=== PATIENT | male | born 1950 | race African-American/Black ===

== ENCOUNTER 2020-01-29 12:31 | Inpatient (IN) | payer MEDICARE, MEDICAID ==
[~2020-01-29] VITALS: Ht 177.8 cm; Wt 65.0 kg
[2020-01-29] VITALS (10 sets, daily range): BP systolic 89–130; BP diastolic 47–78
[2020-01-29] MEDS ORDERED: LIDOCAINE 1% PF 2 ML VIAL. INJ ONE (12:45)
[2020-01-29] MEDS ORDERED: LIDOCAINE 1% PF 5 ML VIAL. ONE (12:51)
[2020-01-29] MEDS ORDERED: LIDOCAINE 1% PF 2 ML VIAL. ONE (12:51)
--- NOTE | 2020-01-29 13:05 | RAD ---
CHEST AP ONLY Clinical indications: Shortness of breath. COMPARISON: None available. Findings: Bilateral interstitial lung infiltrates or bronchitis or interstitial pulmonary edema is seen. Minimal pleural effusion is seen on the right side. No pneumothorax is seen. Cardiomegaly is evident with a sternotomy. Tracheostomy tube is in place and the tube tip is located 4.5 cm above the level of the shellie. Mediastinum and pulmonary vasculature are unremarkable otherwise. IMPRESSION: Bilateral interstitial lung infiltrates or bronchitis or interstitial pulmonary edema. Minimal pleural effusion on the right side. Cardiomegaly. Electronically signed by: Uri Hatfield MD (01/29/2020 1:01 PM) [id number]
[2020-01-29 13:45] LABS: BASO # 0.1 x10^3/uL (0.0-0.2); BASO % 1 % (0-3); EOS # 0.2 x10^3/uL (0.0-0.7); EOS % 2 % (0-3); HEMATOCRIT 24.3 % (39.0-53.0); HEMOGLOBIN 7.3 g/dL (13.0-17.5); LYMPH # 0.9 x10^3/uL (1.0-4.8); LYMPH % 10 % (24-48); MEAN CORPUSCULAR HEMOGLOBIN 26 pg (25-35); MEAN CORPUSCULAR HGB CONC 30 g/dL (31-37); MEAN CORPUSCULAR VOLUME 87 fL (79-100); MONO # 1.2 x10^3/uL (0.0-1.1); MONO % 13 % (0-9); NEUT # 6.7 x10^3/uL (1.8-7.7); NEUT % 74 % (31-73); PLATELET COUNT 341 x10^3/uL (140-400); RED BLOOD COUNT 2.78 x10^6/uL (4.30-5.70); RED CELL DISTRIBUTION WIDTH 22.2 % (11.5-14.5); WHITE BLOOD COUNT 9.1 x10^3/uL (4.0-11.0)
[2020-01-29 13:58] LABS: CALCIUM 9.5 mg/dL (8.5-10.1); POTASSIUM 5.8 mmol/L (3.5-5.1)
--- NOTE | 2020-01-29 13:58 | PDOC2 ---
CONSULT Date of Service Date of Service DATE: 01/29/20 TIME: 13:46 Reason for Consult Reason for Consult: actively bleeding right arm AVF Referring Physician Referring Physician: dr Lazaro -- ER Identification/Chief Complaint Chief Complaint bleeding from right arm AV Fistula Source Source: Caregiver, Chart review, Patient History of Present Illness Reason for Visit: Eldery male with ESRD on HD via right upper arm AV access who apparently had HD on Friday without issues. He has apparently had signfiicant ulceration over an area of the fistula for several weeks and today this started actively bleeding. It has been controlled by direct pressure in the ED. I was asked to see him -- on taking the dressing down there is significant bleeding I was unable to control with direct pressure /manually so the arm was re-wrapped with a pressure dressing and the plan was to take him urgently to the OR for exploration / revision vs ligation to stop the bleeding. He is a Jewish and will not accept blood transfusion. Per report by the ER his Hg was 5.5 he has a permanent tracheostomy. He tells me he has had high pressures in the fistula but he is not sure how long or if it is consistent. Past Surgical History Past Surgical History tracheostomy, AVG, coronary bypass Family History Family History Pt unable to remember Current Medications Current Medications Current Medications Lidocaine HCl (Xylocaine-Mpf 1% 2ml Vial) 20 ml 1X ONCE INJ ; Start 01/29/20 at 12:45; Stop 01/29/20 at 12:51; Status DC Lidocaine HCl (Xylocaine-Mpf 1% 2ml Vial) 2 ml STK-MED ONCE .ROUTE ; Start 01/29/20 at 12:51; Stop 01/29/20 at 12:51; Status DC Lidocaine HCl (Xylocaine-Mpf 1% 5ml Vial) 5 ml STK-MED ONCE .ROUTE ; Start 01/29/20 at 12:51; Stop 01/29/20 at 12:51; Status DC Allergies Allergies: Coded Allergies: Penicillins (Verified Allergy, Unknown, 01/29/20) ROS Review of System Pt denies any other acute issues -- he is somewhat shaken by the emergency nature of the situation and states he can not remember Physical Exam General: Alert, Oriented X3, Cooperative, moderate distress HEENT: Atraumatic, PERRLA Lungs: Other (coarse BS with some labored breathing -- permanent tracheostomy ) Heart: Regular rate, No murmurs, Other (well healed median sternotomy scar ) Abdomen: Normal bowel sounds Extremities: No clubbing Skin: No rashes Neuro: Normal speech Psych/Mental Status: Mental status NL MUSCULOSKELETAL: No joint tenderness, Other (right arm with bleeding AVF vs graft ) Vitals VITALS Vital Signs Date Time Temp Pulse Resp B/P (MAP) Pulse Ox O2 Delivery O2 Flow Rate FiO2 01/29/20 12:32 72 16 139/75 (96) 100 Room Air 2.0 Assessment/Plan Assessment/Plan acutely bleeding AVF vs graft in a Jehova's Witness who will not take blood transfusion and has Hg reported to me as 5.5. Will plan to take him emergently to the OR for exploration and likely ligation given the low Hg, urgent nature and the inability to give blood products. He understands the bleeding is life threatening and surgery may involve loss of his HD access but will be life saving. He wishes to proceed. consent signed right arm marked. Will need to be admitted by hosptialists after, will need IR for tunnel HD catheter EDDIE,JAMESON Heller MD Jan 29, 2020 13:58
[2020-01-29 14:03] LABS: ALBUMIN 2.1 g/dL (3.4-5.0); ALBUMIN/GLOBULIN RATIO 0.3 (1.0-1.7); TOTAL BILIRUBIN 0.4 mg/dL (0.2-1.0); TOTAL PROTEIN 8.3 g/dL (6.4-8.2)
[2020-01-29] MEDS ORDERED: PAPAVERINE 60 MG/2 ML VIAL. ONE (14:19)
[2020-01-29] MEDS ORDERED: SURGICEL FIBRILLAR 1X2 EACH. ONE (14:19)
[2020-01-29] MEDS ORDERED: LIDOCAINE 1% PF 30 ML VIAL. ONE (14:19)
[2020-01-29 14:25] LABS: PROTHROMBIN TIME PATIENT 23.4 SEC (11.7-14.0)
[2020-01-29] MEDS ORDERED: GLYCOPYRROLATE 1 MG/5 ML VIAL. ONE (14:25)
[2020-01-29] MEDS ORDERED: fentaNYL PF VIAL 100 MCG/2 ML VIAL ONE (14:26)
[2020-01-29] MEDS ORDERED: ROCURONIUM 50 MG/5 ML VIAL. ONE (14:26)
[2020-01-29] MEDS ORDERED: MIDAZOLAM HCL/PF 2 MG/2 ML VIAL. ONE (14:27)
[2020-01-29] MEDS ORDERED: ONDANSETRON PF 4 MG/2 ML VIAL. IV PRN ×2 (14:45→16:15)
--- NOTE | 2020-01-29 14:45 | PHYS DOC ---
Past Medical History Past Medical History: A-Fib, CHF, COPD, Diabetes-Type II, High Cholesterol, Hypertension, ME, Renal Failure Additional Past Medical Histor: EF 10%, JEHOVAH WITNESS, SEPSIS, TRACH PLACEMENT, 3 LI O2 AT HOME Past Surgical History: Other Additional Past Surgical Histo: DIALYSIS CATHETER, TRACH PLACEMENT, MITRAL VALVE REPLACEMENT Smoking Status: Former Smoker Alcohol Use: Sober General Adult EDM: Chief Complaint: DIALYSIS PROBLEM HPI: HPI: The history was obtained from the patient and select care physician. Patient is a 69-year-old male with PMH multiple comorbidities including ESRD who presents with a chief complaint of right upper extremity fistula bleed. Per the select care physician the patient developed ulcerative lesion that eroded into his right upper extremity fistula site over the past several days. She is noted brisk bleeding today. They did try direct pressure without relief. Patient does take Coumadin for atrial fibrillation. Furthermore he also appears to be trach dependent. No history can be obtained from the patient given his close trach status and history of dementia. Select care physician did note that the patient is a Muslim and will refuse any blood products. No further history can be obtained. Review of Systems: Review of Systems: Constitutional: Denies fever or chills. [] Eyes: Denies change in visual acuity. [] HENT: Denies nasal congestion or sore throat. [] Respiratory: Denies cough or shortness of breath. [] Cardiovascular: Bleeding fistula GI: Denies abdominal pain, nausea, vomiting, bloody stools or diarrhea. [] : Denies dysuria. [] Musculoskeletal: Denies back pain or joint pain. [] Integument: Denies rash. [] Neurologic: Denies headache, focal weakness or sensory changes. [] Endocrine: Denies polyuria or polydipsia. [] Lymphatic: Denies swollen glands. [] Psychiatric: Denies depression or anxiety. [] Heart Score: Risk Factors: Risk Factors: DM, Current or recent (<one month) smoker, HTN, HLP, family history of CAD, obesity. Risk Scores: Score 0 - 3: 2.5% MACE over next 6 weeks - Discharge Home Score 4 - 6: 20.3% MACE over next 6 weeks - Admit for Clinical Observation Score 7 - 10: 72.7% MACE over next 6 weeks - Early Invasive Strategies Current Medications: Current Medications Medications (Trade) Dose Ordered Sig/Cheri Start Time Stop Time Status Last Admin Dose Admin Cellulose (Surgicel Fibrillar 1x2) 1 each STK-MED ONCE 01/29/20 14:19 01/29/20 14:19 DC Fentanyl Citrate (Fentanyl 2ml Vial) 100 mcg STK-MED ONCE 01/29/20 14:26 01/29/20 14:27 DC Glycopyrrolate (Robinul) 1 mg STK-MED ONCE 01/29/20 14:25 01/29/20 14:25 DC Heparin Sodium (Porcine) 5000 unit/Sodium Chloride 505 ml @ 505 mls/hr 1X ONCE 01/29/20 15:00 01/29/20 15:59 Lidocaine HCl (Xylocaine 1% Pf 30ml Vial) 30 ml STK-MED ONCE 01/29/20 14:19 01/29/20 14:19 DC Lidocaine HCl (Xylocaine-Mpf 1% 2ml Vial) 2 ml STK-MED ONCE 01/29/20 12:51 01/29/20 12:51 DC Lidocaine HCl (Xylocaine-Mpf 1% 5ml Vial) 5 ml STK-MED ONCE 01/29/20 12:51 01/29/20 12:51 DC Midazolam HCl (Versed) 2 mg STK-MED ONCE 01/29/20 14:27 01/29/20 14:27 DC Ondansetron HCl (Zofran) 4 mg PRN Q8HRS PRN 01/29/20 14:45 01/30/20 14:44 Papaverine HCl 60 mg STK-MED ONCE 01/29/20 14:19 01/29/20 14:20 DC Rocuronium [place] (Zemuron) 50 mg STK-MED ONCE 01/29/20 14:26 01/29/20 14:26 DC Allergies: Allergies: Allergies Coded Allergies Type Severity Reaction Last Updated Verified Penicillins Allergy Intermediate 01/29/20 Yes Physical Exam: PE: Constitutional: Well developed, well nourished, no acute distress, non-toxic appearance. [] HENT: Normocephalic, atraumatic, bilateral external ears normal, oropharynx moist, no oral exudates, nose normal. [] Eyes: PERRLA, EOMI, conjunctiva normal, no discharge. [] Neck: Normal range of motion, no tenderness, supple, no stridor. [] Cardiovascular:Heart rate regular rhythm, no murmur [] Lungs & Thorax: rhonchorous breath sounds bilaterally. Closed trach in place Abdomen:no tenderness, no masses, no pulsatile masses. [] Skin: Warm, dry, no erythema, no rash. [] Back: No tenderness, no CVA tenderness. [] Extremities right upper extremity with brisk and pulsatile bleeding fistula site. Wound appears approximately 2 mm x 3 mm. Neurologic: Alert and oriented X 3, normal motor function, normal sensory function, no focal deficits noted. [] Psychologic: Affect normal, judgement normal, mood normal. [] Current Patient Data: Labs: Laboratory Tests Test 01/29/20 13:10 01/29/20 13:46 White Blood Count 9.1 x10^3/uL (4.0-11.0) Red Blood Count 2.78 x10^6/uL (4.30-5.70) L Hemoglobin 7.3 g/dL (13.0-17.5) L Hematocrit 24.3 % (39.0-53.0) L Mean Corpuscular Volume 87 fL (79-100) Mean Corpuscular Hemoglobin 26 pg (25-35) Mean Corpuscular Hemoglobin Concent 30 g/dL (31-37) L Red Cell Distribution Width 22.2 % (11.5-14.5) H Platelet Count 341 x10^3/uL (140-400) Neutrophils (%) (Auto) 74 % (31-73) H Lymphocytes (%) (Auto) 10 % (24-48) L Monocytes (%) (Auto) 13 % (0-9) H Eosinophils (%) (Auto) 2 % (0-3) Basophils (%) (Auto) 1 % (0-3) Neutrophils # (Auto) 6.7 x10^3/uL (1.8-7.7) Lymphocytes # (Auto) 0.9 x10^3/uL (1.0-4.8) L Monocytes # (Auto) 1.2 x10^3/uL (0.0-1.1) H Eosinophils # (Auto) 0.2 x10^3/uL (0.0-0.7) Basophils # (Auto) 0.1 x10^3/uL (0.0-0.2) Platelet Estimate Pending Sodium Level 143 mmol/L (136-145) Potassium Level 5.8 mmol/L (3.5-5.1) H Chloride Level 104 mmol/L (98-107) Carbon Dioxide Level 32 mmol/L (21-32) Anion Gap 7 (6-14) Blood Urea Nitrogen 33 mg/dL (8-26) H Creatinine 4.0 mg/dL (0.7-1.3) H Estimated GFR (Cockcroft-Gault) 18.0 BUN/Creatinine Ratio 8 (6-20) Glucose Level 147 mg/dL (70-99) H Calcium Level 9.5 mg/dL (8.5-10.1) Total Bilirubin 0.4 mg/dL (0.2-1.0) Aspartate Amino Transferase (AST) 29 U/L (15-37) Alanine Aminotransferase (ALT) 20 U/L (16-63) Alkaline Phosphatase 209 U/L (46-116) H Troponin I Quantitative 0.018 ng/mL (0.000-0.055) Total Protein 8.3 g/dL (6.4-8.2) H Albumin 2.1 g/dL (3.4-5.0) L Albumin/Globulin Ratio 0.3 (1.0-1.7) L Prothrombin Time 23.4 SEC (11.7-14.0) H Prothrombin Time INR 2.1 (0.8-1.1) H Laboratory Tests 01/29/20 13:10 Laboratory Tests 01/29/20 13:10 Vital Signs: Vital Signs Date Time Temp Pulse Resp B/P (MAP) Pulse Ox O2 Delivery O2 Flow Rate FiO2 01/29/20 12:32 72 16 139/75 (96) 100 Room Air 2.0 EKG: EKG: [] EKG consistent with normal sinus rhythm. Ventricular rate of 69 bpm. Left axis noted. Intervals normal. No acute ischemic changes noted. Radiology/Procedures: Radiology/Procedures: [facility] [address] [place], [place] [id number] IMAGING REPORT Signed PATIENT: ROBERTO PATEL ACCOUNT: [id number] : 1950 LOCATION: ER AGE: 69 SEX: M EXAM STATUS: PRE ER ORD. PHYSICIAN: DIOR MERLOS DO REASON: SOB PROCEDURE: CHEST AP ONLY CHEST AP ONLY Clinical indications: Shortness of breath. COMPARISON: None available. Findings: Bilateral interstitial lung infiltrates or bronchitis or interstitial pulmonary edema is seen. Minimal pleural effusion is seen on the right side. No pneumothorax is seen. Cardiomegaly is evident with a sternotomy. Tracheostomy tube is in place and the tube tip is located 4.5 cm above the level of the shellie. Mediastinum and pulmonary vasculature are unremarkable otherwise. IMPRESSION: Bilateral interstitial lung infiltrates or bronchitis or interstitial pulmonary edema. Minimal pleural effusion on the right side. Cardiomegaly. Electronically signed by: Brenda Hatfield MD (01/29/2020 1:01 PM) [id number] DICTATED and SIGNED BY: BRENDA HATFIELD MD DATE: 01/29/20 1301 [] Course & Med Decision Making: Course & Med Decision Making Pertinent Labs and Imaging studies reviewed. (See chart for details) [] Patient is a 69-year-old male who presents with chief complaint of right upper extremity fistula site bleed. Initial vital signs unremarkable. Exam noted above. Basic labs were obtained. Hemoglobin 7.3. Chemistry panel does show hyperkalemia rest of labs consistent with ESRD. INR 2.1. Rapid SARS-CoV-2 asked was obtained for operative purposes and was negative. Vascular surgeon . Was consulted. He did evaluate the patient at bedside and recommended operative intervention. Patient has remained hemodynamically stable in the emergency department and will be taken to surgery for repair. Dragon Disclaimer: Ramone Disclaimer: This electronic medical record was generated, in whole or in part, using a voice recognition dictation system. Departure Departure Impression: Primary Impression: Complication of AV dialysis fistula Qualified Codes: T82.9XXA - Unspecified complication of cardiac and vascular prosthetic device, implant and graft, initial encounter Disposition: ADMITTED INPATIENT Condition: STABLE Referrals: JEAN BRUNSON MD (PCP) Justicifation of Admission Dx: Justifications for Admission: Justification of Admission Dx: Yes Comments: bleeding RUE fistula DIOR MERLOS DO Jan 29, 2020 14:45
[2020-01-29] MEDS ORDERED: HEPARIN SODIUM 5,000 UNIT in IV NORMAL SALINE 500ML BAG 500 ML IRR ONE (15:00)
[2020-01-29] MEDS ORDERED: fentaNYL PF VIAL 100 MCG/2 ML VIAL IVP ONE (15:00)
[2020-01-29 15:09] LABS: ANISOCYTOSIS MOD; HYPOCHROMIA SLIGHT; PLT ESTIMATE ADEQUATE (ADEQUATE)
[2020-01-29 15:10] LABS: POIKILOCYTOSIS SLIGHT; SCHISTOCYTES OCC; TARGET CELLS FEW; TEAR DROP CELLS OCC
[2020-01-29 15:11] LABS: MICROCYTOSIS SLIGHT; POLYCHROMASIA OCCASIONAL
[2020-01-29] MEDS ORDERED: KETAMINE HCL IN NACL, ISO-OSM 50 MG/5 ML SYRINGE ONE (15:27)
[2020-01-29] MEDS ORDERED: PHENYLEPHRINE in 0.9% NACL PF 1 MG/10 ML SYRINGE. IV ONE (15:42)
[2020-01-29] MEDS ORDERED: HEPARIN 30,000 UNIT/30 ML VIAL. ONE (15:42)
[2020-01-29] MEDS ORDERED: IV RINGERS,LACTATED 1000ML 1,000 ML IV SCH (16:04)
[2020-01-29] MEDS ORDERED: HYDROmorphone 2 MG/ML VIAL IV PRN (16:15)
[2020-01-29] MEDS ORDERED: PROCHLORPERAZINE 10 MG/2 ML VIAL. IV PRN (16:15)
[2020-01-29] MEDS ORDERED: LIDOCAINE 1% PF 2 ML VIAL. ID PRN (16:15)
[2020-01-29] MEDS ORDERED: MORPHINE SULFATE 2 MG/ML VIAL. IV PRN (16:15)
[2020-01-29] MEDS ORDERED: fentaNYL PF VIAL 100 MCG/2 ML VIAL IV PRN ×2 (16:15)
[2020-01-29] MEDS ORDERED: SEVOFLURANE > 120 MINUTES. IH ONE (16:59)
--- NOTE | 2020-01-29 17:25 | PDOC4 ---
OPERATIVE NOTE Date: Date: Jan 29, 2020 Pre-Op Diagnosis: Bleeding right arm AV fistula End-stage renal disease on hemodialysis Need for emergent control of right arm AV fistula bleeding Post-Op Diagnosis: Same as above Procedure Performed: Revision right arm AV fistula with interposition graft and without thrombectomy Surgeon: Nadeem Morgan MD Vascular Surgery Anesthesia Type: General Blood Loss: 75 cc during surgery, patient had blood significantly prior to the OR Specimans Obtained: None Findings: Large ulceration over the right arm AV fistula which had eroded into the fistula and had active bleeding This area of the fistula was resected and replaced with a 6 x 10 [place]-Pan Propaten interposition graft tunneled in a separate plane Good thrill in the fistula at the end of the case Excellent radial ulnar signals in the ipsilateral wrist at the end of the case Complications: None Operative Note: Patient was seen in the emergency department, he had a compression wrap over the right arm. This was gently taken down and there was significant bleeding which I difficulty controlling manually and knew that this would be better controlled in the operating room. The pressure dressing was replaced and of the right arm was marked this was discussed with the patient consent was signed and he was taken to the operating room for control of the right arm AV fistula bleeding and possible repair. He was taken to the operating room placed supine the table and anesthesia was induced without difficulty. The right arm was prepped proximally and a sterile tourniquet was placed and inflated and then the compression dressing was removed and the rest of the arm was prepped and draped in usual sterile fashion. Prior to doing so he had been given intravenous heparin. On taken down the dressing there was still some bleeding from the fistula and this was controlled with direct manual pressure. There was an ulcerated area over the fistula that had eroded directly to the lumen of the fistula and from the outside of the arm I could see directly into the lumen of the fistula. This area was initially ligated superficially with U stitch with a 3-0 Prolene. This controlled bleeding and the tourniquet was taken down and there was a good thrill in the fistula and a good signal at the right wrist. At this point arm was examined, there were 2 large areas of ulceration over the fistula and knew that just placing a stitch and this would not be a good permanent solution he was likely to bleed again. 15. Scalpel was used to make a elliptical incision around the 2 areas of ulceration centered over the fistula. This was carried down with Bovie cautery and the fistula was isolated proximally distally this. It was clamped with vascular clamps and then the area of ulceration including the portion of the fistula there was completely excised. The fistula was divided proximally distally this area in a spatulated fashion. We brought onto the field a 6 x 10 [place]-Pan propatent graft and tunneled this and separate pathway more superficially and laterally in the arm. The ends were spatulated to match the fistula in each hand and end-to-end anastomosis was created with 2 at bedtime 7 hao-seal sutures in the standard end and running fashion. The arterial side was created first and then the venous side. Just prior to completion of the repair as the vessels were backbled, for flushed, and irrigated heparinized saline. The repair was completed and normal for flow was returned to the fistula. The fistula is palpated and found to have a strong thrill. Excellent hemostasis was ensured throughout the operative field and again a strong radial and ulnar signal was confirmed the right wrist with hand- held continuous-wave Doppler. Excellent hemostasis was ensured throughout the wound and some Surgicel was used to wrap the anastomoses and packed the base of the wound. The wound was then closed with a running deep 2-0 and 3-0 Vicryl and a subcuticular 4-0 Vicryl supported with some interrupted mattress sutures using a 3-0 nylon. The arm was cleaned and dried and a sterile slightly compressive dressing was placed given the fact that he is on anticoagulation. He was awake in the operating room and escorted to intensive care unit but in stable condition. There are no complications and he tolerated procedure well given his underlying medical conditions and urgent nature of the procedure. At the end the case all sponge, needle, and instrument counts were reported to me as correct x2. JAMESON MORGAN MD Jan 29, 2020 17:25
[2020-01-29] MEDS ORDERED: C.DIFF MED SCREEN BY RX. MC ONE (17:45)
[2020-01-29] MEDS ORDERED: INSU100V38 SQ (18:18)
[2020-01-29] MEDS ORDERED: INSU100V6 SQ (18:18)
[2020-01-29] MEDS ORDERED: PANT40TA77 PO (18:18)
[2020-01-29] MEDS ORDERED: BUSP5TAB PO (18:18)
[2020-01-29] MEDS ORDERED: WARF2TAB96 PO (18:18)
[2020-01-29] MEDS ORDERED: ASCO500T3 PO (18:18)
[2020-01-29] MEDS ORDERED: IPRA0.2S5 NEB (18:18)
[2020-01-29] MEDS ORDERED: SENN1TAB99 PO (18:18)
[2020-01-29] MEDS ORDERED: FOLI0.8T32 PO (18:18)
[2020-01-29] MEDS ORDERED: CYCL10TA2 PO (18:18)
[2020-01-29] MEDS ORDERED: ATOR40TA59 PO (18:18)
[2020-01-29] MEDS ORDERED: SCOP1PAT11 TP (18:18)
[2020-01-29] MEDS ORDERED: ACET325T9 PO (18:18)
[2020-01-29] MEDS ORDERED: FOLI1CAP10 PO (18:18)
[2020-01-29] MEDS ORDERED: BUDE0.5A NEB (18:18)
[2020-01-29] MEDS ORDERED: MIDO10TA PO (18:18)
[2020-01-29] MEDS ORDERED: MAGN400T5 PO (18:18)
[2020-01-29] MEDS ORDERED: FERR220S16 PO (18:18)
[2020-01-29] MEDS ORDERED: METO10TA81 PO (18:18)
[2020-01-29] MEDS ORDERED: POLY17PO29 PO (18:18)
[2020-01-29] MEDS ORDERED: MELA3CAP2 PO (18:18)
[2020-01-29] MEDS ORDERED: HYDR10SY16 PO (18:18)
[2020-01-29] MEDS ORDERED: CYAN100031 PO (18:18)
[2020-01-29] MEDS ORDERED: METO25TA4 PO (18:18)
[2020-01-29] MEDS ORDERED: DEXT37.5 PO (18:18)
[2020-01-29] MEDS ORDERED: HYDR-2759 PO (18:18)
[2020-01-29] MEDS ORDERED: AMIO400T5 PO (18:18)
[2020-01-30] VITALS (25 sets, daily range): BP systolic 76–104; BP diastolic 45–71
[2020-01-30 05:21] LABS: CREATININE 4.8 mg/dL (0.7-1.3); GFR 14.6
[2020-01-30 05:27] LABS: BASO # 0.1 x10^3/uL (0.0-0.2); BASO % 1 % (0-3); EOS # 0.2 x10^3/uL (0.0-0.7); EOS % 3 % (0-3); LYMPH # 0.9 x10^3/uL (1.0-4.8); LYMPH % 14 % (24-48); MEAN CORPUSCULAR HEMOGLOBIN 27 pg (25-35); MEAN CORPUSCULAR HGB CONC 30 g/dL (31-37); MEAN CORPUSCULAR VOLUME 88 fL (79-100); MONO # 0.7 x10^3/uL (0.0-1.1); MONO % 11 % (0-9); NEUT # 4.3 x10^3/uL (1.8-7.7); NEUT % 71 % (31-73); PLATELET COUNT 261 x10^3/uL (140-400); RED BLOOD COUNT 2.29 x10^6/uL (4.30-5.70); RED CELL DISTRIBUTION WIDTH 21.8 % (11.5-14.5)
[2020-01-30 05:41] LABS: HEMOGLOBIN 6.1 g/dL (13.0-17.5)
[2020-01-30 05:42] LABS: HEMATOCRIT 20.1 % (39.0-53.0)
[2020-01-30 05:46] LABS: POTASSIUM 6.5 mmol/L (3.5-5.1)
--- NOTE | 2020-01-30 06:20 | NUR ---
critically low H/H and K values this morning, Dr Pritchett paged and notified. pt is Pentecostal and refuses blood products so order was placed that doctors no longer need to be notified regarding future low H/H results. pt is also an ESRD pt and receives HD 3x/week, consult for Dr Apodaca was placed upon pt's admission and Dr Pritchett reports that he gave them "a heads up when he was coming from [facility]." will pass on in report, will continue to closely monitor.
--- NOTE | 2020-01-30 11:53 | PDOC ---
PROGRESS NOTES Date of Service DATE: 01/30/20 TIME: 11:51 Subjective Subjective Patient seen and examined in his hospital bed this morninghe has no new complaints He denies any pain, paresthesias, weakness in the right arm. Right arm dressing was taken down, incisions clean dry and intact without hematoma and there is a strong thrill in the fistula. He has a good signal at the right wrist with normal sensation in the right hand. His labs were reviewed his hemoglobin is 6.1 but he is a [employer] and refusing blood transfusion. His potassium was 6.5. Given the urgent surgical vision of his right arm AV fistula for acute bleeding it will be several weeks before he can use the right arm for dialysis access. He will need a temporary catheter likely tomorrow, he will likely need his Coumadin held and bridged with Lovenox until he can have a tunnel catheter placed. From my standpoint arm looks good, I like to see him back in the office in 2 to 3weeks to see how incisions healing and will need to evaluate this before he is able to use the arm for dialysis access again Objective Objective Vital Signs Date Time Temp Pulse Resp B/P (MAP) Pulse Ox O2 Delivery O2 Flow Rate FiO2 01/30/20 11:00 75 23 102/63 (76) 100 Nasal Cannula 3.0 01/30/20 08:00 97.3 97.3 Intake and Output 01/30/20 07:00 Intake Total 0 ml Output Total 75 ml Balance -75 ml Intake Oral 0 ml Output Urine Total 0 ml Estimated Blood Loss 75 ml Assessment Assessment Problems Medical Problems: (1) Complication of AV dialysis fistula Status: Acute Comment Review of Relevant I have reviewed the following items veronica (where applicable) has been applied. Labs Laboratory Tests Test 01/29/20 13:10 01/29/20 13:46 01/29/20 13:54 01/30/20 04:45 White Blood Count 9.1 x10^3/uL (4.0-11.0) 6.0 x10^3/uL (4.0-11.0) Red Blood Count 2.78 x10^6/uL (4.30-5.70) 2.29 x10^6/uL (4.30-5.70) Hemoglobin 7.3 g/dL (13.0-17.5) 6.1 g/dL (13.0-17.5) Hematocrit 24.3 % (39.0-53.0) 20.1 % (39.0-53.0) Mean Corpuscular Volume 87 fL (79-100) 88 fL (79-100) Mean Corpuscular Hemoglobin 26 pg (25-35) 27 pg (25-35) Mean Corpuscular Hemoglobin Concent 30 g/dL (31-37) 30 g/dL (31-37) Red Cell Distribution Width 22.2 % (11.5-14.5) 21.8 % (11.5-14.5) Platelet Count 341 x10^3/uL (140-400) 261 x10^3/uL (140-400) Neutrophils (%) (Auto) 74 % (31-73) 71 % (31-73) Lymphocytes (%) (Auto) 10 % (24-48) 14 % (24-48) Monocytes (%) (Auto) 13 % (0-9) 11 % (0-9) Eosinophils (%) (Auto) 2 % (0-3) 3 % (0-3) Basophils (%) (Auto) 1 % (0-3) 1 % (0-3) Neutrophils # (Auto) 6.7 x10^3/uL (1.8-7.7) 4.3 x10^3/uL (1.8-7.7) Lymphocytes # (Auto) 0.9 x10^3/uL (1.0-4.8) 0.9 x10^3/uL (1.0-4.8) Monocytes # (Auto) 1.2 x10^3/uL (0.0-1.1) 0.7 x10^3/uL (0.0-1.1) Eosinophils # (Auto) 0.2 x10^3/uL (0.0-0.7) 0.2 x10^3/uL (0.0-0.7) Basophils # (Auto) 0.1 x10^3/uL (0.0-0.2) 0.1 x10^3/uL (0.0-0.2) Platelet Estimate Adequate (ADEQUATE) Polychromasia Occasional Hypochromasia Slight Poikilocytosis Slight Anisocytosis Mod Microcytosis Slight Target Cells Few Tear Drop Cells Occ Schistocytes Occ Sodium Level 143 mmol/L (136-145) 144 mmol/L (136-145) Potassium Level 5.8 mmol/L (3.5-5.1) 6.5 mmol/L (3.5-5.1) Chloride Level 104 mmol/L (98-107) 107 mmol/L (98-107) Carbon Dioxide Level 32 mmol/L (21-32) 30 mmol/L (21-32) Anion Gap 7 (6-14) 7 (6-14) Blood Urea Nitrogen 33 mg/dL (8-26) 39 mg/dL (8-26) Creatinine 4.0 mg/dL (0.7-1.3) 4.8 mg/dL (0.7-1.3) Estimated GFR (Cockcroft-Gault) 18.0 14.6 BUN/Creatinine Ratio 8 (6-20) Glucose Level 147 mg/dL (70-99) 111 mg/dL (70-99) Calcium Level 9.5 mg/dL (8.5-10.1) 9.0 mg/dL (8.5-10.1) Total Bilirubin 0.4 mg/dL (0.2-1.0) Aspartate Amino Transf (AST/SGOT) 29 U/L (15-37) Alanine Aminotransferase (ALT/SGPT) 20 U/L (16-63) Alkaline Phosphatase 209 U/L (46-116) Troponin I Quantitative 0.018 ng/mL (0.000-0.055) Total Protein 8.3 g/dL (6.4-8.2) Albumin 2.1 g/dL (3.4-5.0) Albumin/Globulin Ratio 0.3 (1.0-1.7) Prothrombin Time 23.4 SEC (11.7-14.0) Prothromb Time International Ratio 2.1 (0.8-1.1) SARS-CoV-2 Antigen (Rapid) Negative (NEGATIVE) Laboratory Tests Test 01/29/20 13:10 01/29/20 13:46 01/29/20 13:54 01/30/20 04:45 White Blood Count 9.1 x10^3/uL (4.0-11.0) 6.0 x10^3/uL (4.0-11.0) Red Blood Count 2.78 x10^6/uL (4.30-5.70) 2.29 x10^6/uL (4.30-5.70) Hemoglobin 7.3 g/dL (13.0-17.5) 6.1 g/dL (13.0-17.5) Hematocrit 24.3 % (39.0-53.0) 20.1 % (39.0-53.0) Mean Corpuscular Volume 87 fL (79-100) 88 fL (79-100) Mean Corpuscular Hemoglobin 26 pg (25-35) 27 pg (25-35) Mean Corpuscular Hemoglobin Concent 30 g/dL (31-37) 30 g/dL (31-37) Red Cell Distribution Width 22.2 % (11.5-14.5) 21.8 % (11.5-14.5) Platelet Count 341 x10^3/uL (140-400) 261 x10^3/uL (140-400) Neutrophils (%) (Auto) 74 % (31-73) 71 % (31-73) Lymphocytes (%) (Auto) 10 % (24-48) 14 % (24-48) Monocytes (%) (Auto) 13 % (0-9) 11 % (0-9) Eosinophils (%) (Auto) 2 % (0-3) 3 % (0-3) Basophils (%) (Auto) 1 % (0-3) 1 % (0-3) Neutrophils # (Auto) 6.7 x10^3/uL (1.8-7.7) 4.3 x10^3/uL (1.8-7.7) Lymphocytes # (Auto) 0.9 x10^3/uL (1.0-4.8) 0.9 x10^3/uL (1.0-4.8) Monocytes # (Auto) 1.2 x10^3/uL (0.0-1.1) 0.7 x10^3/uL (0.0-1.1) Eosinophils # (Auto) 0.2 x10^3/uL (0.0-0.7) 0.2 x10^3/uL (0.0-0.7) Basophils # (Auto) 0.1 x10^3/uL (0.0-0.2) 0.1 x10^3/uL (0.0-0.2) Platelet Estimate Adequate (ADEQUATE) Polychromasia Occasional Hypochromasia Slight Poikilocytosis Slight Anisocytosis Mod Microcytosis Slight Target Cells Few Tear Drop Cells Occ Schistocytes Occ Sodium Level 143 mmol/L (136-145) 144 mmol/L (136-145) Potassium Level 5.8 mmol/L (3.5-5.1) 6.5 mmol/L (3.5-5.1) Chloride Level 104 mmol/L (98-107) 107 mmol/L (98-107) Carbon Dioxide Level 32 mmol/L (21-32) 30 mmol/L (21-32) Anion Gap 7 (6-14) 7 (6-14) Blood Urea Nitrogen 33 mg/dL (8-26) 39 mg/dL (8-26) Creatinine 4.0 mg/dL (0.7-1.3) 4.8 mg/dL (0.7-1.3) Estimated GFR (Cockcroft-Gault) 18.0 14.6 BUN/Creatinine Ratio 8 (6-20) Glucose Level 147 mg/dL (70-99) 111 mg/dL (70-99) Calcium Level 9.5 mg/dL (8.5-10.1) 9.0 mg/dL (8.5-10.1) Total Bilirubin 0.4 mg/dL (0.2-1.0) Aspartate Amino Transf (AST/SGOT) 29 U/L (15-37) Alanine Aminotransferase (ALT/SGPT) 20 U/L (16-63) Alkaline Phosphatase 209 U/L (46-116) Troponin I Quantitative 0.018 ng/mL (0.000-0.055) Total Protein 8.3 g/dL (6.4-8.2) Albumin 2.1 g/dL (3.4-5.0) Albumin/Globulin Ratio 0.3 (1.0-1.7) Prothrombin Time 23.4 SEC (11.7-14.0) Prothromb Time International Ratio 2.1 (0.8-1.1) SARS-CoV-2 Antigen (Rapid) Negative (NEGATIVE) Medications Current Medications Lidocaine HCl (Xylocaine-Mpf 1% 2ml Vial) 20 ml 1X ONCE INJ ; Start 919/20 at 12:45; Stop 01/29/20 at 12:51; Status DC Lidocaine HCl (Xylocaine-Mpf 1% 2ml Vial) 2 ml STK-MED ONCE .ROUTE ; Start 01/29/20 at 12:51; Stop 01/29/20 at 12:51; Status DC Lidocaine HCl (Xylocaine-Mpf 1% 5ml Vial) 5 ml STK-MED ONCE .ROUTE ; Start 01/29/20 at 12:51; Stop 01/29/20 at 12:51; Status DC Cellulose (Surgicel Fibrillar 1x2) 1 each STK-MED ONCE .ROUTE Last administered on 01/29/20at 16:48; Start 01/29/20 at 14:19; Stop 01/29/20 at 14:19; Status DC Lidocaine HCl (Xylocaine 1% Pf 30ml Vial) 30 ml STK-MED ONCE .ROUTE ; Start 01/29/20 at 14:19; Stop 01/29/20 at 14:19; Status DC Heparin Sodium (Porcine) 5000 unit/Sodium Chloride 505 ml @ 505 mls/hr 1X ONCE IRR Last administered on 01/29/20at 15:28; Start 01/29/20 at 15:00; Stop 01/29/20 at 16:03; Status DC Papaverine HCl 60 mg STK-MED ONCE .ROUTE ; Start 01/29/20 at 14:19; Stop 01/29/20 at 14:20; Status DC Glycopyrrolate (Robinul) 1 mg STK-MED ONCE .ROUTE ; Start 01/29/20 at 14:25; Stop 01/29/20 at 14:25; Status DC Rocuronium [place] (Zemuron) 50 mg STK-MED ONCE .ROUTE ; Start 01/29/20 at 14:26; Stop 01/29/20 at 14:26; Status DC Fentanyl Citrate (Fentanyl 2ml Vial) 100 mcg STK-MED ONCE .ROUTE ; Start 01/29/20 at 14:26; Stop 01/29/20 at 14:27; Status DC Midazolam HCl (Versed) 2 mg STK-MED ONCE .ROUTE ; Start 01/29/20 at 14:27; Stop 01/29/20 at 14:27; Status DC Ondansetron HCl (Zofran) 4 mg PRN Q8HRS PRN IV NAUSEA/VOMITING Last administered on 01/29/20at 14:58; Start 01/29/20 at 14:45; Stop 01/30/20 at 14:44 Fentanyl Citrate (Fentanyl 2ml Vial) 50 mcg 1X ONCE IVP Last administered on 01/29/20at 14:58; Start 01/29/20 at 15:00; Stop 01/29/20 at 15:01; Status DC Ketamine HCl (Ketamine) 50 mg STK-MED ONCE .ROUTE ; Start 01/29/20 at 15:27; Stop 01/29/20 at 15:27; Status DC Heparin Sodium (Porcine) (Heparin) 30,000 unit STK-MED ONCE .ROUTE ; Start 01/29/20 at 15:42; Stop 01/29/20 at 15:43; Status DC Phenylephrine HCl (PHENYLEPHRINE in 0.9% NACL PF) 1 mg STK-MED ONCE IV ; Start 01/29/20 at 15:42; Stop 01/29/20 at 15:43; Status DC Ondansetron HCl (Zofran) 4 mg PRN Q6HRS PRN IV NAUSEA/VOMITING; Start 01/29/20 at 16:15; Stop 01/29/20 at 22:00; Status DC Fentanyl Citrate (Fentanyl 2ml Vial) 25 mcg PRN Q5MIN PRN IV MILD PAIN 1-3; Start 01/29/20 at 16:15; Stop 01/29/20 at 22:00; Status DC Fentanyl Citrate (Fentanyl 2ml Vial) 50 mcg PRN Q5MIN PRN IV MODERATE TO SEVERE PAIN; Start 01/29/20 at 16:15; Stop 01/29/20 at 22:00; Status DC Morphine Sulfate (Morphine Sulfate) 1 mg PRN Q10MIN PRN IV SEVERE PAIN 7-10; Start 01/29/20 at 16:15; Stop 01/29/20 at 22:00; Status DC Ringer's Solution 1,000 ml @ 30 mls/hr Q24H IV ; Start 01/29/20 at 16:04; Stop 01/30/20 at 04:03; Status DC Lidocaine HCl (Xylocaine-Mpf 1% 2ml Vial) 2 ml PRN 1X PRN ID PRIOR TO IV START; Start 01/29/20 at 16:15; Stop 01/29/20 at 22:00; Status DC Hydromorphone HCl (Dilaudid) 0.5 mg PRN Q10MIN PRN IV SEV PAIN, Second choice; Start 01/29/20 at 16:15; Stop 01/29/20 at 22:00; Status DC Prochlorperazine Edisylate (Compazine) 5 mg PACU PRN PRN IV NAUSEA, MRX1; Start 01/29/20 at 16:15; Stop 01/29/20 at 22:00; Status DC Sevoflurane (Ultane) 90 ml STK-MED ONCE IH ; Start 01/29/20 at 16:59; Stop 01/29/20 at 16:59; Status DC Pharmacy Consult (C.diff Med Screen By Rx) 1 each 1X ONCE [facility] ; Start 01/29/20 at 17:45; Stop 01/29/20 at 17:46; Status UNV Active Scripts Active Reported Hydroxyzine Hcl 10 Mg/5 Ml Syrup 10 Mg PO TID Hydrocodone-Acetamin 5-325 mg (Hydrocodone/Acetaminophen) 1 Each Tablet 1 Each PO PRN Q6HRS PRN Glutose 15 (Dextrose) 37.5 Gm Gel..gram. 37.5 Gm PO PRN Cyclobenzaprine Hcl 10 Mg Tablet 1 Tab PO TID Tylenol (Acetaminophen) 325 Mg Tablet 2 Tab PO Q6HRS PRN Warfarin Sodium 2 Mg Tablet 2 Mg PO DAILY B-12 (Cyanocobalamin (Vitamin B-12)) 1,000 Mcg Tablet.er 1 Tab PO DAILY 30 Days Senna-Docusate Sodium Tablet (Sennosides/Docusate Sodium) 1 Each Tablet 1 Tab PO HS 20 Days Transderm-Scop (Scopolamine) 1 Each Patch.td72 1 Patch TP Q3DAYS Renal Caps Softgel (Folic Acid/Vitamin B Comp W-C) 1 Mg Capsule 1 Cap PO DAILY 30 Days Miralax (Polyethylene Glycol 3350) 17 Gm Powd.pack 1 Packet PO DAILY 2 Days dissolve in water Pantoprazole Sodium (Pantoprazole Sodium) 40 Mg Tablet.dr 40 Mg PO DAILYAC Midodrine Hcl 10 Mg Tablet 10 Mg PO TID Metoprolol Tartrate 25 Mg Tablet 0.5 Tab PO BID Reglan (Metoclopramide Hcl) 10 Mg Tablet 1 Tab PO TIDAC 30 Days before food and bedtime Melatonin 3 Mg Capsule 3 Mg PO HS Magnesium Oxide 400 Mg Tablet 1 Tab PO BID Ipratropium [place] 0.2 Mg/1 Ml Solution 1 Vial NEB QID Humalog (Insulin Lispro) 100 Unit/1 Ml Vial 4 Unit SQ TIDAC Insulin Lispro 100 Unit/1 Ml Vial 0-6 Unit SQ TIDAC Renal-Karina Tablet (Folic Acid/Vit Bcomp,C) 0.8 Mg Tablet 1 Mg PO DAILY Ferrous Sulfate 220 Mg/5 Ml Solution 5 Ml PO DAILY 30 Days Buspirone Hcl 5 Mg Tablet 1 Tab PO TID Budesonide 0.5 Mg/2 Ml Ampul.neb 1 Vial NEB BID Atorvastatin Calcium 40 Mg Tablet 1 Tab PO QHS Ascorbic Acid 500 Mg Tablet 500 Mg PO DAILY Amiodarone Hcl 400 Mg Tablet 1 Tab PO DAILY 30 Days Vitals/I & O Vital Sign - Last 24 Hours 01/29/20 01/29/20 01/29/20 01/29/20 12:32 13:02 13:54 14:02 Pulse 72 73 83 75 Resp 16 B/P (MAP) 139/75 (96) 134/80 (98) 140/94 (109) 150/105 (120) Pulse Ox 100 100 90 96 O2 Delivery Room Air Nasal Cannula Nasal Cannula Nasal Cannula O2 Flow Rate 2.0 3.0 3.0 3.0 01/29/20 01/29/20 01/29/20 01/29/20 14:32 17:16 17:16 17:20 Temp 97.5 94.0 97.5 94.0 Pulse 74 81 Resp 22 16 B/P (MAP) 121/75 (90) 130/78 130/78 (95) Pulse Ox 96 100 97 O2 Delivery Nasal Cannula T-piece T-Tube Simple Mask O2 Flow Rate 3.0 10 10 8.0 01/29/20 01/29/20 01/29/20 01/29/20 17:30 17:31 17:45 17:46 Pulse 68 75 66 78 Resp 20 20 20 22 B/P (MAP) 119/71 (87) 92/75 89/63 (72) 95/55 Pulse Ox 100 99 99 98 O2 Delivery Simple Mask T-Tube Simple Mask Nasal Cannula O2 Flow Rate 8.0 10 8.0 2 01/29/20 01/29/20 01/29/20 01/29/20 17:54 18:00 18:03 18:05 Pulse 64 62 62 Resp 22 20 22 B/P (MAP) 198/188 119/71 (87) 92/51 Pulse Ox 100 99 100 O2 Delivery Nasal Cannula Nasal Cannula Nasal Cannula Nasal Cannula O2 Flow Rate 2 3.0 2 3.0 01/29/20 01/29/20 01/29/20 01/29/20 18:15 18:18 19:00 20:00 Temp 93.6 93.6 Pulse 60 62 61 Resp 16 B/P (MAP) 89/58 (68) 89/58 91/54 (66) Pulse Ox 100 100 100 O2 Delivery Nasal Cannula Nasal Cannula Nasal Cannula Nasal Cannula O2 Flow Rate 3.0 2 3.0 3.0 01/29/20 01/29/20 01/29/20 01/29/20 20:00 21:00 22:00 23:00 Temp 98.9 98.9 Pulse 57 57 58 64 Resp 19 B/P (MAP) 89/47 (61) 90/55 (67) 102/61 (75) 95/59 (71) Pulse Ox 100 100 100 98 O2 Delivery Nasal Cannula Nasal Cannula Nasal Cannula Nasal Cannula O2 Flow Rate 3.0 3.0 3.0 3.0 01/30/20 01/30/20 01/30/20 01/30/20 00:00 00:00 01:00 02:00 Temp 98.2 98.2 Pulse 59 63 70 Resp 18 B/P (MAP) 100/58 (72) 93/58 (70) 92/53 (66) Pulse Ox 100 100 100 O2 Delivery Nasal Cannula Nasal Cannula Nasal Cannula Nasal Cannula O2 Flow Rate 3.0 3.0 3.0 3.0 01/30/20 01/30/20 01/30/20 01/30/20 03:00 04:00 04:00 05:00 Temp 98.7 98.7 Pulse 70 72 72 Resp 13 24 B/P (MAP) 92/58 (69) 99/55 (70) 86/45 (59) Pulse Ox 100 100 100 O2 Delivery Nasal Cannula Nasal Cannula Nasal Cannula Nasal Cannula O2 Flow Rate 3.0 3.0 3.0 3.0 01/30/20 01/30/20 01/30/20 01/30/20 06:00 07:00 08:00 08:00 Temp 97.3 97.3 Pulse 74 78 75 Resp 15 16 16 B/P (MAP) 90/55 (67) 95/57 (70) 97/60 (72) Pulse Ox 100 100 100 O2 Delivery Nasal Cannula Nasal Cannula Nasal Cannula Nasal Cannula O2 Flow Rate 3.0 3.0 3.0 3.0 01/30/20 01/30/20 01/30/20 09:00 10:00 11:00 Pulse 71 74 75 Resp 18 18 23 B/P (MAP) 104/63 (77) 100/65 (77) 102/63 (76) Pulse Ox 100 100 100 O2 Delivery Nasal Cannula Nasal Cannula Nasal Cannula O2 Flow Rate 3.0 3.0 3.0 Intake and Output 01/29/20 01/29/20 01/30/20 15:00 23:00 07:00 Intake Total 0 ml 0 ml Output Total 75 ml 0 ml Balance -75 ml 0 ml Justifications for Admission Other Justification JAMESON MORGAN MD Jan 30, 2020 11:53
[2020-01-30] MEDS ORDERED: SODIUM POLYSTYRENE SULFON/SORB 15 GM/60 ML ORAL.SUSP. PO ONE (12:15)
[2020-01-30] MEDS ORDERED: DEXTROSE 50% 25 GM / 50ML DISP.SYRIN. IV ONE ×2 (12:25→12:30)
[2020-01-30] MEDS ORDERED: CALCIUM CHLORIDE 1,000 MG/10 ML DISP.SYRIN ONE ×2 (12:25→12:30)
[2020-01-30] MEDS ORDERED: SODIUM BICARB ADULT 8.4% 50 MEQ/50 ML DISP.SYRIN. ONE (12:25)
[2020-01-30] MEDS ORDERED: INSULIN REGULAR 100 UNIT/ML 3ML VIAL. IV ONE (12:30)
[2020-01-30] MEDS ORDERED: HYDROcodone/APAP 5/325MG 1 TAB TABLET PO PRN (12:30)
[2020-01-30] MEDS ORDERED: SODIUM BICARB ADULT 8.4% 50 MEQ/50 ML DISP.SYRIN. IV ONE (12:30)
[2020-01-30] MEDS ORDERED: CALCIUM GLUCONATE 1,000 MG/10 ML VIAL. IVP ONE (12:30)
--- NOTE | 2020-01-30 12:53 | PDOC ---
Provider Note Date of Service: DATE: 01/30/20 TIME: 12:51 Provider Note Pt seen in ICU.H&P dictated.#[id number]. Total time spent coordinating care at [facility] , [facility] [place] [facility] and ICU , and consultants 47 mts Justifications for Admission Other Justification THOMAS DOMINGUEZ MD Jan 30, 2020 12:53
[2020-01-30] MEDS ORDERED: IV NORMAL SALINE 1000ML BAG 1,000 ML IV PRN (12:58)
[2020-01-30] MEDS: FOLIC/VIT B COMP W-C (RENAL) TABLET. PO SCH (13:00)
[2020-01-30] MEDS: ASCORBIC ACID 500 MG TABLET PO SCH (13:00)
[2020-01-30] MEDS ORDERED: DIALYSIS PATIENT. MC PRN ×2 (13:00)
[2020-01-30] MEDS ORDERED: LIDOCAINE WITH 8.4% SOD BICARB 3 ML DISP.SYRIN. ONE (13:14)
[2020-01-30] MEDS ORDERED: LIDOCAINE WITH 8.4% SOD BICARB 3 ML DISP.SYRIN. INJ ONE (13:30)
--- NOTE | 2020-01-30 13:38 | HP ---
ADMIT DATE: 01/29/2020 ATTENDING PHYSICIAN: Jean Tsang MD REASON FOR ADMISSION TO THE HOSPITAL: Bleeding from AV shunt, arterial bleed. The patient has end-stage renal disease. HISTORY OF PRESENT ILLNESS: The patient is a 69-year-old male. Patient was admitted to [facility] on 01/15 and he is on end-stage renal disease, on dialysis. 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 Pressure was applied and seen by the ER at [facility] and the patient was sent to [facility] and the patient was seen in the ER, taken to surgery by Dr. Kinsey, Vascular Surgery and the patient did a revision of the AV graft, there was a hole in that and [place] graft was placed to bypass the fistula and the patient was admitted to the ICU. Hemoglobin dropped to 6. As mentioned, the patient is Latter-day. He does not want any transfusion of blood products and the patient was initially admitted to the [facility] on 12/21 for respiratory failure, was found to have pneumonia, COVID was negative. The patient was on ventilator and not able to extubate and ended up with tracheostomy. He also had a bad cardiac heart disease. Ejection fraction 10%, chronic systolic heart failure. He also had a cardiac event there with V-tach. The patient was put on a vest. He also had an infection of the AV shunt and was treated with IV antibiotics for staph infection. He also has a mechanical mitral valve, on Coumadin for anticoagulation. The patient is on hemodialysis for at least 5 years and the patient was admitted to the ICU post-surgery and as mentioned above, the patient had a large ulceration over the right arm AV fistula, which had eroded into the fistula causing active bleeding and area of fistula was resected and replaced with a 6 x 10 [place] graft. The patient would need a temporary dialysis access catheter to do the dialysis. PAST MEDICAL HISTORY: As mentioned above, has renal failure on hemodialysis for 5 years, hypertension, diabetes, hyperlipidemia, anxiety, coronary artery disease, COPD, atrial fibrillation and he was on oxygen at home, systolic heart failure, ejection fraction 10%. PAST SURGICAL HISTORY: Dialysis catheter, mitral valve replacement, mechanical and recently tracheostomy. SOCIAL HISTORY: Former smoker, quit in 2010, history of alcohol in the past. No illicit drugs. FAMILY HISTORY: Unremarkable. ALLERGIES: PENICILLIN. MEDICATIONS AT HOME: He is on Xanax 0.25, amiodarone 400 mg daily, atorvastatin 40 mg daily, Pulmicort twice a day, Flexeril 10 mg 3 times daily, hydrocodone 5/325 q. 6, Lantus 12 units at bedtime, sliding scale insulin, nebulizer with Atrovent, magnesium 400 mg twice a day, Reglan 10 mg 3 times daily, midodrine 10 mg 3 times daily, Protonix 40 mg daily, MiraLax 17 grams daily, senna daily, Coumadin 2.5 mg daily. PHYSICAL EXAMINATION: VITAL SIGNS: At the time of admission shows temperature 97, pulse 80, respirations 20, blood pressure 130/78, oxygen 97 on simple mask oxygen flow at 8 liters and then it was dropped at 2 liters. HEENT: Head is atraumatic. Pupils equal. Oral cavity: No congestion. Has a tracheostomy, which was capped. CHEST: Symmetrical, scar of previous mitral valve surgery. LUNGS: Good air entry. ABDOMEN: Soft, bowel sounds present, no mass palpable. EXTERNAL GENITALIA: No [place]. RECTAL: Deferred. EXTREMITIES: No calf tenderness, no edema and the patient has a dressing in the right upper arm where he had surgery done for the AV fistula. NEUROLOGIC: The patient is moving upper extremities and lower extremities. 1LABORATORY DATA: Shows a white count of 9, hemoglobin 7.3 dropped down to 6.1, platelets 341. INR 2.1. Electrolytes shows sodium 143, potassium 5.8, chloride 104, bicarbonate 32, anion gap 7, BUN 33, creatinine 4.0, glucose 147. LFTs were normal. Potassium went up to 6.5 today. COVID screen was negative. Chest x-ray shows bilateral scarring. FINAL IMPRESSION: 1. 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 The patient underwent resection of the fistula and placement of a [place] graft. 2. End-stage renal disease, on hemodialysis. 3. Mechanical mitral valve, on Coumadin. 4. Cardiomyopathy, ejection fraction 10%. 5. History of cardiac event with arrhythmias and the patient was on vest at [facility]. 6. The patient is Latter-day complicating the treatment plans. The patient is refusing any blood products. 7. Diabetes. 8. Hypertension. 9. Hyperlipidemia. 10. Recent tracheostomy, which was placed recently 3-4 weeks ago. PLAN: At this time, the patient was taken to emergency surgery for the AV shunt repair, placement of [place] graft and the patient was admitted to the ICU. Renal is consulted for dialysis. We will give some Kayexalate to bring the potassium down and a temporary dialysis catheter because the [place] graft could not be used for another 4 weeks and hold Coumadin, so that we can place the catheter and the patient is also on amiodarone for cardiac arrhythmias. We will have Cardiology follow while he is here in the hospital. THOMAS DOMINGUEZ MD DR: DOMINGA/yovani JOB#: [id number] / [id number] JEAN Feng MD MTDD
[2020-01-30] MEDS: CYANOCOBALAMIN (VITAMIN B-12) 1,000 MCG TABLET. PO SCH (14:00)
[2020-01-30] MEDS ORDERED: FOLIC/VIT B COMP W-C (RENAL) TABLET. PO SCH (14:00)
[2020-01-30] MEDS: METOPROLOL TART IMMED RELEASE 25 MG TABLET. PO SCH ×2 (14:00→21:00)
[2020-01-30] MEDS: hydrOXYzine 10 MG TABLET PO SCH ×2 (14:00→20:59)
[2020-01-30] MEDS: busPIRone 5 MG TABLET. PO SCH ×2 (14:00→20:58)
[2020-01-30] MEDS: AMIODARONE HCL 200 MG TABLET. PO SCH (14:00)
[2020-01-30] MEDS: POLYETHYLENE GLYCOL 3350 17 GM PACKET. PO SCH (14:00)
[2020-01-30] MEDS: CYCLOBENZAPRINE 10 MG TABLET. PO SCH ×2 (14:00→20:58)
[2020-01-30] MEDS: FERROUS SULFATE ORAL 300 MG/5 ML SOLUTION. PO SCH (14:00)
--- NOTE | 2020-01-30 14:02 | PDOC ---
Exam Modeler Modeler Jenny Travel Physical Therapist Travel Physical Therapist None Pre-Procedure Diagnosis Pre-Procedure Diagnosis Renal failure, unable to use RUE fistula/graft Post-Procedure Diagnosis Post-Procedure Diagnosis Same Procedure Performed Procedure Performed [facility] temporary HD catheter placement Type of Anesthesia Type of Anesthesia Local Estimated Blood Loss EBL: 5 cc Specimens Specimans None Drain/Tubes Drains/Tubes [facility] temporary HD catheter Condition of Patient Condition of Patient Stable HONEY ARCE MD Jan 30, 2020 14:02
--- NOTE | 2020-01-30 14:19 | RAD ---
CHEST AP ONLY Clinical indications: Post line placement. COMPARISON: January 29, 2020. Findings: Left IJ hemodialysis catheter is in place and tip is seen within the lower SVC just above the level of the right atrium. No pneumothorax or pleural effusion is seen. Bilateral interstitial infiltrates or pulmonary edema are again evident and have not changed significantly. The heart size is enlarged but stable. Mediastinum and pulmonary vasculature are unchanged. Position of tracheostomy tube is unchanged. IMPRESSION: Placement of a left IJ central line without pneumothorax. Stable bilateral interstitial infiltrates or pulmonary edema. Electronically signed by: Uri Hatfield MD (01/30/2020 2:16 PM) [id number]
--- NOTE | 2020-01-30 15:40 | CONS ---
DATE OF CONSULTATION: REQUESTING PHYSICIAN: Samy Pritchett MD REASON FOR CONSULTATION: Renal failure. HISTORY OF PRESENT ILLNESS: This is a 69-year-old gentleman with history of diabetes mellitus, hypertension, end-stage renal disease, which is hemodialysis dependent. He was at [facility] for rehab following respiratory failure. He has chronic systolic heart failure with left ventricular ejection fraction of only 10%. The patient is Christianity, does not receive blood products. He was brought to the Emergency Department at [facility] due to acute bleeding at his right arm AV fistula. He has been taken to operating room and ulceration with erosion into the vascular space has been corrected by Dr. Kinsey. No need ongoing dialysis and as such, Nephrology evaluation requested. PAST MEDICAL HISTORY: Diabetes mellitus; hypertension; end-stage renal disease, hemodialysis dependent; coronary artery disease; congestive cardiomyopathy, left ventricular ejection fraction 10%; COPD; atrial fibrillation; hyperlipidemia; mitral valve replacement; tracheostomy; anemia of chronic kidney disease; secondary hyperparathyroidism; renal disease. ALLERGIES: PENICILLIN. MEDICATIONS: Reviewed per medication list. FAMILY HISTORY: Noncontributory. SOCIAL HISTORY: Resides with assistance. REVIEW OF SYSTEMS: No headache, sinus problem, nasal drainage, epistaxis, change in vision or hearing. No difficulty swallowing. No fever, chills, cough, sputum production, or hemoptysis. No chest pain, shortness of breath, PND, orthopnea, dyspnea on exertion. No abdominal pain. No nausea, vomiting, diarrhea. No seizures or malignancies. PHYSICAL EXAMINATION: GENERAL APPEARANCE: The patient appears chronically ill and older than stated age. HEENT: Sallow complexion, conjunctival pallor. NECK: No increased JVD. No thyromegaly, mass, or adenopathy. LUNGS: Clear. CARDIAC: Without S3 or rub. ABDOMEN: Soft, nontender, no bruits. EXTREMITIES: Postoperative right upper extremity. NEUROLOGIC: Nonfocal, nonlocalized. PSYCHIATRIC: Good attention to detail, appropriate affect. LABORATORY DATA: Sodium 144, potassium 6.5, chloride 107, CO2 of 30, BUN 39, creatinine 4.8, GFR 14.6. Hemoglobin 6.1, hematocrit 20%. IMPRESSION: 1. End-stage renal disease secondary to diabetic nephropathy. 2. Status post revision of vascular access due to bleeding related to ulceration with erosion. 3. Hyperkalemia, postoperative. RECOMMENDATIONS: At this time, the patient does not have access for dialysis. His AV fistula is not to be used for the next several weeks. He will need a dialysis catheter placed. We will plan to give Kayexalate today with plans for temporary dialysis catheter. Ongoing dialysis per pending the same. PREMA LEWIS MD DR: ILSA/yovani JOB#: [id number] / [id number]
[2020-01-30] MEDS: IPRATROPIUM BROMIDE 0.5 MG/2.5 ML NEBU. NEB SCH ×2 (15:46→20:10)
[2020-01-30] MEDS: INSULIN LISPRO 300 UNITS/3 ML VIAL. SQ SCH ×2 (17:00)
[2020-01-30] MEDS: PANTOPRAZOLE 40 MG TABLET.DR. PO SCH (17:56)
[2020-01-30] MEDS: MIDODRINE 5 MG TABLET PO SCH (17:57)
[2020-01-30] MEDS: METOCLOPRAMIDE 10 MG TABLET. PO SCH (17:58)
[2020-01-30] MEDS ORDERED: IV NORMAL SALINE 500ML BAG 500 ML IV ONE (20:00)
[2020-01-30] MEDS: BUDESONIDE 0.5 MG/2 ML NEBU. NEB SCH (20:10)
[2020-01-30] MEDS: ATORVASTATIN CALCIUM 40 MG TABLET. PO SCH (20:58)
[2020-01-30] MEDS ORDERED: NON FORMULARY ITEM (Melatonin 3 MG) PO SCH (21:00)
[2020-01-30] MEDS: SENNOSIDES/DOCUSATE 8.6/50MG TABLET. PO SCH (21:00)
[2020-01-31] VITALS (11 sets, daily range): BP systolic 86–121; BP diastolic 48–69
[2020-01-31] MEDS: ACETAMINOPHEN 325 MG TABLET. PO PRN (03:12)
[2020-01-31 04:59] LABS: BASO # 0.1 x10^3/uL (0.0-0.2); BASO % 2 % (0-3); EOS # 0.2 x10^3/uL (0.0-0.7); EOS % 2 % (0-3); LYMPH # 0.7 x10^3/uL (1.0-4.8); LYMPH % 10 % (24-48); MEAN CORPUSCULAR HEMOGLOBIN 27 pg (25-35); MEAN CORPUSCULAR HGB CONC 31 g/dL (31-37); MEAN CORPUSCULAR VOLUME 87 fL (79-100); MONO # 0.6 x10^3/uL (0.0-1.1); MONO % 9 % (0-9); NEUT # 5.9 x10^3/uL (1.8-7.7); NEUT % 78 % (31-73); PLATELET COUNT 238 x10^3/uL (140-400); RED BLOOD COUNT 1.96 x10^6/uL (4.30-5.70); RED CELL DISTRIBUTION WIDTH 21.9 % (11.5-14.5); WHITE BLOOD COUNT 7.5 x10^3/uL (4.0-11.0)
[2020-01-31 05:09] LABS: HEMATOCRIT 17.1 % (39.0-53.0); HEMOGLOBIN 5.3 g/dL (13.0-17.5)
[2020-01-31 05:12] LABS: ALBUMIN 1.8 g/dL (3.4-5.0); ALBUMIN/GLOBULIN RATIO 0.3 (1.0-1.7); CALCIUM 8.6 mg/dL (8.5-10.1); CREATININE 2.8 mg/dL (0.7-1.3); GFR 27.2; POTASSIUM 4.7 mmol/L (3.5-5.1); TOTAL BILIRUBIN 0.4 mg/dL (0.2-1.0)
[2020-01-31] MEDS: MIDODRINE 5 MG TABLET PO SCH ×3 (06:30→18:25)
[2020-01-31] MEDS: INSULIN LISPRO 300 UNITS/3 ML VIAL. SQ SCH ×6 (08:00→17:24)
[2020-01-31] MEDS: BUDESONIDE 0.5 MG/2 ML NEBU. NEB SCH ×2 (08:02→20:02)
[2020-01-31] MEDS: IPRATROPIUM BROMIDE 0.5 MG/2.5 ML NEBU. NEB SCH ×4 (08:02→20:02)
--- NOTE | 2020-01-31 08:17 | EKG ---
[facility] [address] [place] [address] Test Date: 2020-01-29 Test Time: 12:42:38 Pat Name: ROBERTO PATEL Department: Room: Gender: M Head Trimmer: : [id number] Requested By: DIOR MERLOS Order Number: [id number] Reading MD: Measurements Intervals [place] Rate: 69 P: 0 NV: 176 QRS: -45 QRSD: 132 T: 97 QT: 446 QTc: 485 Interpretive Statements SINUS RHYTHM ABNORMAL LEFT AXIS DEVIATION NON SPECIFIC INTRAVENTRICULAR BLOCK ABNORMAL ECG RI6.02 No previous ECG available for comparison
[2020-01-31] MEDS: POLYETHYLENE GLYCOL 3350 17 GM PACKET. PO SCH (08:29)
[2020-01-31] MEDS: FERROUS SULFATE ORAL 300 MG/5 ML SOLUTION. PO SCH (08:29)
[2020-01-31] MEDS: METOCLOPRAMIDE 10 MG TABLET. PO SCH ×3 (08:30→16:40)
[2020-01-31] MEDS: ASCORBIC ACID 500 MG TABLET PO SCH (08:30)
[2020-01-31] MEDS: CYANOCOBALAMIN (VITAMIN B-12) 1,000 MCG TABLET. PO SCH (08:30)
[2020-01-31] MEDS: busPIRone 5 MG TABLET. PO SCH ×3 (08:30→20:40)
[2020-01-31] MEDS: PANTOPRAZOLE 40 MG TABLET.DR. PO SCH (08:30)
[2020-01-31] MEDS: CYCLOBENZAPRINE 10 MG TABLET. PO SCH ×3 (08:30→20:40)
[2020-01-31] MEDS: FOLIC/VIT B COMP W-C (RENAL) TABLET. PO SCH (08:30)
[2020-01-31] MEDS: AMIODARONE HCL 200 MG TABLET. PO SCH (08:31)
[2020-01-31] MEDS: METOPROLOL TART IMMED RELEASE 25 MG TABLET. PO SCH ×2 (08:55→21:00)
[2020-01-31] MEDS ORDERED: IRON SUCROSE COMPLEX 200 MG in IV NORMAL SALINE 100ML 100 ML IV ONE (09:00)
--- NOTE | 2020-01-31 09:28 | PDOC ---
DATE OF SERVICE DATE: 01/31/20 TIME: 09:28 SUBJECTIVE ROS No complaints , alert OBJECTIVE Vital Signs Vital Signs Date Time Temp Pulse Resp B/P (MAP) Pulse Ox O2 Delivery O2 Flow Rate FiO2 01/31/20 08:31 106/48 01/31/20 08:03 100 Nasal Cannula 3.0 01/31/20 06:30 75 01/31/20 04:00 97.7 24 97.7 I & 0 Intake and Output 01/31/20 07:00 Intake Total 1800 ml Output Total 0 ml Balance 1800 ml Intake Oral 1300 ml IV Total 500 ml Output Urine Total 0 ml PHYSICAL EXAM Physical Exam General appearance - alert, NAD HEEN OM moist Neck Supple Lungs -decreased breath sounds at bases Heart - S1 and S2 normal Abdomen - soft, non tender Neurological - alert and oriented Extremities -trace edema Skin - No rash DIAGNOSIS/ASSESSMENT Assessment & Plan ESRD - On HD MWF , has been on dialysis for 5 years in [place] under Dr. Carter Dialysis today , treatment plan discussed with Deena Access - presented with Active bleeding from AVF and a large ulceration over it eroding the fistula S/P resection of the fistula and placement of a [place]-Pan graft. Currently has Temp HDC , Permacath placement on Hold due to High INR Mechanical mitral valve, on Coumadin. Cardiomyopathy, ejection fraction 10%. History of cardiac event with arrhythmias and the patient was on vest at [facility]. Anemia- drop in Hgb to 5.3 He is Yarsani and he is refusing any blood products. Hgb low, will start KAREEM - dw Patient Diabetes. Hypertension. Recent tracheostomy, which was placed recently 3-4 weeks ago. COMMENT/RELEVANT DATA Meds Current Medications Medications (Trade) Dose Ordered Sig/Cheri Start Time Stop Time Status Last Admin Dose Admin Acetaminophen (Tylenol) 650 mg Q6HRS PRN 01/30/20 12:30 01/31/20 03:12 650 MG Acetaminophen/ Hydrocodone Bitart (Lortab 5/325) 1 tab PRN Q6HRS PRN 01/30/20 12:30 Amiodarone HCl (Cordarone) 400 mg DAILY 01/30/20 14:00 01/31/20 08:31 400 MG Ascorbic Acid (Vitamin C) 500 mg DAILY 01/30/20 13:00 01/31/20 08:30 500 MG Atorvastatin Calcium (Lipitor) 40 mg QHS 01/30/20 21:00 01/30/20 20:58 40 MG Budesonide (Pulmicort) 0.5 mg BID 01/30/20 21:00 01/31/20 08:02 0.5 MG Buspirone HCl (Buspar) 5 mg TID 01/30/20 14:00 01/31/20 08:30 5 MG Calcium Chloride (Calcium Chloride) 1,000 mg STK-MED ONCE 01/30/20 12:30 01/31/20 08:36 DC Calcium Gluconate (Calcium Gluconate) 1,000 mg 1X ONCE 01/30/20 12:30 01/30/20 12:57 DC Cellulose (Surgicel Fibrillar 1x2) 1 each STK-MED ONCE 01/29/20 14:19 01/29/20 14:19 DC 01/29/20 16:48 1 EACH Cyanocobalamin (Vitamin B-12) 1,000 mcg DAILY 01/30/20 14:00 01/31/20 08:30 1,000 MCG Cyclobenzaprine HCl (Flexeril) 10 mg TID 01/30/20 14:00 01/31/20 08:30 10 MG Dextrose (Dextrose 50%-Water Syringe) 12.5 gm PRN Q15MIN PRN 01/30/20 12:30 Fentanyl Citrate (Fentanyl 2ml Vial) 50 mcg PRN Q5MIN PRN 01/29/20 16:15 01/29/20 22:00 DC Ferrous Sulfate (Iron Oral Solution) 300 mg DAILY08 01/30/20 14:00 01/31/20 08:29 300 MG Glycopyrrolate (Robinul) 1 mg STK-MED ONCE 01/29/20 14:25 01/29/20 14:25 DC Heparin Sodium (Porcine) (Heparin) 30,000 unit STK-MED ONCE 01/29/20 15:42 01/29/20 15:43 DC Heparin Sodium (Porcine) 5000 unit/Sodium Chloride 505 ml @ 505 mls/hr 1X ONCE 01/29/20 15:00 01/29/20 16:03 DC 01/29/20 15:28 Hydromorphone HCl (Dilaudid) 0.5 mg PRN Q10MIN PRN 01/29/20 16:15 01/29/20 22:00 DC Hydroxyzine HCl (Atarax) 10 mg TID 01/30/20 14:00 01/30/20 20:59 10 MG Info (PHARMACY MONITORING -- do not chart) 1 each PRN DAILY PRN 01/30/20 13:00 Insulin Human Lispro (HumaLOG) 0-5 UNITS TIDWMEALS 01/30/20 17:00 Insulin Human Regular (HumuLIN R VIAL) 10 unit 1X ONCE 01/30/20 12:30 01/30/20 12:57 DC 01/30/20 13:29 10 UNIT Ipratropium [place] (Atrovent) 0.5 mg RTQID 01/30/20 13:00 01/31/20 08:02 0.5 MG Iron Sucrose 200 mg/Sodium Chloride 110 ml @ 55 mls/hr 1X ONCE 01/31/20 09:00 01/31/20 08:42 DC Ketamine HCl (Ketamine) 50 mg STK-MED ONCE 01/29/20 15:27 01/29/20 15:27 DC Lidocaine HCl (Buffered Lidocaine 1%) 3 ml 1X ONCE 01/30/20 13:30 01/30/20 13:44 DC Lidocaine HCl (Xylocaine 1% Pf 30ml Vial) 30 ml STK-MED ONCE 01/29/20 14:19 01/29/20 14:19 DC Lidocaine HCl (Xylocaine-Mpf 1% 2ml Vial) 2 ml PRN 1X PRN 01/29/20 16:15 01/29/20 22:00 DC Lidocaine HCl (Xylocaine-Mpf 1% 5ml Vial) 5 ml STK-MED ONCE 01/29/20 12:51 01/29/20 12:51 DC Magnesium Oxide (Magnesium Oxide) 400 mg BID 01/31/20 14:00 Metoclopramide HCl (Reglan) 5 mg TIDAC 01/30/20 16:30 01/31/20 08:30 5 MG Metoprolol Tartrate (Lopressor) 12.5 mg BID 01/30/20 14:00 Midazolam HCl (Versed) 2 mg STK-MED ONCE 01/29/20 14:27 01/29/20 14:27 DC Midodrine (Proamatine) 10 mg [id number] 01/30/20 18:00 01/31/20 06:30 10 MG Morphine Sulfate (Morphine Sulfate) 1 mg PRN Q10MIN PRN 01/29/20 16:15 01/29/20 22:00 DC Non-Formulary Medication (Melatonin ) 3 mg HS 01/30/20 21:00 UNV Ondansetron HCl (Zofran) 4 mg PRN Q6HRS PRN 01/29/20 16:15 01/29/20 22:00 DC Pantoprazole Sodium (Protonix) 40 mg DAILYAC 01/30/20 16:30 01/31/20 08:30 40 MG Papaverine HCl 60 mg STK-MED ONCE 01/29/20 14:19 01/29/20 14:20 DC Pharmacy Consult (C.diff Med Screen By Rx) 1 each 1X ONCE 01/29/20 17:45 01/29/20 17:46 UNV Phenylephrine HCl (PHENYLEPHRINE in 0.9% NACL PF) 1 mg STK-MED ONCE 01/29/20 15:42 01/29/20 15:43 DC Polyethylene Glycol (miraLAX PACKET) 17 gm DAILY 01/30/20 14:00 01/31/20 08:29 17 GM Prochlorperazine Edisylate (Compazine) 5 mg PACU PRN PRN 01/29/20 16:15 01/29/20 22:00 DC Ringer's Solution 1,000 ml @ 30 mls/hr Q24H 01/29/20 16:04 01/30/20 04:03 DC Rocuronium [place] (Zemuron) 50 mg STK-MED ONCE 01/29/20 14:26 01/29/20 14:26 DC Senna/Docusate Sodium (Senna Plus) 1 tab HS 01/30/20 21:00 Sevoflurane (Ultane) 90 ml STK-MED ONCE 01/29/20 16:59 01/29/20 16:59 DC Sodium Polystyrene Sulfonate (Kayexalate) 30 gm 1X ONCE 01/30/20 12:15 01/30/20 12:16 DC 01/30/20 12:41 30 GM Sodium Bicarbonate (Sodium Bicarb Adult 8.4% Syr) 50 meq 1X ONCE 01/30/20 12:30 01/30/20 12:57 DC 01/30/20 12:50 50 MEQ Sodium Chloride 500 ml @ 500 mls/hr 1X ONCE 01/30/20 20:00 01/30/20 20:59 DC 01/30/20 20:58 500 MLS/HR Vitamin B Complex/ Vitamin C (Nora-Karina) 1 tab DAILY 01/30/20 14:00 Lab Laboratory Tests Test 01/30/20 17:52 01/30/20 21:04 01/31/20 03:52 Glucose (Fingerstick) 87 mg/dL (70-99) 102 mg/dL (70-99) White Blood Count 7.5 x10^3/uL (4.0-11.0) Red Blood Count 1.96 x10^6/uL (4.30-5.70) Hemoglobin 5.3 g/dL (13.0-17.5) Hematocrit 17.1 % (39.0-53.0) Mean Corpuscular Volume 87 fL (79-100) Mean Corpuscular Hemoglobin 27 pg (25-35) Mean Corpuscular Hemoglobin Concent 31 g/dL (31-37) Red Cell Distribution Width 21.9 % (11.5-14.5) Platelet Count 238 x10^3/uL (140-400) Neutrophils (%) (Auto) 78 % (31-73) Lymphocytes (%) (Auto) 10 % (24-48) Monocytes (%) (Auto) 9 % (0-9) Eosinophils (%) (Auto) 2 % (0-3) Basophils (%) (Auto) 2 % (0-3) Neutrophils # (Auto) 5.9 x10^3/uL (1.8-7.7) Lymphocytes # (Auto) 0.7 x10^3/uL (1.0-4.8) Monocytes # (Auto) 0.6 x10^3/uL (0.0-1.1) Eosinophils # (Auto) 0.2 x10^3/uL (0.0-0.7) Basophils # (Auto) 0.1 x10^3/uL (0.0-0.2) Sodium Level 141 mmol/L (136-145) Potassium Level 4.7 mmol/L (3.5-5.1) Chloride Level 102 mmol/L (98-107) Carbon Dioxide Level 32 mmol/L (21-32) Anion Gap 7 (6-14) Blood Urea Nitrogen 18 mg/dL (8-26) Creatinine 2.8 mg/dL (0.7-1.3) Estimated GFR (Cockcroft-Gault) 27.2 BUN/Creatinine Ratio 6 (6-20) Glucose Level 102 mg/dL (70-99) Calcium Level 8.6 mg/dL (8.5-10.1) Total Bilirubin 0.4 mg/dL (0.2-1.0) Aspartate Amino Transf (AST/SGOT) 29 U/L (15-37) Alanine Aminotransferase (ALT/SGPT) 14 U/L (16-63) Alkaline Phosphatase 141 U/L (46-116) Total Protein 7.0 g/dL (6.4-8.2) Albumin 1.8 g/dL (3.4-5.0) Albumin/Globulin Ratio 0.3 (1.0-1.7) Results All relevant outside records, renal labs, imaging studies, telemetry/EKG's were reviewed. Justicifation of Admission Dx: Justifications for Admission: Justification of Admission Dx: Yes DOTTIE MAHARAJ MD Jan 31, 2020 09:28
--- NOTE | 2020-01-31 09:28 | PDOC ---
IM PROGRESS NOTES- Subjective Subjective No complaints of pain or dyspnea. He denies any bleeding. However patient is apparently short of breath. He does have cognitive deficits. Objective Vitals/I&O Vital Signs Date Time Temp Pulse Resp B/P (MAP) Pulse Ox O2 Delivery O2 Flow Rate FiO2 01/31/20 08:31 106/48 01/31/20 08:03 100 Nasal Cannula 3.0 01/31/20 06:30 75 01/31/20 04:00 97.7 24 97.7 I & O 01/30/20 01/30/20 01/31/20 15:00 23:00 07:00 Intake Total 1250 ml 500 ml 50 ml Output Total 0 ml 0 ml 0 ml Balance 1250 ml 500 ml 50 ml Physical Exam Physical Exam General appearance - alert,ill appearing, and in mild to moderate distress Mental Status - alert, oriented Head - normal Chest -decreased breath sounds at bases Heart - S1 and S2 normal Abdomen - soft, non tender Neurological - alert and oriented Extremities -trace edema Skin - warm and dry. No bleeding from the AV fistula on the right upper extremity Labs Laboratory Tests Test 01/30/20 17:52 01/30/20 21:04 01/31/20 03:52 Glucose (Fingerstick) 87 mg/dL (70-99) 102 mg/dL (70-99) H White Blood Count 7.5 x10^3/uL (4.0-11.0) Red Blood Count 1.96 x10^6/uL (4.30-5.70) L Hemoglobin 5.3 g/dL (13.0-17.5) *L Hematocrit 17.1 % (39.0-53.0) *L Mean Corpuscular Volume 87 fL (79-100) Mean Corpuscular Hemoglobin 27 pg (25-35) Mean Corpuscular Hemoglobin Concent 31 g/dL (31-37) Red Cell Distribution Width 21.9 % (11.5-14.5) H Platelet Count 238 x10^3/uL (140-400) Neutrophils (%) (Auto) 78 % (31-73) H Lymphocytes (%) (Auto) 10 % (24-48) L Monocytes (%) (Auto) 9 % (0-9) Eosinophils (%) (Auto) 2 % (0-3) Basophils (%) (Auto) 2 % (0-3) Neutrophils # (Auto) 5.9 x10^3/uL (1.8-7.7) Lymphocytes # (Auto) 0.7 x10^3/uL (1.0-4.8) L Monocytes # (Auto) 0.6 x10^3/uL (0.0-1.1) Eosinophils # (Auto) 0.2 x10^3/uL (0.0-0.7) Basophils # (Auto) 0.1 x10^3/uL (0.0-0.2) Sodium Level 141 mmol/L (136-145) Potassium Level 4.7 mmol/L (3.5-5.1) # Chloride Level 102 mmol/L (98-107) Carbon Dioxide Level 32 mmol/L (21-32) Anion Gap 7 (6-14) Blood Urea Nitrogen 18 mg/dL (8-26) # Creatinine 2.8 mg/dL (0.7-1.3) H Estimated GFR (Cockcroft-Gault) 27.2 BUN/Creatinine Ratio 6 (6-20) Glucose Level 102 mg/dL (70-99) H Calcium Level 8.6 mg/dL (8.5-10.1) Total Bilirubin 0.4 mg/dL (0.2-1.0) Aspartate Amino Transferase (AST) 29 U/L (15-37) Alanine Aminotransferase (ALT) 14 U/L (16-63) L Alkaline Phosphatase 141 U/L (46-116) H Total Protein 7.0 g/dL (6.4-8.2) Albumin 1.8 g/dL (3.4-5.0) L Albumin/Globulin Ratio 0.3 (1.0-1.7) L Laboratory Tests 01/31/20 03:52 Laboratory Tests 01/31/20 03:52 Meds Current Medications Medications (Trade) Dose Ordered Sig/Cheri Route PRN Reason Start Time Stop Time Status Last Admin Dose Admin Sodium Polystyrene Sulfonate (Kayexalate) 30 gm 1X ONCE PO 01/30/20 12:15 01/30/20 12:16 DC 01/30/20 12:41 Sodium Bicarbonate (Sodium Bicarb Adult 8.4% Syr) 50 meq 1X ONCE IV 01/30/20 12:30 01/30/20 12:57 DC 01/30/20 12:50 Dextrose (Dextrose 50%-Water Syringe) 25 gm 1X ONCE IV 01/30/20 12:30 01/30/20 12:57 DC 01/30/20 12:50 Insulin Human Regular (HumuLIN R VIAL) 10 unit 1X ONCE IV 01/30/20 12:30 01/30/20 12:57 DC 01/30/20 13:29 Acetaminophen (Tylenol) 650 mg Q6HRS PRN PO MILD PAIN / TEMP > 100.3'F 01/30/20 12:30 01/31/20 03:12 Ascorbic Acid (Vitamin C) 500 mg DAILY PO 01/30/20 13:00 01/31/20 08:30 Atorvastatin Calcium (Lipitor) 40 mg QHS PO 01/30/20 21:00 01/30/20 20:58 Budesonide (Pulmicort) 0.5 mg BID NEB 01/30/20 21:00 01/31/20 08:02 Buspirone HCl (Buspar) 5 mg TID PO 01/30/20 14:00 01/31/20 08:30 Cyclobenzaprine HCl (Flexeril) 10 mg TID PO 01/30/20 14:00 01/31/20 08:30 Vitamin B Complex/ Vitamin C (Nora-Karina) 1 tab DAILY PO 01/30/20 13:00 01/31/20 08:30 Ipratropium [place] (Atrovent) 0.5 mg RTQID NEB 01/30/20 13:00 01/31/20 08:02 Metoclopramide HCl (Reglan) 5 mg TIDAC PO 01/30/20 16:30 01/31/20 08:30 Pantoprazole Sodium (Protonix) 40 mg DAILYAC PO 01/30/20 16:30 01/31/20 08:30 Polyethylene Glycol (miraLAX PACKET) 17 gm DAILY PO 01/30/20 14:00 01/31/20 08:29 Amiodarone HCl (Cordarone) 400 mg DAILY PO 01/30/20 14:00 01/31/20 08:31 Cyanocobalamin (Vitamin B-12) 1,000 mcg DAILY PO 01/30/20 14:00 01/31/20 08:30 Ferrous Sulfate (Iron Oral Solution) 300 mg DAILY08 PO 01/30/20 14:00 01/31/20 08:29 Hydroxyzine HCl (Atarax) 10 mg TID PO 01/30/20 14:00 01/30/20 20:59 Midodrine (Proamatine) 10 mg [id number] PO 01/30/20 18:00 01/31/20 06:30 Sodium Chloride 500 ml @ 500 mls/hr 1X ONCE IV 01/30/20 20:00 01/30/20 20:59 DC 01/30/20 20:58 Assessment Assessment 1. 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 The patient underwent resection of the fistula and placement of a [place]-Pan graft. 2. End-stage renal disease, on hemodialysis. 3. Mechanical mitral valve, on Coumadin. 4. Cardiomyopathy, ejection fraction 10%. 5. History of cardiac event with arrhythmias and the patient was on vest at [facility]. 6. The patient is Voodoo complicating the treatment plans. The patient is refusing any blood products. 7. Diabetes. 8. Hypertension. 9. Hyperlipidemia. 10. Recent tracheostomy, which was placed recently 3-4 weeks ago. PLAN: At this time, the patient was taken to emergency surgery for the AV shunt repair, placement of [place]-Pan graft and the patient was admitted to the ICU. Renal is consulted for dialysis. We will give some Irais xalate to bring the potassium down and a temporary dialysis catheter because the [place]-Pan graft could not be used for another 4 weeks and hold Coumadin, so that we can place the catheter and the patient is also on amiodarone for cardiac arrhythmias. We will have Cardiology follow while he is here in the hospital. AV fistula bleeding stable Acute on chronic blood loss anemia-hemoglobin is 5.3. Monitor closely. Previously his hemoglobin had dropped to 4.9 at the other hospital when he had bleeding from the fistula. Improved at [facility] with hematinics. Acute hypotension-patient had dialysis yesterday. Required IV fluids. Improving. Patient is also on Coumadin so this complicates the situation. Continue iron, B complex, folic acid and vitamin C. Consult embroidery supervisor. End-stage renal disease on hemodialysis-because of the fistula repair it cannot be used for 4 weeks. A left upper chest temporary dialysis catheter has been placed. Prosthetic mitral valve. INR is 2.1 today. Hold Coumadin as patient needs a tunneled catheter for dialysis. Holding Coumadin also increases risk for complications with a prosthetic mitral valve. Dyspnea may be due to anemia. I will consult locker room attendant. Oxygen has been increased to 4 L by nasal cannula. Order chest x-ray. Also consult yard engineer. Discussed with patient extensively about the low hemoglobin but he does not want any transfusion. Complication such as cardiac arrhythmia, acute MO, congestive heart failure, stroke and sudden discussed with the patient. He still does not want any transfusion. Continue management in ICU. Prognosis of this patient is very poor. called Ada Blake- at home [phone]. Unable to reach via hospital mac operator. Plan Plan For more details regarding further plans, please refer to the orders. Justifications for Admission Other Justification JEAN BRUNSON MD Jan 31, 2020 09:28
--- NOTE | 2020-01-31 09:42 | RAD ---
PROCEDURE: ULTRASOUND GUIDED LEFT INTERNAL JUGULAR TEMPORARY HEMODIALYSIS CATHETER PLACEMENT Clinical Indication: 69-year-old male with renal failure requiring hemodialysis, normally hemodialysis is performed through right upper arm fistula/graft, but this has been malfunctioning and is not currently available for access. A left internal jugular hemodialysis catheter is planned due to the right arm fistula/graft. The procedure, risks, and complications, to include pneumothorax, air embolism, bleeding, infection, and arrhythmia, were explained at length to the patient. Patient was not fully alert and oriented, but procedure is deemed medically necessary and of best medical judgment. The patient was prepped and draped using maximum sterile technique, including the use of: Current guideline approved cutaneous antisepsis, a large sterile sheet to establish a sterile field. Additionally the grinder mill operator wore a hat, mask, sterile gloves, a sterile gown during the procedure as well as practiced acceptable hand hygiene prior to placing the line. If ultrasound was utilized, sterile ultrasound technique was followed. Lidocaine was used for local anesthesia. ACCESS: Ultrasound evaluation of the left neck was performed and the internal jugular vein is patent. Utilizing ultrasound guidance, a micropuncture needle was advanced into the internal jugular vein. The needle tip position in the vein was documented and an image saved and sent to PACS. A 0.018" wire was advanced through the micropuncture needle without resistance. Small dermatotomy was made. Micropuncture needle was removed and replaced with a micropuncture sheath. 0.018" wire and inner dilator were removed and replaced with a 0.035" wire which was advanced without resistance. The neck access site was serially dilated. A 20 cm temporary hemodialysis catheter was without resistance. Catheter was tested to aspirate and flush easily. The catheter was sutured to the skin. The catheter was flushed with 1000 U/cc Heparin. Portable radiographic image of the chest: The temporary hemodialysis catheter is in a satisfactory position. Negative for pneumothorax. Sedation: None. The patient tolerated the procedure well and there were no immediate complications. Fluoroscopy time: None. Procedure was performed at bedside. COMPLICATIONS: None CONTRAST: None IMPRESSION: Successful placement of a temporary left internal jugular 20-cm hemodialysis catheter with ultrasound guidance. Catheter is okay to use. Electronically signed by: Rene Alvarado MD (01/31/2020 9:39 AM) [id number]
[2020-01-31] MEDS: hydrOXYzine 10 MG TABLET PO SCH ×3 (09:57→20:40)
[2020-01-31 11:01] LABS: PROTHROMBIN TIME PATIENT 21.9 SEC (11.7-14.0)
--- NOTE | 2020-01-31 11:35 | NUR ---
SS following for discharge planning. SS reviewed pt chart and discussed with pt RN. Pt is from [facility], ; fax [phone]. Pt has ESRD and is dialysis pt. Pt is currently requiring oxygen and is COVID19 negative. Per RN, pt needing blood transfusion but declining due to being Gnosticist. SS phoned and faxed updated clinical to [facility]. SS will continue to follow for discharge planning.
--- NOTE | 2020-01-31 11:48 | PDOC2 ---
TRAE LOPEZ CATERER HELPER 01/31/20 1148: CARDIAC CONSULT DATE OF CONSULT Date of Consult DATE: 01/31/20 TIME: 11:36 REASON FOR CONSULT Reason for Consult: CHF REFERRING PHYSICIAN Referring Physician: Dr. Tsang SOURCE Source: Chart review, Patient HISTORY OF PRESENT ILLNESS HISTORY OF PRESENT ILLNESS This is a 69 yo male, with extensive cardiac history including CAD, VT arrest, severe CMP with LVEF 10%, and mechanical aortic valve on warfarin, ESRD on HD, and anemia, who presented from [facility] secondary to AV fistula bleed. PAST MEDICAL HISTORY Cardiovascular: AFIB, CAD, CHF, HTN, Hyperlipidemia, Valve insufficiency (s/p mechanical mitral valve replacement ), Other (VT arrest ) Pulmonary: COPD CENTRAL NERVOUS SYSTEM: Dementia Heme/Onc: Anemia NOS Musculoskeletal: Osteoarthritis Renal/: Chronic renal failure (ESRD on HD) Endocrine: Diabetes PAST SURGICAL HISTORY Past Surgical History: Other (AV fistula, tracheostomy ) FAMILY HISTORY Family History: Other (no pertinent history ) SOCIAL HISTORY Smoke: Quit ALCOHOL: none Drugs: None CURRENT MEDICATIONS CURRENT MEDICATIONS Current Medications Medications (Trade) Dose Ordered Sig/Cheri Route PRN Reason Start Time Stop Time Status Last Admin Dose Admin Sodium Polystyrene Sulfonate (Kayexalate) 30 gm 1X ONCE PO 01/30/20 12:15 01/30/20 12:16 DC 01/30/20 12:41 Sodium Bicarbonate (Sodium Bicarb Adult 8.4% Syr) 50 meq 1X ONCE IV 01/30/20 12:30 01/30/20 12:57 DC 01/30/20 12:50 Dextrose (Dextrose 50%-Water Syringe) 25 gm 1X ONCE IV 01/30/20 12:30 01/30/20 12:57 DC 01/30/20 12:50 Insulin Human Regular (HumuLIN R VIAL) 10 unit 1X ONCE IV 01/30/20 12:30 01/30/20 12:57 DC 01/30/20 13:29 Acetaminophen (Tylenol) 650 mg Q6HRS PRN PO MILD PAIN / TEMP > 100.3'F 01/30/20 12:30 01/31/20 03:12 Ascorbic Acid (Vitamin C) 500 mg DAILY PO 01/30/20 13:00 01/31/20 08:30 Atorvastatin Calcium (Lipitor) 40 mg QHS PO 01/30/20 21:00 9/20/20 20:58 Budesonide (Pulmicort) 0.5 mg BID NEB 01/30/20 21:00 01/31/20 08:02 Buspirone HCl (Buspar) 5 mg TID PO 01/30/20 14:00 01/31/20 08:30 Cyclobenzaprine HCl (Flexeril) 10 mg TID PO 01/30/20 14:00 01/31/20 08:30 Vitamin B Complex/ Vitamin C (Nora-Karina) 1 tab DAILY PO 01/30/20 13:00 01/31/20 08:30 Ipratropium [place] (Atrovent) 0.5 mg RTQID NEB 01/30/20 13:00 01/31/20 08:02 Metoclopramide HCl (Reglan) 5 mg TIDAC PO 01/30/20 16:30 01/31/20 08:30 Pantoprazole Sodium (Protonix) 40 mg DAILYAC PO 01/30/20 16:30 01/31/20 08:30 Polyethylene Glycol (miraLAX PACKET) 17 gm DAILY PO 01/30/20 14:00 01/31/20 08:29 Amiodarone HCl (Cordarone) 400 mg DAILY PO 01/30/20 14:00 01/31/20 08:31 Cyanocobalamin (Vitamin B-12) 1,000 mcg DAILY PO 01/30/20 14:00 01/31/20 08:30 Ferrous Sulfate (Iron Oral Solution) 300 mg DAILY08 PO 01/30/20 14:00 01/31/20 08:29 Hydroxyzine HCl (Atarax) 10 mg TID PO 01/30/20 14:00 01/31/20 09:57 Midodrine (Proamatine) 10 mg [id number] PO 01/30/20 18:00 01/31/20 06:30 Sodium Chloride 500 ml @ 500 mls/hr 1X ONCE IV 01/30/20 20:00 01/30/20 20:59 DC 01/30/20 20:58 ALLERGIES ALLERGIES: Coded Allergies: Penicillins (Verified Allergy, Intermediate, 01/29/20) ROS Review of System 14 point ROS conducted with pertinent positives noted above in HPi PHYSICAL EXAM General: Alert, Cooperative, mild distress HEENT: Atraumatic, Mucous membr. moist/pink, Other (tracheostomy ) Lungs: Other (diminished throuhgout ) Heart: Regular rate, Other (distant heart tones ) Abdomen: Soft, No tenderness Extremities: No edema Skin: No significant lesion Neuro: Normal speech, Sensation intact Psych/Mental Status: Other (calm ) MUSCULOSKELETAL: Osteoarthritic changes both hands VITALS/I&O VITALS/I&O: Vital Signs Date Time Temp Pulse Resp B/P (MAP) Pulse Ox O2 Delivery O2 Flow Rate FiO2 01/31/20 10:00 72 22 94/65 (75) 100 Nasal Cannula 4.0 01/31/20 08:00 97.8 97.8 I & O 01/30/20 01/30/20 01/31/20 15:00 23:00 07:00 Intake Total 1250 ml 500 ml 50 ml Output Total 0 ml 0 ml 0 ml Balance 1250 ml 500 ml 50 ml LABS Lab: Laboratory Tests Test 01/30/20 17:52 01/30/20 21:04 01/31/20 03:52 Glucose (Fingerstick) 87 mg/dL (70-99) 102 mg/dL (70-99) H White Blood Count 7.5 x10^3/uL (4.0-11.0) Red Blood Count 1.96 x10^6/uL (4.30-5.70) L Hemoglobin 5.3 g/dL (13.0-17.5) *L Hematocrit 17.1 % (39.0-53.0) *L Mean Corpuscular Volume 87 fL (79-100) Mean Corpuscular Hemoglobin 27 pg (25-35) Mean Corpuscular Hemoglobin Concent 31 g/dL (31-37) Red Cell Distribution Width 21.9 % (11.5-14.5) H Platelet Count 238 x10^3/uL (140-400) Neutrophils (%) (Auto) 78 % (31-73) H Lymphocytes (%) (Auto) 10 % (24-48) L Monocytes (%) (Auto) 9 % (0-9) Eosinophils (%) (Auto) 2 % (0-3) Basophils (%) (Auto) 2 % (0-3) Neutrophils # (Auto) 5.9 x10^3/uL (1.8-7.7) Lymphocytes # (Auto) 0.7 x10^3/uL (1.0-4.8) L Monocytes # (Auto) 0.6 x10^3/uL (0.0-1.1) Eosinophils # (Auto) 0.2 x10^3/uL (0.0-0.7) Basophils # (Auto) 0.1 x10^3/uL (0.0-0.2) Prothrombin Time 21.9 SEC (11.7-14.0) H Prothrombin Time INR 1.9 (0.8-1.1) H Sodium Level 141 mmol/L (136-145) Potassium Level 4.7 mmol/L (3.5-5.1) # Chloride Level 102 mmol/L (98-107) Carbon Dioxide Level 32 mmol/L (21-32) Anion Gap 7 (6-14) Blood Urea Nitrogen 18 mg/dL (8-26) # Creatinine 2.8 mg/dL (0.7-1.3) H Estimated GFR (Cockcroft-Gault) 27.2 BUN/Creatinine Ratio 6 (6-20) Glucose Level 102 mg/dL (70-99) H Calcium Level 8.6 mg/dL (8.5-10.1) Total Bilirubin 0.4 mg/dL (0.2-1.0) Aspartate Amino Transferase (AST) 29 U/L (15-37) Alanine Aminotransferase (ALT) 14 U/L (16-63) L Alkaline Phosphatase 141 U/L (46-116) H Total Protein 7.0 g/dL (6.4-8.2) Albumin 1.8 g/dL (3.4-5.0) L Albumin/Globulin Ratio 0.3 (1.0-1.7) L Laboratory Tests 01/31/20 03:52 Laboratory Tests 01/31/20 03:52 ASSESSMENT/PLAN ASSESSMENT/PLAN 1. Right AV fistula bleed; s/p revision with interposition graft 2. Chronic respiratory failure with AE COPD, a/c CHF, and profound anemia; s/p trach 3. Acute on chronic systolic CHF; able to UF due to hypotension 4. Severe CMP; LVEF 10%. Previously 30-35% 07/2018. Has LifeVest. Follows with Dr. Muse. Previously deemed poor candidate for AICD implantation with significant comorbidities per record review. 5. PAFIB 6. CAD s/p PCI/stent placement 2013 7. H/o VT arrest during recent hospitalization; on Amiodarone therapy. No further VT noted on tele at [facility] or here at [facility] 8. Valvular heart disease s/p mechanical mitral valve replacement; chronic OAC with warfarin. INR 1.9 9. Hypertension; BP low end. S/p 500cc fluid bolus overnight 10. Hyperlipidemia 11. Diabetes, II 12. ESRD on HD 13. Anemia; patient is Jehov[employer] Witness, declining blood transfusion 14. Recent bacteremia, sepsis Recommendations HF optimization as able. Was on low-dose metoprolol. Not on ABEL/ARB due to low end BP Fluid offloading via HD as per nephrology Continue Amiodarone for VT suppression, rhythm maintenance Warfarin on hold with fistula bleed, need for HD catheter placement. Prognosis very poor given significant commodities, which was discussed with patient. He continues to want to be a [employer]. Supportive care SONNY ROPER MD 01/31/202022: CARDIAC CONSULT ASSESSMENT/PLAN ASSESSMENT/PLAN Patient seen and examined. Ageree with REPAIR WEAVER's assessment and plan. Right AV fistula active bleed and blood loss anemia s/p revision of AV graft by vascular surgery Plan for tem dialysis cath placement by IR for HD Continue fluid removal with HD for ac on chr systolic HF Continue amiodarone for VT suppression Resume warfarin when ok from surgical/IR standpoing for mechanical MVR CAD status clinically stable Thank you for your consultation TRAE LOPEZ APRN Jan 31, 2020 11:48 SONNY ROPER MD Jan 31, 2020 20:23
--- NOTE | 2020-01-31 12:13 | CONS ---
DATE OF CONSULTATION: PULMONARY CONSULTATION ATTENDING PHYSICIAN: Galdino Tsang MD REASON FOR CONSULTATION: CHF, respiratory failure. HISTORY OF PRESENT ILLNESS: The patient is a 69-year-old male who [facility]. He has end-stage renal disease. He is a Orthodox. The patient had major bleeding from AV shunt and blood was spurting from his AV shunt side. As a result, he was brought into [place]. Vascular Surgery was consulted. The patient's hemoglobin dropped to 6. He is currently comfortable. He has a chronic trach. It is capped. He tries to verbalize, but cannot accurately talk The patient's chest x-ray was reviewed. It is consistent with cardiomegaly and faint interstitial infiltrate in the right upper lobe and evidence of pulmonary hypertension. He smoked since age 16 until 2010. I have been asked to see him for further evaluation. PAST MEDICAL HISTORY: History of end-stage renal disease, on hemodialysis; history of hypertension, diabetes, history of COPD, hyperlipidemia, atrial fibrillation and severe cardiomyopathy with an EF of 10%. PAST SURGICAL HISTORY: Dialysis catheter placement, mitral valve replacement. SOCIAL HISTORY: Former smoker, quit in 2010. History of alcohol use in the past. ALLERGIES: PENICILLIN. MEDICATIONS: Reviewed as listed in the MRAD. REVIEW OF SYSTEMS: Unable to obtain as the patient is unable to verbalize in detail. PHYSICAL EXAMINATION: VITAL SIGNS: Reviewed. Blood pressure is on the low side 107. Pulse ox 100% on 4 liters. He has a capped trach. NECK: Supple. LUNGS: With diminished breath sounds. CARDIOVASCULAR: With a regular rate. ABDOMEN: Soft, obese. EXTREMITIES: With no pitting edema. LABORATORY DATA: Reviewed. Hemoglobin 5.3, platelets are 238. BUN 18, creatinine 2.8. IMPRESSION: 1. Acute respiratory failure. The patient currently is on oxygen via nasal cannula. He has a tracheostomy, which is capped. 2. Pjpvb-th-cevvfah blood loss anemia from AV fistula site. 3. End-stage renal disease, on hemodialysis. 4. Severe protein-calorie malnutrition. 5. Severe cardiomyopathy with an EF of 10%. 6. The patient is Orthodox. RECOMMENDATIONS: 1. Pulmonary status stable. Continue capped trach. Continue nasal cannula. 2. Monitor chest x-ray as needed. 3. Monitor hemoglobin. Unfortunately, he cannot have transfusion as he is a Orthodox. 4. Follow renal recommendation. 5. Follow Vascular Surgery recommendation. 6. Overall pulmonary status is stable. We will follow with you. RACHEL FROST MD DR: SHANNAN/yovani JOB#: [id number] / [id number] EDER
--- NOTE | 2020-01-31 13:01 | PDOC ---
Provider Note Date of Service: DATE: 01/31/20 TIME: 12:59 Provider Note Provider Note Pt seen and examined today He has no new c/o left arm dressing taken down fistula has an excellent thrill incision c/d/i no hematoma good perfusion to left hand no evidence of steal Doing well It will be at lest 3 to 4 weeks before the fistula / graft can be used for HD He will likely need a tunnel catheter in the meantime (temp cath placed today due to elevated INR) but I would defer this to nephrology Please re-wrap wound today will follow while he is here Will need to see me in the office in 2 to 3 weeks Justicifation of Admission Dx: Justifications for Admission: Justification of Admission Dx: Yes JAMESON MORGAN MD Jan 31, 2020 13:01
[2020-01-31] MEDS ORDERED: IV NORMAL SALINE 1000ML BAG 1,000 ML IV PRN ×2 (16:31)
[2020-01-31] MEDS: MAGNESIUM OXIDE 400 MG TABLET PO SCH ×2 (16:40→20:40)
[2020-01-31] MEDS ORDERED: DIALYSIS PATIENT. MC PRN (16:45)
--- NOTE | 2020-01-31 20:35 | PDOC2 ---
CONSULT Date of Consult Date of Consult DATE: 01/31/20 TIME: 20:16 Reason for Consult Reason for Consult: Anemia and bleeding in a Synagogue Referring Physician Referring Physician: Dr Pritchett Identification/Chief Complaint Chief Complaint Bleeding Source Source: Chart review, Patient History of Present Illness Reason for Visit: Riley Blake is a 69 year old male with ESRD on HD,anemia of CKD, CMP with EF 10% who has been admitted for management of bleeding AV fistula. He is currently a resident of [facility] 01/16/2020. He reports bleeding from his AVF at a site with overlying skin ulceration. He was brought to the [facility] ER and vascular surgery consultation was sought urgently. The bleeding AVF was ligated and a new temporary HD catheter has been placed. He has lost significant amount of blood due to this. He does not accept blood due to his belief as a Syn[employer]. He is able to accept iron infusions. He is unsure as to whether he can accept Epo injections but would like to discuss with his further. Hematology consultation has been sought to assist with management of anemia. Of note, he has a permanent trachestomy which is capped at this time. Past Medical History Cardiovascular: AFIB, CAD, CHF, HTN, Hyperlipidemia, Valve insufficiency, Other Pulmonary: COPD CENTRAL NERVOUS SYSTEM: Dementia Heme/Onc: Anemia NOS Musculoskeletal: Osteoarthritis Renal/: Chronic renal failure (ESRD on HD) Endocrine: Diabetes Past Surgical History Past Surgical History: Other (AV fistula, tracheostomy ) Family History Family History: Other (no pertinent history ) Social History Quit ALCOHOL: none Drugs: None Current Problem List Problem List Problems Medical Problems: (1) Complication of AV dialysis fistula Status: Acute Current Medications Current Medications Current Medications Lidocaine HCl (Xylocaine-Mpf 1% 2ml Vial) 20 ml 1X ONCE INJ ; Start 01/29/20 at 12:45; Stop 01/29/20 at 12:51; Status DC Lidocaine HCl (Xylocaine-Mpf 1% 2ml Vial) 2 ml STK-MED ONCE .ROUTE ; Start 01/29/20 at 12:51; Stop 01/29/20 at 12:51; Status DC Lidocaine HCl (Xylocaine-Mpf 1% 5ml Vial) 5 ml STK-MED ONCE .ROUTE ; Start 01/29/20 at 12:51; Stop 01/29/20 at 12:51; Status DC Cellulose (Surgicel Fibrillar 1x2) 1 each STK-MED ONCE .ROUTE Last administered on 01/29/20at 16:48; Start 01/29/20 at 14:19; Stop 01/29/20 at 14:19; Status DC Lidocaine HCl (Xylocaine 1% Pf 30ml Vial) 30 ml STK-MED ONCE .ROUTE ; Start 01/29/20 at 14:19; Stop 01/29/20 at 14:19; Status DC Heparin Sodium (Porcine) 5000 unit/Sodium Chloride 505 ml @ 505 mls/hr 1X ONCE IRR Last administered on 01/29/20at 15:28; Start 01/29/20 at 15:00; Stop at 16:03; Status DC Papaverine HCl 60 mg STK-MED ONCE .ROUTE ; Start 01/29/20 at 14:19; Stop 01/29/20 at 14:20; Status DC Glycopyrrolate (Robinul) 1 mg STK-MED ONCE .ROUTE ; Start 01/29/20 at 14:25; Stop 01/29/20 at 14:25; Status DC Rocuronium Thonotosassa (Zemuron) 50 mg STK-MED ONCE .ROUTE ; Start 01/29/20 at 14:26; Stop 01/29/20 at 14:26; Status DC Fentanyl Citrate (Fentanyl 2ml Vial) 100 mcg STK-MED ONCE .ROUTE ; Start 01/29/20 at 14:26; Stop 01/29/20 at 14:27; Status DC Midazolam HCl (Versed) 2 mg STK-MED ONCE .ROUTE ; Start 01/29/20 at 14:27; Stop 01/29/20 at 14:27; Status DC Ondansetron HCl (Zofran) 4 mg PRN Q8HRS PRN IV NAUSEA/VOMITING Last administered on 01/29/20at 14:58; Start 01/29/20 at 14:45; Stop 01/30/20 at 14:44; Status DC Fentanyl Citrate (Fentanyl 2ml Vial) 50 mcg 1X ONCE IVP Last administered on 01/29/20at 14:58; Start 01/29/20 at 15:00; Stop 01/29/20 at 15:01; Status DC Ketamine HCl (Ketamine) 50 mg STK-MED ONCE .ROUTE ; Start 01/29/20 at 15:27; Stop 01/29/20 at 15:27; Status DC Heparin Sodium (Porcine) (Heparin) 30,000 unit STK-MED ONCE .ROUTE ; Start 01/29/20 at 15:42; Stop 01/29/20 at 15:43; Status DC Phenylephrine HCl (PHENYLEPHRINE in 0.9% NACL PF) 1 mg STK-MED ONCE IV ; Start 01/29/20 at 15:42; Stop 01/29/20 at 15:43; Status DC Ondansetron HCl (Zofran) 4 mg PRN Q6HRS PRN IV NAUSEA/VOMITING; Start 01/29/20 at 16:15; Stop 01/29/20 at 22:00; Status DC Fentanyl Citrate (Fentanyl 2ml Vial) 25 mcg PRN Q5MIN PRN IV MILD PAIN 1-3; Start 01/29/20 at 16:15; Stop 01/29/20 at 22:00; Status DC Fentanyl Citrate (Fentanyl 2ml Vial) 50 mcg PRN Q5MIN PRN IV MODERATE TO SEVERE PAIN; Start 01/29/20 at 16:15; Stop 01/29/20 at 22:00; Status DC Morphine Sulfate (Morphine Sulfate) 1 mg PRN Q10MIN PRN IV SEVERE PAIN 7-10; Start 01/29/20 at 16:15; Stop 01/29/20 at 22:00; Status DC Ringer's Solution 1,000 ml @ 30 mls/hr Q24H IV ; Start 01/29/20 at 16:04; Stop 01/30/20 at 04:03; Status DC Lidocaine HCl (Xylocaine-Mpf 1% 2ml Vial) 2 ml PRN 1X PRN ID PRIOR TO IV START; Start 01/29/20 at 16:15; Stop 01/29/20 at 22:00; Status DC Hydromorphone HCl (Dilaudid) 0.5 mg PRN Q10MIN PRN IV SEV PAIN, Second choice; Start 01/29/20 at 16:15; Stop 01/29/20 at 22:00; Status DC Prochlorperazine Edisylate (Compazine) 5 mg PACU PRN PRN IV NAUSEA, MRX1; Start 01/29/20 at 16:15; Stop 01/29/20 at 22:00; Status DC Sevoflurane (Ultane) 90 ml STK-MED ONCE IH ; Start 01/29/20 at 16:59; Stop 01/29/20 at 16:59; Status DC Pharmacy Consult (C.diff Med Screen By Rx) 1 each 1X ONCE MC ; Start 01/29/20 at 17:45; Stop 01/29/20 at 17:46; Status UNV Sodium Polystyrene Sulfonate (Kayexalate) 30 gm 1X ONCE PO Last administered on 01/30/20at 12:41; Start 01/30/20 at 12:15; Stop 01/30/20 at 12:16; Status DC Dextrose (Dextrose 50%-Water Syringe) 25 gm STK-MED ONCE IV ; Start 01/30/20 at 12:25; Stop 01/30/20 at 12:26; Status DC Calcium Chloride (Calcium Chloride) 1,000 mg STK-MED ONCE .ROUTE ; Start at 12:25; Stop 01/30/20 at 12:26; Status DC Sodium Bicarbonate (Sodium Bicarb Adult 8.4% Syr) 50 meq STK-MED ONCE .ROUTE ; Start 01/30/20 at 12:25; Stop 01/30/20 at 12:26; Status DC Calcium Gluconate (Calcium Gluconate) 1,000 mg 1X ONCE IVP ; Start 01/30/20 at 12:30; Stop 01/30/20 at 12:57; Status DC Sodium Bicarbonate (Sodium Bicarb Adult 8.4% Syr) 50 meq 1X ONCE IV Last administered on 01/30/20at 12:50; Start 01/30/20 at 12:30; Stop 01/30/20 at 12:57; Status DC Dextrose (Dextrose 50%-Water Syringe) 25 gm 1X ONCE IV Last administered on 01/30/20at 12:50; Start 01/30/20 at 12:30; Stop 01/30/20 at 12:57; Status DC Insulin Human Regular (HumuLIN R VIAL) 10 unit 1X ONCE IV Last administered on 01/30/20at 13:29; Start 01/30/20 at 12:30; Stop 01/30/20 at 12:57; Status DC Acetaminophen (Tylenol) 650 mg Q6HRS PRN PO MILD PAIN / TEMP > 100.3'F Last administered on 01/31/20at 03:12; Start 01/30/20 at 12:30 Ascorbic Acid (Vitamin C) 500 mg DAILY PO Last administered on 01/31/20 08:30; Start 01/30/20 at 13:00 Atorvastatin Calcium (Lipitor) 40 mg QHS PO Last administered on 01/30/20at 20:58; Start 01/30/20 at 21:00 Budesonide (Pulmicort) 0.5 mg BID NEB Last administered on 01/31/20 20:02; Start 01/30/20 at 21:00 Buspirone HCl (Buspar) 5 mg TID PO Last administered on 01/31/20 16:40; Start 01/30/20 at 14:00 Cyclobenzaprine HCl (Flexeril) 10 mg TID PO Last administered on 01/31/20 16:40; Start 01/30/20 at 14:00 Vitamin B Complex/ Vitamin C (Nora-Karina) 1 tab DAILY PO Last administered on 01/31/20at 08:30; Start 01/30/20 at 13:00 Acetaminophen/ Hydrocodone Bitart (Lortab 5/325) 1 tab PRN Q6HRS PRN PO MODERATE PAIN; Start 01/30/20 at 12:30 Insulin Human Lispro (HumaLOG) 4 units TIDWMEALS SQ Last administered on 01/31/20 17:24; Start 01/30/20 at 17:00 Ipratropium Thonotosassa (Atrovent) 0.5 mg RTQID NEB Last administered on 01/31/20at 20:02; Start 01/30/20 at 13:00 Metoclopramide HCl (Reglan) 5 mg TIDAC PO Last administered on 01/31/20at 16:40; Start 01/30/20 at 16:30 Metoprolol Tartrate (Lopressor) 12.5 mg BID PO ; Start 01/30/20 at 14:00 Pantoprazole Sodium (Protonix) 40 mg DAILYAC PO Last administered on 01/31/20 08:30; Start 01/30/20 at 16:30 Polyethylene Glycol (miraLAX PACKET) 17 gm DAILY PO Last administered on 01/31/20at 08:29; Start 01/30/20 at 14:00 Senna/Docusate Sodium (Senna Plus) 1 tab HS PO ; Start 01/30/20 at 21:00 Amiodarone HCl (Cordarone) 400 mg DAILY PO Last administered on 01/31/20at 08:31; Start 01/30/20 at 14:00 Cyanocobalamin (Vitamin B-12) 1,000 mcg DAILY PO Last administered on 01/31/20at 08:30; Start 01/30/20 at 14:00 Ferrous Sulfate (Iron Oral Solution) 300 mg DAILY08 PO Last administered on 01/31/20at 08:29; Start 01/30/20 at 14:00 Vitamin B Complex/ Vitamin C (Nora-Karina) 1 tab DAILY PO ; Start 01/30/20 at 14:00; Stop 01/31/20 at 09:44; Status DC Hydroxyzine HCl (Atarax) 10 mg TID PO Last administered on 01/31/20at 16:40; Start 01/30/20 at 14:00 Magnesium Oxide (Magnesium Oxide) 400 mg BID PO Last administered on 01/31/20at 16:40; Start 01/31/20 at 14:00 Non-Formulary Medication (Melatonin ) 3 mg HS PO ; Start 01/30/20 at 21:00; Status UNV Midodrine (Proamatine) 10 mg [id number] PO Last administered on 01/31/20at 18:25; Start 01/30/20 at 18:00 Insulin Human Lispro (HumaLOG) 0-5 UNITS TIDWMEALS SQ Last administered on 01/31/20at 12:44; Start 01/30/20 at 17:00 Dextrose (Dextrose 50%-Water Syringe) 12.5 gm PRN Q15MIN PRN IV SEE COMMENTS; Start 01/30/20 at 12:30 Sodium Chloride 1,000 ml @ 1,000 mls/hr Q1H PRN IV hypotension; Start 01/30/20 at 12:58; Stop 01/30/20 at 18:57; Status DC Info (PHARMACY MONITORING -- do not chart) 1 each PRN DAILY PRN MC SEE COMMENTS; Start 01/30/20 at 13:00; Status UNV Info (PHARMACY MONITORING -- do not chart) 1 each PRN DAILY PRN MC SEE COMMENTS; Start 01/30/20 at 13:00 Lidocaine HCl (Buffered Lidocaine 1%) 3 ml STK-MED ONCE .ROUTE ; Start 01/30/20 at 13:14; Stop 01/30/20 at 13:14; Status DC Lidocaine HCl (Buffered Lidocaine 1%) 3 ml 1X ONCE INJ ; Start 01/30/20 at 13:30; Stop 01/30/20 at 13:44; Status DC Sodium Chloride 500 ml @ 500 mls/hr 1X ONCE IV Last administered on 01/30/20at 20:58; Start 01/30/20 at 20:00; Stop 01/30/20 at 20:59; Status DC Iron Sucrose 200 mg/Sodium Chloride 110 ml @ 55 mls/hr 1X ONCE IV ; Start 01/31/20 at 09:00; Stop 01/31/20 at 08:42; Status DC Calcium Chloride (Calcium Chloride) 1,000 mg STK-MED ONCE .ROUTE ; Start 01/30/20 at 12:30; Stop 01/31/20 at 08:36; Status DC Darbepoetin Serafin (ARANESP for DIALYSIS PTS) 60 mcg WEEKLYHS SQ ; Start 01/31/20 at 21:00 Sodium Chloride 1,000 ml @ 1,000 mls/hr Q1H PRN IV hypotension; Start 01/31/20 at 16:31; Stop 01/31/20 at 22:30 Sodium Chloride 1,000 ml @ 400 mls/hr Q2H30M PRN IV PATENCY; Start 01/31/20 at 16:31; Stop 02/01/20 at 04:30 Info (PHARMACY MONITORING -- do not chart) 1 each PRN DAILY PRN MC SEE COMMENTS; Start 01/31/20 at 16:45 Active Scripts Active Reported Hydroxyzine Hcl 10 Mg/5 Ml Syrup 10 Mg PO TID Hydrocodone-Acetamin 5-325 mg (Hydrocodone/Acetaminophen) 1 Each Tablet 1 Each PO PRN Q6HRS PRN Glutose 15 (Dextrose) 37.5 Gm Gel..gram. 37.5 Gm PO PRN Cyclobenzaprine Hcl 10 Mg Tablet 1 Tab PO TID Tylenol (Acetaminophen) 325 Mg Tablet 2 Tab PO Q6HRS PRN Warfarin Sodium 2 Mg Tablet 2 Mg PO DAILY B-12 (Cyanocobalamin (Vitamin B-12)) 1,000 Mcg Tablet.er 1 Tab PO DAILY 30 Days Senna-Docusate Sodium Tablet (Sennosides/Docusate Sodium) 1 Each Tablet 1 Tab PO HS 20 Days Transderm-Scop (Scopolamine) 1 Each Patch.td72 1 Patch TP Q3DAYS Renal Caps Softgel (Folic Acid/Vitamin B Comp W-C) 1 Mg Capsule 1 Cap PO DAILY 30 Days Miralax (Polyethylene Glycol 3350) 17 Gm Powd.pack 1 Packet PO DAILY 2 Days dissolve in water Pantoprazole Sodium (Pantoprazole Sodium) 40 Mg Tablet.dr 40 Mg PO DAILYAC Midodrine Hcl 10 Mg Tablet 10 Mg PO TID Metoprolol Tartrate 25 Mg Tablet 0.5 Tab PO BID Reglan (Metoclopramide Hcl) 10 Mg Tablet 1 Tab PO TIDAC 30 Days before food and bedtime Melatonin 3 Mg Capsule 3 Mg PO HS Magnesium Oxide 400 Mg Tablet 1 Tab PO BID Ipratropium Thonotosassa 0.2 Mg/1 Ml Solution 1 Vial NEB QID Humalog (Insulin Lispro) 100 Unit/1 Ml Vial 4 Unit SQ TIDAC Insulin Lispro 100 Unit/1 Ml Vial 0-6 Unit SQ TIDAC Renal-Karina Tablet (Folic Acid/Vit Bcomp,C) 0.8 Mg Tablet 1 Mg PO DAILY Ferrous Sulfate 220 Mg/5 Ml Solution 5 Ml PO DAILY 30 Days Buspirone Hcl 5 Mg Tablet 1 Tab PO TID Budesonide 0.5 Mg/2 Ml Ampul.neb 1 Vial NEB BID Atorvastatin Calcium 40 Mg Tablet 1 Tab PO QHS Ascorbic Acid 500 Mg Tablet 500 Mg PO DAILY Amiodarone Hcl 400 Mg Tablet 1 Tab PO DAILY 30 Days Allergies Allergies: Coded Allergies: Penicillins (Verified Allergy, Intermediate, 01/29/20) ROS General: No: Chills, Night Sweats PSYCHOLOGICAL ROS: No: Anxiety Eyes: No Blurry vision, No Decreased vision HEENT: No: Heacaches, Visual Changes ALLERGY AND IMMUNOLOGY: No: Hives, Insect Bite Sensitivity Hematological and Lymphatic: YES: Bleeding Problems; No: Blood Clots, Blood Transfusions Breast: No Nipple changes Respiratory: No: Cough, Hemoptysis Cardiovascular: No Chest Pain, No Palpitations Gastrointestinal: No Nausea, No Vomiting Genitourinary: No Dysuria, No Frequency Musculoskeletal: No Joint Pain Neurological: No Behavorial Changes, No Bowel/Bladder ControlChng Skin: No Rash Physical Exam General: Alert, Oriented X3 HEENT: Atraumatic Lungs: Clear to auscultation Heart: Regular rate Abdomen: Normal bowel sounds, Soft Extremities: No clubbing, No cyanosis, Other (RUE fistula with bandage over it) Skin: No rashes Neuro: Normal gait Psych/Mental Status: Mental status NL MUSCULOSKELETAL: No swelling Vitals VITALS Vital Signs Date Time Temp Pulse Resp B/P (MAP) Pulse Ox O2 Delivery O2 Flow Rate FiO2 01/31/20 20:02 100 Nasal Cannula 3.0 01/31/20 20:00 97.8 64 20 99/61 (74) 97.8 Labs Labs Laboratory Tests Test 01/30/20 04:45 01/30/20 17:52 01/30/20 21:04 01/31/20 03:52 White Blood Count 6.0 x10^3/uL (4.0-11.0) 7.5 x10^3/uL (4.0-11.0) Red Blood Count 2.29 x10^6/uL (4.30-5.70) 1.96 x10^6/uL (4.30-5.70) Hemoglobin 6.1 g/dL (13.0-17.5) 5.3 g/dL (13.0-17.5) Hematocrit 20.1 % (39.0-53.0) 17.1 % (39.0-53.0) Mean Corpuscular Volume 88 fL (79-100) 87 fL (79-100) Mean Corpuscular Hemoglobin 27 pg (25-35) 27 pg (25-35) Mean Corpuscular Hemoglobin Concent 30 g/dL (31-37) 31 g/dL (31-37) Red Cell Distribution Width 21.8 % (11.5-14.5) 21.9 % (11.5-14.5) Platelet Count 261 x10^3/uL (140-400) 238 x10^3/uL (140-400) Neutrophils (%) (Auto) 71 % (31-73) 78 % (31-73) Lymphocytes (%) (Auto) 14 % (24-48) 10 % (24-48) Monocytes (%) (Auto) 11 % (0-9) 9 % (0-9) Eosinophils (%) (Auto) 3 % (0-3) 2 % (0-3) Basophils (%) (Auto) 1 % (0-3) 2 % (0-3) Neutrophils # (Auto) 4.3 x10^3/uL (1.8-7.7) 5.9 x10^3/uL (1.8-7.7) Lymphocytes # (Auto) 0.9 x10^3/uL (1.0-4.8) 0.7 x10^3/uL (1.0-4.8) Monocytes # (Auto) 0.7 x10^3/uL (0.0-1.1) 0.6 x10^3/uL (0.0-1.1) Eosinophils # (Auto) 0.2 x10^3/uL (0.0-0.7) 0.2 x10^3/uL (0.0-0.7) Basophils # (Auto) 0.1 x10^3/uL (0.0-0.2) 0.1 x10^3/uL (0.0-0.2) Sodium Level 144 mmol/L (136-145) 141 mmol/L (136-145) Potassium Level 6.5 mmol/L (3.5-5.1) 4.7 mmol/L (3.5-5.1) Chloride Level 107 mmol/L (98-107) 102 mmol/L (98-107) Carbon Dioxide Level 30 mmol/L (21-32) 32 mmol/L (21-32) Anion Gap 7 (6-14) 7 (6-14) Blood Urea Nitrogen 39 mg/dL (8-26) 18 mg/dL (8-26) Creatinine 4.8 mg/dL (0.7-1.3) 2.8 mg/dL (0.7-1.3) Estimated GFR (Cockcroft-Gault) 14.6 27.2 Glucose Level 111 mg/dL (70-99) 102 mg/dL (70-99) Calcium Level 9.0 mg/dL (8.5-10.1) 8.6 mg/dL (8.5-10.1) Glucose (Fingerstick) 87 mg/dL (70-99) 102 mg/dL (70-99) Prothrombin Time 21.9 SEC (11.7-14.0) Prothromb Time International Ratio 1.9 (0.8-1.1) BUN/Creatinine Ratio 6 (6-20) Total Bilirubin 0.4 mg/dL (0.2-1.0) Aspartate Amino Transf (AST/SGOT) 29 U/L (15-37) Alanine Aminotransferase (ALT/SGPT) 14 U/L (16-63) Alkaline Phosphatase 141 U/L (46-116) Total Protein 7.0 g/dL (6.4-8.2) Albumin 1.8 g/dL (3.4-5.0) Albumin/Globulin Ratio 0.3 (1.0-1.7) Hepatitis B Surface Antigen Nonreactive (Nonreactive) Hepatitis B Surface Antibody Nonreactive Test 01/31/20 12:41 01/31/20 16:45 Glucose (Fingerstick) 192 mg/dL (70-99) 108 mg/dL (70-99) Laboratory Tests Test 01/30/20 21:04 01/31/20 03:52 01/31/20 12:41 01/31/20 16:45 Glucose (Fingerstick) 102 mg/dL (70-99) 192 mg/dL (70-99) 108 mg/dL (70-99) White Blood Count 7.5 x10^3/uL (4.0-11.0) Red Blood Count 1.96 x10^6/uL (4.30-5.70) Hemoglobin 5.3 g/dL (13.0-17.5) Hematocrit 17.1 % (39.0-53.0) Mean Corpuscular Volume 87 fL (79-100) Mean Corpuscular Hemoglobin 27 pg (25-35) Mean Corpuscular Hemoglobin Concent 31 g/dL (31-37) Red Cell Distribution Width 21.9 % (11.5-14.5) Platelet Count 238 x10^3/uL (140-400) Neutrophils (%) (Auto) 78 % (31-73) Lymphocytes (%) (Auto) 10 % (24-48) Monocytes (%) (Auto) 9 % (0-9) Eosinophils (%) (Auto) 2 % (0-3) Basophils (%) (Auto) 2 % (0-3) Neutrophils # (Auto) 5.9 x10^3/uL (1.8-7.7) Lymphocytes # (Auto) 0.7 x10^3/uL (1.0-4.8) Monocytes # (Auto) 0.6 x10^3/uL (0.0-1.1) Eosinophils # (Auto) 0.2 x10^3/uL (0.0-0.7) Basophils # (Auto) 0.1 x10^3/uL (0.0-0.2) Prothrombin Time 21.9 SEC (11.7-14.0) Prothromb Time International Ratio 1.9 (0.8-1.1) Sodium Level 141 mmol/L (136-145) Potassium Level 4.7 mmol/L (3.5-5.1) Chloride Level 102 mmol/L (98-107) Carbon Dioxide Level 32 mmol/L (21-32) Anion Gap 7 (6-14) Blood Urea Nitrogen 18 mg/dL (8-26) Creatinine 2.8 mg/dL (0.7-1.3) Estimated GFR (Cockcroft-Gault) 27.2 BUN/Creatinine Ratio 6 (6-20) Glucose Level 102 mg/dL (70-99) Calcium Level 8.6 mg/dL (8.5-10.1) Total Bilirubin 0.4 mg/dL (0.2-1.0) Aspartate Amino Transf (AST/SGOT) 29 U/L (15-37) Alanine Aminotransferase (ALT/SGPT) 14 U/L (16-63) Alkaline Phosphatase 141 U/L (46-116) Total Protein 7.0 g/dL (6.4-8.2) Albumin 1.8 g/dL (3.4-5.0) Albumin/Globulin Ratio 0.3 (1.0-1.7) Hepatitis B Surface Antigen Nonreactive (Nonreactive) Hepatitis B Surface Antibody Nonreactive Assessment/Plan Assessment/Plan Assessment: Acute blood loss anemia Anemia of chronic disease ESRD on HD CMP with EF10% [employer] Recommendations: -Check iron studies and B12 -Will plan on administering IV iron while inpatient. Start tomorrow AM -Check Epo level. I recommend Erythropoesis stimulating agent if allowed by his yazidism beliefs. Will discuss again tomorrow. This will be a long-term therapy as it may take several weeks to take effect -Continue care of bleeding AVF per vascular surgery -HD per nephrology. Could administer Epo with HD -Rest per Dr Pritchett -Will follow Please call me at [phone] with any questions. ROSLYN JENNINGS MD Jan 31, 2020 20:35
[2020-01-31] MEDS: ATORVASTATIN CALCIUM 40 MG TABLET. PO SCH (20:40)
[2020-01-31] MEDS: SENNOSIDES/DOCUSATE 8.6/50MG TABLET. PO SCH (20:40)
[2020-01-31] MEDS: DEXTROSE 50% 25 GM / 50ML DISP.SYRIN. IV PRN (20:47)
[2020-01-31] MEDS ORDERED: DARBEPOETIN ALFA 60 MCG/0.3 ML DISP.SYRIN. SQ SCH (21:00)
[2020-02-01] VITALS (9 sets, daily range): BP systolic 95–123; BP diastolic 37–68
[2020-02-01] MEDS: MIDODRINE 5 MG TABLET PO SCH ×3 (06:32→17:05)
[2020-02-01] MEDS: BUDESONIDE 0.5 MG/2 ML NEBU. NEB SCH ×2 (07:25→19:41)
[2020-02-01] MEDS: IPRATROPIUM BROMIDE 0.5 MG/2.5 ML NEBU. NEB SCH ×4 (07:25→19:41)
[2020-02-01] MEDS: METOCLOPRAMIDE 10 MG TABLET. PO SCH ×3 (07:30→17:06)
[2020-02-01] MEDS: INSULIN LISPRO 300 UNITS/3 ML VIAL. SQ SCH ×6 (08:00→17:00)
[2020-02-01 08:17] LABS: BASO # 0.1 x10^3/uL (0.0-0.2); BASO % 1 % (0-3); EOS # 0.2 x10^3/uL (0.0-0.7); EOS % 4 % (0-3); LYMPH % 15 % (24-48); MEAN CORPUSCULAR HEMOGLOBIN 26 pg (25-35); MEAN CORPUSCULAR HGB CONC 31 g/dL (31-37); MEAN CORPUSCULAR VOLUME 86 fL (79-100); MONO # 0.6 x10^3/uL (0.0-1.1); MONO % 9 % (0-9); NEUT # 4.4 x10^3/uL (1.8-7.7); NEUT % 71 % (31-73); PLATELET COUNT 219 x10^3/uL (140-400); RED CELL DISTRIBUTION WIDTH 21.8 % (11.5-14.5); WHITE BLOOD COUNT 6.3 x10^3/uL (4.0-11.0)
[2020-02-01 08:20] LABS: HEMATOCRIT 17.2 % (39.0-53.0); HEMOGLOBIN 5.3 g/dL (13.0-17.5)
[2020-02-01 08:35] LABS: CALCIUM 8.6 mg/dL (8.5-10.1); CREATININE 2.5 mg/dL (0.7-1.3); POTASSIUM 4.9 mmol/L (3.5-5.1)
--- NOTE | 2020-02-01 08:43 | PDOC ---
PULMONARY PROGRESS NOTES DATE: 02/01/20 TIME: 08:42 Subjective Patient sleepy, no respiratory complaints no increasing shortness of breath no chest pain no pressure Vitals Vital Signs Date Time Temp Pulse Resp B/P (MAP) Pulse Ox O2 Delivery O2 Flow Rate FiO2 02/01/20 07:25 100 Venturi Mask 15.0 02/01/20 06:32 74 113/53 02/01/20 04:00 98.0 20 98.0 ROS: No Nausea, No Chest Pain, No Abdominal Pain, No Increase Cough General: Alert Lungs: Crackles Cardiovascular: S1, S2 Abdomen: Soft Neuro Exam: Alert Extremities: No Edema Skin: Warm Labs Laboratory Tests Test 01/30/20 17:52 01/30/20 21:04 01/31/20 03:52 01/31/20 12:41 Glucose (Fingerstick) 87 mg/dL (70-99) 102 mg/dL (70-99) 192 mg/dL (70-99) White Blood Count 7.5 x10^3/uL (4.0-11.0) Red Blood Count 1.96 x10^6/uL (4.30-5.70) Hemoglobin 5.3 g/dL (13.0-17.5) Hematocrit 17.1 % (39.0-53.0) Mean Corpuscular Volume 87 fL (79-100) Mean Corpuscular Hemoglobin 27 pg (25-35) Mean Corpuscular Hemoglobin Concent 31 g/dL (31-37) Red Cell Distribution Width 21.9 % (11.5-14.5) Platelet Count 238 x10^3/uL (140-400) Neutrophils (%) (Auto) 78 % (31-73) Lymphocytes (%) (Auto) 10 % (24-48) Monocytes (%) (Auto) 9 % (0-9) Eosinophils (%) (Auto) 2 % (0-3) Basophils (%) (Auto) 2 % (0-3) Neutrophils # (Auto) 5.9 x10^3/uL (1.8-7.7) Lymphocytes # (Auto) 0.7 x10^3/uL (1.0-4.8) Monocytes # (Auto) 0.6 x10^3/uL (0.0-1.1) Eosinophils # (Auto) 0.2 x10^3/uL (0.0-0.7) Basophils # (Auto) 0.1 x10^3/uL (0.0-0.2) Prothrombin Time 21.9 SEC (11.7-14.0) Prothromb Time International Ratio 1.9 (0.8-1.1) Sodium Level 141 mmol/L (136-145) Potassium Level 4.7 mmol/L (3.5-5.1) Chloride Level 102 mmol/L (98-107) Carbon Dioxide Level 32 mmol/L (21-32) Anion Gap 7 (6-14) Blood Urea Nitrogen 18 mg/dL (8-26) Creatinine 2.8 mg/dL (0.7-1.3) Estimated GFR (Cockcroft-Gault) 27.2 BUN/Creatinine Ratio 6 (6-20) Glucose Level 102 mg/dL (70-99) Calcium Level 8.6 mg/dL (8.5-10.1) Total Bilirubin 0.4 mg/dL (0.2-1.0) Aspartate Amino Transf (AST/SGOT) 29 U/L (15-37) Alanine Aminotransferase (ALT/SGPT) 14 U/L (16-63) Alkaline Phosphatase 141 U/L (46-116) Total Protein 7.0 g/dL (6.4-8.2) Albumin 1.8 g/dL (3.4-5.0) Albumin/Globulin Ratio 0.3 (1.0-1.7) Hepatitis B Surface Antigen Nonreactive (Nonreactive) Hepatitis B Surface Antibody Nonreactive Test 01/31/20 16:45 01/31/20 20:45 01/31/20 21:18 02/01/20 00:11 Glucose (Fingerstick) 108 mg/dL (70-99) 59 mg/dL (70-99) 114 mg/dL (70-99) 155 mg/dL (70-99) Test 02/01/20 07:45 White Blood Count 6.3 x10^3/uL (4.0-11.0) Red Blood Count 2.00 x10^6/uL (4.30-5.70) Hemoglobin 5.3 g/dL (13.0-17.5) Hematocrit 17.2 % (39.0-53.0) Mean Corpuscular Volume 86 fL (79-100) Mean Corpuscular Hemoglobin 26 pg (25-35) Mean Corpuscular Hemoglobin Concent 31 g/dL (31-37) Red Cell Distribution Width 21.8 % (11.5-14.5) Platelet Count 219 x10^3/uL (140-400) Neutrophils (%) (Auto) 71 % (31-73) Lymphocytes (%) (Auto) 15 % (24-48) Monocytes (%) (Auto) 9 % (0-9) Eosinophils (%) (Auto) 4 % (0-3) Basophils (%) (Auto) 1 % (0-3) Neutrophils # (Auto) 4.4 x10^3/uL (1.8-7.7) Lymphocytes # (Auto) 1.0 x10^3/uL (1.0-4.8) Monocytes # (Auto) 0.6 x10^3/uL (0.0-1.1) Eosinophils # (Auto) 0.2 x10^3/uL (0.0-0.7) Basophils # (Auto) 0.1 x10^3/uL (0.0-0.2) Absolute Reticulocyte Count 0.021 x10^6/uL (0.020-0.120) Percent Reticulocyte Count 1.0 % (0.5-2.3) Immature Reticulocyte Fraction 0.54 (0.20-0.60) Sodium Level 132 mmol/L (136-145) Potassium Level 4.9 mmol/L (3.5-5.1) Chloride Level 95 mmol/L (98-107) Carbon Dioxide Level 29 mmol/L (21-32) Anion Gap 8 (6-14) Blood Urea Nitrogen 17 mg/dL (8-26) Creatinine 2.5 mg/dL (0.7-1.3) Estimated GFR (Cockcroft-Gault) 31.0 Glucose Level 148 mg/dL (70-99) Calcium Level 8.6 mg/dL (8.5-10.1) Laboratory Tests Test 01/31/20 12:41 01/31/20 16:45 01/31/20 20:45 01/31/20 21:18 Glucose (Fingerstick) 192 mg/dL (70-99) 108 mg/dL (70-99) 59 mg/dL (70-99) 114 mg/dL (70-99) Test 02/01/20 00:11 02/01/20 07:45 Glucose (Fingerstick) 155 mg/dL (70-99) White Blood Count 6.3 x10^3/uL (4.0-11.0) Red Blood Count 2.00 x10^6/uL (4.30-5.70) Hemoglobin 5.3 g/dL (13.0-17.5) Hematocrit 17.2 % (39.0-53.0) Mean Corpuscular Volume 86 fL (79-100) Mean Corpuscular Hemoglobin 26 pg (25-35) Mean Corpuscular Hemoglobin Concent 31 g/dL (31-37) Red Cell Distribution Width 21.8 % (11.5-14.5) Platelet Count 219 x10^3/uL (140-400) Neutrophils (%) (Auto) 71 % (31-73) Lymphocytes (%) (Auto) 15 % (24-48) Monocytes (%) (Auto) 9 % (0-9) Eosinophils (%) (Auto) 4 % (0-3) Basophils (%) (Auto) 1 % (0-3) Neutrophils # (Auto) 4.4 x10^3/uL (1.8-7.7) Lymphocytes # (Auto) 1.0 x10^3/uL (1.0-4.8) Monocytes # (Auto) 0.6 x10^3/uL (0.0-1.1) Eosinophils # (Auto) 0.2 x10^3/uL (0.0-0.7) Basophils # (Auto) 0.1 x10^3/uL (0.0-0.2) Absolute Reticulocyte Count 0.021 x10^6/uL (0.020-0.120) Percent Reticulocyte Count 1.0 % (0.5-2.3) Immature Reticulocyte Fraction 0.54 (0.20-0.60) Sodium Level 132 mmol/L (136-145) Potassium Level 4.9 mmol/L (3.5-5.1) Chloride Level 95 mmol/L (98-107) Carbon Dioxide Level 29 mmol/L (21-32) Anion Gap 8 (6-14) Blood Urea Nitrogen 17 mg/dL (8-26) Creatinine 2.5 mg/dL (0.7-1.3) Estimated GFR (Cockcroft-Gault) 31.0 Glucose Level 148 mg/dL (70-99) Calcium Level 8.6 mg/dL (8.5-10.1) Medications Active Scripts Medications Dose Route/Sig Max Daily Dose Days Date Category Dose Instructions Hydroxyzine Hcl 10 Mg/5 Ml Syrup 10 Mg PO TID 01/29/20 Reported Hydrocodone-Acetamin 5-325 mg (Hydrocodone/Acetaminophen) 1 Each Tablet 1 Each PO PRN Q6HRS PRN 01/29/20 Reported Glutose 15 (Dextrose) 37.5 Gm Gel..gram. 37.5 Gm PO PRN 01/29/20 Reported Cyclobenzaprine Hcl 10 Mg Tablet 1 Tab PO TID 01/29/20 Reported Tylenol (Acetaminophen) 325 Mg Tablet 2 Tab PO Q6HRS PRN 01/29/20 Reported Warfarin Sodium 2 Mg Tablet 2 Mg PO DAILY 01/29/20 Reported B-12 (Cyanocobalamin (Vitamin B-12)) 1,000 Mcg Tablet.er 1 Tab PO DAILY 30 01/29/20 Reported Senna-Docusate Sodium Tablet (Sennosides/Docusate Sodium) 1 Each Tablet 1 Tab PO HS 20 01/29/20 Reported Transderm-Scop (Scopolamine) 1 Each Patch.td72 1 Patch TP Q3DAYS 01/29/20 Reported Renal Caps Softgel (Folic Acid/Vitamin B Comp W-C) 1 Mg Capsule 1 Cap PO DAILY 30 01/29/20 Reported Miralax (Polyethylene Glycol 3350) 17 Gm Powd.pack 1 Packet PO DAILY 2 01/29/20 Reported dissolve in water Pantoprazole Sodium (Pantoprazole Sodium) 40 Mg Tablet.dr 40 Mg PO DAILYAC 01/29/20 Reported Midodrine Hcl 10 Mg Tablet 10 Mg PO TID 01/29/20 Reported Metoprolol Tartrate 25 Mg Tablet 0.5 Tab PO BID 01/29/20 Reported Reglan (Metoclopramide Hcl) 10 Mg Tablet 1 Tab PO TIDAC 30 01/29/20 Reported before food and bedtime Melatonin 3 Mg Capsule 3 Mg PO HS 01/29/20 Reported Magnesium Oxide 400 Mg Tablet 1 Tab PO BID 01/29/20 Reported Ipratropium [place] 0.2 Mg/1 Ml Solution 1 Vial NEB QID 01/29/20 Reported Humalog (Insulin Lispro) 100 Unit/1 Ml Vial 4 Unit SQ TIDAC 01/29/20 Reported Insulin Lispro 100 Unit/1 Ml Vial 0-6 Unit SQ TIDAC 01/29/20 Reported Renal-Karina Tablet (Folic Acid/Vit Bcomp,C) 0.8 Mg Tablet 1 Mg PO DAILY 01/29/20 Reported Ferrous Sulfate 220 Mg/5 Ml Solution 5 Ml PO DAILY 30 01/29/20 Reported Buspirone Hcl 5 Mg Tablet 1 Tab PO TID 01/29/20 Reported Budesonide 0.5 Mg/2 Ml Ampul.neb 1 Vial NEB BID 01/29/20 Reported Atorvastatin Calcium 40 Mg Tablet 1 Tab PO QHS 01/29/20 Reported Ascorbic Acid 500 Mg Tablet 500 Mg PO DAILY 01/29/20 Reported Amiodarone Hcl 400 Mg Tablet 1 Tab PO DAILY 30 01/29/20 Reported Impression . IMPRESSION: 1. Acute respiratory failure. The patient currently is on oxygen via nasal cannula. He has a tracheostomy, which is capped. 2. [id number] blood loss anemia from AV fistula site. 3. End-stage renal disease, on hemodialysis. 4. Severe protein-calorie malnutrition. 5. Severe cardiomyopathy with an EF of 10%. 6. The patient is Congregational. Vascular surgeon's note Pt seen and examined today He has no new c/o left arm dressing taken down fistula has an excellent thrill incision c/d/i no hematoma good perfusion to left hand no evidence of steal Doing well It will be at lest 3 to 4 weeks before the fistula / graft can be used for HD He will likely need a tunnel catheter in the meantime (temp cath placed today due to elevated INR) but I would defer this to nephrology Please re-wrap wound today will follow while he is here Will need to see me in the office in 2 to 3 weeks Plan . Chest x-ray was reviewed there appears to be mild edema Negative fluid balance doing dialysis Monitor chest X Follow renal recommend We Will Continue Oxygen Supplementation per Nasal Cannula Continue capped Trach As Tolerated SAMANTHA MERCHANT MD Feb 01, 2020 08:43
[2020-02-01] MEDS: POLYETHYLENE GLYCOL 3350 17 GM PACKET. PO SCH (09:00)
[2020-02-01] MEDS: hydrOXYzine 10 MG TABLET PO SCH ×3 (09:00→22:14)
[2020-02-01] MEDS: METOPROLOL TART IMMED RELEASE 25 MG TABLET. PO SCH ×2 (09:00→22:25)
[2020-02-01] MEDS: CYCLOBENZAPRINE 10 MG TABLET. PO SCH ×3 (09:00→23:55)
[2020-02-01] MEDS: MAGNESIUM OXIDE 400 MG TABLET PO SCH ×2 (09:00→22:15)
--- NOTE | 2020-02-01 09:15 | PDOC ---
DATE OF SERVICE DATE: 02/01/20 TIME: 09:14 SUBJECTIVE ROS No complaints , alert OBJECTIVE Vital Signs Vital Signs Date Time Temp Pulse Resp B/P (MAP) Pulse Ox O2 Delivery O2 Flow Rate FiO2 02/01/20 07:25 100 Venturi Mask 15.0 02/01/20 06:32 74 113/53 02/01/20 04:00 98.0 20 98.0 I & 0 Intake and Output 02/01/20 07:00 Intake Total 1150 ml Output Total 0 ml Balance 1150 ml Intake Oral 1150 ml Output Urine Total 0 ml PHYSICAL EXAM Physical Exam General appearance - alert, NAD HEEN OM moist Neck Supple Lungs -decreased breath sounds at bases Heart - S1 and S2 normal Abdomen - soft, non tender Neurological - alert and oriented Extremities -trace edema Skin - No rash DIAGNOSIS/ASSESSMENT Assessment & Plan ESRD - On HD MWF , has been on dialysis for 5 years in [facility] under Dr. Carter No indication for HD today Access - presented with Active bleeding from AVF and a large ulceration over it eroding the fistula S/P resection of the fistula and placement of a [place]-Pan graft. Currently has Temp HDC , Permacath placement on Hold due to High INR Mechanical mitral valve, on Coumadin- cardiology managing Cardiomyopathy, ejection fraction 10%. History of cardiac event with arrhythmias and the patient was on vest at [facility]. Anemia- Hgb to 5.3 He is Buddhism and he is refusing any blood products. started KAREEM, Tsats are at goal Diabetes. Hypertension. Recent tracheostomy, which was placed recently 3-4 weeks ago. It will be at lest 3 to 4 weeks before the fistula / graft can be used for HD He will likely need a tunnel catheter in the meantime (temp cath placed today due to elevated INR) but I would defer this to nephrology Please re-wrap wound today will follow while he is here Will need to see me in the office in 2 to 3 weeks COMMENT/RELEVANT DATA Meds Current Medications Medications (Trade) Dose Ordered Sig/Cheri Start Time Stop Time Status Last Admin Dose Admin Acetaminophen (Tylenol) 650 mg Q6HRS PRN 01/30/20 12:30 01/31/20 03:12 650 MG Acetaminophen/ Hydrocodone Bitart (Lortab 5/325) 1 tab PRN Q6HRS PRN 01/30/20 12:30 Amiodarone HCl (Cordarone) 400 mg DAILY 01/30/20 14:00 01/31/20 08:31 400 MG Ascorbic Acid (Vitamin C) 500 mg DAILY 01/30/20 13:00 01/31/20 08:30 500 MG Atorvastatin Calcium (Lipitor) 40 mg QHS 01/30/20 21:00 01/31/20 20:40 40 MG Budesonide (Pulmicort) 0.5 mg BID 01/30/20 21:00 02/01/20 07:25 0.5 MG Buspirone HCl (Buspar) 5 mg TID 01/30/20 14:00 01/31/20 20:40 5 MG Calcium Chloride (Calcium Chloride) 1,000 mg STK-MED ONCE 01/30/20 12:30 01/31/20 08:36 DC Calcium Gluconate (Calcium Gluconate) 1,000 mg 1X ONCE 01/30/20 12:30 01/30/20 12:57 DC Cellulose (Surgicel Fibrillar 1x2) 1 each STK-MED ONCE 01/29/20 14:19 01/29/20 14:19 DC 01/29/20 16:48 1 EACH Cyanocobalamin (Vitamin B-12) 1,000 mcg DAILY 01/30/20 14:00 01/31/20 08:30 1,000 MCG Cyclobenzaprine HCl (Flexeril) 10 mg TID 01/30/20 14:00 01/31/20 20:40 10 MG Darbepoetin Serafin (ARANESP for DIALYSIS PTS) 60 mcg WEEKLYHS 01/31/20 21:00 01/31/20 20:40 60 MCG Dextrose (Dextrose 50%-Water Syringe) 12.5 gm PRN Q15MIN PRN 01/30/20 12:30 01/31/20 20:47 12.5 GM Fentanyl Citrate (Fentanyl 2ml Vial) 50 mcg PRN Q5MIN PRN 01/29/20 16:15 01/29/20 22:00 DC Ferrous Sulfate (Iron Oral Solution) 300 mg DAILY08 01/30/20 14:00 01/31/20 08:29 300 MG Glycopyrrolate (Robinul) 1 mg STK-MED ONCE 01/29/20 14:25 01/29/20 14:25 DC Heparin Sodium (Porcine) (Heparin) 30,000 unit STK-MED ONCE 01/29/20 15:42 01/29/20 15:43 DC Heparin Sodium (Porcine) 5000 unit/Sodium Chloride 505 ml @ 505 mls/hr 1X ONCE 01/29/20 15:00 01/29/20 16:03 DC 01/29/20 15:28 Hydromorphone HCl (Dilaudid) 0.5 mg PRN Q10MIN PRN 01/29/20 16:15 01/29/20 22:00 DC Hydroxyzine HCl (Atarax) 10 mg TID 01/30/20 14:00 01/31/20 20:40 10 MG Info (PHARMACY MONITORING -- do not chart) 1 each PRN DAILY PRN 01/31/20 16:45 Insulin Human Lispro (HumaLOG) 0-5 UNITS TIDWMEALS 01/30/20 17:00 01/31/20 12:44 2 UNITS Insulin Human Regular (HumuLIN R VIAL) 10 unit 1X ONCE 01/30/20 12:30 01/30/20 12:57 DC 01/30/20 13:29 10 UNIT Ipratropium Parker (Atrovent) 0.5 mg RTQID 01/30/20 13:00 02/01/20 07:25 0.5 MG Iron Sucrose 200 mg/Sodium Chloride 110 ml @ 55 mls/hr 1X ONCE 01/31/20 09:00 01/31/20 08:42 DC Ketamine HCl (Ketamine) 50 mg STK-MED ONCE 01/29/20 15:27 01/29/20 15:27 DC Lidocaine HCl (Buffered Lidocaine 1%) 3 ml 1X ONCE 01/30/20 13:30 01/30/20 13:44 DC Lidocaine HCl (Xylocaine 1% Pf 30ml Vial) 30 ml STK-MED ONCE 01/29/20 14:19 01/29/20 14:19 DC Lidocaine HCl (Xylocaine-Mpf 1% 2ml Vial) 2 ml PRN 1X PRN 01/29/20 16:15 01/29/20 22:00 DC Lidocaine HCl (Xylocaine-Mpf 1% 5ml Vial) 5 ml STK-MED ONCE 01/29/20 12:51 01/29/20 12:51 DC Magnesium Oxide (Magnesium Oxide) 400 mg BID 01/31/20 14:00 01/31/20 20:40 400 MG Metoclopramide HCl (Reglan) 5 mg TIDAC 01/30/20 16:30 01/31/20 16:40 5 MG Metoprolol Tartrate (Lopressor) 12.5 mg BID 01/30/20 14:00 Midazolam HCl (Versed) 2 mg STK-MED ONCE 01/29/20 14:27 01/29/20 14:27 DC Midodrine (Proamatine) 10 mg [id number] 01/30/20 18:00 02/01/20 06:32 10 MG Morphine Sulfate (Morphine Sulfate) 1 mg PRN Q10MIN PRN 01/29/20 16:15 01/29/20 22:00 DC Non-Formulary Medication (Melatonin ) 3 mg HS 01/30/20 21:00 UNV Ondansetron HCl (Zofran) 4 mg PRN Q6HRS PRN 01/29/20 16:15 01/29/20 22:00 DC Pantoprazole Sodium (Protonix) 40 mg DAILYAC 01/30/20 16:30 01/31/20 08:30 40 MG Papaverine HCl 60 mg STK-MED ONCE 01/29/20 14:19 01/29/20 14:20 DC Pharmacy Consult (C.diff Med Screen By Rx) 1 each 1X ONCE 01/29/20 17:45 01/29/20 17:46 UNV Phenylephrine HCl (PHENYLEPHRINE in 0.9% NACL PF) 1 mg STK-MED ONCE 01/29/20 15:42 01/29/20 15:43 DC Polyethylene Glycol (miraLAX PACKET) 17 gm DAILY 01/30/20 14:00 01/31/20 08:29 17 GM Prochlorperazine Edisylate (Compazine) 5 mg PACU PRN PRN 01/29/20 16:15 01/29/20 22:00 DC Ringer's Solution 1,000 ml @ 30 mls/hr Q24H 01/29/20 16:04 01/30/20 04:03 DC Rocuronium Parker (Zemuron) 50 mg STK-MED ONCE 01/29/20 14:26 01/29/20 14:26 DC Senna/Docusate Sodium (Senna Plus) 1 tab HS 01/30/20 21:00 01/31/20 20:40 1 TAB Sevoflurane (Ultane) 90 ml STK-MED ONCE 01/29/20 16:59 01/29/20 16:59 DC Sodium Polystyrene Sulfonate (Kayexalate) 30 gm 1X ONCE 01/30/20 12:15 01/30/20 12:16 DC 01/30/20 12:41 30 GM Sodium Bicarbonate (Sodium Bicarb Adult 8.4% Syr) 50 meq 1X ONCE 01/30/20 12:30 01/30/20 12:57 DC 01/30/20 12:50 50 MEQ Sodium Chloride 1,000 ml @ 400 mls/hr Q2H30M PRN 01/31/20 16:31 02/01/20 04:30 DC Vitamin B Complex/ Vitamin C (Nora-Karina) 1 tab DAILY 01/30/20 14:00 01/31/20 09:44 DC Lab Laboratory Tests Test 01/31/20 12:41 01/31/20 16:45 01/31/20 20:45 01/31/20 21:18 Glucose (Fingerstick) 192 mg/dL (70-99) 108 mg/dL (70-99) 59 mg/dL (70-99) 114 mg/dL (70-99) Test 02/01/20 00:11 02/01/20 07:45 Glucose (Fingerstick) 155 mg/dL (70-99) White Blood Count 6.3 x10^3/uL (4.0-11.0) Red Blood Count 2.00 x10^6/uL (4.30-5.70) Hemoglobin 5.3 g/dL (13.0-17.5) Hematocrit 17.2 % (39.0-53.0) Mean Corpuscular Volume 86 fL (79-100) Mean Corpuscular Hemoglobin 26 pg (25-35) Mean Corpuscular Hemoglobin Concent 31 g/dL (31-37) Red Cell Distribution Width 21.8 % (11.5-14.5) Platelet Count 219 x10^3/uL (140-400) Neutrophils (%) (Auto) 71 % (31-73) Lymphocytes (%) (Auto) 15 % (24-48) Monocytes (%) (Auto) 9 % (0-9) Eosinophils (%) (Auto) 4 % (0-3) Basophils (%) (Auto) 1 % (0-3) Neutrophils # (Auto) 4.4 x10^3/uL (1.8-7.7) Lymphocytes # (Auto) 1.0 x10^3/uL (1.0-4.8) Monocytes # (Auto) 0.6 x10^3/uL (0.0-1.1) Eosinophils # (Auto) 0.2 x10^3/uL (0.0-0.7) Basophils # (Auto) 0.1 x10^3/uL (0.0-0.2) Absolute Reticulocyte Count 0.021 x10^6/uL (0.020-0.120) Percent Reticulocyte Count 1.0 % (0.5-2.3) Immature Reticulocyte Fraction 0.54 (0.20-0.60) Sodium Level 132 mmol/L (136-145) Potassium Level 4.9 mmol/L (3.5-5.1) Chloride Level 95 mmol/L (98-107) Carbon Dioxide Level 29 mmol/L (21-32) Anion Gap 8 (6-14) Blood Urea Nitrogen 17 mg/dL (8-26) Creatinine 2.5 mg/dL (0.7-1.3) Estimated GFR (Cockcroft-Gault) 31.0 Glucose Level 148 mg/dL (70-99) Calcium Level 8.6 mg/dL (8.5-10.1) Iron Level 50 ug/dL (65-175) Total Iron Binding Capacity 130 ug/dL (250-450) Iron Saturation 38 % (15-34) Results All relevant outside records, renal labs, imaging studies, telemetry/EKG's were reviewed. Justicifation of Admission Dx: Justifications for Admission: Justification of Admission Dx: Yes DOTTIE MAHARAJ MD Feb 01, 2020 09:15
--- NOTE | 2020-02-01 09:31 | PDOC ---
IM PROGRESS NOTES- Subjective Subjective No complaints of pain or dyspnea. He denies any bleeding. However patient is apparently short of breath. He does have cognitive deficits. Objective Vitals/I&O Vital Signs Date Time Temp Pulse Resp B/P (MAP) Pulse Ox O2 Delivery O2 Flow Rate FiO2 02/01/20 07:25 100 Venturi Mask 15.0 02/01/20 06:32 74 113/53 02/01/20 04:00 98.0 20 98.0 I & O 01/31/20 01/31/20 02/01/20 15:00 23:00 07:00 Intake Total 500 ml 250 ml 400 ml Output Total 0 ml 0 ml 0 ml Balance 500 ml 250 ml 400 ml Physical Exam Physical Exam General appearance - alert,ill appearing, and in no distress. Mental Status - alert, oriented Head - normal Trach capped. Chest -decreased breath sounds at bases Heart - S1 and S2 normal Abdomen - soft, non tender Neurological - alert and oriented Extremities -trace edema Skin - warm and dry. No bleeding from the AV fistula on the right upper ex tremity Labs Laboratory Tests Test 01/31/20 12:41 01/31/20 16:45 01/31/20 20:45 01/31/20 21:18 Glucose (Fingerstick) 192 mg/dL (70-99) H 108 mg/dL (70-99) H 59 mg/dL (70-99) L 114 mg/dL (70-99) H Test 02/01/20 00:11 02/01/20 07:45 Glucose (Fingerstick) 155 mg/dL (70-99) H White Blood Count 6.3 x10^3/uL (4.0-11.0) Red Blood Count 2.00 x10^6/uL (4.30-5.70) L Hemoglobin 5.3 g/dL (13.0-17.5) *L Hematocrit 17.2 % (39.0-53.0) *L Mean Corpuscular Volume 86 fL (79-100) Mean Corpuscular Hemoglobin 26 pg (25-35) Mean Corpuscular Hemoglobin Concent 31 g/dL (31-37) Red Cell Distribution Width 21.8 % (11.5-14.5) H Platelet Count 219 x10^3/uL (140-400) Neutrophils (%) (Auto) 71 % (31-73) Lymphocytes (%) (Auto) 15 % (24-48) L Monocytes (%) (Auto) 9 % (0-9) Eosinophils (%) (Auto) 4 % (0-3) H Basophils (%) (Auto) 1 % (0-3) Neutrophils # (Auto) 4.4 x10^3/uL (1.8-7.7) Lymphocytes # (Auto) 1.0 x10^3/uL (1.0-4.8) Monocytes # (Auto) 0.6 x10^3/uL (0.0-1.1) Eosinophils # (Auto) 0.2 x10^3/uL (0.0-0.7) Basophils # (Auto) 0.1 x10^3/uL (0.0-0.2) Absolute Reticulocyte Count 0.021 x10^6/uL (0.020-0.120) Percent Reticulocyte Count 1.0 % (0.5-2.3) Immature Reticulocyte Fraction 0.54 (0.20-0.60) Sodium Level 132 mmol/L (136-145) L Potassium Level 4.9 mmol/L (3.5-5.1) Chloride Level 95 mmol/L (98-107) L Carbon Dioxide Level 29 mmol/L (21-32) Anion Gap 8 (6-14) Blood Urea Nitrogen 17 mg/dL (8-26) Creatinine 2.5 mg/dL (0.7-1.3) H Estimated GFR (Cockcroft-Gault) 31.0 Glucose Level 148 mg/dL (70-99) H Calcium Level 8.6 mg/dL (8.5-10.1) Iron Level 50 ug/dL (65-175) L Total Iron Binding Capacity 130 ug/dL (250-450) L Iron Saturation 38 % (15-34) H Laboratory Tests 02/01/20 07:45 Laboratory Tests 02/01/20 07:45 Meds Current Medications Medications (Trade) Dose Ordered Sig/Cheri Route PRN Reason Start Time Stop Time Status Last Admin Dose Admin Magnesium Oxide (Magnesium Oxide) 400 mg BID PO 01/31/20 14:00 01/31/20 20:40 Darbepoetin Serafin (ARANESP for DIALYSIS PTS) 60 mcg WEEKLYHS SQ 01/31/20 21:00 01/31/20 20:40 Assessment Assessment 1. 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 The patient underwent resection of the fistula and placement of a [place]-Pan graft. 2. End-stage renal disease, on hemodialysis. 3. Mechanical mitral valve, on Coumadin. 4. Cardiomyopathy, ejection fraction 10%. 5. History of cardiac event with arrhythmias and the patient was on vest at [facility]. 6. The patient is Christianity complicating the treatment plans. The patient is refusing any blood products. 7. Diabetes. 8. Hypertension. 9. Hyperlipidemia. 10. Recent tracheostomy, which was placed recently 3-4 weeks ago. PLAN: At this time, the patient was taken to emergency surgery for the AV shunt repair, placement of [place]-Pan graft and the patient was admitted to the ICU. Renal is consulted for dialysis. We will give some Irais xalate to bring the potassium down and a temporary dialysis catheter because the [place]-Pan graft could not be used for another 4 weeks and hold Coumadin, so that we can place the catheter and the patient is also on amiodarone for cardiac arrhythmias. We will have Cardiology follow while he is here in the hospital. AV fistula bleeding stable Acute on chronic blood loss anemia-hemoglobin is 5.3. Monitor closely. Previously his hemoglobin had dropped to 4.9 at the other hospital when he had bleeding from the fistula. Improved at [facility] with hematinics. Acute hypotension-patient had dialysis yesterday. Required IV fluids. Improving. Patient is also on Coumadin so this complicates the situation. Continue iron, B complex, folic acid and vitamin C. Consult inclusion special education teacher. End-stage renal disease on hemodialysis-because of the fistula repair it cannot be used for 4 weeks. A left upper chest temporary dialysis catheter has been placed. Prosthetic mitral valve. INR is 1.9 today. Hold Coumadin as patient needs a tunneled catheter for dialysis. Holding Coumadin also increases risk for complications with a prosthetic mitral valve. Dyspnea may be due to anemia. I will consult toaster element repairer. Oxygen has been increased to 4 L by nasal cannula. Order chest x-ray. Also consult binding bench worker. Discussed with patient extensively about the low hemoglobin but he does not want any transfusion. Complication such as cardiac arrhythmia, acute OH, congestive heart failure, stroke and sudden discussed with the patient. He still does not want any transfusion. Continue management in ICU. Prognosis of this patient is very poor. called Ada Blake- at home [phone]. Unable to reach via hospital envelope sealer operator on 01/31/20.. Plan Plan For more details regarding further plans, please refer to the orders. Justifications for Admission Other Justification JEAN BRUNSON MD Feb 01, 2020 09:31
[2020-02-01 09:48] LABS: PROTHROMBIN TIME PATIENT 21.7 SEC (11.7-14.0)
--- NOTE | 2020-02-01 11:06 | PDOC ---
PROGRESS NOTES Date of Service DATE: 02/01/20 TIME: 11:02 Subjective Subjective He is without new complaints. No chest pain or shortness of breath. No lightheadedness. No hand or arm pain. Objective Objective Vital Signs Date Time Temp Pulse Resp B/P (MAP) Pulse Ox O2 Delivery O2 Flow Rate FiO2 02/01/20 07:25 100 Venturi Mask 15.0 02/01/20 06:32 74 113/53 02/01/20 04:00 98.0 20 98.0 Intake and Output 02/01/20 07:00 Intake Total 1150 ml Output Total 0 ml Balance 1150 ml Intake Oral 1150 ml Output Urine Total 0 ml Physical Exam Abdomen: Soft, No tenderness Heart: Regular rate Extremities: Other (right arm incision intact, palpable thrill in fistula, dressing changed) General: Alert, Oriented X3 Lungs: Normal air movement Neck: Supple, Other (Left IJ temp cath, tracheostomy (capped)) Assessment Assessment Problems Medical Problems: (1) Complication of AV dialysis fistula Status: Acute 2) Anemia of acute blood loss 3) ESRD on dialysis Plan Plan of Care His temp dialysis line is to be changed to tunneled line. Would NOT recommend access of the right arm fistula till he returns for follow up. Follow up with Dr. Kinsey in 3-4 weeks. Comment Review of Relevant I have reviewed the following items veronica (where applicable) has been applied. Labs Laboratory Tests Test 01/30/20 17:52 01/30/20 21:04 01/31/20 03:52 01/31/20 12:41 Glucose (Fingerstick) 87 mg/dL (70-99) 102 mg/dL (70-99) 192 mg/dL (70-99) White Blood Count 7.5 x10^3/uL (4.0-11.0) Red Blood Count 1.96 x10^6/uL (4.30-5.70) Hemoglobin 5.3 g/dL (13.0-17.5) Hematocrit 17.1 % (39.0-53.0) Mean Corpuscular Volume 87 fL (79-100) Mean Corpuscular Hemoglobin 27 pg (25-35) Mean Corpuscular Hemoglobin Concent 31 g/dL (31-37) Red Cell Distribution Width 21.9 % (11.5-14.5) Platelet Count 238 x10^3/uL (140-400) Neutrophils (%) (Auto) 78 % (31-73) Lymphocytes (%) (Auto) 10 % (24-48) Monocytes (%) (Auto) 9 % (0-9) Eosinophils (%) (Auto) 2 % (0-3) Basophils (%) (Auto) 2 % (0-3) Neutrophils # (Auto) 5.9 x10^3/uL (1.8-7.7) Lymphocytes # (Auto) 0.7 x10^3/uL (1.0-4.8) Monocytes # (Auto) 0.6 x10^3/uL (0.0-1.1) Eosinophils # (Auto) 0.2 x10^3/uL (0.0-0.7) Basophils # (Auto) 0.1 x10^3/uL (0.0-0.2) Prothrombin Time 21.9 SEC (11.7-14.0) Prothromb Time International Ratio 1.9 (0.8-1.1) Sodium Level 141 mmol/L (136-145) Potassium Level 4.7 mmol/L (3.5-5.1) Chloride Level 102 mmol/L (98-107) Carbon Dioxide Level 32 mmol/L (21-32) Anion Gap 7 (6-14) Blood Urea Nitrogen 18 mg/dL (8-26) Creatinine 2.8 mg/dL (0.7-1.3) Estimated GFR (Cockcroft-Gault) 27.2 BUN/Creatinine Ratio 6 (6-20) Glucose Level 102 mg/dL (70-99) Calcium Level 8.6 mg/dL (8.5-10.1) Total Bilirubin 0.4 mg/dL (0.2-1.0) Aspartate Amino Transf (AST/SGOT) 29 U/L (15-37) Alanine Aminotransferase (ALT/SGPT) 14 U/L (16-63) Alkaline Phosphatase 141 U/L (46-116) Total Protein 7.0 g/dL (6.4-8.2) Albumin 1.8 g/dL (3.4-5.0) Albumin/Globulin Ratio 0.3 (1.0-1.7) Hepatitis B Surface Antigen Nonreactive (Nonreactive) Hepatitis B Surface Antibody Nonreactive Test 01/31/20 16:45 01/31/20 20:45 01/31/20 21:18 02/01/20 00:11 Glucose (Fingerstick) 108 mg/dL (70-99) 59 mg/dL (70-99) 114 mg/dL (70-99) 155 mg/dL (70-99) Test 02/01/20 07:45 White Blood Count 6.3 x10^3/uL (4.0-11.0) Red Blood Count 2.00 x10^6/uL (4.30-5.70) Hemoglobin 5.3 g/dL (13.0-17.5) Hematocrit 17.2 % (39.0-53.0) Mean Corpuscular Volume 86 fL (79-100) Mean Corpuscular Hemoglobin 26 pg (25-35) Mean Corpuscular Hemoglobin Concent 31 g/dL (31-37) Red Cell Distribution Width 21.8 % (11.5-14.5) Platelet Count 219 x10^3/uL (140-400) Neutrophils (%) (Auto) 71 % (31-73) Lymphocytes (%) (Auto) 15 % (24-48) Monocytes (%) (Auto) 9 % (0-9) Eosinophils (%) (Auto) 4 % (0-3) Basophils (%) (Auto) 1 % (0-3) Neutrophils # (Auto) 4.4 x10^3/uL (1.8-7.7) Lymphocytes # (Auto) 1.0 x10^3/uL (1.0-4.8) Monocytes # (Auto) 0.6 x10^3/uL (0.0-1.1) Eosinophils # (Auto) 0.2 x10^3/uL (0.0-0.7) Basophils # (Auto) 0.1 x10^3/uL (0.0-0.2) Absolute Reticulocyte Count 0.021 x10^6/uL (0.020-0.120) Percent Reticulocyte Count 1.0 % (0.5-2.3) Immature Reticulocyte Fraction 0.54 (0.20-0.60) Prothrombin Time 21.7 SEC (11.7-14.0) Prothromb Time International Ratio 1.9 (0.8-1.1) Sodium Level 132 mmol/L (136-145) Potassium Level 4.9 mmol/L (3.5-5.1) Chloride Level 95 mmol/L (98-107) Carbon Dioxide Level 29 mmol/L (21-32) Anion Gap 8 (6-14) Blood Urea Nitrogen 17 mg/dL (8-26) Creatinine 2.5 mg/dL (0.7-1.3) Estimated GFR (Cockcroft-Gault) 31.0 Glucose Level 148 mg/dL (70-99) Calcium Level 8.6 mg/dL (8.5-10.1) Iron Level 50 ug/dL (65-175) Total Iron Binding Capacity 130 ug/dL (250-450) Iron Saturation 38 % (15-34) Ferritin 1764 ng/mL (26-388) Vitamin B12 Level 1861 pg/mL (247-911) Laboratory Tests Test 01/31/20 12:41 01/31/20 16:45 01/31/20 20:45 01/31/20 21:18 Glucose (Fingerstick) 192 mg/dL (70-99) 108 mg/dL (70-99) 59 mg/dL (70-99) 114 mg/dL (70-99) Test 02/01/20 00:11 02/01/20 07:45 Glucose (Fingerstick) 155 mg/dL (70-99) White Blood Count 6.3 x10^3/uL (4.0-11.0) Red Blood Count 2.00 x10^6/uL (4.30-5.70) Hemoglobin 5.3 g/dL (13.0-17.5) Hematocrit 17.2 % (39.0-53.0) Mean Corpuscular Volume 86 fL (79-100) Mean Corpuscular Hemoglobin 26 pg (25-35) Mean Corpuscular Hemoglobin Concent 31 g/dL (31-37) Red Cell Distribution Width 21.8 % (11.5-14.5) Platelet Count 219 x10^3/uL (140-400) Neutrophils (%) (Auto) 71 % (31-73) Lymphocytes (%) (Auto) 15 % (24-48) Monocytes (%) (Auto) 9 % (0-9) Eosinophils (%) (Auto) 4 % (0-3) Basophils (%) (Auto) 1 % (0-3) Neutrophils # (Auto) 4.4 x10^3/uL (1.8-7.7) Lymphocytes # (Auto) 1.0 x10^3/uL (1.0-4.8) Monocytes # (Auto) 0.6 x10^3/uL (0.0-1.1) Eosinophils # (Auto) 0.2 x10^3/uL (0.0-0.7) Basophils # (Auto) 0.1 x10^3/uL (0.0-0.2) Absolute Reticulocyte Count 0.021 x10^6/uL (0.020-0.120) Percent Reticulocyte Count 1.0 % (0.5-2.3) Immature Reticulocyte Fraction 0.54 (0.20-0.60) Prothrombin Time 21.7 SEC (11.7-14.0) Prothromb Time International Ratio 1.9 (0.8-1.1) Sodium Level 132 mmol/L (136-145) Potassium Level 4.9 mmol/L (3.5-5.1) Chloride Level 95 mmol/L (98-107) Carbon Dioxide Level 29 mmol/L (21-32) Anion Gap 8 (6-14) Blood Urea Nitrogen 17 mg/dL (8-26) Creatinine 2.5 mg/dL (0.7-1.3) Estimated GFR (Cockcroft-Gault) 31.0 Glucose Level 148 mg/dL (70-99) Calcium Level 8.6 mg/dL (8.5-10.1) Iron Level 50 ug/dL (65-175) Total Iron Binding Capacity 130 ug/dL (250-450) Iron Saturation 38 % (15-34) Ferritin 1764 ng/mL (26-388) Vitamin B12 Level 1861 pg/mL (247-911) Medications Current Medications Lidocaine HCl (Xylocaine-Mpf 1% 2ml Vial) 20 ml 1X ONCE INJ ; Start 01/29/20 at 12:45; Stop 01/29/20 at 12:51; Status DC Lidocaine HCl (Xylocaine-Mpf 1% 2ml Vial) 2 ml STK-MED ONCE .ROUTE ; Start 01/29/20 at 12:51; Stop 01/29/20 at 12:51; Status DC Lidocaine HCl (Xylocaine-Mpf 1% 5ml Vial) 5 ml STK-MED ONCE .ROUTE ; Start 01/29/20 at 12:51; Stop 01/29/20 at 12:51; Status DC Cellulose (Surgicel Fibrillar 1x2) 1 each STK-MED ONCE .ROUTE Last administered on 01/29/20at 16:48; Start 01/29/20 at 14:19; Stop 01/29/20 at 14:19; Status DC Lidocaine HCl (Xylocaine 1% Pf 30ml Vial) 30 ml STK-MED ONCE .ROUTE ; Start 01/29/20 at 14:19; Stop 01/29/20 at 14:19; Status DC Heparin Sodium (Porcine) 5000 unit/Sodium Chloride 505 ml @ 505 mls/hr 1X ONCE IRR Last administered on 01/29/20at 15:28; Start 01/29/20 at 15:00; Stop 01/29/20 at 16:03; Status DC Papaverine HCl 60 mg STK-MED ONCE .ROUTE ; Start 01/29/20 at 14:19; Stop 01/29/20 at 14:20; Status DC Glycopyrrolate (Robinul) 1 mg STK-MED ONCE .ROUTE ; Start 01/29/20 at 14:25; Stop 01/29/20 at 14:25; Status DC Rocuronium [place] (Zemuron) 50 mg STK-MED ONCE .ROUTE ; Start 01/29/20 at 14:26; Stop 01/29/20 at 14:26; Status DC Fentanyl Citrate (Fentanyl 2ml Vial) 100 mcg STK-MED ONCE .ROUTE ; Start 01/29/20 at 14:26; Stop 01/29/20 at 14:27; Status DC Midazolam HCl (Versed) 2 mg STK-MED ONCE .ROUTE ; Start 01/29/20 at 14:27; Stop 01/29/20 at 14:27; Status DC Ondansetron HCl (Zofran) 4 mg PRN Q8HRS PRN IV NAUSEA/VOMITING Last administered on 01/29/20at 14:58; Start 01/29/20 at 14:45; Stop 01/30/20 at 14:44; Status DC Fentanyl Citrate (Fentanyl 2ml Vial) 50 mcg 1X ONCE IVP Last administered on 01/29/20at 14:58; Start 01/29/20 at 15:00; Stop 01/29/20 at 15:01; Status DC Ketamine HCl (Ketamine) 50 mg STK-MED ONCE .ROUTE ; Start 01/29/20 at 15:27; Stop 01/29/20 at 15:27; Status DC Heparin Sodium (Porcine) (Heparin) 30,000 unit STK-MED ONCE .ROUTE ; Start 01/29/20 at 15:42; Stop 01/29/20 at 15:43; Status DC Phenylephrine HCl (PHENYLEPHRINE in 0.9% NACL PF) 1 mg STK-MED ONCE IV ; Start 01/29/20 at 15:42; Stop 01/29/20 at 15:43; Status DC Ondansetron HCl (Zofran) 4 mg PRN Q6HRS PRN IV NAUSEA/VOMITING; Start 01/29/20 at 16:15; Stop 01/29/20 at 22:00; Status DC Fentanyl Citrate (Fentanyl 2ml Vial) 25 mcg PRN Q5MIN PRN IV MILD PAIN 1-3; Start 01/29/20 at 16:15; Stop 01/29/20 at 22:00; Status DC Fentanyl Citrate (Fentanyl 2ml Vial) 50 mcg PRN Q5MIN PRN IV MODERATE TO SEVERE PAIN; Start 01/29/20 at 16:15; Stop 01/29/20 at 22:00; Status DC Morphine Sulfate (Morphine Sulfate) 1 mg PRN Q10MIN PRN IV SEVERE PAIN 7-10; Start 01/29/20 at 16:15; Stop 01/29/20 at 22:00; Status DC Ringer's Solution 1,000 ml @ 30 mls/hr Q24H IV ; Start 01/29/20 at 16:04; Stop 01/30/20 at 04:03; Status DC Lidocaine HCl (Xylocaine-Mpf 1% 2ml Vial) 2 ml PRN 1X PRN ID PRIOR TO IV START; Start 01/29/20 at 16:15; Stop 01/29/20 at 22:00; Status DC Hydromorphone HCl (Dilaudid) 0.5 mg PRN Q10MIN PRN IV SEV PAIN, Second choice; Start 01/29/20 at 16:15; Stop 01/29/20 at 22:00; Status DC Prochlorperazine Edisylate (Compazine) 5 mg PACU PRN PRN IV NAUSEA, MRX1; Start 01/29/20 at 16:15; Stop 01/29/20 at 22:00; Status DC Sevoflurane (Ultane) 90 ml STK-MED ONCE IH ; Start 01/29/20 at 16:59; Stop 01/29/20 at 16:59; Status DC Pharmacy Consult (C.diff Med Screen By Rx) 1 each 1X ONCE MC ; Start 01/29/20 at 17:45; Stop 01/29/20 at 17:46; Status UNV Sodium Polystyrene Sulfonate (Kayexalate) 30 gm 1X ONCE PO Last administered o n 01/30/20at 12:41; Start 01/30/20 at 12:15; Stop 01/30/20 at 12:16; Status DC Dextrose (Dextrose 50%-Water Syringe) 25 gm STK-MED ONCE IV ; Start 01/30/20 at 12:25; Stop 01/30/20 at 12:26; Status DC Calcium Chloride (Calcium Chloride) 1,000 mg STK-MED ONCE .ROUTE ; Start 01/30/20 at 12:25; Stop 01/30/20 at 12:26; Status DC Sodium Bicarbonate (Sodium Bicarb Adult 8.4% Syr) 50 meq STK-MED ONCE .ROUTE ; Start 01/30/20 at 12:25; Stop 01/30/20 at 12:26; Status DC Calcium Gluconate (Calcium Gluconate) 1,000 mg 1X ONCE IVP ; Start 01/30/20 at 12:30; Stop 01/30/20 at 12:57; Status DC Sodium Bicarbonate (Sodium Bicarb Adult 8.4% Syr) 50 meq 1X ONCE IV Last administered on 01/30/20at 12:50; Start 01/30/20 at 12:30; Stop 01/30/20 at 12:57; Status DC Dextrose (Dextrose 50%-Water Syringe) 25 gm 1X ONCE IV Last administered on 01/30/20at 12:50; Start 01/30/20 at 12:30; Stop 01/30/20 at 12:57; Status DC Insulin Human Regular (HumuLIN R VIAL) 10 unit 1X ONCE IV Last administered on 01/30/20at 13:29; Start 01/30/20 at 12:30; Stop 01/30/20 at 12:57; Status DC Acetaminophen (Tylenol) 650 mg Q6HRS PRN PO MILD PAIN / TEMP > 100.3'F Last administered on 01/31/20at 03:12; Start 01/30/20 at 12:30 Ascorbic Acid (Vitamin C) 500 mg DAILY PO Last administered on 01/31/20 08:30; Start 01/30/20 at 13:00 Atorvastatin Calcium (Lipitor) 40 mg QHS PO Last administered on 01/31/20 20:40; Start 01/30/20 at 21:00 Budesonide (Pulmicort) 0.5 mg BID NEB Last administered on 02/01/20 07:25; Start 01/30/20 at 21:00 Buspirone HCl (Buspar) 5 mg TID PO Last administered on 01/31/20 20:40; Start 01/30/20 at 14:00 Cyclobenzaprine HCl (Flexeril) 10 mg TID PO Last administered on 01/31/20at 20:40; Start 01/30/20 at 14:00 Vitamin B Complex/ Vitamin C (Nora-Karina) 1 tab DAILY PO Last administered on 01/31/20 08:30; Start 01/30/20 at 13:00 Acetaminophen/ Hydrocodone Bitart (Lortab 5/325) 1 tab PRN Q6HRS PRN PO MODERA TE PAIN; Start 01/30/20 at 12:30 Insulin Human Lispro (HumaLOG) 4 units TIDWMEALS SQ Last administered on 01/31/20at 17:24; Start 01/30/20 at 17:00 Ipratropium [place] (Atrovent) 0.5 mg RTQID NEB Last administered on 02/01/20 07:25; Start 01/30/20 at 13:00 Metoclopramide HCl (Reglan) 5 mg TIDAC PO Last administered on 01/31/20at 16:40; Start 01/30/20 at 16:30 Metoprolol Tartrate (Lopressor) 12.5 mg BID PO ; Start 01/30/20 at 14:00 Pantoprazole Sodium (Protonix) 40 mg DAILYAC PO Last administered on 01/31/20 08:30; Start 01/30/20 at 16:30 Polyethylene Glycol (miraLAX PACKET) 17 gm DAILY PO Last administered on 01/31/20 08:29; Start 01/30/20 at 14:00 Senna/Docusate Sodium (Senna Plus) 1 tab HS PO Last administered on 01/31/20at 20:40; Start 01/30/20 at 21:00 Amiodarone HCl (Cordarone) 400 mg DAILY PO Last administered on 01/31/20 08:31; Start 01/30/20 at 14:00 Cyanocobalamin (Vitamin B-12) 1,000 mcg DAILY PO Last administered on 01/31/20 08:30; Start 01/30/20 at 14:00 Ferrous Sulfate (Iron Oral Solution) 300 mg DAILY08 PO Last administered on 01/31/20 08:29; Start 01/30/20 at 14:00 Vitamin B Complex/ Vitamin C (Nora-Karina) 1 tab DAILY PO ; Start 01/30/20 at 14:00; Stop 01/31/20 at 09:44; Status DC Hydroxyzine HCl (Atarax) 10 mg TID PO Last administered on 01/31/20at 20:40; Start 01/30/20 at 14:00 Magnesium Oxide (Magnesium Oxide) 400 mg BID PO Last administered on 01/31/20 20:40; Start 01/31/20 at 14:00 Non-Formulary Medication (Melatonin ) 3 mg HS PO ; Start 01/30/20 at 21:00; Status UNV Midodrine (Proamatine) 10 mg [id number] PO Last administered on 02/01/20at 06:32; Start 01/30/20 at 18:00 Insulin Human Lispro (HumaLOG) 0-5 UNITS TIDWMEALS SQ Last administered on 01/31/20at 12:44; Start 01/30/20 at 17:00 Dextrose (Dextrose 50%-Water Syringe) 12.5 gm PRN Q15MIN PRN IV SEE COMMENTS Last administered on 01/31/20at 20:47; Start 01/30/20 at 12:30 Sodium Chloride 1,000 ml @ 1,000 mls/hr Q1H PRN IV hypotension; Start 01/30/20 at 12:58; Stop 01/30/20 at 18:57; Status DC Info (PHARMACY MONITORING -- do not chart) 1 each PRN DAILY PRN MC SEE COMMENTS; Start 01/30/20 at 13:00; Status UNV Info (PHARMACY MONITORING -- do not chart) 1 each PRN DAILY PRN MC SEE COMMENTS; Start 01/30/20 at 13:00 Lidocaine HCl (Buffered Lidocaine 1%) 3 ml STK-MED ONCE .ROUTE ; Start 01/30/20 at 13:14; Stop 01/30/20 at 13:14; Status DC Lidocaine HCl (Buffered Lidocaine 1%) 3 ml 1X ONCE INJ ; Start 01/30/20 at 13:30; Stop 01/30/20 at 13:44; Status DC Sodium Chloride 500 ml @ 500 mls/hr 1X ONCE IV Last administered on 01/30/20at 20:58; Start 01/30/20 at 20:00; Stop 01/30/20 at 20:59; Status DC Iron Sucrose 200 mg/Sodium Chloride 110 ml @ 55 mls/hr 1X ONCE IV ; Start 01/31/20 at 09:00; Stop 01/31/20 at 08:42; Status DC Calcium Chloride (Calcium Chloride) 1,000 mg STK-MED ONCE .ROUTE ; Start 01/30/20 at 12:30; Stop 01/31/20 at 08:36; Status DC Darbepoetin Serafin (ARANESP for DIALYSIS PTS) 60 mcg WEEKLYHS SQ Last administered on 01/31/20at 20:40; Start 01/31/20 at 21:00; Stop 02/01/20 at 10:27; Status DC Sodium Chloride 1,000 ml @ 1,000 mls/hr Q1H PRN IV hypotension; Start 01/31/20 at 16:31; Stop 01/31/20 at 22:30; Status DC Sodium Chloride 1,000 ml @ 400 mls/hr Q2H30M PRN IV PATENCY; Start 01/31/20 at 16:31; Stop 02/01/20 at 04:30; Status DC Info (PHARMACY MONITORING -- do not chart) 1 each PRN DAILY PRN MC SEE COMMENTS; Start 01/31/20 at 16:45 Darbepoetin Serafin (ARANESP for DIALYSIS PTS) 200 mcg WEEKLYHS SQ ; Start 02/01/20 at 21:00 Active Scripts Active Reported Hydroxyzine Hcl 10 Mg/5 Ml Syrup 10 Mg PO TID Hydrocodone-Acetamin 5-325 mg (Hydrocodone/Acetaminophen) 1 Each Tablet 1 Each PO PRN Q6HRS PRN Glutose 15 (Dextrose) 37.5 Gm Gel..gram. 37.5 Gm PO PRN Cyclobenzaprine Hcl 10 Mg Tablet 1 Tab PO TID Tylenol (Acetaminophen) 325 Mg Tablet 2 Tab PO Q6HRS PRN Warfarin Sodium 2 Mg Tablet 2 Mg PO DAILY B-12 (Cyanocobalamin (Vitamin B-12)) 1,000 Mcg Tablet.er 1 Tab PO DAILY 30 Days Senna-Docusate Sodium Tablet (Sennosides/Docusate Sodium) 1 Each Tablet 1 Tab PO HS 20 Days Transderm-Scop (Scopolamine) 1 Each Patch.td72 1 Patch TP Q3DAYS Renal Caps Softgel (Folic Acid/Vitamin B Comp W-C) 1 Mg Capsule 1 Cap PO DAILY 30 Days Miralax (Polyethylene Glycol 3350) 17 Gm Powd.pack 1 Packet PO DAILY 2 Days dissolve in water Pantoprazole Sodium (Pantoprazole Sodium) 40 Mg Tablet.dr 40 Mg PO DAILYAC Midodrine Hcl 10 Mg Tablet 10 Mg PO TID Metoprolol Tartrate 25 Mg Tablet 0.5 Tab PO BID Reglan (Metoclopramide Hcl) 10 Mg Tablet 1 Tab PO TIDAC 30 Days before food and bedtime Melatonin 3 Mg Capsule 3 Mg PO HS Magnesium Oxide 400 Mg Tablet 1 Tab PO BID Ipratropium [place] 0.2 Mg/1 Ml Solution 1 Vial NEB QID Humalog (Insulin Lispro) 100 Unit/1 Ml Vial 4 Unit SQ TIDAC Insulin Lispro 100 Unit/1 Ml Vial 0-6 Unit SQ TIDAC Renal-Karina Tablet (Folic Acid/Vit Bcomp,C) 0.8 Mg Tablet 1 Mg PO DAILY Ferrous Sulfate 220 Mg/5 Ml Solution 5 Ml PO DAILY 30 Days Buspirone Hcl 5 Mg Tablet 1 Tab PO TID Budesonide 0.5 Mg/2 Ml Ampul.neb 1 Vial NEB BID Atorvastatin Calcium 40 Mg Tablet 1 Tab PO QHS Ascorbic Acid 500 Mg Tablet 500 Mg PO DAILY Amiodarone Hcl 400 Mg Tablet 1 Tab PO DAILY 30 Days Vitals/I & O Vital Sign - Last 24 Hours 01/31/20 01/31/20 01/31/20 01/31/20 11:52 12:00 12:57 15:36 Temp 98.2 98.2 Pulse 80 Resp 26 B/P (MAP) 121/69 (86) 121/69 Pulse Ox 100 O2 Delivery Nasal Cannula Nasal Cannula Nasal Cannula O2 Flow Rate 3.0 4.0 3.0 01/31/20 01/31/20 01/31/20 01/31/20 16:00 17:00 18:25 19:30 Temp 97.4 97.4 Pulse 72 72 Resp 22 24 B/P (MAP) 94/65 (75) 94/65 (75) 87/56 Pulse Ox 100 100 O2 Delivery Nasal Cannula Nasal Cannula Nasal Cannula O2 Flow Rate 4.0 4.0 4.0 01/31/20 01/31/20 01/31/20 02/01/20 20:00 20:02 21:00 00:00 Temp 97.8 97.2 97.8 97.2 Pulse 64 70 73 Resp 20 30 B/P (MAP) 99/61 (74) 99/61 108/37 (60) Pulse Ox 100 100 99 O2 Delivery Nasal Cannula Nasal Cannula Nasal Cannula O2 Flow Rate 4.0 3.0 4.0 02/01/20 02/01/20 02/01/20 04:00 06:32 07:25 Temp 98.0 98.0 Pulse 77 74 Resp 20 B/P (MAP) 114/64 (81) 113/53 Pulse Ox 99 100 O2 Delivery Venturi Mask Venturi Mask O2 Flow Rate 15.0 15.0 Intake and Output 01/31/20 01/31/20 02/01/20 15:00 23:00 07:00 Intake Total 500 ml 250 ml 400 ml Output Total 0 ml 0 ml 0 ml Balance 500 ml 250 ml 400 ml Justifications for Admission Other Justification ARUN COSBY MD Feb 01, 2020 11:06
[2020-02-01] MEDS ORDERED: LIDOCAINE 1%/EPI 1:100,000 20 ML VIAL. ONE (11:35)
--- NOTE | 2020-02-01 12:00 | PDOC ---
SARITA LOPEZ INTERNAL GRINDER 02/01/20 1200: CARDIO Progress Notes Date and Time Date of Service 02/01/2020 Time of Evaluation 1030 Subjective Subjective: No Chest Pain, No shortness of breath, No Palpitations Vitals Vitals Vital Signs Date Time Temp Pulse Resp B/P (MAP) Pulse Ox O2 Delivery O2 Flow Rate FiO2 02/01/20 08:00 Nasal Cannula 4.0 02/01/20 07:25 100 02/01/20 06:32 74 113/53 02/01/20 04:00 98.0 20 98.0 Weight Weight [ ] Input and Output Intake and Output Intake and Output 02/01/20 07:00 Intake Total 1150 ml Output Total 0 ml Balance 1150 ml Intake Oral 1150 ml Output Urine Total 0 ml Laboratory Labs Laboratory Tests Test 01/31/20 12:41 01/31/20 16:45 01/31/20 20:45 01/31/20 21:18 Glucose (Fingerstick) 192 mg/dL (70-99) 108 mg/dL (70-99) 59 mg/dL (70-99) 114 mg/dL (70-99) Test 02/01/20 00:11 02/01/20 07:45 Glucose (Fingerstick) 155 mg/dL (70-99) White Blood Count 6.3 x10^3/uL (4.0-11.0) Red Blood Count 2.00 x10^6/uL (4.30-5.70) Hemoglobin 5.3 g/dL (13.0-17.5) Hematocrit 17.2 % (39.0-53.0) Mean Corpuscular Volume 86 fL (79-100) Mean Corpuscular Hemoglobin 26 pg (25-35) Mean Corpuscular Hemoglobin Concent 31 g/dL (31-37) Red Cell Distribution Width 21.8 % (11.5-14.5) Platelet Count 219 x10^3/uL (140-400) Neutrophils (%) (Auto) 71 % (31-73) Lymphocytes (%) (Auto) 15 % (24-48) Monocytes (%) (Auto) 9 % (0-9) Eosinophils (%) (Auto) 4 % (0-3) Basophils (%) (Auto) 1 % (0-3) Neutrophils # (Auto) 4.4 x10^3/uL (1.8-7.7) Lymphocytes # (Auto) 1.0 x10^3/uL (1.0-4.8) Monocytes # (Auto) 0.6 x10^3/uL (0.0-1.1) Eosinophils # (Auto) 0.2 x10^3/uL (0.0-0.7) Basophils # (Auto) 0.1 x10^3/uL (0.0-0.2) Absolute Reticulocyte Count 0.021 x10^6/uL (0.020-0.120) Percent Reticulocyte Count 1.0 % (0.5-2.3) Immature Reticulocyte Fraction 0.54 (0.20-0.60) Prothrombin Time 21.7 SEC (11.7-14.0) Prothromb Time International Ratio 1.9 (0.8-1.1) Sodium Level 132 mmol/L (136-145) Potassium Level 4.9 mmol/L (3.5-5.1) Chloride Level 95 mmol/L (98-107) Carbon Dioxide Level 29 mmol/L (21-32) Anion Gap 8 (6-14) Blood Urea Nitrogen 17 mg/dL (8-26) Creatinine 2.5 mg/dL (0.7-1.3) Estimated GFR (Cockcroft-Gault) 31.0 Glucose Level 148 mg/dL (70-99) Calcium Level 8.6 mg/dL (8.5-10.1) Iron Level 50 ug/dL (65-175) Total Iron Binding Capacity 130 ug/dL (250-450) Iron Saturation 38 % (15-34) Ferritin 1764 ng/mL (26-388) Vitamin B12 Level 1861 pg/mL (247-911) Physical Exam HEENT: Neck Supple W Full Motion Chest: Symmetric LUNGS: Other (diminished bases; capped trach in place) Heart: RRR (SR), other (mitral click loudest to LLS border) Abdomen: Soft N/T Extremities: No Edema, No Calf Tenderness Neurology: alert, oriented, follow commands Assessment Assessment 1. Right AV fistula bleed; not accessible per vascular awaiting tunnelled HD cath 2. Chronic respiratory failure with AECOPD, a/c CHF, and profound anemia; s/p trach. Appears compensated 3. Acute on chronic systolic CHF: compensated 4. Severe CMP; LVEF 10%. Previously 30-35% 07/2018. Follows with Dr. Muse. Previously deemed poor candidate for AICD implantation with significant comorbidities per record review. 5. PAFIB: currently SR 6. CAD s/p PCI/stent placement 2013 7. H/o VT arrest during recent hospitalization; on Amiodarone therapy. No further VT noted on tele at [facility] or here at [facility] 8. Valvular heart disease s/p mechanical mitral valve replacement; chronic OAC with warfarin. INR 1.9 9. Hypertension; controlled 10. Hyperlipidemia 11. Diabetes, II 12. ESRD on HD 13. Anemia; patient is [employer], declining blood transfusion. Hgb remains at 5.3 with normal PLT. Post Epo and venofer 14. Recent bacteremia, sepsis 15. Jehovas witness: he had his MV procedure a yr before converting to Jehovas witness Recommendations 1. Awaiting tunnelled HD cath. INR 1.9, resume coumadin post procedure when clear with vascular 2. Unable to place on ACEi/ARB due to marginal BP. Continue amiodarone for VT and AFIB suppression and low dose metoprolol. 3. Fluid offloading via HD as per nephrology 4. Prognosis very poor given significant commodities, which was discussed with patient. He continues to want to be a [employer]. 5. Secondary prevention measures. Supportive care Justicifation of Admission Dx: Justifications for Admission: Justification of Admission Dx: Yes SONNY ROPER MD 02/01/208: CARDIO Progress Notes Assessment Assessment Patient seen and examined. Ageree with LAMP DEVELOPER's assessment and plan. Right AV fistula active bleed and blood loss anemia s/p revision of AV graft by vascular surgery Temp dialysis cath placement by IR for HD pending Continue fluid removal with HD for ac on chr systolic HF Continue amiodarone for VT suppression Resume warfarin when ok from surgical/IR standpoint for mechanical MVR CAD status clinically stable SARITA LOPEZ APRN Feb 01, 2020 12:00 SONNY ROPER MD Feb 01, 2020 18:18
[2020-02-01] MEDS ORDERED: ceFAZolin SODIUM IV Push 1 GM VIAL. IVP ONE ×2 (13:31→14:00)
--- NOTE | 2020-02-01 13:51 | NUR ---
Patient to IR for temp to tunneled HD catheter. Patient unable to lay flat and maintain oxygen appropriately. Patient became short of breath, labored and desat. Trach cap taken off and placed trach shield on patient with great improvement. Vitals stable, tunneled HD cath placed successfully. Patient given Ancef 1GM IVP for Dr Eid, no sedation given.
[2020-02-01] MEDS: busPIRone 5 MG TABLET. PO SCH ×3 (14:00→22:14)
[2020-02-01] MEDS ORDERED: LIDOCAINE 1%/EPI 1:100,000 20 ML VIAL. INJ ONE (14:00)
--- NOTE | 2020-02-01 14:30 | NUR ---
rEC'D FROM ir. pT AWAKE AND ALERT vss. lT CHEST TUNNELLED DIALYSIS CATH INTACT, NO BLEEDING. pREVIOUS TEMP DIALYSIS CATH HAS BEEN REMOVED. nEW iv PLACED IN rT UPPER CHEST WALL PERIPHERAL. tRACH CLAIRE DONE. sECRETIONS THICK. cHANGED TO vENTI MASK 50%. hob ELEVATED. fAMILY HERE. wILL GIVE PO MEDS HELD EARLIER. AND WATER WANTED. dENIES ANY DISCOMFORT
[2020-02-01] MEDS: FOLIC/VIT B COMP W-C (RENAL) TABLET. PO SCH (14:43)
[2020-02-01] MEDS: CYANOCOBALAMIN (VITAMIN B-12) 1,000 MCG TABLET. PO SCH (14:43)
[2020-02-01] MEDS: AMIODARONE HCL 200 MG TABLET. PO SCH (14:47)
[2020-02-01] MEDS: ASCORBIC ACID 500 MG TABLET PO SCH (14:47)
[2020-02-01] MEDS: PANTOPRAZOLE 40 MG TABLET.DR. PO SCH (14:47)
[2020-02-01] MEDS: FERROUS SULFATE ORAL 300 MG/5 ML SOLUTION. PO SCH (14:48)
--- NOTE | 2020-02-01 15:18 | RAD ---
Conversion of left internal jugular temporary dialysis catheter to a tunneled hemodialysis catheter Indication: Longer term dialysis access needed Procedure: The procedure was explained in its entirety to the patient or the patients designated credit resolution representative by a member of the treatment team, including a discussion of the risks, benefits and commonly accepted alternatives to the procedure, as well as the expected consequences of no therapy whatsoever. Discussion of the risks included, but was not limited to, those that are most frequent and those that are rare but possibly severe or life-threatening, as well as the possibility of unforeseen complications. All elements of maximal sterile barrier technique including the use of a cap, mask, sterile gown, sterile gloves, large sterile sheet, appropriate hand hygiene, and 2% chlorhexidine for cutaneous antisepsis (or acceptable alternative antiseptic per current guidelines) were followed for this procedure. The pre-existing catheter was evaluated under fluoroscopy and found to be normal in acceptable position. A guidewire was advanced through the catheter into the IVC. A 28 cm cm tip to cuff tunneled hemodialysis catheter was advanced from small dermatotomy, several centimeters inferior to the pre-existing catheter entry site, to the venotomy site. The pre-existing catheter was removed over the guidewire and a peel-away sheath placed. The new tunneled catheter was advanced through the peel-away sheath such that its tip was positioned in the proximal right atrium with the patient supine. The sheath was removed. The new catheter was found to flush and aspirate normally. Catheter was flushed, and secured in place. Sterile dressings were applied. No immediate complications were identified. Total fluoroscopy time: 0.3 min Dose area product: 1 Gycm2 Impression: Conversion of a left internal jugular temporary dialysis catheter to a tunneled dialysis catheter MTDD
--- NOTE | 2020-02-01 15:26 | NUR ---
SS following up with discharge planning. SS reviewed pt chart and discussed with pt RN. Pt is currently on nasal canula oxygen. COVID19 negative. Pt is from [facility], ; fax [phone], and is able to return. Physician said probable discharge to [facility] tomorrow. SS will continue to follow for discharge planning.
[2020-02-01] MEDS ORDERED: DARBEPOETIN ALFA 100 MCG/0.5 ML DISP.SYRIN. SQ SCH (21:00)
[2020-02-01] MEDS: SENNOSIDES/DOCUSATE 8.6/50MG TABLET. PO SCH (22:14)
[2020-02-01] MEDS: ATORVASTATIN CALCIUM 40 MG TABLET. PO SCH (22:14)
--- NOTE | 2020-02-01 23:56 | NUR ---
Flexeril given at this time per [facility] Pharmacist reccomendation due to prior dose given later.
[2020-02-02 04:14] VITALS: BP 95/60
[2020-02-02 06:44] VITALS: BP 105/55
[2020-02-02] MEDS: MIDODRINE 5 MG TABLET PO SCH ×4 (07:00→19:33)
[2020-02-02] MEDS: PANTOPRAZOLE 40 MG TABLET.DR. PO SCH (07:18)
[2020-02-02] MEDS: METOCLOPRAMIDE 10 MG TABLET. PO SCH ×3 (07:21→15:25)
[2020-02-02 07:41] LABS: BASO # 0.2 x10^3/uL (0.0-0.2); BASO % 3 % (0-3); EOS # 0.2 x10^3/uL (0.0-0.7); EOS % 3 % (0-3); LYMPH # 0.7 x10^3/uL (1.0-4.8); LYMPH % 11 % (24-48); MEAN CORPUSCULAR HEMOGLOBIN 26 pg (25-35); MEAN CORPUSCULAR HGB CONC 31 g/dL (31-37); MEAN CORPUSCULAR VOLUME 85 fL (79-100); MONO # 0.5 x10^3/uL (0.0-1.1); MONO % 8 % (0-9); NEUT # 4.7 x10^3/uL (1.8-7.7); NEUT % 75 % (31-73); PLATELET COUNT 222 x10^3/uL (140-400); RED BLOOD COUNT 2.01 x10^6/uL (4.30-5.70); RED CELL DISTRIBUTION WIDTH 21.3 % (11.5-14.5); WHITE BLOOD COUNT 6.3 x10^3/uL (4.0-11.0)
[2020-02-02 07:53] LABS: HEMATOCRIT 17.1 % (39.0-53.0); HEMOGLOBIN 5.3 g/dL (13.0-17.5)
[2020-02-02 08:00] LABS: ALBUMIN 1.9 g/dL (3.4-5.0); ALBUMIN/GLOBULIN RATIO 0.3 (1.0-1.7); CREATININE 3.8 mg/dL (0.7-1.3); GFR 19.1; TOTAL BILIRUBIN 0.4 mg/dL (0.2-1.0); TOTAL PROTEIN 7.4 g/dL (6.4-8.2)
[2020-02-02] MEDS: INSULIN LISPRO 300 UNITS/3 ML VIAL. SQ SCH ×6 (08:00→17:00)
[2020-02-02] MEDS: IPRATROPIUM BROMIDE 0.5 MG/2.5 ML NEBU. NEB SCH ×4 (08:00→20:09)
[2020-02-02] MEDS: FERROUS SULFATE ORAL 300 MG/5 ML SOLUTION. PO SCH (08:00)
[2020-02-02] MEDS: BUDESONIDE 0.5 MG/2 ML NEBU. NEB SCH ×2 (08:01→20:09)
--- NOTE | 2020-02-02 08:32 | PDOC ---
PULMONARY PROGRESS NOTES DATE: 02/02/20 TIME: 08:32 Subjective Patient more awake today on oxygen supplementation Vitals Vital Signs Date Time Temp Pulse Resp B/P (MAP) Pulse Ox O2 Delivery O2 Flow Rate FiO2 02/02/20 07:58 98 Nasal Cannula 6.0 02/02/20 07:00 68 105/55 02/02/20 06:44 97.6 20 97.6 ROS: No Nausea, No Chest Pain, No Abdominal Pain, No Increase Cough General: Alert Lungs: Crackles Cardiovascular: S1, S2 Abdomen: Soft Neuro Exam: Alert Extremities: No Edema Skin: Warm Labs Laboratory Tests Test 01/31/20 12:41 01/31/20 16:45 01/31/20 20:45 01/31/20 21:18 Glucose (Fingerstick) 192 mg/dL (70-99) 108 mg/dL (70-99) 59 mg/dL (70-99) 114 mg/dL (70-99) Test 02/01/20 00:11 02/01/20 07:45 02/01/20 11:46 02/01/20 17:10 Glucose (Fingerstick) 155 mg/dL (70-99) 133 mg/dL (70-99) 124 mg/dL (70-99) White Blood Count 6.3 x10^3/uL (4.0-11.0) Red Blood Count 2.00 x10^6/uL (4.30-5.70) Hemoglobin 5.3 g/dL (13.0-17.5) Hematocrit 17.2 % (39.0-53.0) Mean Corpuscular Volume 86 fL (79-100) Mean Corpuscular Hemoglobin 26 pg (25-35) Mean Corpuscular Hemoglobin Concent 31 g/dL (31-37) Red Cell Distribution Width 21.8 % (11.5-14.5) Platelet Count 219 x10^3/uL (140-400) Neutrophils (%) (Auto) 71 % (31-73) Lymphocytes (%) (Auto) 15 % (24-48) Monocytes (%) (Auto) 9 % (0-9) Eosinophils (%) (Auto) 4 % (0-3) Basophils (%) (Auto) 1 % (0-3) Neutrophils # (Auto) 4.4 x10^3/uL (1.8-7.7) Lymphocytes # (Auto) 1.0 x10^3/uL (1.0-4.8) Monocytes # (Auto) 0.6 x10^3/uL (0.0-1.1) Eosinophils # (Auto) 0.2 x10^3/uL (0.0-0.7) Basophils # (Auto) 0.1 x10^3/uL (0.0-0.2) Absolute Reticulocyte Count 0.021 x10^6/uL (0.020-0.120) Percent Reticulocyte Count 1.0 % (0.5-2.3) Immature Reticulocyte Fraction 0.54 (0.20-0.60) Prothrombin Time 21.7 SEC (11.7-14.0) Prothromb Time International Ratio 1.9 (0.8-1.1) Sodium Level 132 mmol/L (136-145) Potassium Level 4.9 mmol/L (3.5-5.1) Chloride Level 95 mmol/L (98-107) Carbon Dioxide Level 29 mmol/L (21-32) Anion Gap 8 (6-14) Blood Urea Nitrogen 17 mg/dL (8-26) Creatinine 2.5 mg/dL (0.7-1.3) Estimated GFR (Cockcroft-Gault) 31.0 Glucose Level 148 mg/dL (70-99) Calcium Level 8.6 mg/dL (8.5-10.1) Iron Level 50 ug/dL (65-175) Total Iron Binding Capacity 130 ug/dL (250-450) Iron Saturation 38 % (15-34) Ferritin 1764 ng/mL (26-388) Vitamin B12 Level 1861 pg/mL (247-911) Test 02/01/20 22:12 02/02/20 04:54 02/02/20 07:13 02/02/20 07:15 Glucose (Fingerstick) 144 mg/dL (70-99) 124 mg/dL (70-99) 117 mg/dL (70-99) White Blood Count 6.3 x10^3/uL (4.0-11.0) Red Blood Count 2.01 x10^6/uL (4.30-5.70) Hemoglobin 5.3 g/dL (13.0-17.5) Hematocrit 17.1 % (39.0-53.0) Mean Corpuscular Volume 85 fL (79-100) Mean Corpuscular Hemoglobin 26 pg (25-35) Mean Corpuscular Hemoglobin Concent 31 g/dL (31-37) Red Cell Distribution Width 21.3 % (11.5-14.5) Platelet Count 222 x10^3/uL (140-400) Neutrophils (%) (Auto) 75 % (31-73) Lymphocytes (%) (Auto) 11 % (24-48) Monocytes (%) (Auto) 8 % (0-9) Eosinophils (%) (Auto) 3 % (0-3) Basophils (%) (Auto) 3 % (0-3) Neutrophils # (Auto) 4.7 x10^3/uL (1.8-7.7) Lymphocytes # (Auto) 0.7 x10^3/uL (1.0-4.8) Monocytes # (Auto) 0.5 x10^3/uL (0.0-1.1) Eosinophils # (Auto) 0.2 x10^3/uL (0.0-0.7) Basophils # (Auto) 0.2 x10^3/uL (0.0-0.2) Sodium Level 131 mmol/L (136-145) Potassium Level 6.0 mmol/L (3.5-5.1) Chloride Level 93 mmol/L (98-107) Carbon Dioxide Level 30 mmol/L (21-32) Anion Gap 8 (6-14) Blood Urea Nitrogen 33 mg/dL (8-26) Creatinine 3.8 mg/dL (0.7-1.3) Estimated GFR (Cockcroft-Gault) 19.1 BUN/Creatinine Ratio 9 (6-20) Glucose Level 112 mg/dL (70-99) Calcium Level 9.0 mg/dL (8.5-10.1) Total Bilirubin 0.4 mg/dL (0.2-1.0) Aspartate Amino Transf (AST/SGOT) 25 U/L (15-37) Alanine Aminotransferase (ALT/SGPT) 8 U/L (16-63) Alkaline Phosphatase 154 U/L (46-116) Total Protein 7.4 g/dL (6.4-8.2) Albumin 1.9 g/dL (3.4-5.0) Albumin/Globulin Ratio 0.3 (1.0-1.7) Laboratory Tests Test 02/01/20 11:46 02/01/20 17:10 02/01/20 22:12 02/02/20 04:54 Glucose (Fingerstick) 133 mg/dL (70-99) 124 mg/dL (70-99) 144 mg/dL (70-99) 124 mg/dL (70-99) Test 02/02/20 07:13 02/02/20 07:15 Glucose (Fingerstick) 117 mg/dL (70-99) White Blood Count 6.3 x10^3/uL (4.0-11.0) Red Blood Count 2.01 x10^6/uL (4.30-5.70) Hemoglobin 5.3 g/dL (13.0-17.5) Hematocrit 17.1 % (39.0-53.0) Mean Corpuscular Volume 85 fL (79-100) Mean Corpuscular Hemoglobin 26 pg (25-35) Mean Corpuscular Hemoglobin Concent 31 g/dL (31-37) Red Cell Distribution Width 21.3 % (11.5-14.5) Platelet Count 222 x10^3/uL (140-400) Neutrophils (%) (Auto) 75 % (31-73) Lymphocytes (%) (Auto) 11 % (24-48) Monocytes (%) (Auto) 8 % (0-9) Eosinophils (%) (Auto) 3 % (0-3) Basophils (%) (Auto) 3 % (0-3) Neutrophils # (Auto) 4.7 x10^3/uL (1.8-7.7) Lymphocytes # (Auto) 0.7 x10^3/uL (1.0-4.8) Monocytes # (Auto) 0.5 x10^3/uL (0.0-1.1) Eosinophils # (Auto) 0.2 x10^3/uL (0.0-0.7) Basophils # (Auto) 0.2 x10^3/uL (0.0-0.2) Sodium Level 131 mmol/L (136-145) Potassium Level 6.0 mmol/L (3.5-5.1) Chloride Level 93 mmol/L (98-107) Carbon Dioxide Level 30 mmol/L (21-32) Anion Gap 8 (6-14) Blood Urea Nitrogen 33 mg/dL (8-26) Creatinine 3.8 mg/dL (0.7-1.3) Estimated GFR (Cockcroft-Gault) 19.1 BUN/Creatinine Ratio 9 (6-20) Glucose Level 112 mg/dL (70-99) Calcium Level 9.0 mg/dL (8.5-10.1) Total Bilirubin 0.4 mg/dL (0.2-1.0) Aspartate Amino Transf (AST/SGOT) 25 U/L (15-37) Alanine Aminotransferase (ALT/SGPT) 8 U/L (16-63) Alkaline Phosphatase 154 U/L (46-116) Total Protein 7.4 g/dL (6.4-8.2) Albumin 1.9 g/dL (3.4-5.0) Albumin/Globulin Ratio 0.3 (1.0-1.7) Medications Active Scripts Medications Dose Route/Sig Max Daily Dose Days Date Category Dose Instructions Hydroxyzine Hcl 10 Mg/5 Ml Syrup 10 Mg PO TID 01/29/20 Reported Hydrocodone-Acetamin 5-325 mg (Hydrocodone/Acetaminophen) 1 Each Tablet 1 Each PO PRN Q6HRS PRN 01/29/20 Reported Glutose 15 (Dextrose) 37.5 Gm Gel..gram. 37.5 Gm PO PRN 01/29/20 Reported Cyclobenzaprine Hcl 10 Mg Tablet 1 Tab PO TID 01/29/20 Reported Tylenol (Acetaminophen) 325 Mg Tablet 2 Tab PO Q6HRS PRN 01/29/20 Reported Warfarin Sodium 2 Mg Tablet 2 Mg PO DAILY 01/29/20 Reported B-12 (Cyanocobalamin (Vitamin B-12)) 1,000 Mcg Tablet.er 1 Tab PO DAILY 30 01/29/20 Reported Senna-Docusate Sodium Tablet (Sennosides/Docusate Sodium) 1 Each Tablet 1 Tab PO HS 20 01/29/20 Reported Transderm-Scop (Scopolamine) 1 Each Patch.td72 1 Patch TP Q3DAYS 01/29/20 Reported Renal Caps Softgel (Folic Acid/Vitamin B Comp W-C) 1 Mg Capsule 1 Cap PO DAILY 30 01/29/20 Reported Miralax (Polyethylene Glycol 3350) 17 Gm Powd.pack 1 Packet PO DAILY 2 01/29/20 Reported dissolve in water Pantoprazole Sodium (Pantoprazole Sodium) 40 Mg Tablet.dr 40 Mg PO DAILYAC 01/29/20 Reported Midodrine Hcl 10 Mg Tablet 10 Mg PO TID 01/29/20 Reported Metoprolol Tartrate 25 Mg Tablet 0.5 Tab PO BID 01/29/20 Reported Reglan (Metoclopramide Hcl) 10 Mg Tablet 1 Tab PO TIDAC 30 01/29/20 Reported before food and bedtime Melatonin 3 Mg Capsule 3 Mg PO HS 01/29/20 Reported Magnesium Oxide 400 Mg Tablet 1 Tab PO BID 01/29/20 Reported Ipratropium [place] 0.2 Mg/1 Ml Solution 1 Vial NEB QID 01/29/20 Reported Humalog (Insulin Lispro) 100 Unit/1 Ml Vial 4 Unit SQ TIDAC 01/29/20 Reported Insulin Lispro 100 Unit/1 Ml Vial 0-6 Unit SQ TIDAC 01/29/20 Reported Renal-Karina Tablet (Folic Acid/Vit Bcomp,C) 0.8 Mg Tablet 1 Mg PO DAILY 01/29/20 Reported Ferrous Sulfate 220 Mg/5 Ml Solution 5 Ml PO DAILY 30 01/29/20 Reported Buspirone Hcl 5 Mg Tablet 1 Tab PO TID 01/29/20 Reported Budesonide 0.5 Mg/2 Ml Ampul.neb 1 Vial NEB BID 01/29/20 Reported Atorvastatin Calcium 40 Mg Tablet 1 Tab PO QHS 01/29/20 Reported Ascorbic Acid 500 Mg Tablet 500 Mg PO DAILY 01/29/20 Reported Amiodarone Hcl 400 Mg Tablet 1 Tab PO DAILY 30 01/29/20 Reported Impression . IMPRESSION: 1. Acute respiratory failure. The patient currently is on oxygen via nasal cannula. He has a tracheostomy, which is capped. 2. [id number] blood loss anemia from AV fistula site. 3. End-stage renal disease, on hemodialysis. 4. Severe protein-calorie malnutrition. 5. Severe cardiomyopathy with an EF of 10%. 6. The patient is [employer]ism. Vascular surgeon's note Pt seen and examined today He has no new c/o left arm dressing taken down fistula has an excellent thrill incision c/d/i no hematoma good perfusion to left hand no evidence of steal Doing well It will be at lest 3 to 4 weeks before the fistula / graft can be used for HD He will likely need a tunnel catheter in the meantime (temp cath placed today due to elevated INR) but I would defer this to nephrology Please re-wrap wound today will follow while he is here Will need to see me in the office in 2 to 3 weeks Plan . Continue hemodialysis Chest x-ray was reviewed there appears to be mild edema Negative fluid balance doing dialysis Monitor chest X Follow renal recommend We Will Continue Oxygen Supplementation per Nasal Cannula Continue capped Trach As Tolerated Possible discharge today SAMANTHA MERCHANT MD Feb 02, 2020 08:32
[2020-02-02] MEDS ORDERED: IV NORMAL SALINE 1000ML BAG 1,000 ML IV PRN ×2 (08:37)
[2020-02-02] MEDS ORDERED: DIALYSIS PATIENT. MC PRN (08:45)
[2020-02-02] MEDS ORDERED: ALBUMIN HUMAN 25% 200 ML IV PRN (08:45)
[2020-02-02] MEDS: busPIRone 5 MG TABLET. PO SCH ×3 (09:00→20:21)
[2020-02-02] MEDS: hydrOXYzine 10 MG TABLET PO SCH ×3 (09:00→20:20)
[2020-02-02] MEDS: METOPROLOL TART IMMED RELEASE 25 MG TABLET. PO SCH ×2 (09:00→20:28)
[2020-02-02] MEDS: MAGNESIUM OXIDE 400 MG TABLET PO SCH ×2 (09:00→20:20)
[2020-02-02] MEDS: POLYETHYLENE GLYCOL 3350 17 GM PACKET. PO SCH (09:00)
[2020-02-02] MEDS: CYCLOBENZAPRINE 10 MG TABLET. PO SCH ×3 (09:00→20:21)
[2020-02-02 09:12] LABS: PROTHROMBIN TIME PATIENT 19.4 SEC (11.7-14.0)
--- NOTE | 2020-02-02 09:16 | PDOC3 ---
IM DISCHARGE SUMMARY Date of Admission Date of Admission Date of Admission: Jan 29, 2020 at 16:12 Date of Discharge Date of Discharge February 02, 2020 Primary Diagnosis Primary Diagnosis 1. 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 The patient underwent resection of the fistula and placement of a Rheems-Pan graft. 2. End-stage renal disease, on hemodialysis. 3. Mechanical mitral valve, on Coumadin. 4. Cardiomyopathy, ejection fraction 10%. 5. History of cardiac event with arrhythmias and the patient was on vest at [facility]. 6. The patient is Tenriism complicating the treatment plans. The patient is refusing any blood products. 7. Diabetes. 8. Hypertension. 9. Hyperlipidemia. 10. Recent tracheostomy, which was placed recently 3-4 weeks ago. Consults Consults Hayley Alberts III, DO; Kt Kinsey MD; Alex Dunham MD; Jacob Carter MD; Meño Andrea MD; Gamal Apodaca MD Procedures Procedures AV shunt repair, placement of Rheems-Pan graft Placement of temporary dialysis catheter Placement of tunneled HD catheter Labs Labs Laboratory Tests Test 02/01/20 11:46 02/01/20 17:10 02/01/20 22:12 02/02/20 04:54 Glucose (Fingerstick) 133 mg/dL (70-99) H 124 mg/dL (70-99) H 144 mg/dL (70-99) H 124 mg/dL (70-99) H Test 02/02/20 07:13 02/02/20 07:15 Glucose (Fingerstick) 117 mg/dL (70-99) H White Blood Count 6.3 x10^3/uL (4.0-11.0) Red Blood Count 2.01 x10^6/uL (4.30-5.70) L Hemoglobin 5.3 g/dL (13.0-17.5) *L Hematocrit 17.1 % (39.0-53.0) *L Mean Corpuscular Volume 85 fL (79-100) Mean Corpuscular Hemoglobin 26 pg (25-35) Mean Corpuscular Hemoglobin Concent 31 g/dL (31-37) Red Cell Distribution Width 21.3 % (11.5-14.5) H Platelet Count 222 x10^3/uL (140-400) Neutrophils (%) (Auto) 75 % (31-73) H Lymphocytes (%) (Auto) 11 % (24-48) L Monocytes (%) (Auto) 8 % (0-9) Eosinophils (%) (Auto) 3 % (0-3) Basophils (%) (Auto) 3 % (0-3) Neutrophils # (Auto) 4.7 x10^3/uL (1.8-7.7) Lymphocytes # (Auto) 0.7 x10^3/uL (1.0-4.8) L Monocytes # (Auto) 0.5 x10^3/uL (0.0-1.1) Eosinophils # (Auto) 0.2 x10^3/uL (0.0-0.7) Basophils # (Auto) 0.2 x10^3/uL (0.0-0.2) Sodium Level 131 mmol/L (136-145) L Potassium Level 6.0 mmol/L (3.5-5.1) #H Chloride Level 93 mmol/L (98-107) L Carbon Dioxide Level 30 mmol/L (21-32) Anion Gap 8 (6-14) Blood Urea Nitrogen 33 mg/dL (8-26) H Creatinine 3.8 mg/dL (0.7-1.3) H Estimated GFR (Cockcroft-Gault) 19.1 BUN/Creatinine Ratio 9 (6-20) Glucose Level 112 mg/dL (70-99) H Calcium Level 9.0 mg/dL (8.5-10.1) Total Bilirubin 0.4 mg/dL (0.2-1.0) Aspartate Amino Transferase (AST) 25 U/L (15-37) Alanine Aminotransferase (ALT) 8 U/L (16-63) L Alkaline Phosphatase 154 U/L (46-116) H Total Protein 7.4 g/dL (6.4-8.2) Albumin 1.9 g/dL (3.4-5.0) L Albumin/Globulin Ratio 0.3 (1.0-1.7) L Laboratory Tests 02/02/20 07:15 Laboratory Tests 02/02/20 07:15 Brief hospital course Brief hospital course The patient is a 69-year-old male. Patient was admitted to [facility] on 01/15 and he is on end-stage renal disease, on dialysis. 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 Pressure was applied and seen by the ER at [facility] and the patient was sent to [facility] and the patient was seen in the ER, taken to surgery by Dr. Kinsey, Vascular Surgery and the patient did a revision of the AV graft, there was a hole in that and Rheems-Pan graft was placed to bypass the fistula and the patient was admitted to the ICU. Hemoglobin dropped to 6. As mentioned, the patient is Tenriism. He does not want any transfusion of blood products and the patient was initially admitted to the [facility] on 12/21 for respiratory failure, was found to have pneumonia, COVID was negative. The patient was on ventilator and not able to extubate and ended up with tracheostomy. He also had a bad cardiac heart disease. Ejection fraction 10%, chronic systolic heart failure. He also had a cardiac event there with V-tach. The patient was put on a vest. He also had an infection of the AV shunt and was treated with IV antibiotics for staph infection. He also has a mechanical mitral valve, on Coumadin for anticoagulation. The patient is on hemodialysis for at least 5 years and the patient was admitted to the ICU post-surgery and as mentioned above, the patient had a large ulceration over the right arm AV fistula, which had eroded into the fistula causing active bleeding and area of fistula was resected and replaced with a 6 x 10 Rheems-Pan graft. The patient would need a temporary dialysis access catheter to do the dialysis. For more details regarding the past history, family history, social history, surgical history and other details, please refer to History and Physical. At this time, the patient was taken to emergency surgery for the AV shunt repair, placement of Rheems-Pan graft and the patient was admitted to the ICU. Renal is consulted for dialysis. We will give some Irais xalate to bring the potassium down and a temporary dialysis catheter because the Rheems-Pan graft could not be used for another 4 weeks and hold Coumadin, so that we can place the catheter and the patient is also on amiodarone for cardiac arrhythmias. We will have Cardiology follow while he is here in the hospital. AV fistula bleeding stable Acute on chronic blood loss anemia-hemoglobin is 5.3. Monitor closely. Previously his hemoglobin had dropped to 4.9 at the other hospital when he had bleeding from the fistula. Improved at [facility] with hematinics. Acute hypotension-patient had dialysis yesterday. Required IV fluids. Improving. Patient is also on Coumadin so this complicates the situation. Continue iron, B complex, folic acid and vitamin C. Consult eye physician. End-stage renal disease on hemodialysis-because of the fistula repair it cannot be used for 4 weeks. A left upper chest temporary dialysis catheter has been placed. Prosthetic mitral valve. INR is 1.9 today. Hold Coumadin as patient needs a tunneled catheter for dialysis. Holding Coumadin also increases risk for complications with a prosthetic mitral valve. Dyspnea may be due to anemia. I will consult cook manager. Oxygen has been increased to 4 L by nasal cannula. Order chest x-ray. Also consult hem marker. Discussed with patient extensively about the low hemoglobin but he does not want any transfusion. Complication such as cardiac arrhythmia, acute MS, congestive heart failure, stroke and sudden discussed with the patient. He still does not want any transfusion. Hemoglobin remains stable at 5.3. Will restart anticoagulation when it is okay with the surgery and cardiology. As patient remains hemodynamically stable and has no further bleeding we will transfer him back to [facility]. AV fistula is not to be used for at least 4 weeks or so until he is seen by the vascular surgeon for follow-up appointment. Continue using tunneled HD catheter for dialysis. INR is 1.7. Restart Coumadin at 3 mg today. Discussed with cardiology staff discharged back to [facility]. Continue management in ICU. Prognosis of this patient is very poor. called Ada Blake- at home [phone]. Unable to reach via hospital sintering press operator on 01/31/20.. Medications Current Medications Medications (Trade) Dose Ordered Sig/Cheri Route PRN Reason Start Time Stop Time Status Last Admin Dose Admin Darbepoetin Serafin (ARANESP for DIALYSIS PTS) 200 mcg WEEKLYHS SQ 02/01/20 21:00 02/01/20 22:16 Lidocaine/ Epinephrine (LIDOCAINE 1%-EPI 1:100,000 Multi-Dose) 20 ml 1X ONCE INJ 02/01/20 14:00 02/01/20 14:01 DC 02/01/20 13:57 Cefazolin Sodium (Ancef) 1 gm 1X ONCE IVP 02/01/20 14:00 02/01/20 14:01 DC 02/01/20 13:56 Medications reviewed and reconciled for discharge. Allergy Allergies Coded Allergies Type Severity Reaction Last Updated Verified Penicillins Allergy Intermediate 01/29/20 Yes Follow up By Dr. Jean Tsang DISPOSITION: [facility] acute care hosp Comments Discharge Management - 35 minutes. For other details please refer to discharge instructions Justicifation of Admission Dx: Justifications for Admission: Justification of Admission Dx: Yes JEAN TSANG MD Feb 02, 2020 09:16
--- NOTE | 2020-02-02 11:55 | PDOC ---
DATE OF SERVICE DATE: 02/02/20 TIME: 11:52 SUBJECTIVE ROS seen on HD , No complaints OBJECTIVE Vital Signs Vital Signs Date Time Temp Pulse Resp B/P (MAP) Pulse Ox O2 Delivery O2 Flow Rate FiO2 02/02/20 08:00 96 Nasal Cannula 4.0 02/02/20 07:00 68 105/55 02/02/20 06:44 97.6 20 97.6 I & 0 Intake and Output 02/02/20 07:00 Intake Total 300 ml Output Total 0 ml Balance 300 ml Intake Oral 300 ml Output Urine Total 0 ml # Bowel Movements 1 PHYSICAL EXAM Physical Exam General appearance - alert, NAD HEEN OM moist Neck Supple Lungs -decreased breath sounds at bases Heart - S1 and S2 normal Abdomen - soft, non tender Neurological - alert and oriented Extremities -trace edema Skin - No rash DIAGNOSIS/ASSESSMENT Assessment & Plan ESRD - On HD MWF , has been on dialysis for 5 years in spring under Dr. Carter Seen on HD, tolerating well, continue as ordered , Simone Shaffer Access - presented with Active bleeding from AVF and a large ulceration over it eroding the fistula S/P resection of the fistula and placement of a [place]-Pan graft. Vascular recommendations - would NOT recommend access of the right arm fistula till he returns for follow up. Follow up with Dr. Kinsey in 3-4 weeks. Permacath placed on 01/31 Mechanical mitral valve, on Coumadin- cardiology managing Cardiomyopathy, ejection fraction 10%. History of cardiac event with arrhythmias and the patient was on vest at [facility]. Anemia- Hgb to 5.3 He is Yazidi and he is refusing any blood products. started KAREEM, Tsats are at goal Diabetes. Hypertension. Recent tracheostomy, which was placed recently 3-4 weeks ago. It will be at lest 3 to 4 weeks before the fistula / graft can be used for HD He will likely need a tunnel catheter in the meantime (temp cath placed today due to elevated INR) but I would defer this to nephrology Please re-wrap wound today will follow while he is here Will need to see me in the office in 2 to 3 weeks COMMENT/RELEVANT DATA Meds Current Medications Medications (Trade) Dose Ordered Sig/Cheri Start Time Stop Time Status Last Admin Dose Admin Acetaminophen (Tylenol) 650 mg Q6HRS PRN 01/30/20 12:30 01/31/20 03:12 650 MG Acetaminophen/ Hydrocodone Bitart (Lortab 5/325) 1 tab PRN Q6HRS PRN 01/30/20 12:30 Albumin Human 200 ml @ 200 mls/hr 1X PRN PRN 02/02/20 08:45 02/02/20 14:44 02/02/20 09:45 200 MLS/HR Amiodarone HCl (Cordarone) 400 mg DAILY 01/30/20 14:00 02/01/20 14:47 400 MG Ascorbic Acid (Vitamin C) 500 mg DAILY 01/30/20 13:00 02/01/20 14:47 500 MG Atorvastatin Calcium (Lipitor) 40 mg QHS 01/30/20 21:00 02/01/20 22:14 40 MG Budesonide (Pulmicort) 0.5 mg BID 01/30/20 21:00 02/02/20 08:01 0.5 MG Buspirone HCl (Buspar) 5 mg TID 01/30/20 14:00 02/01/20 22:14 5 MG Calcium Chloride (Calcium Chloride) 1,000 mg STK-MED ONCE 01/30/20 12:30 01/31/20 08:36 DC Calcium Gluconate (Calcium Gluconate) 1,000 mg 1X ONCE 01/30/20 12:30 01/30/20 12:57 DC Cefazolin Sodium (Ancef) 1 gm 1X ONCE 02/01/20 14:00 02/01/20 14:01 DC 02/01/20 13:56 1 GM Cellulose (Surgicel Fibrillar 1x2) 1 each STK-MED ONCE 01/29/20 14:19 01/29/20 14:19 DC 01/29/20 16:48 1 EACH Cyanocobalamin (Vitamin B-12) 1,000 mcg DAILY 01/30/20 14:00 02/01/20 14:43 1,000 MCG Cyclobenzaprine HCl (Flexeril) 10 mg TID 01/30/20 14:00 02/01/20 23:55 10 MG Darbepoetin Serafin (ARANESP for DIALYSIS PTS) 200 mcg WEEKLYHS 02/01/20 21:00 02/01/20 22:16 200 MCG Dextrose (Dextrose 50%-Water Syringe) 12.5 gm PRN Q15MIN PRN 01/30/20 12:30 01/31/20 20:47 12.5 GM Fentanyl Citrate (Fentanyl 2ml Vial) 50 mcg PRN Q5MIN PRN 01/29/20 16:15 01/29/20 22:00 DC Ferrous Sulfate (Iron Oral Solution) 300 mg DAILY08 01/30/20 14:00 02/01/20 14:48 300 MG Glycopyrrolate (Robinul) 1 mg STK-MED ONCE 01/29/20 14:25 01/29/20 14:25 DC Heparin Sodium (Porcine) (Heparin) 30,000 unit STK-MED ONCE 01/29/20 15:42 01/29/20 15:43 DC Heparin Sodium (Porcine) 5000 unit/Sodium Chloride 505 ml @ 505 mls/hr 1X ONCE 01/29/20 15:00 01/29/20 16:03 DC 01/29/20 15:28 Hydromorphone HCl (Dilaudid) 0.5 mg PRN Q10MIN PRN 01/29/20 16:15 01/29/20 22:00 DC Hydroxyzine HCl (Atarax) 10 mg TID 01/30/20 14:00 02/01/20 22:14 10 MG Info (PHARMACY MONITORING -- do not chart) 1 each PRN DAILY PRN 02/02/20 08:45 Insulin Human Lispro (HumaLOG) 0-5 UNITS TIDWMEALS 01/30/20 17:00 01/31/20 12:44 2 UNITS Insulin Human Regular (HumuLIN R VIAL) 10 unit 1X ONCE 01/30/20 12:30 01/30/20 12:57 DC 01/30/20 13:29 10 UNIT Ipratropium [place] (Atrovent) 0.5 mg RTQID 01/30/20 13:00 02/02/20 08:00 0.5 MG Iron Sucrose 200 mg/Sodium Chloride 110 ml @ 55 mls/hr 1X ONCE 01/31/20 09:00 01/31/20 08:42 DC Ketamine HCl (Ketamine) 50 mg STK-MED ONCE 01/29/20 15:27 01/29/20 15:27 DC Lidocaine HCl (Buffered Lidocaine 1%) 3 ml 1X ONCE 01/30/20 13:30 01/30/20 13:44 DC Lidocaine HCl (Xylocaine 1% Pf 30ml Vial) 30 ml STK-MED ONCE 01/29/20 14:19 01/29/20 14:19 DC Lidocaine HCl (Xylocaine-Mpf 1% 2ml Vial) 2 ml PRN 1X PRN 01/29/20 16:15 01/29/20 22:00 DC Lidocaine HCl (Xylocaine-Mpf 1% 5ml Vial) 5 ml STK-MED ONCE 01/29/20 12:51 01/29/20 12:51 DC Lidocaine/ Epinephrine (LIDOCAINE 1%-EPI 1:100,000 Multi-Dose) 20 ml 1X ONCE 02/01/20 14:00 02/01/20 14:01 DC 02/01/20 13:57 10 ML Magnesium Oxide (Magnesium Oxide) 400 mg BID 01/31/20 14:00 02/01/20 22:15 400 MG Metoclopramide HCl (Reglan) 5 mg TIDAC 01/30/20 16:30 02/02/20 07:21 5 MG Metoprolol Tartrate (Lopressor) 12.5 mg BID 01/30/20 14:00 02/01/20 22:25 12.5 MG Midazolam HCl (Versed) 2 mg STK-MED ONCE 01/29/20 14:27 01/29/20 14:27 DC Midodrine (Proamatine) 10 mg [id number] 01/30/20 18:00 02/01/20 17:05 10 MG Morphine Sulfate (Morphine Sulfate) 1 mg PRN Q10MIN PRN 01/29/20 16:15 01/29/20 22:00 DC Non-Formulary Medication (Melatonin ) 3 mg HS 01/30/20 21:00 UNV Ondansetron HCl (Zofran) 4 mg PRN Q6HRS PRN 01/29/20 16:15 01/29/20 22:00 DC Pantoprazole Sodium (Protonix) 40 mg DAILYAC 01/30/20 16:30 02/02/20 07:18 40 MG Papaverine HCl 60 mg STK-MED ONCE 01/29/20 14:19 01/29/20 14:20 DC Pharmacy Consult (C.diff Med Screen By Rx) 1 each 1X ONCE 01/29/20 17:45 01/29/20 17:46 UNV Phenylephrine HCl (PHENYLEPHRINE in 0.9% NACL PF) 1 mg STK-MED ONCE 01/29/20 15:42 01/29/20 15:43 DC Polyethylene Glycol (miraLAX PACKET) 17 gm DAILY 01/30/20 14:00 01/31/20 08:29 17 GM Prochlorperazine Edisylate (Compazine) 5 mg PACU PRN PRN 01/29/20 16:15 01/29/20 22:00 DC Ringer's Solution 1,000 ml @ 30 mls/hr Q24H 01/29/20 16:04 01/30/20 04:03 DC Rocuronium [place] (Zemuron) 50 mg STK-MED ONCE 01/29/20 14:26 01/29/20 14:26 DC Senna/Docusate Sodium (Senna Plus) 1 tab HS 01/30/20 21:00 02/01/20 22:14 1 TAB Sevoflurane (Ultane) 90 ml STK-MED ONCE 01/29/20 16:59 01/29/20 16:59 DC Sodium Polystyrene Sulfonate (Kayexalate) 30 gm 1X ONCE 01/30/20 12:15 01/30/20 12:16 DC 01/30/20 12:41 30 GM Sodium Bicarbonate (Sodium Bicarb Adult 8.4% Syr) 50 meq 1X ONCE 01/30/20 12:30 01/30/20 12:57 DC 01/30/20 12:50 50 MEQ Sodium Chloride 1,000 ml @ 400 mls/hr Q2H30M PRN 02/02/20 08:37 02/02/20 20:36 Vitamin B Complex/ Vitamin C (Nora-Karina) 1 tab DAILY 01/30/20 14:00 01/31/20 09:44 DC Lab Laboratory Tests Test 02/01/20 17:10 02/01/20 22:12 02/02/20 04:54 02/02/20 07:13 Glucose (Fingerstick) 124 mg/dL (70-99) 144 mg/dL (70-99) 124 mg/dL (70-99) 117 mg/dL (70-99) Test 02/02/20 07:15 White Blood Count 6.3 x10^3/uL (4.0-11.0) Red Blood Count 2.01 x10^6/uL (4.30-5.70) Hemoglobin 5.3 g/dL (13.0-17.5) Hematocrit 17.1 % (39.0-53.0) Mean Corpuscular Volume 85 fL (79-100) Mean Corpuscular Hemoglobin 26 pg (25-35) Mean Corpuscular Hemoglobin Concent 31 g/dL (31-37) Red Cell Distribution Width 21.3 % (11.5-14.5) Platelet Count 222 x10^3/uL (140-400) Neutrophils (%) (Auto) 75 % (31-73) Lymphocytes (%) (Auto) 11 % (24-48) Monocytes (%) (Auto) 8 % (0-9) Eosinophils (%) (Auto) 3 % (0-3) Basophils (%) (Auto) 3 % (0-3) Neutrophils # (Auto) 4.7 x10^3/uL (1.8-7.7) Lymphocytes # (Auto) 0.7 x10^3/uL (1.0-4.8) Monocytes # (Auto) 0.5 x10^3/uL (0.0-1.1) Eosinophils # (Auto) 0.2 x10^3/uL (0.0-0.7) Basophils # (Auto) 0.2 x10^3/uL (0.0-0.2) Prothrombin Time 19.4 SEC (11.7-14.0) Prothromb Time International Ratio 1.7 (0.8-1.1) Sodium Level 131 mmol/L (136-145) Potassium Level 6.0 mmol/L (3.5-5.1) Chloride Level 93 mmol/L (98-107) Carbon Dioxide Level 30 mmol/L (21-32) Anion Gap 8 (6-14) Blood Urea Nitrogen 33 mg/dL (8-26) Creatinine 3.8 mg/dL (0.7-1.3) Estimated GFR (Cockcroft-Gault) 19.1 BUN/Creatinine Ratio 9 (6-20) Glucose Level 112 mg/dL (70-99) Calcium Level 9.0 mg/dL (8.5-10.1) Total Bilirubin 0.4 mg/dL (0.2-1.0) Aspartate Amino Transf (AST/SGOT) 25 U/L (15-37) Alanine Aminotransferase (ALT/SGPT) 8 U/L (16-63) Alkaline Phosphatase 154 U/L (46-116) Total Protein 7.4 g/dL (6.4-8.2) Albumin 1.9 g/dL (3.4-5.0) Albumin/Globulin Ratio 0.3 (1.0-1.7) Results All relevant outside records, renal labs, imaging studies, telemetry/EKG's were reviewed. Justicifation of Admission Dx: Justifications for Admission: Justification of Admission Dx: Yes DOTTIE MAHARAJ MD Feb 02, 2020 11:54
--- NOTE | 2020-02-02 12:03 | PDOC ---
SARITA LOPEZ MANAGER MEDICARE 02/02/20 1203: CARDIO Progress Notes Date and Time Date of Service 02/02/2020 Time of Evaluation 1000 Subjective Subjective: No Chest Pain, No shortness of breath, No Palpitations, Other (feels tired) Vitals Vitals Vital Signs Date Time Temp Pulse Resp B/P (MAP) Pulse Ox O2 Delivery O2 Flow Rate FiO2 02/02/20 11:56 Nasal Cannula 4.0 02/02/20 08:00 96 02/02/20 07:00 68 105/55 02/02/20 06:44 97.6 20 97.6 Weight Weight [ ] Input and Output Intake and Output Intake and Output 02/02/20 07:00 Intake Total 300 ml Output Total 0 ml Balance 300 ml Intake Oral 300 ml Output Urine Total 0 ml # Bowel Movements 1 Laboratory Labs Laboratory Tests Test 02/01/20 17:10 02/01/20 22:12 02/02/20 04:54 02/02/20 07:13 Glucose (Fingerstick) 124 mg/dL (70-99) 144 mg/dL (70-99) 124 mg/dL (70-99) 117 mg/dL (70-99) Test 02/02/20 07:15 White Blood Count 6.3 x10^3/uL (4.0-11.0) Red Blood Count 2.01 x10^6/uL (4.30-5.70) Hemoglobin 5.3 g/dL (13.0-17.5) Hematocrit 17.1 % (39.0-53.0) Mean Corpuscular Volume 85 fL (79-100) Mean Corpuscular Hemoglobin 26 pg (25-35) Mean Corpuscular Hemoglobin Concent 31 g/dL (31-37) Red Cell Distribution Width 21.3 % (11.5-14.5) Platelet Count 222 x10^3/uL (140-400) Neutrophils (%) (Auto) 75 % (31-73) Lymphocytes (%) (Auto) 11 % (24-48) Monocytes (%) (Auto) 8 % (0-9) Eosinophils (%) (Auto) 3 % (0-3) Basophils (%) (Auto) 3 % (0-3) Neutrophils # (Auto) 4.7 x10^3/uL (1.8-7.7) Lymphocytes # (Auto) 0.7 x10^3/uL (1.0-4.8) Monocytes # (Auto) 0.5 x10^3/uL (0.0-1.1) Eosinophils # (Auto) 0.2 x10^3/uL (0.0-0.7) Basophils # (Auto) 0.2 x10^3/uL (0.0-0.2) Prothrombin Time 19.4 SEC (11.7-14.0) Prothromb Time International Ratio 1.7 (0.8-1.1) Sodium Level 131 mmol/L (136-145) Potassium Level 6.0 mmol/L (3.5-5.1) Chloride Level 93 mmol/L (98-107) Carbon Dioxide Level 30 mmol/L (21-32) Anion Gap 8 (6-14) Blood Urea Nitrogen 33 mg/dL (8-26) Creatinine 3.8 mg/dL (0.7-1.3) Estimated GFR (Cockcroft-Gault) 19.1 BUN/Creatinine Ratio 9 (6-20) Glucose Level 112 mg/dL (70-99) Calcium Level 9.0 mg/dL (8.5-10.1) Total Bilirubin 0.4 mg/dL (0.2-1.0) Aspartate Amino Transf (AST/SGOT) 25 U/L (15-37) Alanine Aminotransferase (ALT/SGPT) 8 U/L (16-63) Alkaline Phosphatase 154 U/L (46-116) Total Protein 7.4 g/dL (6.4-8.2) Albumin 1.9 g/dL (3.4-5.0) Albumin/Globulin Ratio 0.3 (1.0-1.7) Physical Exam HEENT: Neck Supple W Full Motion Chest: Symmetric LUNGS: Other (diminished bases; capped trach in place) Heart: RRR (SR), other (mitral click loudest to LLS border) Abdomen: Soft N/T Extremities: No Edema Neurology: alert, oriented, follow commands Assessment Assessment 1. Right AV fistula bleed; per vascular post tunnelled HD cath. 2. Chronic respiratory failure with AECOPD, a/c CHF, and profound anemia; s/p trach. Compensated 3. Acute on chronic systolic CHF: compensated 4. Severe CMP; LVEF 10%. Previously 30-35% 07/2018. Follows with Dr. Muse. Previously deemed poor candidate for AICD implantation with significant com orbidities per record review. 5. PAFIB: currently SR 6. CAD s/p PCI/stent placement 2013 7. H/o VT arrest during recent hospitalization; on Amiodarone therapy. No further VT noted on tele at [facility] or here at [facility] 8. Valvular heart disease s/p mechanical mitral valve replacement; chronic OAC with warfarin. INR 1.9 9. Hypertension; controlled 10. Hyperlipidemia 11. Diabetes, II 12. ESRD on HD 13. Anemia; patient is Jehovah Witness, declining blood transfusion. Hgb remains at 5.3 with normal PLT. Post Epo and venofer 14. Recent bacteremia, sepsis 15. Jehovas witness: he had his MV procedure a yr before converting to Jehovas witness Recommendations 1. Awaiting tunnelled HD cath. INR 1.7, resume coumadin today 2. Unable to place on ACEi/ARB due to marginal BP. Continue amiodarone for VT and AFIB suppression and low dose metoprolol. 3. Fluid offloading via HD as per nephrology 4. Prognosis very poor given significant commodities, which was discussed with patient. He continues to want to be a Full Code. 5. Secondary prevention measures. Transfer to [facility] today Justicifation of Admission Dx: Justifications for Admission: Justification of Admission Dx: Yes SONNY ROPER MD 02/02/201957: CARDIO Progress Notes Assessment Assessment Patient seen and examined. Ageree with ENVIRONMENTAL SUSTAINABILITY MANAGER's assessment and plan. Right AV fistula active bleed and blood loss anemia s/p revision of AV graft by vascular surgery Temp dialysis cath placed by IR yesterday Continue fluid removal with HD for ac on chr systolic HF Continue amiodarone for VT suppression Resume warfarin when ok from surgical/IR standpoint for mechanical MVR CAD status clinically stable Planned transfer back to SARITA LOPEZ APRN Feb 02, 2020 12:03 SONNY ROPER MD Feb 02, 2020 19:58
[2020-02-02 14:18] VITALS: BP 158/41
[2020-02-02] MEDS: WARFARIN 3 MG TABLET. PO SCH (15:25)
[2020-02-02] MEDS: AMIODARONE HCL 200 MG TABLET. PO SCH (15:25)
[2020-02-02] MEDS: ASCORBIC ACID 500 MG TABLET PO SCH (15:26)
[2020-02-02] MEDS: FOLIC/VIT B COMP W-C (RENAL) TABLET. PO SCH (15:26)
[2020-02-02] MEDS: CYANOCOBALAMIN (VITAMIN B-12) 1,000 MCG TABLET. PO SCH (15:30)
[2020-02-02 19:19] VITALS: BP 81/46
[2020-02-02 19:41] VITALS: BP 90/51
[2020-02-02] MEDS: SENNOSIDES/DOCUSATE 8.6/50MG TABLET. PO SCH (20:20)
[2020-02-02] MEDS: ATORVASTATIN CALCIUM 40 MG TABLET. PO SCH (20:21)
[2020-02-02 23:02] VITALS: BP 107/41
[2020-02-03] VITALS (7 sets, daily range): BP systolic 95–127; BP diastolic 47–71
[2020-02-03] MEDS ORDERED: DEXTROSE 50% 25 GM / 50ML DISP.SYRIN. IV ONE (04:00)
[2020-02-03] MEDS ORDERED: ATROPINE 0.5 MG/5 ML DISP.SYRINGE. ONE (04:00)
[2020-02-03] MEDS ORDERED: CALCIUM CHLORIDE 1,000 MG/10 ML DISP.SYRIN ONE (04:00)
[2020-02-03 05:02] LABS: BASO # 0.1 x10^3/uL (0.0-0.2); BASO % 1 % (0-3); EOS # 0.1 x10^3/uL (0.0-0.7); EOS % 1 % (0-3); LYMPH # 0.7 x10^3/uL (1.0-4.8); LYMPH % 9 % (24-48); MEAN CORPUSCULAR HEMOGLOBIN 27 pg (25-35); MEAN CORPUSCULAR HGB CONC 31 g/dL (31-37); MEAN CORPUSCULAR VOLUME 88 fL (79-100); MONO # 0.5 x10^3/uL (0.0-1.1); MONO % 7 % (0-9); NEUT # 5.7 x10^3/uL (1.8-7.7); NEUT % 82 % (31-73); PLATELET COUNT 214 x10^3/uL (140-400); RED BLOOD COUNT 2.01 x10^6/uL (4.30-5.70); RED CELL DISTRIBUTION WIDTH 21.4 % (11.5-14.5)
[2020-02-03 05:10] LABS: PROTHROMBIN TIME PATIENT 21.8 SEC (11.7-14.0)
[2020-02-03 05:23] LABS: HEMATOCRIT 17.7 % (39.0-53.0); HEMOGLOBIN 5.5 g/dL (13.0-17.5)
[2020-02-03] MEDS: MIDODRINE 5 MG TABLET PO SCH ×3 (05:59→17:13)
[2020-02-03] MEDS: METOCLOPRAMIDE 10 MG TABLET. PO SCH ×3 (07:03→17:14)
[2020-02-03] MEDS: PANTOPRAZOLE 40 MG TABLET.DR. PO SCH (07:04)
[2020-02-03] MEDS: BUDESONIDE 0.5 MG/2 ML NEBU. NEB SCH ×2 (07:54→19:18)
[2020-02-03] MEDS: IPRATROPIUM BROMIDE 0.5 MG/2.5 ML NEBU. NEB SCH ×4 (07:54→19:19)
[2020-02-03] MEDS: INSULIN LISPRO 300 UNITS/3 ML VIAL. SQ SCH ×6 (08:00→17:00)
--- NOTE | 2020-02-03 08:16 | PDOC ---
PULMONARY PROGRESS NOTES DATE: 02/03/20 TIME: 08:16 Subjective Patient with uncapped trach thick secretion Vitals Vital Signs Date Time Temp Pulse Resp B/P (MAP) Pulse Ox O2 Delivery O2 Flow Rate FiO2 02/03/20 08:07 97 Tracheal Collar 8.0 02/03/20 06:02 97.5 63 23 103/71 (82) 97.5 ROS: No Nausea, No Chest Pain, No Abdominal Pain, No Increase Cough General: Alert Lungs: Crackles Cardiovascular: S1, S2 Abdomen: Soft Neuro Exam: Alert Extremities: No Edema Skin: Warm Labs Laboratory Tests Test 02/01/20 11:46 02/01/20 17:10 02/01/20 22:12 02/02/20 04:54 Glucose (Fingerstick) 133 mg/dL (70-99) 124 mg/dL (70-99) 144 mg/dL (70-99) 124 mg/dL (70-99) Test 02/02/20 07:13 02/02/20 07:15 02/02/20 12:09 02/02/20 13:21 Glucose (Fingerstick) 117 mg/dL (70-99) 103 mg/dL (70-99) 87 mg/dL (70-99) White Blood Count 6.3 x10^3/uL (4.0-11.0) Red Blood Count 2.01 x10^6/uL (4.30-5.70) Hemoglobin 5.3 g/dL (13.0-17.5) Hematocrit 17.1 % (39.0-53.0) Mean Corpuscular Volume 85 fL (79-100) Mean Corpuscular Hemoglobin 26 pg (25-35) Mean Corpuscular Hemoglobin Concent 31 g/dL (31-37) Red Cell Distribution Width 21.3 % (11.5-14.5) Platelet Count 222 x10^3/uL (140-400) Neutrophils (%) (Auto) 75 % (31-73) Lymphocytes (%) (Auto) 11 % (24-48) Monocytes (%) (Auto) 8 % (0-9) Eosinophils (%) (Auto) 3 % (0-3) Basophils (%) (Auto) 3 % (0-3) Neutrophils # (Auto) 4.7 x10^3/uL (1.8-7.7) Lymphocytes # (Auto) 0.7 x10^3/uL (1.0-4.8) Monocytes # (Auto) 0.5 x10^3/uL (0.0-1.1) Eosinophils # (Auto) 0.2 x10^3/uL (0.0-0.7) Basophils # (Auto) 0.2 x10^3/uL (0.0-0.2) Prothrombin Time 19.4 SEC (11.7-14.0) Prothromb Time International Ratio 1.7 (0.8-1.1) Sodium Level 131 mmol/L (136-145) Potassium Level 6.0 mmol/L (3.5-5.1) Chloride Level 93 mmol/L (98-107) Carbon Dioxide Level 30 mmol/L (21-32) Anion Gap 8 (6-14) Blood Urea Nitrogen 33 mg/dL (8-26) Creatinine 3.8 mg/dL (0.7-1.3) Estimated GFR (Cockcroft-Gault) 19.1 BUN/Creatinine Ratio 9 (6-20) Glucose Level 112 mg/dL (70-99) Calcium Level 9.0 mg/dL (8.5-10.1) Total Bilirubin 0.4 mg/dL (0.2-1.0) Aspartate Amino Transf (AST/SGOT) 25 U/L (15-37) Alanine Aminotransferase (ALT/SGPT) 8 U/L (16-63) Alkaline Phosphatase 154 U/L (46-116) Total Protein 7.4 g/dL (6.4-8.2) Albumin 1.9 g/dL (3.4-5.0) Albumin/Globulin Ratio 0.3 (1.0-1.7) Test 02/02/20 16:32 02/03/20 04:30 Glucose (Fingerstick) 126 mg/dL (70-99) White Blood Count 7.0 x10^3/uL (4.0-11.0) Red Blood Count 2.01 x10^6/uL (4.30-5.70) Hemoglobin 5.5 g/dL (13.0-17.5) Hematocrit 17.7 % (39.0-53.0) Mean Corpuscular Volume 88 fL (79-100) Mean Corpuscular Hemoglobin 27 pg (25-35) Mean Corpuscular Hemoglobin Concent 31 g/dL (31-37) Red Cell Distribution Width 21.4 % (11.5-14.5) Platelet Count 214 x10^3/uL (140-400) Neutrophils (%) (Auto) 82 % (31-73) Lymphocytes (%) (Auto) 9 % (24-48) Monocytes (%) (Auto) 7 % (0-9) Eosinophils (%) (Auto) 1 % (0-3) Basophils (%) (Auto) 1 % (0-3) Neutrophils # (Auto) 5.7 x10^3/uL (1.8-7.7) Lymphocytes # (Auto) 0.7 x10^3/uL (1.0-4.8) Monocytes # (Auto) 0.5 x10^3/uL (0.0-1.1) Eosinophils # (Auto) 0.1 x10^3/uL (0.0-0.7) Basophils # (Auto) 0.1 x10^3/uL (0.0-0.2) Prothrombin Time 21.8 SEC (11.7-14.0) Prothromb Time International Ratio 1.9 (0.8-1.1) Laboratory Tests Test 02/02/20 12:09 02/02/20 13:21 02/02/20 16:32 02/03/20 04:30 Glucose (Fingerstick) 103 mg/dL (70-99) 87 mg/dL (70-99) 126 mg/dL (70-99) White Blood Count 7.0 x10^3/uL (4.0-11.0) Red Blood Count 2.01 x10^6/uL (4.30-5.70) Hemoglobin 5.5 g/dL (13.0-17.5) Hematocrit 17.7 % (39.0-53.0) Mean Corpuscular Volume 88 fL (79-100) Mean Corpuscular Hemoglobin 27 pg (25-35) Mean Corpuscular Hemoglobin Concent 31 g/dL (31-37) Red Cell Distribution Width 21.4 % (11.5-14.5) Platelet Count 214 x10^3/uL (140-400) Neutrophils (%) (Auto) 82 % (31-73) Lymphocytes (%) (Auto) 9 % (24-48) Monocytes (%) (Auto) 7 % (0-9) Eosinophils (%) (Auto) 1 % (0-3) Basophils (%) (Auto) 1 % (0-3) Neutrophils # (Auto) 5.7 x10^3/uL (1.8-7.7) Lymphocytes # (Auto) 0.7 x10^3/uL (1.0-4.8) Monocytes # (Auto) 0.5 x10^3/uL (0.0-1.1) Eosinophils # (Auto) 0.1 x10^3/uL (0.0-0.7) Basophils # (Auto) 0.1 x10^3/uL (0.0-0.2) Prothrombin Time 21.8 SEC (11.7-14.0) Prothromb Time International Ratio 1.9 (0.8-1.1) Medications Active Scripts Medications Dose Route/Sig Max Daily Dose Days Date Category Dose Instructions Hydroxyzine Hcl 10 Mg/5 Ml Syrup 10 Mg PO TID 01/29/20 Reported Hydrocodone-Acetamin 5-325 mg (Hydrocodone/Acetaminophen) 1 Each Tablet 1 Each PO PRN Q6HRS PRN 01/29/20 Reported Glutose 15 (Dextrose) 37.5 Gm Gel..gram. 37.5 Gm PO PRN 01/29/20 Reported Cyclobenzaprine Hcl 10 Mg Tablet 1 Tab PO TID 01/29/20 Reported Tylenol (Acetaminophen) 325 Mg Tablet 2 Tab PO Q6HRS PRN 01/29/20 Reported Warfarin Sodium 2 Mg Tablet 2 Mg PO DAILY 01/29/20 Reported B-12 (Cyanocobalamin (Vitamin B-12)) 1,000 Mcg Tablet.er 1 Tab PO DAILY 30 01/29/20 Reported Senna-Docusate Sodium Tablet (Sennosides/Docusate Sodium) 1 Each Tablet 1 Tab PO HS 20 01/29/20 Reported Transderm-Scop (Scopolamine) 1 Each Patch.td72 1 Patch TP Q3DAYS 01/29/20 Reported Renal Caps Softgel (Folic Acid/Vitamin B Comp W-C) 1 Mg Capsule 1 Cap PO DAILY 30 01/29/20 Reported Miralax (Polyethylene Glycol 3350) 17 Gm Powd.pack 1 Packet PO DAILY 2 01/29/20 Reported dissolve in water Pantoprazole Sodium (Pantoprazole Sodium) 40 Mg Tablet.dr 40 Mg PO DAILYAC 01/29/20 Reported Midodrine Hcl 10 Mg Tablet 10 Mg PO TID 01/29/20 Reported Metoprolol Tartrate 25 Mg Tablet 0.5 Tab PO BID 01/29/20 Reported Reglan (Metoclopramide Hcl) 10 Mg Tablet 1 Tab PO TIDAC 30 01/29/20 Reported before food and bedtime Melatonin 3 Mg Capsule 3 Mg PO HS 01/29/20 Reported Magnesium Oxide 400 Mg Tablet 1 Tab PO BID 01/29/20 Reported Ipratropium [place] 0.2 Mg/1 Ml Solution 1 Vial NEB QID 01/29/20 Reported Humalog (Insulin Lispro) 100 Unit/1 Ml Vial 4 Unit SQ TIDAC 01/29/20 Reported Insulin Lispro 100 Unit/1 Ml Vial 0-6 Unit SQ TIDAC 01/29/20 Reported Renal-Karina Tablet (Folic Acid/Vit Bcomp,C) 0.8 Mg Tablet 1 Mg PO DAILY 01/29/20 Reported Ferrous Sulfate 220 Mg/5 Ml Solution 5 Ml PO DAILY 30 01/29/20 Reported Buspirone Hcl 5 Mg Tablet 1 Tab PO TID 01/29/20 Reported Budesonide 0.5 Mg/2 Ml Ampul.neb 1 Vial NEB BID 01/29/20 Reported Atorvastatin Calcium 40 Mg Tablet 1 Tab PO QHS 01/29/20 Reported Ascorbic Acid 500 Mg Tablet 500 Mg PO DAILY 01/29/20 Reported Amiodarone Hcl 400 Mg Tablet 1 Tab PO DAILY 30 01/29/20 Reported Impression . IMPRESSION: 1. Acute respiratory failure. The patient currently is on oxygen via nasal cannula. He has a tracheostomy, which is capped. 2. [id number] blood loss anemia from AV fistula site. 3. End-stage renal disease, on hemodialysis. 4. Severe protein-calorie malnutrition. 5. Severe cardiomyopathy with an EF of 10%. 6. The patient is [facility]. Vascular surgeon's note Pt seen and examined today He has no new c/o left arm dressing taken down fistula has an excellent thrill incision c/d/i no hematoma good perfusion to left hand no evidence of steal Doing well It will be at lest 3 to 4 weeks before the fistula / graft can be used for HD He will likely need a tunnel catheter in the meantime (temp cath placed today due to elevated INR) but I would defer this to nephrology Please re-wrap wound today will follow while he is here Will need to see me in the office in 2 to 3 weeks Plan . Uncap the trach, apply humidification Chest x-ray was reviewed there appears to be mild edema Negative fluid balance doing dialysis Monitor chest X Follow renal recommend We Will Continue Oxygen Supplementation per Nasal Cannula Continue capped Trach As Tolerated Possible discharge today SAMANTHA MERCHANT MD Feb 03, 2020 08:16
[2020-02-03] MEDS: busPIRone 5 MG TABLET. PO SCH ×3 (09:18→20:26)
[2020-02-03] MEDS: POLYETHYLENE GLYCOL 3350 17 GM PACKET. PO SCH (09:18)
[2020-02-03] MEDS: FERROUS SULFATE ORAL 300 MG/5 ML SOLUTION. PO SCH (09:18)
[2020-02-03] MEDS: CYCLOBENZAPRINE 10 MG TABLET. PO SCH ×3 (09:19→20:25)
[2020-02-03] MEDS: MAGNESIUM OXIDE 400 MG TABLET PO SCH ×2 (09:19→20:26)
[2020-02-03] MEDS: ASCORBIC ACID 500 MG TABLET PO SCH (09:19)
[2020-02-03] MEDS: CYANOCOBALAMIN (VITAMIN B-12) 1,000 MCG TABLET. PO SCH (09:19)
[2020-02-03] MEDS: hydrOXYzine 10 MG TABLET PO SCH ×3 (09:19→20:26)
[2020-02-03] MEDS: METOPROLOL TART IMMED RELEASE 25 MG TABLET. PO SCH ×2 (09:19→20:26)
[2020-02-03] MEDS: FOLIC/VIT B COMP W-C (RENAL) TABLET. PO SCH (09:19)
[2020-02-03] MEDS: AMIODARONE HCL 200 MG TABLET. PO SCH (09:20)
--- NOTE | 2020-02-03 10:13 | PDOC ---
IM PROGRESS NOTES- Subjective Subjective No complaints of pain or dyspnea. He denies any bleeding. However patient is apparently short of breath. He does have cognitive deficits. Objective Vitals/I&O Vital Signs Date Time Temp Pulse Resp B/P (MAP) Pulse Ox O2 Delivery O2 Flow Rate FiO2 02/03/20 09:20 71 123/52 02/03/20 08:07 97 Tracheal Collar 8.0 02/03/20 06:02 97.5 23 97.5 I & O 02/02/20 02/02/20 02/03/20 14:59 22:59 06:59 Intake Total 200 ml 50 ml 150 ml Output Total 0 ml Balance 200 ml 50 ml 150 ml Physical Exam Physical Exam General appearance - alert,ill appearing, and in no distress. Mental Status - alert, oriented Head - normal Trach capped. Chest -decreased breath sounds at bases Heart - S1 and S2 normal Abdomen - soft, non tender Neurological - alert and oriented Extremities -trace edema Skin - warm and dry. No bleeding from the AV fistula on the right upper extremity Labs Laboratory Tests Test 02/02/20 12:09 02/02/20 13:21 02/02/20 16:32 02/03/20 04:30 Glucose (Fingerstick) 103 mg/dL (70-99) H 87 mg/dL (70-99) 126 mg/dL (70-99) H White Blood Count 7.0 x10^3/uL (4.0-11.0) Red Blood Count 2.01 x10^6/uL (4.30-5.70) L Hemoglobin 5.5 g/dL (13.0-17.5) *L Hematocrit 17.7 % (39.0-53.0) *L Mean Corpuscular Volume 88 fL (79-100) Mean Corpuscular Hemoglobin 27 pg (25-35) Mean Corpuscular Hemoglobin Concent 31 g/dL (31-37) Red Cell Distribution Width 21.4 % (11.5-14.5) H Platelet Count 214 x10^3/uL (140-400) Neutrophils (%) (Auto) 82 % (31-73) H Lymphocytes (%) (Auto) 9 % (24-48) L Monocytes (%) (Auto) 7 % (0-9) Eosinophils (%) (Auto) 1 % (0-3) Basophils (%) (Auto) 1 % (0-3) Neutrophils # (Auto) 5.7 x10^3/uL (1.8-7.7) Lymphocytes # (Auto) 0.7 x10^3/uL (1.0-4.8) L Monocytes # (Auto) 0.5 x10^3/uL (0.0-1.1) Eosinophils # (Auto) 0.1 x10^3/uL (0.0-0.7) Basophils # (Auto) 0.1 x10^3/uL (0.0-0.2) Prothrombin Time 21.8 SEC (11.7-14.0) H Prothrombin Time INR 1.9 (0.8-1.1) H Laboratory Tests 02/03/20 04:30 Meds Current Medications Medications (Trade) Dose Ordered Sig/Cheri Route PRN Reason Start Time Stop Time Status Last Admin Dose Admin Warfarin Sodium (Coumadin) 3 mg DAILY16 PO 02/02/20 16:00 02/02/20 15:25 Warfarin Sodium (Coumadin Per Physician) 1 each PRN DAILY PRN MC SEE COMMENTS 02/02/20 14:45 02/03/20 08:08 Assessment Assessment 1. 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 The patient underwent resection of the fistula and placement of a [place]-Pan graft. 2. End-stage renal disease, on hemodialysis. 3. Mechanical mitral valve, on Coumadin. 4. Cardiomyopathy, ejection fraction 10%. 5. History of cardiac event with arrhythmias and the patient was on vest at [facility]. 6. The patient is Mu-ism complicating the treatment plans. The patient is refusing any blood products. 7. Diabetes. 8. Hypertension. 9. Hyperlipidemia. 10. Recent tracheostomy, which was placed recently 3-4 weeks ago. PLAN: At this time, the patient was taken to emergency surgery for the AV shunt repair, placement of Burg[place]-Pan graft and the patient was admitted to the ICU. Renal is consulted for dialysis. We will give some Irais xalate to bring the potassium down and a temporary dialysis catheter because the [place]-Pan graft could not be used for another 4 weeks and hold Coumadin, so that we can place the catheter and the patient is also on amiodarone for cardiac arrhythmias. We will have Cardiology follow while he is here in the hospital. AV fistula bleeding stable Acute on chronic blood loss anemia-hemoglobin is 5.5 Acute hypotension-patient had dialysis yesterday. Required IV fluids. Improving. Patient is also on Coumadin so this complicates the situation. Continue iron, B complex, folic acid and vitamin C. Consult bioinformatics support specialist. End-stage renal disease on hemodialysis-because of the fistula repair it cannot be used for 4 weeks. A left upper chest temporary dialysis catheter has been placed. Prosthetic mitral valve. INR is 1.9 today. Coumadin 3 mg p.o. today Dyspnea may be due to anemia. I will consult rn teacher. Oxygen has been increased to 4 L by nasal cannula. Order chest x-ray. Also consult bridge club manager. Discussed with patient extensively about the low hemoglobin but he does not want any transfusion. Complication such as cardiac arrhythmia, acute [place], congestive heart failure, stroke and sudden discussed with the patient. He still does not want any transfusion. Continue management in ICU. Prognosis of this patient is very poor. [facility]. Discharge management 35 minutes. Plan Plan For more details regarding further plans, please refer to the orders. Justifications for Admission Other Justification JEAN BRUNSON MD Feb 03, 2020 10:13
--- NOTE | 2020-02-03 11:37 | PDOC ---
DATE OF SERVICE DATE: 02/03/20 TIME: 11:33 SUBJECTIVE ROS No acute events reported overnight OBJECTIVE Vital Signs Vital Signs Date Time Temp Pulse Resp B/P (MAP) Pulse Ox O2 Delivery O2 Flow Rate FiO2 02/03/20 11:00 97.3 77 22 127/58 (81) 90 Tracheal Collar 6.0 97.3 I & 0 Intake and Output 02/03/20 07:00 Intake Total 400 ml Output Total 0 ml Balance 400 ml Intake Oral 400 ml Output Urine Total 0 ml PHYSICAL EXAM Physical Exam General appearance - alert, NAD HEEN OM moist Neck Supple , has Trach collar Lungs -decreased breath sounds at bases Heart - S1 and S2 normal Abdomen - soft, non tender Neurological - alert and oriented Extremities -trace edema Skin - No rash DIAGNOSIS/ASSESSMENT Assessment & Plan ESRD - On HD MWF , has been on dialysis for 5 years in [facility] under Dr. Carter Currently No Indication today Access - presented with Active bleeding from AVF and a large ulceration over it eroding the fistula S/P resection of the fistula and placement of a [place]-Pan graft. Vascular recommendations - would NOT recommend access of the right arm fistula till he returns for follow up. Follow up with Dr. Kinsey in 3-4 weeks. Permacath placed on 01/31 Mechanical mitral valve, on Coumadin- cardiology managing Cardiomyopathy, ejection fraction 10%. History of cardiac event with arrhythmias and the patient was on vest at [facility]. Anemia- Hgb to 5.5 He is Sikhism and he is refusing any blood products. started KAREEM, Tsats are at goal Diabetes. Hypertension. Recent tracheostomy, which was placed recently 3-4 weeks ago. COMMENT/RELEVANT DATA Meds Current Medications Medications (Trade) Dose Ordered Sig/Cheri Start Time Stop Time Status Last Admin Dose Admin Acetaminophen (Tylenol) 650 mg Q6HRS PRN 01/30/20 12:30 01/31/20 03:12 650 MG Acetaminophen/ Hydrocodone Bitart (Lortab 5/325) 1 tab PRN Q6HRS PRN 01/30/20 12:30 Albumin Human 200 ml @ 200 mls/hr 1X PRN PRN 02/02/20 08:45 02/02/20 14:44 DC 02/02/20 09:45 200 MLS/HR Amiodarone HCl (Cordarone) 400 mg DAILY 01/30/20 14:00 02/03/20 09:20 400 MG Ascorbic Acid (Vitamin C) 500 mg DAILY 01/30/20 13:00 02/03/20 09:19 500 MG Atorvastatin Calcium (Lipitor) 40 mg QHS 01/30/20 21:00 02/02/20 20:21 40 MG Budesonide (Pulmicort) 0.5 mg BID 01/30/20 21:00 02/03/20 07:54 0.5 MG Buspirone HCl (Buspar) 5 mg TID 01/30/20 14:00 02/03/20 09:18 5 MG Calcium Chloride (Calcium Chloride) 1,000 mg STK-MED ONCE 01/30/20 12:30 01/31/20 08:36 DC Calcium Gluconate (Calcium Gluconate) 1,000 mg 1X ONCE 01/30/20 12:30 01/30/20 12:57 DC Cefazolin Sodium (Ancef) 1 gm 1X ONCE 02/01/20 14:00 02/01/20 14:01 DC 02/01/20 13:56 1 GM Cellulose (Surgicel Fibrillar 1x2) 1 each STK-MED ONCE 01/29/20 14:19 01/29/20 14:19 DC 01/29/20 16:48 1 EACH Cyanocobalamin (Vitamin B-12) 1,000 mcg DAILY 01/30/20 14:00 02/03/20 09:19 1,000 MCG Cyclobenzaprine HCl (Flexeril) 10 mg TID 01/30/20 14:00 02/03/20 09:19 10 MG Darbepoetin Serafin (ARANESP for DIALYSIS PTS) 200 mcg WEEKLYHS 02/01/20 21:00 02/01/20 22:16 200 MCG Dextrose (Dextrose 50%-Water Syringe) 12.5 gm PRN Q15MIN PRN 01/30/20 12:30 01/31/20 20:47 12.5 GM Fentanyl Citrate (Fentanyl 2ml Vial) 50 mcg PRN Q5MIN PRN 01/29/20 16:15 01/29/20 22:00 DC Ferrous Sulfate (Iron Oral Solution) 300 mg DAILY08 01/30/20 14:00 02/03/20 09:18 300 MG Glycopyrrolate (Robinul) 1 mg STK-MED ONCE 01/29/20 14:25 01/29/20 14:25 DC Heparin Sodium (Porcine) (Heparin) 30,000 unit STK-MED ONCE 01/29/20 15:42 01/29/20 15:43 DC Heparin Sodium (Porcine) 5000 unit/Sodium Chloride 505 ml @ 505 mls/hr 1X ONCE 01/29/20 15:00 01/29/20 16:03 DC 01/29/20 15:28 Hydromorphone HCl (Dilaudid) 0.5 mg PRN Q10MIN PRN 01/29/20 16:15 01/29/20 22:00 DC Hydroxyzine HCl (Atarax) 10 mg TID 01/30/20 14:00 02/03/20 09:19 10 MG Info (PHARMACY MONITORING -- do not chart) 1 each PRN DAILY PRN 02/02/20 08:45 Insulin Human Lispro (HumaLOG) 0-5 UNITS TIDWMEALS 01/30/20 17:00 01/31/20 12:44 2 UNITS Insulin Human Regular (HumuLIN R VIAL) 10 unit 1X ONCE 01/30/20 12:30 01/30/20 12:57 DC 01/30/20 13:29 10 UNIT Ipratropium [place] (Atrovent) 0.5 mg RTQID 01/30/20 13:00 02/03/20 11:26 0.5 MG Iron Sucrose 200 mg/Sodium Chloride 110 ml @ 55 mls/hr 1X ONCE 01/31/20 09:00 01/31/20 08:42 DC Ketamine HCl (Ketamine) 50 mg STK-MED ONCE 01/29/20 15:27 01/29/20 15:27 DC Lidocaine HCl (Buffered Lidocaine 1%) 3 ml 1X ONCE 01/30/20 13:30 01/30/20 13:44 DC Lidocaine HCl (Xylocaine 1% Pf 30ml Vial) 30 ml STK-MED ONCE 01/29/20 14:19 01/29/20 14:19 DC Lidocaine HCl (Xylocaine-Mpf 1% 2ml Vial) 2 ml PRN 1X PRN 01/29/20 16:15 01/29/20 22:00 DC Lidocaine HCl (Xylocaine-Mpf 1% 5ml Vial) 5 ml STK-MED ONCE 01/29/20 12:51 01/29/20 12:51 DC Lidocaine/ Epinephrine (LIDOCAINE 1%-EPI 1:100,000 Multi-Dose) 20 ml 1X ONCE 02/01/20 14:00 02/01/20 14:01 DC 02/01/20 13:57 10 ML Magnesium Oxide (Magnesium Oxide) 400 mg BID 01/31/20 14:00 02/03/20 09:19 400 MG Metoclopramide HCl (Reglan) 5 mg TIDAC 01/30/20 16:30 02/03/20 07:03 5 MG Metoprolol Tartrate (Lopressor) 12.5 mg BID 01/30/20 14:00 02/03/20 09:19 12.5 MG Midazolam HCl (Versed) 2 mg STK-MED ONCE 01/29/20 14:27 01/29/20 14:27 DC Midodrine (Proamatine) 10 mg [id number] 01/30/20 18:00 02/03/20 05:59 10 MG Morphine Sulfate (Morphine Sulfate) 1 mg PRN Q10MIN PRN 01/29/20 16:15 01/29/20 22:00 DC Non-Formulary Medication (Melatonin ) 3 mg HS 01/30/20 21:00 UNV Ondansetron HCl (Zofran) 4 mg PRN Q6HRS PRN 01/29/20 16:15 01/29/20 22:00 DC Pantoprazole Sodium (Protonix) 40 mg DAILYAC 01/30/20 16:30 02/03/20 07:04 40 MG Papaverine HCl 60 mg STK-MED ONCE 01/29/20 14:19 01/29/20 14:20 DC Pharmacy Consult (C.diff Med Screen By Rx) 1 each 1X ONCE 01/29/20 17:45 01/29/20 17:46 UNV Phenylephrine HCl (PHENYLEPHRINE in 0.9% NACL PF) 1 mg STK-MED ONCE 01/29/20 15:42 01/29/20 15:43 DC Polyethylene Glycol (miraLAX PACKET) 17 gm DAILY 01/30/20 14:00 02/03/20 09:18 17 GM Prochlorperazine Edisylate (Compazine) 5 mg PACU PRN PRN 01/29/20 16:15 01/29/20 22:00 DC Ringer's Solution 1,000 ml @ 30 mls/hr Q24H 01/29/20 16:04 01/30/20 04:03 DC Rocuronium [place] (Zemuron) 50 mg STK-MED ONCE 01/29/20 14:26 01/29/20 14:26 DC Senna/Docusate Sodium (Senna Plus) 1 tab HS 01/30/20 21:00 02/02/20 20:20 1 TAB Sevoflurane (Ultane) 90 ml STK-MED ONCE 01/29/20 16:59 01/29/20 16:59 DC Sodium Polystyrene Sulfonate (Kayexalate) 30 gm 1X ONCE 01/30/20 12:15 01/30/20 12:16 DC 01/30/20 12:41 30 GM Sodium Bicarbonate (Sodium Bicarb Adult 8.4% Syr) 50 meq 1X ONCE 01/30/20 12:30 01/30/20 12:57 DC 01/30/20 12:50 50 MEQ Sodium Chloride 1,000 ml @ 400 mls/hr Q2H30M PRN 02/02/20 08:37 02/02/20 20:36 DC Vitamin B Complex/ Vitamin C (Nora-Karina) 1 tab DAILY 01/30/20 14:00 01/31/20 09:44 DC Warfarin Sodium (Coumadin Per Physician) 1 each PRN DAILY PRN 02/02/20 14:45 02/03/20 08:08 1 EACH Warfarin Sodium (Coumadin) 3 mg DAILY16 02/02/20 16:00 02/02/20 15:25 3 MG Lab Laboratory Tests Test 02/02/20 12:09 02/02/20 13:21 02/02/20 16:32 02/03/20 04:30 Glucose (Fingerstick) 103 mg/dL (70-99) 87 mg/dL (70-99) 126 mg/dL (70-99) White Blood Count 7.0 x10^3/uL (4.0-11.0) Red Blood Count 2.01 x10^6/uL (4.30-5.70) Hemoglobin 5.5 g/dL (13.0-17.5) Hematocrit 17.7 % (39.0-53.0) Mean Corpuscular Volume 88 fL (79-100) Mean Corpuscular Hemoglobin 27 pg (25-35) Mean Corpuscular Hemoglobin Concent 31 g/dL (31-37) Red Cell Distribution Width 21.4 % (11.5-14.5) Platelet Count 214 x10^3/uL (140-400) Neutrophils (%) (Auto) 82 % (31-73) Lymphocytes (%) (Auto) 9 % (24-48) Monocytes (%) (Auto) 7 % (0-9) Eosinophils (%) (Auto) 1 % (0-3) Basophils (%) (Auto) 1 % (0-3) Neutrophils # (Auto) 5.7 x10^3/uL (1.8-7.7) Lymphocytes # (Auto) 0.7 x10^3/uL (1.0-4.8) Monocytes # (Auto) 0.5 x10^3/uL (0.0-1.1) Eosinophils # (Auto) 0.1 x10^3/uL (0.0-0.7) Basophils # (Auto) 0.1 x10^3/uL (0.0-0.2) Prothrombin Time 21.8 SEC (11.7-14.0) Prothromb Time International Ratio 1.9 (0.8-1.1) Results All relevant outside records, renal labs, imaging studies, telemetry/EKG's were reviewed. Justicifation of Admission Dx: Justifications for Admission: Justification of Admission Dx: Yes DOTTIE MAHARAJ MD Feb 03, 2020 11:37
[2020-02-03] MEDS: WARFARIN 3 MG TABLET. PO SCH (17:14)
[2020-02-03] MEDS: ATORVASTATIN CALCIUM 40 MG TABLET. PO SCH (20:26)
[2020-02-03] MEDS: SENNOSIDES/DOCUSATE 8.6/50MG TABLET. PO SCH (20:26)
[2020-02-04] VITALS (16 sets, daily range): BP systolic 97–129; BP diastolic 45–81
[2020-02-04 01:55] LABS: BASE EXCESS ABG -3 mmol/L (-3-3); HCO3 ABG 21 mmol/L (21-28); PCO2 ABG 32 mmHg (35-46); PO2 ABG 182 mmHg (65-108); SAT O2 ABG 99 % (92-99)
[2020-02-04 02:01] LABS: FIO2 ABG 84
[2020-02-04] MEDS: ACETAMINOPHEN 325 MG TABLET. PO PRN (02:32)
[2020-02-04 05:08] LABS: BASO # 0.1 x10^3/uL (0.0-0.2); BASO % 1 % (0-3); EOS # 0.1 x10^3/uL (0.0-0.7); EOS % 1 % (0-3); LYMPH # 0.7 x10^3/uL (1.0-4.8); LYMPH % 5 % (24-48); MEAN CORPUSCULAR HEMOGLOBIN 27 pg (25-35); MEAN CORPUSCULAR HGB CONC 30 g/dL (31-37); MEAN CORPUSCULAR VOLUME 89 fL (79-100); MONO % 8 % (0-9); NEUT # 10.5 x10^3/uL (1.8-7.7); NEUT % 85 % (31-73); PLATELET COUNT 227 x10^3/uL (140-400); RED BLOOD COUNT 1.67 x10^6/uL (4.30-5.70); WHITE BLOOD COUNT 12.3 x10^3/uL (4.0-11.0)
[2020-02-04 05:12] LABS: HEMATOCRIT 14.9 % (39.0-53.0); HEMOGLOBIN 4.4 g/dL (13.0-17.5)
[2020-02-04 05:15] LABS: CALCIUM 8.8 mg/dL (8.5-10.1); CREATININE 3.9 mg/dL (0.7-1.3); GFR 18.5
[2020-02-04 05:17] LABS: POTASSIUM 6.3 mmol/L (3.5-5.1)
--- NOTE | 2020-02-04 05:36 | NUR ---
0500hrs Responded to code blue. Patient with agonal breathing and heart rate in the 30's. Patient with trach in place and being bagged by respiratory. Patient found to have a blood sugar of 15. Treated with d50 x 2 and D5 250cc-- patients blood pressure increased to 100's post tretment. Patient started on D10 drip. Patient placed on cardiac pacer. Labs resulted K+ >6.0 Patient also received insulin 10U and Calcium and 1L NS Patient transferred to ICU. Orders placed for Albuterol Breathing Treatment, Chest Xray, ABG.
--- NOTE | 2020-02-04 05:38 | EKG ---
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
[2020-02-04] MEDS: BUDESONIDE 0.5 MG/2 ML NEBU. NEB SCH ×2 (05:40→20:17)
--- NOTE | 2020-02-04 05:54 | RAD ---
INDICATION: Reason: code / Spl. Instructions: / History: COMPARISON: January 30, 2020 FINDINGS: Single view of chest obtained. Enlarged cardiomediastinal silhouette with poststernotomy changes. Left-sided vascular catheter with tip projecting over the expected location of right atrium. Tracheostomy tube is again seen. Interstitial opacities bilaterally with more focal component at the right midlung. The right lung apex is obscured by overlying structures. Air-filled structure in the upper abdomen could be a distended loop of bowel or stomach. Multiple overlying structures obscure portions of the chest IMPRESSION: * Hypoexpanded exam with interstitial opacities bilaterally which could be from bilateral infiltrate or edema. There is a more focal component at the right midlung which could be from infiltrate or atelectasis. * Enlarged cardiomediastinal silhouette. Electronically signed by: Pérez Agee MD (02/04/2020 5:50 AM) [id number]
[2020-02-04] MEDS ORDERED: ALBUTEROL SULFATE 2.5 MG/3 ML NEBU. CONT NEB ONE (06:00)
--- NOTE | 2020-02-04 06:01 | NUR ---
Pt with apparent idioventricular rhythm in 30s on monitor. Pt found non-responsive. Code blue called; see paper chart. Pt transferred to ICU room 104 at 0600. All belongings with pt.
[2020-02-04] MEDS: IPRATROPIUM BROMIDE 0.5 MG/2.5 ML NEBU. NEB SCH ×4 (06:19→20:17)
--- NOTE | 2020-02-04 06:44 | NUR ---
received patient from 2 n s/p resp code. patient placed on vent via trach9 see vent settings. labs to be redrawn, Cont to v pace patient. Dr. Tsang spoke o patients . Changed code status to no comprssions and no shock
[2020-02-04] MEDS: NOREPINEPHRINE VIAL 8 MG in IV DEXTROSE 5% 250 ML IV PRN (06:45)
[2020-02-04] MEDS: MIDODRINE 5 MG TABLET PO SCH ×4 (07:00→20:24)
[2020-02-04] MEDS ORDERED: IV NORMAL SALINE 1000ML BAG 1,000 ML IV PRN ×2 (07:08)
[2020-02-04] MEDS ORDERED: DIALYSIS PATIENT. MC PRN (07:15)
[2020-02-04] MEDS ORDERED: diphenhydrAMINE 50 MG/ML VIAL IV PRN ×2 (07:15)
[2020-02-04] MEDS ORDERED: ALBUMIN HUMAN 25% 200 ML IV PRN (07:15)
[2020-02-04] MEDS ORDERED: 0.9 % SODIUM CHLORIDE 10 ML DISP.SYRIN. IV PRN ×2 (07:15)
[2020-02-04] MEDS: METOCLOPRAMIDE 10 MG TABLET. PO SCH ×4 (07:30→20:24)
[2020-02-04] MEDS: PANTOPRAZOLE 40 MG TABLET.DR. PO SCH ×2 (07:30→20:24)
--- NOTE | 2020-02-04 07:41 | NUR ---
Dr. Dunham, group fitness instructor, paged this morning- notified of pt and s/p code blue event. Pt external pacemaker paused, underlying rhythm is appears to be junctional with HR in 60s,- orders received to leave pacemaker off at this time. Dr. Tsang, rounding physician, on unit- discussed pt- clarified that pt is DNR with no shocks, compressions, or blood products to be given. desires pt to be comfortable. Currently, pt on vent, sedated on versed, all VSS, labs being drawn.
--- NOTE | 2020-02-04 07:53 | PDOC ---
IM PROGRESS NOTES- Subjective Subjective Patient was coded this morning with severe bradycardia and idioventricular rhythm. He was noted to have potassium of 6.3, sodium 129. Blood sugar was 15. His hemoglobin was 4.4. He was given IV D50, IV insulin, treatment for hyperkalemia,, temporary pacing, epinephrine and was placed on mechanical vent ilation and transfer to ICU. He was started on IV Versed drip. He did not require compressions. Patient was transferred to ICU. Objective Vitals/I&O Vital Signs Date Time Temp Pulse Resp B/P (MAP) Pulse Ox O2 Delivery O2 Flow Rate FiO2 02/04/20 06:30 40 26 98/53 (68) 91 Tracheal Collar 10.0 02/04/20 02:00 97.9 97.9 I & O 02/03/20 02/03/20 02/04/20 15:00 23:00 07:00 Intake Total 50 ml Balance 50 ml Physical Exam Physical Exam General appearance - alert, sedated but moving extremities he is on mechanical ventilation. Mental Status -sedated Head - normal Trach on mechanical ventilation Chest -decreased breath sounds at bases Heart - S1 and S2 normal Abdomen - soft, non tender, ascites Neurological -sedated Extremities -trace edema Skin - warm and dry. No bleeding from the AV fistula on the right upper extremity Labs Laboratory Tests Test 02/03/20 12:30 02/03/20 16:35 02/03/20 19:36 02/04/20 01:49 Glucose (Fingerstick) 104 mg/dL (70-99) H 80 mg/dL (70-99) 89 mg/dL (70-99) O2 Saturation 99 % (92-99) Arterial Blood pH 7.43 (7.35-7.45) Arterial Blood pCO2 at Patient Temp 32 mmHg (35-46) L Arterial Blood pO2 at Patient Temp 182 mmHg (65-108) H Arterial Blood HCO3 21 mmol/L (21-28) Arterial Blood Base Excess -3 mmol/L (-3-3) FiO2 84 Test 02/04/20 04:42 02/04/20 04:46 02/04/20 05:00 02/04/20 05:03 Glucose (Fingerstick) 15 mg/dL (70-99) *L 105 mg/dL (70-99) H 117 mg/dL (70-99) H White Blood Count 12.3 x10^3/uL (4.0-11.0) H Red Blood Count 1.67 x10^6/uL (4.30-5.70) L Hemoglobin 4.4 g/dL (13.0-17.5) *L Hematocrit 14.9 % (39.0-53.0) *L Mean Corpuscular Volume 89 fL (79-100) Mean Corpuscular Hemoglobin 27 pg (25-35) Mean Corpuscular Hemoglobin Concent 30 g/dL (31-37) L Red Cell Distribution Width 21.0 % (11.5-14.5) H Platelet Count 227 x10^3/uL (140-400) Neutrophils (%) (Auto) 85 % (31-73) H Lymphocytes (%) (Auto) 5 % (24-48) L Monocytes (%) (Auto) 8 % (0-9) Eosinophils (%) (Auto) 1 % (0-3) Basophils (%) (Auto) 1 % (0-3) Neutrophils # (Auto) 10.5 x10^3/uL (1.8-7.7) H Lymphocytes # (Auto) 0.7 x10^3/uL (1.0-4.8) L Monocytes # (Auto) 1.0 x10^3/uL (0.0-1.1) Eosinophils # (Auto) 0.1 x10^3/uL (0.0-0.7) Basophils # (Auto) 0.1 x10^3/uL (0.0-0.2) Sodium Level 129 mmol/L (136-145) L Potassium Level 6.3 mmol/L (3.5-5.1) *H Chloride Level 91 mmol/L (98-107) L Carbon Dioxide Level 14 mmol/L (21-32) L Anion Gap 24 (6-14) H Blood Urea Nitrogen 41 mg/dL (8-26) H Creatinine 3.9 mg/dL (0.7-1.3) H Estimated GFR (Cockcroft-Gault) 18.5 Glucose Level 240 mg/dL (70-99) H Calcium Level 8.8 mg/dL (8.5-10.1) Test 02/04/20 06:10 Glucose (Fingerstick) 316 mg/dL (70-99) H Laboratory Tests 02/04/20 05:00 Laboratory Tests 02/04/20 05:00 Meds Current Medications Medications (Trade) Dose Ordered Sig/Cheri Route PRN Reason Start Time Stop Time Status Last Admin Dose Admin Albuterol Sulfate (Ventolin Neb Soln) 10 mg 1X ONCE CONT NEB 02/04/20 06:00 02/04/20 06:01 DC 02/04/20 05:40 Assessment Assessment 1. 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 The patient underwent resection of the fistula and placement of a [place]-Pan graft. 2. End-stage renal disease, on hemodialysis. 3. Mechanical mitral valve, on Coumadin. 4. Cardiomyopathy, ejection fraction 10%. 5. History of cardiac event with arrhythmias and the patient was on vest at [facility]. 6. The patient is Islam complicating the treatment plans. The patient is refusing any blood products. 7. Diabetes. 8. Hypertension. 9. Hyperlipidemia. 10. Recent tracheostomy, which was placed recently 3-4 weeks ago. PLAN: At this time, the patient was taken to emergency surgery for the AV shunt repair, placement of [place]-Pan graft and the patient was admitted to the ICU. Renal is consulted for dialysis. We will give some Irais xalate to bring the potassium down and a temporary dialysis catheter because the [place]-Pan graft could not be used for another 4 weeks and hold Coumadin, so that we can place the catheter and the patient is also on amiodarone for cardiac arrhythmias. We will have Cardiology follow while he is here in the hospital. AV fistula bleeding stable Acute on chronic blood loss anemia-hemoglobin is 5.5 Acute hypotension-patient had dialysis yesterday. Required IV fluids. Im proving. Patient is also on Coumadin so this complicates the situation. Continue iron, B complex, folic acid and vitamin C. Consult branch chief. End-stage renal disease on hemodialysis-because of the fistula repair it cannot be used for 4 weeks. A left upper chest temporary dialysis catheter has been placed. Prosthetic mitral valve. INR is 1.9 today. Coumadin 3 mg p.o. today Dyspnea may be due to anemia. I will consult recreation program coordinator. Oxygen has been increased to 4 L by nasal cannula. Order chest x-ray. Also consult gore inserter. Discussed with patient extensively about the low hemoglobin but he does not want any transfusion. Complication such as cardiac arrhythmia, acute [place], congestive heart failure, stroke and sudden discussed with the patient. He still does not want any transfusion. Continue management in ICU. Prognosis of this patient is very poor. CODE BLUE due to severe bradycardia arrhythmia. Most likely due to his extremely low hemoglobin. I have previously discussed this with the patient several times but patient has declined to have blood transfusion. This morning I spoke to patient's Ada on the phone and condition, treatment, options extensively discussed with her. She wants him to be comfortable and does not want any compressions or electric shocks but would like to continue mechanical ventilation and hemodialysis and other treatments. She wants him to be comfortable. Also does not want any blood transfusion but was asking if there are any other alternative infusions that we can give. I have told her that the options are not going to replace the blood transfusion. He is already on multiple hematinics. I have asked the staff to contact Dr. Jacobs to see if anything else can be done for the patient's anemia without blood transfusion. Prognosis remains extremely poor and this was discussed with the . Critical care management 45 minutes. [id number] insulin has been discontinued. Patient will only get very low-dose sliding scale insulin. Blood sugar is increased to 371 per staff. Electrolyte imbalance-dialysis this morning. Plan Plan For more details regarding further plans, please refer to the orders. Justifications for Admission Other Justification JEAN BRUNSON MD Feb 04, 2020 07:53
[2020-02-04] MEDS: INSULIN LISPRO 300 UNITS/3 ML VIAL. SQ SCH ×3 (08:00→17:00)
[2020-02-04] MEDS: FERROUS SULFATE ORAL 300 MG/5 ML SOLUTION. PO SCH (08:00)
[2020-02-04 08:06] LABS: BASO # 0.1 x10^3/uL (0.0-0.2); BASO % 1 % (0-3); EOS % 0 % (0-3); LYMPH # 0.5 x10^3/uL (1.0-4.8); LYMPH % 4 % (24-48); MEAN CORPUSCULAR HEMOGLOBIN 26 pg (25-35); MEAN CORPUSCULAR HGB CONC 30 g/dL (31-37); MEAN CORPUSCULAR VOLUME 87 fL (79-100); MONO # 0.9 x10^3/uL (0.0-1.1); MONO % 7 % (0-9); NEUT # 11.2 x10^3/uL (1.8-7.7); NEUT % 88 % (31-73); PLATELET COUNT 204 x10^3/uL (140-400); RED BLOOD COUNT 1.62 x10^6/uL (4.30-5.70); RED CELL DISTRIBUTION WIDTH 21.1 % (11.5-14.5); WHITE BLOOD COUNT 12.7 x10^3/uL (4.0-11.0)
[2020-02-04 08:24] LABS: ALBUMIN 2.2 g/dL (3.4-5.0); ALBUMIN/GLOBULIN RATIO 0.5 (1.0-1.7); CALCIUM 9.4 mg/dL (8.5-10.1); CREATININE 4.1 mg/dL (0.7-1.3); GFR 17.5; POTASSIUM 4.2 mmol/L (3.5-5.1); TOTAL BILIRUBIN 0.5 mg/dL (0.2-1.0); TOTAL PROTEIN 6.6 g/dL (6.4-8.2)
[2020-02-04 08:29] LABS: HEMATOCRIT 14.1 % (39.0-53.0)
--- NOTE | 2020-02-04 08:29 | PDOC ---
PULMONARY PROGRESS NOTES DATE: 02/04/20 TIME: 08:28 Subjective Patient experienced a respiratory arrest/cardiac arrest overnight and was subsequently transferred to the intensive care unit. Currently on mechanical ventilation with low-dose sedation, FiO2 of 40% and a PEEP of 5. Patient is currently on vasopressors Patient has persistent anemia as he is a [employer] and does not receive blood transfusions. Vitals Vital Signs Date Time Temp Pulse Resp B/P (MAP) Pulse Ox O2 Delivery O2 Flow Rate FiO2 02/04/20 06:30 40 26 98/53 (68) 91 Tracheal Collar 10.0 02/04/20 02:00 97.9 97.9 Comments On mechanical ventilation/sedation ROS: No Nausea, No Chest Pain, No Abdominal Pain, No Increase Cough Lungs: Crackles Cardiovascular: S1, S2 Abdomen: Soft Extremities: No Edema Skin: Warm Labs Laboratory Tests Test 02/02/20 12:09 02/02/20 13:21 02/02/20 16:32 02/03/20 04:30 Glucose (Fingerstick) 103 mg/dL (70-99) 87 mg/dL (70-99) 126 mg/dL (70-99) White Blood Count 7.0 x10^3/uL (4.0-11.0) Red Blood Count 2.01 x10^6/uL (4.30-5.70) Hemoglobin 5.5 g/dL (13.0-17.5) Hematocrit 17.7 % (39.0-53.0) Mean Corpuscular Volume 88 fL (79-100) Mean Corpuscular Hemoglobin 27 pg (25-35) Mean Corpuscular Hemoglobin Concent 31 g/dL (31-37) Red Cell Distribution Width 21.4 % (11.5-14.5) Platelet Count 214 x10^3/uL (140-400) Neutrophils (%) (Auto) 82 % (31-73) Lymphocytes (%) (Auto) 9 % (24-48) Monocytes (%) (Auto) 7 % (0-9) Eosinophils (%) (Auto) 1 % (0-3) Basophils (%) (Auto) 1 % (0-3) Neutrophils # (Auto) 5.7 x10^3/uL (1.8-7.7) Lymphocytes # (Auto) 0.7 x10^3/uL (1.0-4.8) Monocytes # (Auto) 0.5 x10^3/uL (0.0-1.1) Eosinophils # (Auto) 0.1 x10^3/uL (0.0-0.7) Basophils # (Auto) 0.1 x10^3/uL (0.0-0.2) Prothrombin Time 21.8 SEC (11.7-14.0) Prothromb Time International Ratio 1.9 (0.8-1.1) Test 02/03/20 12:30 02/03/20 16:35 02/03/20 19:36 02/04/20 01:49 Glucose (Fingerstick) 104 mg/dL (70-99) 80 mg/dL (70-99) 89 mg/dL (70-99) O2 Saturation 99 % (92-99) Arterial Blood pH 7.43 (7.35-7.45) Arterial Blood pCO2 at Patient Temp 32 mmHg (35-46) Arterial Blood pO2 at Patient Temp 182 mmHg (65-108) Arterial Blood HCO3 21 mmol/L (21-28) Arterial Blood Base Excess -3 mmol/L (-3-3) FiO2 84 Test 02/04/20 04:42 02/04/20 04:46 02/04/20 05:00 02/04/20 05:03 Glucose (Fingerstick) 15 mg/dL (70-99) 105 mg/dL (70-99) 117 mg/dL (70-99) White Blood Count 12.3 x10^3/uL (4.0-11.0) Red Blood Count 1.67 x10^6/uL (4.30-5.70) Hemoglobin 4.4 g/dL (13.0-17.5) Hematocrit 14.9 % (39.0-53.0) Mean Corpuscular Volume 89 fL (79-100) Mean Corpuscular Hemoglobin 27 pg (25-35) Mean Corpuscular Hemoglobin Concent 30 g/dL (31-37) Red Cell Distribution Width 21.0 % (11.5-14.5) Platelet Count 227 x10^3/uL (140-400) Neutrophils (%) (Auto) 85 % (31-73) Lymphocytes (%) (Auto) 5 % (24-48) Monocytes (%) (Auto) 8 % (0-9) Eosinophils (%) (Auto) 1 % (0-3) Basophils (%) (Auto) 1 % (0-3) Neutrophils # (Auto) 10.5 x10^3/uL (1.8-7.7) Lymphocytes # (Auto) 0.7 x10^3/uL (1.0-4.8) Monocytes # (Auto) 1.0 x10^3/uL (0.0-1.1) Eosinophils # (Auto) 0.1 x10^3/uL (0.0-0.7) Basophils # (Auto) 0.1 x10^3/uL (0.0-0.2) Sodium Level 129 mmol/L (136-145) Potassium Level 6.3 mmol/L (3.5-5.1) Chloride Level 91 mmol/L (98-107) Carbon Dioxide Level 14 mmol/L (21-32) Anion Gap 24 (6-14) Blood Urea Nitrogen 41 mg/dL (8-26) Creatinine 3.9 mg/dL (0.7-1.3) Estimated GFR (Cockcroft-Gault) 18.5 Glucose Level 240 mg/dL (70-99) Calcium Level 8.8 mg/dL (8.5-10.1) Test 02/04/20 06:10 02/04/20 07:40 Glucose (Fingerstick) 316 mg/dL (70-99) Sodium Level 132 mmol/L (136-145) Potassium Level 4.2 mmol/L (3.5-5.1) Chloride Level 93 mmol/L (98-107) Carbon Dioxide Level 16 mmol/L (21-32) Anion Gap 23 (6-14) Blood Urea Nitrogen 40 mg/dL (8-26) Creatinine 4.1 mg/dL (0.7-1.3) Estimated GFR (Cockcroft-Gault) 17.5 BUN/Creatinine Ratio 10 (6-20) Glucose Level 170 mg/dL (70-99) Calcium Level 9.4 mg/dL (8.5-10.1) Magnesium Level 2.3 mg/dL (1.8-2.4) Total Bilirubin 0.5 mg/dL (0.2-1.0) Aspartate Amino Transf (AST/SGOT) 59 U/L (15-37) Alanine Aminotransferase (ALT/SGPT) 13 U/L (16-63) Alkaline Phosphatase 147 U/L (46-116) Total Protein 6.6 g/dL (6.4-8.2) Albumin 2.2 g/dL (3.4-5.0) Albumin/Globulin Ratio 0.5 (1.0-1.7) Laboratory Tests Test 02/03/20 12:30 02/03/20 16:35 02/03/20 19:36 02/04/20 01:49 Glucose (Fingerstick) 104 mg/dL (70-99) 80 mg/dL (70-99) 89 mg/dL (70-99) O2 Saturation 99 % (92-99) Arterial Blood pH 7.43 (7.35-7.45) Arterial Blood pCO2 at Patient Temp 32 mmHg (35-46) Arterial Blood pO2 at Patient Temp 182 mmHg (65-108) Arterial Blood HCO3 21 mmol/L (21-28) Arterial Blood Base Excess -3 mmol/L (-3-3) FiO2 84 Test 02/04/20 04:42 02/04/20 04:46 02/04/20 05:00 02/04/20 05:03 Glucose (Fingerstick) 15 mg/dL (70-99) 105 mg/dL (70-99) 117 mg/dL (70-99) White Blood Count 12.3 x10^3/uL (4.0-11.0) Red Blood Count 1.67 x10^6/uL (4.30-5.70) Hemoglobin 4.4 g/dL (13.0-17.5) Hematocrit 14.9 % (39.0-53.0) Mean Corpuscular Volume 89 fL (79-100) Mean Corpuscular Hemoglobin 27 pg (25-35) Mean Corpuscular Hemoglobin Concent 30 g/dL (31-37) Red Cell Distribution Width 21.0 % (11.5-14.5) Platelet Count 227 x10^3/uL (140-400) Neutrophils (%) (Auto) 85 % (31-73) Lymphocytes (%) (Auto) 5 % (24-48) Monocytes (%) (Auto) 8 % (0-9) Eosinophils (%) (Auto) 1 % (0-3) Basophils (%) (Auto) 1 % (0-3) Neutrophils # (Auto) 10.5 x10^3/uL (1.8-7.7) Lymphocytes # (Auto) 0.7 x10^3/uL (1.0-4.8) Monocytes # (Auto) 1.0 x10^3/uL (0.0-1.1) Eosinophils # (Auto) 0.1 x10^3/uL (0.0-0.7) Basophils # (Auto) 0.1 x10^3/uL (0.0-0.2) Sodium Level 129 mmol/L (136-145) Potassium Level 6.3 mmol/L (3.5-5.1) Chloride Level 91 mmol/L (98-107) Carbon Dioxide Level 14 mmol/L (21-32) Anion Gap 24 (6-14) Blood Urea Nitrogen 41 mg/dL (8-26) Creatinine 3.9 mg/dL (0.7-1.3) Estimated GFR (Cockcroft-Gault) 18.5 Glucose Level 240 mg/dL (70-99) Calcium Level 8.8 mg/dL (8.5-10.1) Test 02/04/20 06:10 02/04/20 07:40 Glucose (Fingerstick) 316 mg/dL (70-99) Sodium Level 132 mmol/L (136-145) Potassium Level 4.2 mmol/L (3.5-5.1) Chloride Level 93 mmol/L (98-107) Carbon Dioxide Level 16 mmol/L (21-32) Anion Gap 23 (6-14) Blood Urea Nitrogen 40 mg/dL (8-26) Creatinine 4.1 mg/dL (0.7-1.3) Estimated GFR (Cockcroft-Gault) 17.5 BUN/Creatinine Ratio 10 (6-20) Glucose Level 170 mg/dL (70-99) Calcium Level 9.4 mg/dL (8.5-10.1) Magnesium Level 2.3 mg/dL (1.8-2.4) Total Bilirubin 0.5 mg/dL (0.2-1.0) Aspartate Amino Transf (AST/SGOT) 59 U/L (15-37) Alanine Aminotransferase (ALT/SGPT) 13 U/L (16-63) Alkaline Phosphatase 147 U/L (46-116) Total Protein 6.6 g/dL (6.4-8.2) Albumin 2.2 g/dL (3.4-5.0) Albumin/Globulin Ratio 0.5 (1.0-1.7) Medications Active Scripts Medications Dose Route/Sig Max Daily Dose Days Date Category Dose Instructions Hydroxyzine Hcl 10 Mg/5 Ml Syrup 10 Mg PO TID 01/29/20 Reported Hydrocodone-Acetamin 5-325 mg (Hydrocodone/Acetaminophen) 1 Each Tablet 1 Each PO PRN Q6HRS PRN 01/29/20 Reported Glutose 15 (Dextrose) 37.5 Gm Gel..gram. 37.5 Gm PO PRN 01/29/20 Reported Cyclobenzaprine Hcl 10 Mg Tablet 1 Tab PO TID 01/29/20 Reported Tylenol (Acetaminophen) 325 Mg Tablet 2 Tab PO Q6HRS PRN 01/29/20 Reported Warfarin Sodium 2 Mg Tablet 2 Mg PO DAILY 01/29/20 Reported B-12 (Cyanocobalamin (Vitamin B-12)) 1,000 Mcg Tablet.er 1 Tab PO DAILY 30 01/29/20 Reported Senna-Docusate Sodium Tablet (Sennosides/Docusate Sodium) 1 Each Tablet 1 Tab PO HS 20 01/29/20 Reported Transderm-Scop (Scopolamine) 1 Each Patch.td72 1 Patch TP Q3DAYS 01/29/20 Reported Renal Caps Softgel (Folic Acid/Vitamin B Comp W-C) 1 Mg Capsule 1 Cap PO DAILY 30 01/29/20 Reported Miralax (Polyethylene Glycol 3350) 17 Gm Powd.pack 1 Packet PO DAILY 2 01/29/20 Reported dissolve in water Pantoprazole Sodium (Pantoprazole Sodium) 40 Mg Tablet.dr 40 Mg PO DAILYAC 01/29/20 Reported Midodrine Hcl 10 Mg Tablet 10 Mg PO TID 01/29/20 Reported Metoprolol Tartrate 25 Mg Tablet 0.5 Tab PO BID 01/29/20 Reported Reglan (Metoclopramide Hcl) 10 Mg Tablet 1 Tab PO TIDAC 30 01/29/20 Reported before food and bedtime Melatonin 3 Mg Capsule 3 Mg PO HS 01/29/20 Reported Magnesium Oxide 400 Mg Tablet 1 Tab PO BID 01/29/20 Reported Ipratropium [place] 0.2 Mg/1 Ml Solution 1 Vial NEB QID 01/29/20 Reported Humalog (Insulin Lispro) 100 Unit/1 Ml Vial 4 Unit SQ TIDAC 01/29/20 Reported Insulin Lispro 100 Unit/1 Ml Vial 0-6 Unit SQ TIDAC 01/29/20 Reported Renal-Karina Tablet (Folic Acid/Vit Bcomp,C) 0.8 Mg Tablet 1 Mg PO DAILY 01/29/20 Reported Ferrous Sulfate 220 Mg/5 Ml Solution 5 Ml PO DAILY 30 01/29/20 Reported Buspirone Hcl 5 Mg Tablet 1 Tab PO TID 01/29/20 Reported Budesonide 0.5 Mg/2 Ml Ampul.neb 1 Vial NEB BID 01/29/20 Reported Atorvastatin Calcium 40 Mg Tablet 1 Tab PO QHS 01/29/20 Reported Ascorbic Acid 500 Mg Tablet 500 Mg PO DAILY 01/29/20 Reported Amiodarone Hcl 400 Mg Tablet 1 Tab PO DAILY 30 01/29/20 Reported Comments CXR IMPRESSION: * Hypoexpanded exam with interstitial opacities bilaterally which could be from bilateral infiltrate or edema. There is a more focal component at the right midlung which could be from infiltrate or atelectasis. * Enlarged cardiomediastinal silhouette. Impression . IMPRESSION: Respiratory arrest/cardiac arrest Severe anemia Acute respiratory failure. The patient currently is on oxygen via nasal cannula. He has a tracheostomy, which is capped. Kumgh-hd-aknhdki blood loss anemia from AV fistula site. End-stage renal disease, on hemodialysis. Severe protein-calorie malnutrition. Severe cardiomyopathy with an EF of 10%. The patient is Buddhism. Plan . Continue current ventilatory support patient is not stable enough for a weaning trial he remains on an FiO2 of 40% and a PEEP of 5. Make ventilator changes based on ABGs Follow ABG/chest x-ray, chest x-ray reviewed and ongoing pulmonary vascular congestion Bronchodilators Follow nephrology recommendations--continue hemodialysis Monitor hemoglobin--hemoglobin is 4.3 today--patient is Buddhism and will not receive blood transfusion secondary to Follow cardiology recommendations Continue vasopressors to keep map greater than 60 DVT/GI PPX: protonix/coumadin on hold D/W RN and RT Patient has a very poor prognosis would recommend comfort care/hospice Critical care time without overlap [id number] to 0836 AM SAMANTHA MERCHANT MD Feb 04, 2020 08:28
[2020-02-04 08:30] LABS: HEMOGLOBIN 4.3 g/dL (13.0-17.5)
[2020-02-04 08:31] LABS: PROTHROMBIN TIME PATIENT 30.4 SEC (11.7-14.0)
[2020-02-04] MEDS: busPIRone 5 MG TABLET. PO SCH ×3 (08:41→20:23)
[2020-02-04] MEDS: CYCLOBENZAPRINE 10 MG TABLET. PO SCH ×3 (08:41→20:23)
[2020-02-04] MEDS: hydrOXYzine 10 MG TABLET PO SCH ×3 (08:41→20:23)
[2020-02-04] MEDS: METOPROLOL TART IMMED RELEASE 25 MG TABLET. PO SCH ×2 (08:42→20:23)
[2020-02-04] MEDS: FOLIC/VIT B COMP W-C (RENAL) TABLET. PO SCH (08:42)
[2020-02-04] MEDS: CYANOCOBALAMIN (VITAMIN B-12) 1,000 MCG TABLET. PO SCH (08:42)
[2020-02-04] MEDS: POLYETHYLENE GLYCOL 3350 17 GM PACKET. PO SCH (08:42)
[2020-02-04] MEDS: MAGNESIUM OXIDE 400 MG TABLET PO SCH ×2 (08:42→20:23)
[2020-02-04] MEDS: ASCORBIC ACID 500 MG TABLET PO SCH (08:42)
[2020-02-04 08:59] LABS: BASE EXCESS ABG -4 mmol/L (-3-3); HCO3 ABG 21 mmol/L (21-28); PCO2 ABG 36 mmHg (35-46); PO2 ABG 473 mmHg (65-108); SAT O2 ABG 100 % (92-99)
[2020-02-04] MEDS: AMIODARONE HCL 200 MG TABLET. PO SCH (09:00)
--- NOTE | 2020-02-04 09:11 | PDOC ---
DATE OF SERVICE DATE: 02/04/20 TIME: 09:11 SUBJECTIVE ROS Patient was coded this morning with severe bradycardia and idioventricular rhythm. He was noted to have potassium of 6.3, sodium 129. Blood sugar was 15. His hemoglobin was 4.4. He was given IV D50, IV insulin, treatment for hyperkalemia,, temporary pacing, epinephrine and was placed on mechanical ventilation and transfer to ICU. He was started on IV Versed drip. He did not require compressions. Patient was transferred to ICU. Seen on Dialysis, On pressors, OBJECTIVE Vital Signs Vital Signs Date Time Temp Pulse Resp B/P (MAP) Pulse Ox O2 Delivery O2 Flow Rate FiO2 02/04/20 08:34 100 Ventilator 02/04/20 06:30 40 26 98/53 (68) 10.0 02/04/20 02:00 97.9 97.9 I & 0 Intake and Output 02/04/20 07:00 Intake Total 50 ml Balance 50 ml Intake Oral 50 ml PHYSICAL EXAM Physical Exam General appearance - On MV , sedated HEEN On MV Neck Trach + Lungs -decreased breath sounds at bases Heart - S1 and S2 Abdomen - soft, Neurological -sedated, on MV Extremities -trace edema Skin - No rash No hines DIAGNOSIS/ASSESSMENT Assessment & Plan ESRD - On HD MWF , on dialysis for 5 years in [facility] under Dr. 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 Vascular recommendations - would NOT recommend access of the right arm fistula till he returns for follow up. Follow up with Dr. Kinsey in 3-4 weeks. Permacath placed on 01/31 CODE BLUE this morning due to severe bradycardia arrhythmia. HyperKalemia- Dialysis HypoNatremia - Improving, Dialysis today Acidosis- Dialysis Mechanical mitral valve, on Coumadin- cardiology managing Cardiomyopathy, ejection fraction 10%. History of cardiac event with arrhythmias and the patient was on vest at [facility]. Anemia- Hgb to 4.0 He is Syn[employer] and he is refusing any blood products. started KAREEM, Tsats are at goal Diabetes. Hypertension. Recent tracheostomy, which was placed recently 3-4 weeks ago. COMMENT/RELEVANT DATA Meds Current Medications Medications (Trade) Dose Ordered Sig/Cheri Start Time Stop Time Status Last Admin Dose Admin Acetaminophen (Tylenol) 650 mg Q6HRS PRN 01/30/20 12:30 02/04/20 02:32 650 MG Acetaminophen/ Hydrocodone Bitart (Lortab 5/325) 1 tab PRN Q6HRS PRN 01/30/20 12:30 Albumin Human 200 ml @ 200 mls/hr 1X PRN PRN 02/04/20 07:15 02/04/20 13:14 Albuterol Sulfate (Ventolin Neb Soln) 10 mg 1X ONCE 02/04/20 06:00 02/04/20 06:01 DC 02/04/20 05:40 10 MG Amiodarone HCl (Cordarone) 400 mg DAILY 01/30/20 14:00 02/03/20 09:20 400 MG Ascorbic Acid (Vitamin C) 500 mg DAILY 01/30/20 13:00 02/03/20 09:19 500 MG Atorvastatin Calcium (Lipitor) 40 mg QHS 01/30/20 21:00 02/03/20 20:26 40 MG Budesonide (Pulmicort) 0.5 mg BID 01/30/20 21:00 02/04/20 05:40 0.5 MG Buspirone HCl (Buspar) 5 mg TID 01/30/20 14:00 02/03/20 20:26 5 MG Calcium Chloride (Calcium Chloride) 1,000 mg STK-MED ONCE 01/30/20 12:30 01/31/20 08:36 DC Calcium Gluconate (Calcium Gluconate) 1,000 mg 1X ONCE 01/30/20 12:30 01/30/20 12:57 DC Cefazolin Sodium (Ancef) 1 gm 1X ONCE 02/01/20 14:00 02/01/20 14:01 DC 02/01/20 13:56 1 GM Cellulose (Surgicel Fibrillar 1x2) 1 each STK-MED ONCE 01/29/20 14:19 01/29/20 14:19 DC 01/29/20 16:48 1 EACH Cyanocobalamin (Vitamin B-12) 1,000 mcg DAILY 01/30/20 14:00 02/03/20 09:19 1,000 MCG Cyclobenzaprine HCl (Flexeril) 10 mg TID 01/30/20 14:00 02/03/20 20:25 10 MG Darbepoetin Serafin (ARANESP for DIALYSIS PTS) 200 mcg WEEKLYHS 02/01/20 21:00 02/01/20 22:16 200 MCG Dextrose (Dextrose 50%-Water Syringe) 12.5 gm PRN Q15MIN PRN 01/30/20 12:30 01/31/20 20:47 12.5 GM Diphenhydramine HCl (Benadryl) 25 mg 1X PRN PRN 02/04/20 07:15 02/05/20 07:14 Fentanyl Citrate (Fentanyl 2ml Vial) 50 mcg PRN Q5MIN PRN 01/29/20 16:15 01/29/20 22:00 DC Ferrous Sulfate (Iron Oral Solution) 300 mg DAILY08 01/30/20 14:00 02/03/20 09:18 300 MG Glycopyrrolate (Robinul) 1 mg STK-MED ONCE 01/29/20 14:25 01/29/20 14:25 DC Heparin Sodium (Porcine) (Heparin) 30,000 unit STK-MED ONCE 01/29/20 15:42 01/29/20 15:43 DC Heparin Sodium (Porcine) 5000 unit/Sodium Chloride 505 ml @ 505 mls/hr 1X ONCE 01/29/20 15:00 01/29/20 16:03 DC 01/29/20 15:28 Hydromorphone HCl (Dilaudid) 0.5 mg PRN Q10MIN PRN 01/29/20 16:15 01/29/20 22:00 DC Hydroxyzine HCl (Atarax) 10 mg TID 01/30/20 14:00 02/03/20 20:26 10 MG Info (PHARMACY MONITORING -- do not chart) 1 each PRN DAILY PRN 02/04/20 07:15 Insulin Human Lispro (HumaLOG) 0-5 UNITS TIDWMEALS 01/30/20 17:00 01/31/20 12:44 2 UNITS Insulin Human Regular (HumuLIN R VIAL) 10 unit 1X ONCE 01/30/20 12:30 01/30/20 12:57 DC 01/30/20 13:29 10 UNIT Ipratropium [place] (Atrovent) 0.5 mg RTQID 01/30/20 13:00 02/03/20 19:19 0.5 MG Iron Sucrose 200 mg/Sodium Chloride 110 ml @ 55 mls/hr 1X ONCE 01/31/20 09:00 01/31/20 08:42 DC Ketamine HCl (Ketamine) 50 mg STK-MED ONCE 01/29/20 15:27 01/29/20 15:27 DC Lidocaine HCl (Buffered Lidocaine 1%) 3 ml 1X ONCE 01/30/20 13:30 01/30/20 13:44 DC Lidocaine HCl (Xylocaine 1% Pf 30ml Vial) 30 ml STK-MED ONCE 01/29/20 14:19 01/29/20 14:19 DC Lidocaine HCl (Xylocaine-Mpf 1% 2ml Vial) 2 ml PRN 1X PRN 01/29/20 16:15 01/29/20 22:00 DC Lidocaine HCl (Xylocaine-Mpf 1% 5ml Vial) 5 ml STK-MED ONCE 01/29/20 12:51 01/29/20 12:51 DC Lidocaine/ Epinephrine (LIDOCAINE 1%-EPI 1:100,000 Multi-Dose) 20 ml 1X ONCE 02/01/20 14:00 02/01/20 14:01 DC 02/01/20 13:57 10 ML Magnesium Oxide (Magnesium Oxide) 400 mg BID 01/31/20 14:00 02/03/20 20:26 400 MG Metoclopramide HCl (Reglan) 5 mg TIDAC 01/30/20 16:30 02/03/20 17:14 5 MG Metoprolol Tartrate (Lopressor) 12.5 mg BID 01/30/20 14:00 02/03/20 09:19 12.5 MG Midazolam HCl 100 ml @ 1 mls/hr CONT PRN 02/04/20 06:30 Midazolam HCl (Versed) 2 mg STK-MED ONCE 01/29/20 14:27 01/29/20 14:27 DC Midodrine (Proamatine) 10 mg [id number] 01/30/20 18:00 02/03/20 17:13 10 MG Morphine Sulfate (Morphine Sulfate) 1 mg PRN Q10MIN PRN 01/29/20 16:15 01/29/20 22:00 DC Non-Formulary Medication (Melatonin ) 3 mg HS 01/30/20 21:00 UNV Norepinephrine Bitartrate 8 mg/ Dextrose 258 ml @ 13.39 mls/ hr CONT PRN 02/04/20 08:15 Ondansetron HCl (Zofran) 4 mg PRN Q6HRS PRN 01/29/20 16:15 01/29/20 22:00 DC Pantoprazole Sodium (Protonix) 40 mg DAILYAC 01/30/20 16:30 02/03/20 07:04 40 MG Papaverine HCl 60 mg STK-MED ONCE 01/29/20 14:19 01/29/20 14:20 DC Pharmacy Consult (C.diff Med Screen By Rx) 1 each 1X ONCE 01/29/20 17:45 01/29/20 17:46 UNV Phenylephrine HCl (PHENYLEPHRINE in 0.9% NACL PF) 1 mg STK-MED ONCE 01/29/20 15:42 01/29/20 15:43 DC Polyethylene Glycol (miraLAX PACKET) 17 gm DAILY 01/30/20 14:00 02/03/20 09:18 17 GM Prochlorperazine Edisylate (Compazine) 5 mg PACU PRN PRN 01/29/20 16:15 01/29/20 22:00 DC Ringer's Solution 1,000 ml @ 30 mls/hr Q24H 01/29/20 16:04 01/30/20 04:03 DC Rocuronium [place] (Zemuron) 50 mg STK-MED ONCE 01/29/20 14:26 01/29/20 14:26 DC Senna/Docusate Sodium (Senna Plus) 1 tab HS 01/30/20 21:00 02/03/20 20:26 1 TAB Sevoflurane (Ultane) 90 ml STK-MED ONCE 01/29/20 16:59 01/29/20 16:59 DC Sodium Polystyrene Sulfonate (Kayexalate) 30 gm 1X ONCE 01/30/20 12:15 01/30/20 12:16 DC 01/30/20 12:41 30 GM Sodium Bicarbonate (Sodium Bicarb Adult 8.4% Syr) 50 meq 1X ONCE 01/30/20 12:30 01/30/20 12:57 DC 01/30/20 12:50 50 MEQ Sodium Chloride 1,000 ml @ 400 mls/hr Q2H30M PRN 02/04/20 07:08 9/25/20 19:07 Sodium Chloride (Normal Saline Flush) 10 ml 1X PRN PRN 02/04/20 07:15 02/05/20 07:14 Vitamin B Complex/ Vitamin C (Nora-Karina) 1 tab DAILY 01/30/20 14:00 01/31/20 09:44 DC Warfarin Sodium (Coumadin Per Physician) 1 each PRN DAILY PRN 02/02/20 14:45 02/03/20 08:08 1 EACH Warfarin Sodium (Coumadin) 3 mg DAILY16 02/02/20 16:00 02/03/20 17:14 3 MG Lab Laboratory Tests Test 02/03/20 12:30 02/03/20 16:35 02/03/20 19:36 02/04/20 01:49 Glucose (Fingerstick) 104 mg/dL (70-99) 80 mg/dL (70-99) 89 mg/dL (70-99) O2 Saturation 99 % (92-99) Arterial Blood pH 7.43 (7.35-7.45) Arterial Blood pCO2 at Patient Temp 32 mmHg (35-46) Arterial Blood pO2 at Patient Temp 182 mmHg (65-108) Arterial Blood HCO3 21 mmol/L (21-28) Arterial Blood Base Excess -3 mmol/L (-3-3) FiO2 84 Test 02/04/20 04:42 02/04/20 04:46 02/04/20 05:00 02/04/20 05:03 Glucose (Fingerstick) 15 mg/dL (70-99) 105 mg/dL (70-99) 117 mg/dL (70-99) White Blood Count 12.3 x10^3/uL (4.0-11.0) Red Blood Count 1.67 x10^6/uL (4.30-5.70) Hemoglobin 4.4 g/dL (13.0-17.5) Hematocrit 14.9 % (39.0-53.0) Mean Corpuscular Volume 89 fL (79-100) Mean Corpuscular Hemoglobin 27 pg (25-35) Mean Corpuscular Hemoglobin Concent 30 g/dL (31-37) Red Cell Distribution Width 21.0 % (11.5-14.5) Platelet Count 227 x10^3/uL (140-400) Neutrophils (%) (Auto) 85 % (31-73) Lymphocytes (%) (Auto) 5 % (24-48) Monocytes (%) (Auto) 8 % (0-9) Eosinophils (%) (Auto) 1 % (0-3) Basophils (%) (Auto) 1 % (0-3) Neutrophils # (Auto) 10.5 x10^3/uL (1.8-7.7) Lymphocytes # (Auto) 0.7 x10^3/uL (1.0-4.8) Monocytes # (Auto) 1.0 x10^3/uL (0.0-1.1) Eosinophils # (Auto) 0.1 x10^3/uL (0.0-0.7) Basophils # (Auto) 0.1 x10^3/uL (0.0-0.2) Sodium Level 129 mmol/L (136-145) Potassium Level 6.3 mmol/L (3.5-5.1) Chloride Level 91 mmol/L (98-107) Carbon Dioxide Level 14 mmol/L (21-32) Anion Gap 24 (6-14) Blood Urea Nitrogen 41 mg/dL (8-26) Creatinine 3.9 mg/dL (0.7-1.3) Estimated GFR (Cockcroft-Gault) 18.5 Glucose Level 240 mg/dL (70-99) Calcium Level 8.8 mg/dL (8.5-10.1) Test 02/04/20 06:10 02/04/20 07:40 Glucose (Fingerstick) 316 mg/dL (70-99) White Blood Count 12.7 x10^3/uL (4.0-11.0) Red Blood Count 1.62 x10^6/uL (4.30-5.70) Hemoglobin 4.3 g/dL (13.0-17.5) Hematocrit 14.1 % (39.0-53.0) Mean Corpuscular Volume 87 fL (79-100) Mean Corpuscular Hemoglobin 26 pg (25-35) Mean Corpuscular Hemoglobin Concent 30 g/dL (31-37) Red Cell Distribution Width 21.1 % (11.5-14.5) Platelet Count 204 x10^3/uL (140-400) Neutrophils (%) (Auto) 88 % (31-73) Lymphocytes (%) (Auto) 4 % (24-48) Monocytes (%) (Auto) 7 % (0-9) Eosinophils (%) (Auto) 0 % (0-3) Basophils (%) (Auto) 1 % (0-3) Neutrophils # (Auto) 11.2 x10^3/uL (1.8-7.7) Lymphocytes # (Auto) 0.5 x10^3/uL (1.0-4.8) Monocytes # (Auto) 0.9 x10^3/uL (0.0-1.1) Eosinophils # (Auto) 0.0 x10^3/uL (0.0-0.7) Basophils # (Auto) 0.1 x10^3/uL (0.0-0.2) Prothrombin Time 30.4 SEC (11.7-14.0) Prothromb Time International Ratio 2.9 (0.8-1.1) Sodium Level 132 mmol/L (136-145) Potassium Level 4.2 mmol/L (3.5-5.1) Chloride Level 93 mmol/L (98-107) Carbon Dioxide Level 16 mmol/L (21-32) Anion Gap 23 (6-14) Blood Urea Nitrogen 40 mg/dL (8-26) Creatinine 4.1 mg/dL (0.7-1.3) Estimated GFR (Cockcroft-Gault) 17.5 BUN/Creatinine Ratio 10 (6-20) Glucose Level 170 mg/dL (70-99) Calcium Level 9.4 mg/dL (8.5-10.1) Magnesium Level 2.3 mg/dL (1.8-2.4) Total Bilirubin 0.5 mg/dL (0.2-1.0) Aspartate Amino Transf (AST/SGOT) 59 U/L (15-37) Alanine Aminotransferase (ALT/SGPT) 13 U/L (16-63) Alkaline Phosphatase 147 U/L (46-116) Total Protein 6.6 g/dL (6.4-8.2) Albumin 2.2 g/dL (3.4-5.0) Albumin/Globulin Ratio 0.5 (1.0-1.7) Results All relevant outside records, renal labs, imaging studies, telemetry/EKG's were reviewed. Justicifation of Admission Dx: Justifications for Admission: Justification of Admission Dx: Yes DOTTIE MAHARAJ MD Feb 04, 2020 09:11
--- NOTE | 2020-02-04 09:58 | EKG ---
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
[2020-02-04 11:02] LABS: FIO2 ABG 100% VENT
--- NOTE | 2020-02-04 11:18 | PDOC ---
SARITA LOPEZ ADMINISTRATIVE ASSISTANT 02/04/20 1118: CARDIO Progress Notes Date and Time Date of Service 02/04/2020 Time of Evaluation 0910 Subjective Subjective: Other (vent via trach) Vitals Vitals Vital Signs Date Time Temp Pulse Resp B/P (MAP) Pulse Ox O2 Delivery O2 Flow Rate FiO2 02/04/20 08:34 100 Ventilator 02/04/20 06:30 40 26 98/53 (68) 10.0 02/04/20 02:00 97.9 97.9 Weight Weight [ ] Input and Output Intake and Output Intake and Output 02/04/20 07:00 Intake Total 50 ml Balance 50 ml Intake Oral 50 ml Laboratory Labs Laboratory Tests Test 02/03/20 12:30 02/03/20 16:35 02/03/20 19:36 02/04/20 01:49 Glucose (Fingerstick) 104 mg/dL (70-99) 80 mg/dL (70-99) 89 mg/dL (70-99) O2 Saturation 99 % (92-99) Arterial Blood pH 7.43 (7.35-7.45) Arterial Blood pCO2 at Patient Temp 32 mmHg (35-46) Arterial Blood pO2 at Patient Temp 182 mmHg (65-108) Arterial Blood HCO3 21 mmol/L (21-28) Arterial Blood Base Excess -3 mmol/L (-3-3) FiO2 84 Test 02/04/20 04:42 02/04/20 04:46 02/04/20 05:00 02/04/20 05:03 Glucose (Fingerstick) 15 mg/dL (70-99) 105 mg/dL (70-99) 117 mg/dL (70-99) White Blood Count 12.3 x10^3/uL (4.0-11.0) Red Blood Count 1.67 x10^6/uL (4.30-5.70) Hemoglobin 4.4 g/dL (13.0-17.5) Hematocrit 14.9 % (39.0-53.0) Mean Corpuscular Volume 89 fL (79-100) Mean Corpuscular Hemoglobin 27 pg (25-35) Mean Corpuscular Hemoglobin Concent 30 g/dL (31-37) Red Cell Distribution Width 21.0 % (11.5-14.5) Platelet Count 227 x10^3/uL (140-400) Neutrophils (%) (Auto) 85 % (31-73) Lymphocytes (%) (Auto) 5 % (24-48) Monocytes (%) (Auto) 8 % (0-9) Eosinophils (%) (Auto) 1 % (0-3) Basophils (%) (Auto) 1 % (0-3) Neutrophils # (Auto) 10.5 x10^3/uL (1.8-7.7) Lymphocytes # (Auto) 0.7 x10^3/uL (1.0-4.8) Monocytes # (Auto) 1.0 x10^3/uL (0.0-1.1) Eosinophils # (Auto) 0.1 x10^3/uL (0.0-0.7) Basophils # (Auto) 0.1 x10^3/uL (0.0-0.2) Sodium Level 129 mmol/L (136-145) Potassium Level 6.3 mmol/L (3.5-5.1) Chloride Level 91 mmol/L (98-107) Carbon Dioxide Level 14 mmol/L (21-32) Anion Gap 24 (6-14) Blood Urea Nitrogen 41 mg/dL (8-26) Creatinine 3.9 mg/dL (0.7-1.3) Estimated GFR (Cockcroft-Gault) 18.5 Glucose Level 240 mg/dL (70-99) Calcium Level 8.8 mg/dL (8.5-10.1) Test 02/04/20 06:10 02/04/20 07:40 02/04/20 08:00 Glucose (Fingerstick) 316 mg/dL (70-99) White Blood Count 12.7 x10^3/uL (4.0-11.0) Red Blood Count 1.62 x10^6/uL (4.30-5.70) Hemoglobin 4.3 g/dL (13.0-17.5) Hematocrit 14.1 % (39.0-53.0) Mean Corpuscular Volume 87 fL (79-100) Mean Corpuscular Hemoglobin 26 pg (25-35) Mean Corpuscular Hemoglobin Concent 30 g/dL (31-37) Red Cell Distribution Width 21.1 % (11.5-14.5) Platelet Count 204 x10^3/uL (140-400) Neutrophils (%) (Auto) 88 % (31-73) Lymphocytes (%) (Auto) 4 % (24-48) Monocytes (%) (Auto) 7 % (0-9) Eosinophils (%) (Auto) 0 % (0-3) Basophils (%) (Auto) 1 % (0-3) Neutrophils # (Auto) 11.2 x10^3/uL (1.8-7.7) Lymphocytes # (Auto) 0.5 x10^3/uL (1.0-4.8) Monocytes # (Auto) 0.9 x10^3/uL (0.0-1.1) Eosinophils # (Auto) 0.0 x10^3/uL (0.0-0.7) Basophils # (Auto) 0.1 x10^3/uL (0.0-0.2) Prothrombin Time 30.4 SEC (11.7-14.0) Prothromb Time International Ratio 2.9 (0.8-1.1) Sodium Level 132 mmol/L (136-145) Potassium Level 4.2 mmol/L (3.5-5.1) Chloride Level 93 mmol/L (98-107) Carbon Dioxide Level 16 mmol/L (21-32) Anion Gap 23 (6-14) Blood Urea Nitrogen 40 mg/dL (8-26) Creatinine 4.1 mg/dL (0.7-1.3) Estimated GFR (Cockcroft-Gault) 17.5 BUN/Creatinine Ratio 10 (6-20) Glucose Level 170 mg/dL (70-99) Calcium Level 9.4 mg/dL (8.5-10.1) Magnesium Level 2.3 mg/dL (1.8-2.4) Total Bilirubin 0.5 mg/dL (0.2-1.0) Aspartate Amino Transf (AST/SGOT) 59 U/L (15-37) Alanine Aminotransferase (ALT/SGPT) 13 U/L (16-63) Alkaline Phosphatase 147 U/L (46-116) Total Protein 6.6 g/dL (6.4-8.2) Albumin 2.2 g/dL (3.4-5.0) Albumin/Globulin Ratio 0.5 (1.0-1.7) O2 Saturation 100 % (92-99) Arterial Blood pH 7.38 (7.35-7.45) Arterial Blood pCO2 at Patient Temp 36 mmHg (35-46) Arterial Blood pO2 at Patient Temp 473 mmHg (65-108) Arterial Blood HCO3 21 mmol/L (21-28) Arterial Blood Base Excess -4 mmol/L (-3-3) FiO2 100% vent Physical Exam HEENT: Neck Supple W Full Motion Chest: Symmetric LUNGS: Other (vent via trach ) Heart: RRR (SR) Abdomen: Other (scaphoid abd) Extremities: No Edema Assessment Assessment 1. Right AV fistula bleed; per vascular post tunnelled HD cath. 2. Chronic respiratory failure with AECOPD, a/c CHF, and profound anemia; s/p trach. Compensated 3. Acute on chronic systolic CHF 4. Severe CMP; LVEF 10%. Previously 30-35% 07/2018. Follows with Dr. Muse. Previously deemed poor candidate for AICD implantation with significant com orbidities per record review. 5. PAFIB: currently SR 6. CAD s/p PCI/stent placement 2013 7. H/o VT arrest during recent hospitalization; on Amiodarone therapy. No further VT noted on tele at [facility] or here at [facility] 8. Valvular heart disease s/p mechanical mitral valve replacement; chronic OAC with warfarin. INR 2.9 9. Hypertension; controlled 10. Hyperlipidemia 11. Diabetes, II 12. ESRD on HD 13. Anemia; patient is Jehov[employer] Witness, declining blood transfusion. Hgb now at 4.3 14. Recent bacteremia, sepsis 15. Jehovas witness: he had his MV procedure a yr before converting to Jehovas witness 16. Prolonged QTc: 543 pt is on reglan, amiodarone and metoprolol 17. Post respiratory arrest: this morning. now intubated with vent 18. Bradyarrhythmia: noted with junctional rhythm then possibly IVR in the 30s with underlying metabolic issues and severe hyperkalemia. Now SR Recommendations 1. Pt was placed on external pacer and received multiple K reversal agents, Only respiratory arrest, no comp-ression delivered. Etiology is multifactorial with underlying metabolic derangements. No off levophed and external pacer SR with prolonged QTc. Will hold QT prolonging agents for now 2. Complex issues given that would not be able to pursue transfusion due to taoist beliefs. Very poor prognosis. Now DNR per staff. Recommend hospice. 3. Fluid offloading via HD as per nephrology 4. Pt now DNR, Discussed with RN, no further lifevest 5. Levophed per BP trend. Justicifation of Admission Dx: Justifications for Admission: Justification of Admission Dx: Yes SONNY ROPER MD 02/04/20 1443: CARDIO Progress Notes Assessment Assessment Patient seen and examined. Ageree with COMMERCIAL PHOTOGRAPHER's assessment and plan. Events from last night noted. Patient currently off external pacer. Telemetry showed junctional rhythm with improved heart rate in 60s. Right AV fistula active bleed and blood loss anemia s/p revision of AV graft by vascular surgery Temp dialysis cath placed by IR yesterday Continue fluid removal with HD for ac on chr systolic HF Continue amiodarone for VT suppression Resume warfarin when ok from surgical/IR standpoint for mechanical MVR CAD status clinically stable Patient currently partial code. Ongoing discussions with family for hospice/palliative care. SARITA LOPEZ APRN Feb 04, 2020 11:18 SONNY ROPER MD Feb 04, 2020 14:43
--- NOTE | 2020-02-04 12:52 | PDOC ---
PROGRESS NOTES Date of Service DATE: 02/04/20 TIME: 12:48 Subjective Subjective CODE BLUE was activated earlier today. Bradycardia was noted. Hemoglobin continues to decline. Riley was unable to provide history or review of systems today. I discussed with his RN and no evidence of GI bleeding has been noted Objective Objective Vital Signs Date Time Temp Pulse Resp B/P (MAP) Pulse Ox O2 Delivery O2 Flow Rate FiO2 02/04/20 11:50 95 Ventilator 02/04/20 06:30 40 26 98/53 (68) 10.0 02/04/20 02:00 97.9 97.9 Intake and Output 02/04/20 07:00 Intake Total 50 ml Balance 50 ml Intake Oral 50 ml Physical Exam Abdomen: Normal bowel sounds, Soft Heart: Regular rate Extremities: No cyanosis General: Other (Somnolent, unable to provide history) HEENT: Atraumatic Lungs: Clear to auscultation Neck: Supple Skin: No rashes Assessment Assessment Acute blood loss anemia Anemia of chronic disease ESRD on HD CMP with EF10% Hinduism Plan Plan of Care -He is iron and B12 replete -Continue with KAREEM at this time -I do not have any additional recommendations for his anemia at this time. He continues to not want to accept blood transfusions due to oriental orthodox beliefs -Agree with DNR given guarded prognosis -Continue care of bleeding AVF per vascular surgery -Continue to monitor for other sources of bleeding -HD per nephrology -Rest per Dr Pritchett -Will follow Please call me at [phone] with any questions. Comment Review of Relevant I have reviewed the following items veronica (where applicable) has been applied. Labs Laboratory Tests Test 02/02/20 13:21 02/02/20 16:32 02/03/20 04:30 02/03/20 12:30 Glucose (Fingerstick) 87 mg/dL (70-99) 126 mg/dL (70-99) 104 mg/dL (70-99) White Blood Count 7.0 x10^3/uL (4.0-11.0) Red Blood Count 2.01 x10^6/uL (4.30-5.70) Hemoglobin 5.5 g/dL (13.0-17.5) Hematocrit 17.7 % (39.0-53.0) Mean Corpuscular Volume 88 fL (79-100) Mean Corpuscular Hemoglobin 27 pg (25-35) Mean Corpuscular Hemoglobin Concent 31 g/dL (31-37) Red Cell Distribution Width 21.4 % (11.5-14.5) Platelet Count 214 x10^3/uL (140-400) Neutrophils (%) (Auto) 82 % (31-73) Lymphocytes (%) (Auto) 9 % (24-48) Monocytes (%) (Auto) 7 % (0-9) Eosinophils (%) (Auto) 1 % (0-3) Basophils (%) (Auto) 1 % (0-3) Neutrophils # (Auto) 5.7 x10^3/uL (1.8-7.7) Lymphocytes # (Auto) 0.7 x10^3/uL (1.0-4.8) Monocytes # (Auto) 0.5 x10^3/uL (0.0-1.1) Eosinophils # (Auto) 0.1 x10^3/uL (0.0-0.7) Basophils # (Auto) 0.1 x10^3/uL (0.0-0.2) Prothrombin Time 21.8 SEC (11.7-14.0) Prothromb Time International Ratio 1.9 (0.8-1.1) Test 02/03/20 16:35 02/03/20 19:36 02/04/20 01:49 02/04/20 04:42 Glucose (Fingerstick) 80 mg/dL (70-99) 89 mg/dL (70-99) 15 mg/dL (70-99) O2 Saturation 99 % (92-99) Arterial Blood pH 7.43 (7.35-7.45) Arterial Blood pCO2 at Patient Temp 32 mmHg (35-46) Arterial Blood pO2 at Patient Temp 182 mmHg (65-108) Arterial Blood HCO3 21 mmol/L (21-28) Arterial Blood Base Excess -3 mmol/L (-3-3) FiO2 84 Test 02/04/20 04:46 02/04/20 05:00 02/04/20 05:03 02/04/20 06:10 Glucose (Fingerstick) 105 mg/dL (70-99) 117 mg/dL (70-99) 316 mg/dL (70-99) White Blood Count 12.3 x10^3/uL (4.0-11.0) Red Blood Count 1.67 x10^6/uL (4.30-5.70) Hemoglobin 4.4 g/dL (13.0-17.5) Hematocrit 14.9 % (39.0-53.0) Mean Corpuscular Volume 89 fL (79-100) Mean Corpuscular Hemoglobin 27 pg (25-35) Mean Corpuscular Hemoglobin Concent 30 g/dL (31-37) Red Cell Distribution Width 21.0 % (11.5-14.5) Platelet Count 227 x10^3/uL (140-400) Neutrophils (%) (Auto) 85 % (31-73) Lymphocytes (%) (Auto) 5 % (24-48) Monocytes (%) (Auto) 8 % (0-9) Eosinophils (%) (Auto) 1 % (0-3) Basophils (%) (Auto) 1 % (0-3) Neutrophils # (Auto) 10.5 x10^3/uL (1.8-7.7) Lymphocytes # (Auto) 0.7 x10^3/uL (1.0-4.8) Monocytes # (Auto) 1.0 x10^3/uL (0.0-1.1) Eosinophils # (Auto) 0.1 x10^3/uL (0.0-0.7) Basophils # (Auto) 0.1 x10^3/uL (0.0-0.2) Sodium Level 129 mmol/L (136-145) Potassium Level 6.3 mmol/L (3.5-5.1) Chloride Level 91 mmol/L (98-107) Carbon Dioxide Level 14 mmol/L (21-32) Anion Gap 24 (6-14) Blood Urea Nitrogen 41 mg/dL (8-26) Creatinine 3.9 mg/dL (0.7-1.3) Estimated GFR (Cockcroft-Gault) 18.5 Glucose Level 240 mg/dL (70-99) Calcium Level 8.8 mg/dL (8.5-10.1) Test 02/04/20 07:40 02/04/20 08:00 White Blood Count 12.7 x10^3/uL (4.0-11.0) Red Blood Count 1.62 x10^6/uL (4.30-5.70) Hemoglobin 4.3 g/dL (13.0-17.5) Hematocrit 14.1 % (39.0-53.0) Mean Corpuscular Volume 87 fL (79-100) Mean Corpuscular Hemoglobin 26 pg (25-35) Mean Corpuscular Hemoglobin Concent 30 g/dL (31-37) Red Cell Distribution Width 21.1 % (11.5-14.5) Platelet Count 204 x10^3/uL (140-400) Neutrophils (%) (Auto) 88 % (31-73) Lymphocytes (%) (Auto) 4 % (24-48) Monocytes (%) (Auto) 7 % (0-9) Eosinophils (%) (Auto) 0 % (0-3) Basophils (%) (Auto) 1 % (0-3) Neutrophils # (Auto) 11.2 x10^3/uL (1.8-7.7) Lymphocytes # (Auto) 0.5 x10^3/uL (1.0-4.8) Monocytes # (Auto) 0.9 x10^3/uL (0.0-1.1) Eosinophils # (Auto) 0.0 x10^3/uL (0.0-0.7) Basophils # (Auto) 0.1 x10^3/uL (0.0-0.2) Prothrombin Time 30.4 SEC (11.7-14.0) Prothromb Time International Ratio 2.9 (0.8-1.1) Sodium Level 132 mmol/L (136-145) Potassium Level 4.2 mmol/L (3.5-5.1) Chloride Level 93 mmol/L (98-107) Carbon Dioxide Level 16 mmol/L (21-32) Anion Gap 23 (6-14) Blood Urea Nitrogen 40 mg/dL (8-26) Creatinine 4.1 mg/dL (0.7-1.3) Estimated GFR (Cockcroft-Gault) 17.5 BUN/Creatinine Ratio 10 (6-20) Glucose Level 170 mg/dL (70-99) Calcium Level 9.4 mg/dL (8.5-10.1) Magnesium Level 2.3 mg/dL (1.8-2.4) Total Bilirubin 0.5 mg/dL (0.2-1.0) Aspartate Amino Transf (AST/SGOT) 59 U/L (15-37) Alanine Aminotransferase (ALT/SGPT) 13 U/L (16-63) Alkaline Phosphatase 147 U/L (46-116) Total Protein 6.6 g/dL (6.4-8.2) Albumin 2.2 g/dL (3.4-5.0) Albumin/Globulin Ratio 0.5 (1.0-1.7) O2 Saturation 100 % (92-99) Arterial Blood pH 7.38 (7.35-7.45) Arterial Blood pCO2 at Patient Temp 36 mmHg (35-46) Arterial Blood pO2 at Patient Temp 473 mmHg (65-108) Arterial Blood HCO3 21 mmol/L (21-28) Arterial Blood Base Excess -4 mmol/L (-3-3) FiO2 100% vent Laboratory Tests Test 02/03/20 16:35 02/03/20 19:36 02/04/20 01:49 02/04/20 04:42 Glucose (Fingerstick) 80 mg/dL (70-99) 89 mg/dL (70-99) 15 mg/dL (70-99) O2 Saturation 99 % (92-99) Arterial Blood pH 7.43 (7.35-7.45) Arterial Blood pCO2 at Patient Temp 32 mmHg (35-46) Arterial Blood pO2 at Patient Temp 182 mmHg (65-108) Arterial Blood HCO3 21 mmol/L (21-28) Arterial Blood Base Excess -3 mmol/L (-3-3) FiO2 84 Test 02/04/20 04:46 02/04/20 05:00 02/04/20 05:03 02/04/20 06:10 Glucose (Fingerstick) 105 mg/dL (70-99) 117 mg/dL (70-99) 316 mg/dL (70-99) White Blood Count 12.3 x10^3/uL (4.0-11.0) Red Blood Count 1.67 x10^6/uL (4.30-5.70) Hemoglobin 4.4 g/dL (13.0-17.5) Hematocrit 14.9 % (39.0-53.0) Mean Corpuscular Volume 89 fL (79-100) Mean Corpuscular Hemoglobin 27 pg (25-35) Mean Corpuscular Hemoglobin Concent 30 g/dL (31-37) Red Cell Distribution Width 21.0 % (11.5-14.5) Platelet Count 227 x10^3/uL (140-400) Neutrophils (%) (Auto) 85 % (31-73) Lymphocytes (%) (Auto) 5 % (24-48) Monocytes (%) (Auto) 8 % (0-9) Eosinophils (%) (Auto) 1 % (0-3) Basophils (%) (Auto) 1 % (0-3) Neutrophils # (Auto) 10.5 x10^3/uL (1.8-7.7) Lymphocytes # (Auto) 0.7 x10^3/uL (1.0-4.8) Monocytes # (Auto) 1.0 x10^3/uL (0.0-1.1) Eosinophils # (Auto) 0.1 x10^3/uL (0.0-0.7) Basophils # (Auto) 0.1 x10^3/uL (0.0-0.2) Sodium Level 129 mmol/L (136-145) Potassium Level 6.3 mmol/L (3.5-5.1) Chloride Level 91 mmol/L (98-107) Carbon Dioxide Level 14 mmol/L (21-32) Anion Gap 24 (6-14) Blood Urea Nitrogen 41 mg/dL (8-26) Creatinine 3.9 mg/dL (0.7-1.3) Estimated GFR (Cockcroft-Gault) 18.5 Glucose Level 240 mg/dL (70-99) Calcium Level 8.8 mg/dL (8.5-10.1) Test 02/04/20 07:40 02/04/20 08:00 White Blood Count 12.7 x10^3/uL (4.0-11.0) Red Blood Count 1.62 x10^6/uL (4.30-5.70) Hemoglobin 4.3 g/dL (13.0-17.5) Hematocrit 14.1 % (39.0-53.0) Mean Corpuscular Volume 87 fL (79-100) Mean Corpuscular Hemoglobin 26 pg (25-35) Mean Corpuscular Hemoglobin Concent 30 g/dL (31-37) Red Cell Distribution Width 21.1 % (11.5-14.5) Platelet Count 204 x10^3/uL (140-400) Neutrophils (%) (Auto) 88 % (31-73) Lymphocytes (%) (Auto) 4 % (24-48) Monocytes (%) (Auto) 7 % (0-9) Eosinophils (%) (Auto) 0 % (0-3) Basophils (%) (Auto) 1 % (0-3) Neutrophils # (Auto) 11.2 x10^3/uL (1.8-7.7) Lymphocytes # (Auto) 0.5 x10^3/uL (1.0-4.8) Monocytes # (Auto) 0.9 x10^3/uL (0.0-1.1) Eosinophils # (Auto) 0.0 x10^3/uL (0.0-0.7) Basophils # (Auto) 0.1 x10^3/uL (0.0-0.2) Prothrombin Time 30.4 SEC (11.7-14.0) Prothromb Time International Ratio 2.9 (0.8-1.1) Sodium Level 132 mmol/L (136-145) Potassium Level 4.2 mmol/L (3.5-5.1) Chloride Level 93 mmol/L (98-107) Carbon Dioxide Level 16 mmol/L (21-32) Anion Gap 23 (6-14) Blood Urea Nitrogen 40 mg/dL (8-26) Creatinine 4.1 mg/dL (0.7-1.3) Estimated GFR (Cockcroft-Gault) 17.5 BUN/Creatinine Ratio 10 (6-20) Glucose Level 170 mg/dL (70-99) Calcium Level 9.4 mg/dL (8.5-10.1) Magnesium Level 2.3 mg/dL (1.8-2.4) Total Bilirubin 0.5 mg/dL (0.2-1.0) Aspartate Amino Transf (AST/SGOT) 59 U/L (15-37) Alanine Aminotransferase (ALT/SGPT) 13 U/L (16-63) Alkaline Phosphatase 147 U/L (46-116) Total Protein 6.6 g/dL (6.4-8.2) Albumin 2.2 g/dL (3.4-5.0) Albumin/Globulin Ratio 0.5 (1.0-1.7) O2 Saturation 100 % (92-99) Arterial Blood pH 7.38 (7.35-7.45) Arterial Blood pCO2 at Patient Temp 36 mmHg (35-46) Arterial Blood pO2 at Patient Temp 473 mmHg (65-108) Arterial Blood HCO3 21 mmol/L (21-28) Arterial Blood Base Excess -4 mmol/L (-3-3) FiO2 100% vent Medications Current Medications Lidocaine HCl (Xylocaine-Mpf 1% 2ml Vial) 20 ml 1X ONCE INJ ; Start 01/29/20 at 12:45; Stop 01/29/20 at 12:51; Status DC Lidocaine HCl (Xylocaine-Mpf 1% 2ml Vial) 2 ml STK-MED ONCE .ROUTE ; Start 01/29/20 at 12:51; Stop 01/29/20 at 12:51; Status DC Lidocaine HCl (Xylocaine-Mpf 1% 5ml Vial) 5 ml STK-MED ONCE .ROUTE ; Start 01/29/20 at 12:51; Stop 01/29/20 at 12:51; Status DC Cellulose (Surgicel Fibrillar 1x2) 1 each STK-MED ONCE .ROUTE Last administered on 01/29/20at 16:48; Start 01/29/20 at 14:19; Stop 01/29/20 at 14:19; Status DC Lidocaine HCl (Xylocaine 1% Pf 30ml Vial) 30 ml STK-MED ONCE .ROUTE ; Start 01/29/20 at 14:19; Stop 01/29/20 at 14:19; Status DC Heparin Sodium (Porcine) 5000 unit/Sodium Chloride 505 ml @ 505 mls/hr 1X ONCE IRR Last administered on 01/29/20at 15:28; Start 01/29/20 at 15:00; Stop 01/29/20 at 16:03; Status DC Papaverine HCl 60 mg STK-MED ONCE .ROUTE ; Start 01/29/20 at 14:19; Stop 01/29/20 at 14:20; Status DC Glycopyrrolate (Robinul) 1 mg STK-MED ONCE .ROUTE ; Start 01/29/20 at 14:25; Stop 01/29/20 at 14:25; Status DC Rocuronium [place] (Zemuron) 50 mg STK-MED ONCE .ROUTE ; Start 01/29/20 at 14:26; Stop 01/29/20 at 14:26; Status DC Fentanyl Citrate (Fentanyl 2ml Vial) 100 mcg STK-MED ONCE .ROUTE ; Start at 14:26; Stop 01/29/20 at 14:27; Status DC Midazolam HCl (Versed) 2 mg STK-MED ONCE .ROUTE ; Start 01/29/20 at 14:27; Stop 01/29/20 at 14:27; Status DC Ondansetron HCl (Zofran) 4 mg PRN Q8HRS PRN IV NAUSEA/VOMITING Last administered on 01/29/20at 14:58; Start 01/29/20 at 14:45; Stop 01/30/20 at 14:44; Status DC Fentanyl Citrate (Fentanyl 2ml Vial) 50 mcg 1X ONCE IVP Last administered on 01/29/20at 14:58; Start 01/29/20 at 15:00; Stop 01/29/20 at 15:01; Status DC Ketamine HCl (Ketamine) 50 mg STK-MED ONCE .ROUTE ; Start 01/29/20 at 15:27; Stop 01/29/20 at 15:27; Status DC Heparin Sodium (Porcine) (Heparin) 30,000 unit STK-MED ONCE .ROUTE ; Start 01/29/20 at 15:42; Stop 01/29/20 at 15:43; Status DC Phenylephrine HCl (PHENYLEPHRINE in 0.9% NACL PF) 1 mg STK-MED ONCE IV ; Start 01/29/20 at 15:42; Stop 01/29/20 at 15:43; Status DC Ondansetron HCl (Zofran) 4 mg PRN Q6HRS PRN IV NAUSEA/VOMITING; Start 01/29/20 at 16:15; Stop 01/29/20 at 22:00; Status DC Fentanyl Citrate (Fentanyl 2ml Vial) 25 mcg PRN Q5MIN PRN IV MILD PAIN 1-3; Start 01/29/20 at 16:15; Stop 01/29/20 at 22:00; Status DC Fentanyl Citrate (Fentanyl 2ml Vial) 50 mcg PRN Q5MIN PRN IV MODERATE TO SEVERE PAIN; Start 01/29/20 at 16:15; Stop 01/29/20 at 22:00; Status DC Morphine Sulfate (Morphine Sulfate) 1 mg PRN Q10MIN PRN IV SEVERE PAIN 7-10; Start 01/29/20 at 16:15; Stop 01/29/20 at 22:00; Status DC Ringer's Solution 1,000 ml @ 30 mls/hr Q24H IV ; Start 01/29/20 at 16:04; Stop 01/30/20 at 04:03; Status DC Lidocaine HCl (Xylocaine-Mpf 1% 2ml Vial) 2 ml PRN 1X PRN ID PRIOR TO IV START; Start 01/29/20 at 16:15; Stop 01/29/20 at 22:00; Status DC Hydromorphone HCl (Dilaudid) 0.5 mg PRN Q10MIN PRN IV SEV PAIN, Second choice; Start 01/29/20 at 16:15; Stop 01/29/20 at 22:00; Status DC Prochlorperazine Edisylate (Compazine) 5 mg PACU PRN PRN IV NAUSEA, MRX1; Start 01/29/20 at 16:15; Stop 01/29/20 at 22:00; Status DC Sevoflurane (Ultane) 90 ml STK-MED ONCE IH ; Start 01/29/20 at 16:59; Stop 01/29/20 at 16:59; Status DC Pharmacy Consult (C.diff Med Screen By Rx) 1 each 1X ONCE MC ; Start 01/29/20 at 17:45; Stop 01/29/20 at 17:46; Status UNV Sodium Polystyrene Sulfonate (Kayexalate) 30 gm 1X ONCE PO Last administered on 01/30/20at 12:41; Start 01/30/20 at 12:15; Stop 01/30/20 at 12:16; Status DC Dextrose (Dextrose 50%-Water Syringe) 25 gm STK-MED ONCE IV ; Start 01/30/20 at 12:25; Stop 01/30/20 at 12:26; Status DC Calcium Chloride (Calcium Chloride) 1,000 mg STK-MED ONCE .ROUTE ; Start 01/30/20 at 12:25; Stop 01/30/20 at 12:26; Status DC Sodium Bicarbonate (Sodium Bicarb Adult 8.4% Syr) 50 meq STK-MED ONCE .ROUTE ; Start 01/30/20 at 12:25; Stop 01/30/20 at 12:26; Status DC Calcium Gluconate (Calcium Gluconate) 1,000 mg 1X ONCE IVP ; Start 01/30/20 at 12:30; Stop 01/30/20 at 12:57; Status DC Sodium Bicarbonate (Sodium Bicarb Adult 8.4% Syr) 50 meq 1X ONCE IV Last administered on 01/30/20at 12:50; Start 01/30/20 at 12:30; Stop 01/30/20 at 12:57; Status DC Dextrose (Dextrose 50%-Water Syringe) 25 gm 1X ONCE IV Last administered on 01/30/20at 12:50; Start 01/30/20 at 12:30; Stop 01/30/20 at 12:57; Status DC Insulin Human Regular (HumuLIN R VIAL) 10 unit 1X ONCE IV Last administered on 01/30/20at 13:29; Start 01/30/20 at 12:30; Stop 01/30/20 at 12:57; Status DC Acetaminophen (Tylenol) 650 mg Q6HRS PRN PO MILD PAIN / TEMP > 100.3'F Last administered on 02/04/20at 02:32; Start 01/30/20 at 12:30 Ascorbic Acid (Vitamin C) 500 mg DAILY PO Last administered on 02/03/20 09:19; Start 01/30/20 at 13:00 Atorvastatin Calcium (Lipitor) 40 mg QHS PO Last administered on 02/03/20 20:26; Start 01/30/20 at 21:00 Budesonide (Pulmicort) 0.5 mg BID NEB Last administered on 02/04/20at 05:40; Start 01/30/20 at 21:00 Buspirone HCl (Buspar) 5 mg TID PO Last administered on 02/03/20 20:26; Start 01/30/20 at 14:00 Cyclobenzaprine HCl (Flexeril) 10 mg TID PO Last administered on 02/03/20 20:25; Start 01/30/20 at 14:00 Vitamin B Complex/ Vitamin C (Nora-Karina) 1 tab DAILY PO Last administered on 02/03/20at 09:19; Start 01/30/20 at 13:00 Acetaminophen/ Hydrocodone Bitart (Lortab 5/325) 1 tab PRN Q6HRS PRN PO MODERATE PAIN; Start 01/30/20 at 12:30 Insulin Human Lispro (HumaLOG) 4 units TIDWMEALS SQ Last administered on 01/31/20 17:24; Start 01/30/20 at 17:00; Stop 02/04/20 at 07:14; Status DC Ipratropium [place] (Atrovent) 0.5 mg RTQID NEB Last administered on 02/04/20at 11:50; Start 01/30/20 at 13:00 Metoclopramide HCl (Reglan) 5 mg TIDAC PO Last administered on 02/03/20 17:14; Start 01/30/20 at 16:30 Metoprolol Tartrate (Lopressor) 12.5 mg BID PO Last administered on 02/03/20 09:19; Start 01/30/20 at 14:00 Pantoprazole Sodium (Protonix) 40 mg DAILYAC PO Last administered on 02/03/20 07:04; Start 01/30/20 at 16:30 Polyethylene Glycol (miraLAX PACKET) 17 gm DAILY PO Last administered on 02/03/20 09:18; Start 01/30/20 at 14:00 Senna/Docusate Sodium (Senna Plus) 1 tab HS PO Last administered on 02/03/20 20:26; Start 01/30/20 at 21:00 Amiodarone HCl (Cordarone) 400 mg DAILY PO Last administered on 02/03/20 09:20; Start 01/30/20 at 14:00 Cyanocobalamin (Vitamin B-12) 1,000 mcg DAILY PO Last administered on 02/03/20 09:19; Start 01/30/20 at 14:00 Ferrous Sulfate (Iron Oral Solution) 300 mg DAILY08 PO Last administered on 02/03/20 09:18; Start 01/30/20 at 14:00 Vitamin B Complex/ Vitamin C (Nora-Karina) 1 tab DAILY PO ; Start 01/30/20 at 14:00; Stop 01/31/20 at 09:44; Status DC Hydroxyzine HCl (Atarax) 10 mg TID PO Last administered on 02/03/20 20:26; Start 01/30/20 at 14:00 Magnesium Oxide (Magnesium Oxide) 400 mg BID PO Last administered on 02/03/20 20:26; Start 01/31/20 at 14:00 Non-Formulary Medication (Melatonin ) 3 mg HS PO ; Start 01/30/20 at 21:00; Status UNV Midodrine (Proamatine) 10 mg [id number] PO Last administered on 02/03/20at 17:13; Start 01/30/20 at 18:00 Insulin Human Lispro (HumaLOG) 0-5 UNITS TIDWMEALS SQ Last administered on 01/31/20at 12:44; Start 01/30/20 at 17:00 Dextrose (Dextrose 50%-Water Syringe) 12.5 gm PRN Q15MIN PRN IV SEE COMMENTS Last administered on 01/31/20at 20:47; Start 01/30/20 at 12:30 Sodium Chloride 1,000 ml @ 1,000 mls/hr Q1H PRN IV hypotension; Start 01/30/20 at 12:58; Stop 01/30/20 at 18:57; Status DC Info (PHARMACY MONITORING -- do not chart) 1 each PRN DAILY PRN MC SEE COMMENTS; Start 01/30/20 at 13:00; Status UNV Info (PHARMACY MONITORING -- do not chart) 1 each PRN DAILY PRN MC SEE COMMENTS; Start 01/30/20 at 13:00; Stop 02/01/20 at 12:52; Status DC Lidocaine HCl (Buffered Lidocaine 1%) 3 ml STK-MED ONCE .ROUTE ; Start 01/30/20 at 13:14; Stop 01/30/20 at 13:14; Status DC Lidocaine HCl (Buffered Lidocaine 1%) 3 ml 1X ONCE INJ ; Start 01/30/20 at 13:30; Stop 01/30/20 at 13:44; Status DC Sodium Chloride 500 ml @ 500 mls/hr 1X ONCE IV Last administered on 01/30/20at 20:58; Start 01/30/20 at 20:00; Stop 01/30/20 at 20:59; Status DC Iron Sucrose 200 mg/Sodium Chloride 110 ml @ 55 mls/hr 1X ONCE IV ; Start 01/31/20 at 09:00; Stop 01/31/20 at 08:42; Status DC Calcium Chloride (Calcium Chloride) 1,000 mg STK-MED ONCE .ROUTE ; Start 01/30/20 at 12:30; Stop 01/31/20 at 08:36; Status DC Darbepoetin Serafin (ARANESP for DIALYSIS PTS) 60 mcg WEEKLYHS SQ Last administered on 01/31/20at 20:40; Start 01/31/20 at 21:00; Stop 02/01/20 at 10 :27; Status DC Sodium Chloride 1,000 ml @ 1,000 mls/hr Q1H PRN IV hypotension; Start 01/31/20 at 16:31; Stop 01/31/20 at 22:30; Status DC Sodium Chloride 1,000 ml @ 400 mls/hr Q2H30M PRN IV PATENCY; Start 01/31/20 at 16:31; Stop 02/01/20 at 04:30; Status DC Info (PHARMACY MONITORING -- do not chart) 1 each PRN DAILY PRN MC SEE COMMENTS; Start 01/31/20 at 16:45; Stop 02/02/20 at 08:43; Status DC Darbepoetin Serafin (ARANESP for DIALYSIS PTS) 200 mcg WEEKLYHS SQ Last administered on 02/01/20at 22:16; Start 02/01/20 at 21:00 Lidocaine/ Epinephrine (LIDOCAINE 1%-EPI 1:100,000 Multi-Dose) 20 ml STK-MED ONCE .ROUTE ; Start 02/01/20 at 11:35; Stop 02/01/20 at 11:35; Status DC Cefazolin Sodium (Ancef) 1 gm STK-MED ONCE IVP ; Start 02/01/20 at 13:31; Stop 02/01/20 at 13:31; Status DC Lidocaine/ Epinephrine (LIDOCAINE 1%-EPI 1:100,000 Multi-Dose) 20 ml 1X ONCE INJ Last administered on 02/01/20at 13:57; Start 02/01/20 at 14:00; Stop 02/01/20 at 14:01; Status DC Cefazolin Sodium (Ancef) 1 gm 1X ONCE IVP Last administered on 02/01/20at 13:56; Start 02/01/20 at 14:00; Stop 02/01/20 at 14:01; Status DC Sodium Chloride 1,000 ml @ 1,000 mls/hr Q1H PRN IV hypotension; Start 02/02/20 at 08:37; Stop 02/02/20 at 14:36; Status DC Albumin Human 200 ml @ 200 mls/hr 1X PRN PRN IV Hypotension Last administered on 02/02/20at 09:45; Start 02/02/20 at 08:45; Stop 02/02/20 at 14:44; Status DC Sodium Chloride 1,000 ml @ 400 mls/hr Q2H30M PRN IV PATENCY; Start 02/02/20 at 08:37; Stop 02/02/20 at 20:36; Status DC Info (PHARMACY MONITORING -- do not chart) 1 each PRN DAILY PRN MC SEE COMMENTS; Start 02/02/20 at 08:45 Warfarin Sodium (Coumadin) 3 mg DAILY16 PO Last administered on 02/03/20at 17:14; Start 02/02/20 at 16:00 Warfarin Sodium (Coumadin Per Physician) 1 each PRN DAILY PRN MC SEE COMMENTS Last administered on 02/03/20at 08:08; Start 02/02/20 at 14:45 Albuterol Sulfate (Ventolin Neb Soln) 10 mg 1X ONCE CONT NEB Last administered on 02/04/20at 05:40; Start 02/04/20 at 06:00; Stop 02/04/20 at 06:01; Status DC Midazolam HCl 100 ml @ 1 mls/hr CONT PRN IV SEE I/O RECORD; Start 02/04/20 at 06:30 Sodium Chloride 1,000 ml @ 1,000 mls/hr Q1H PRN IV hypotension; Start 02/04/20 at 07:08; Stop 02/04/20 at 13:07 Albumin Human 200 ml @ 200 mls/hr 1X PRN PRN IV Hypotension; Start 02/04/20 at 07:15; Stop 02/04/20 at 13:14 Diphenhydramine HCl (Benadryl) 25 mg 1X PRN PRN IV ITCHING; Start 02/04/20 at 07:15; Stop 02/05/20 at 07:14 Diphenhydramine HCl (Benadryl) 25 mg 1X PRN PRN IV ITCHING; Start 02/04/20 at 07:15; Stop 02/05/20 at 07:14 Sodium Chloride (Normal Saline Flush) 10 ml 1X PRN PRN IV AP catheter pack; Start 02/04/20 at 07:15; Stop 02/05/20 at 07:14 Sodium Chloride (Normal Saline Flush) 10 ml 1X PRN PRN IV [employer] catheter pack; Start 02/04/20 at 07:15; Stop 02/05/20 at 07:14 Sodium Chloride 1,000 ml @ 400 mls/hr Q2H30M PRN IV PATENCY; Start 02/04/20 at 07:08; Stop 02/04/20 at 19:07 Info (PHARMACY MONITORING -- do not chart) 1 each PRN DAILY PRN MC SEE COMMENTS; Start 02/04/20 at 07:15 Norepinephrine Bitartrate 8 mg/ Dextrose 258 ml @ 13.39 mls/ hr CONT PRN IV PER PROTOCOL; Start 02/04/20 at 08:15 Active Scripts Active Reported Hydroxyzine Hcl 10 Mg/5 Ml Syrup 10 Mg PO TID Hydrocodone-Acetamin 5-325 mg (Hydrocodone/Acetaminophen) 1 Each Tablet 1 Each PO PRN Q6HRS PRN Glutose 15 (Dextrose) 37.5 Gm Gel..gram. 37.5 Gm PO PRN Cyclobenzaprine Hcl 10 Mg Tablet 1 Tab PO TID Tylenol (Acetaminophen) 325 Mg Tablet 2 Tab PO Q6HRS PRN Warfarin Sodium 2 Mg Tablet 2 Mg PO DAILY B-12 (Cyanocobalamin (Vitamin B-12)) 1,000 Mcg Tablet.er 1 Tab PO DAILY 30 Days Senna-Docusate Sodium Tablet (Sennosides/Docusate Sodium) 1 Each Tablet 1 Tab PO HS 20 Days Transderm-Scop (Scopolamine) 1 Each Patch.td72 1 Patch TP Q3DAYS Renal Caps Softgel (Folic Acid/Vitamin B Comp W-C) 1 Mg Capsule 1 Cap PO DAILY 30 Days Miralax (Polyethylene Glycol 3350) 17 Gm Powd.pack 1 Packet PO DAILY 2 Days dissolve in water Pantoprazole Sodium (Pantoprazole Sodium) 40 Mg Tablet.dr 40 Mg PO DAILYAC Midodrine Hcl 10 Mg Tablet 10 Mg PO TID Metoprolol Tartrate 25 Mg Tablet 0.5 Tab PO BID Reglan (Metoclopramide Hcl) 10 Mg Tablet 1 Tab PO TIDAC 30 Days before food and bedtime Melatonin 3 Mg Capsule 3 Mg PO HS Magnesium Oxide 400 Mg Tablet 1 Tab PO BID Ipratropium [place] 0.2 Mg/1 Ml Solution 1 Vial NEB QID Humalog (Insulin Lispro) 100 Unit/1 Ml Vial 4 Unit SQ TIDAC Insulin Lispro 100 Unit/1 Ml Vial 0-6 Unit SQ TIDAC Renal-Karina Tablet (Folic Acid/Vit Bcomp,C) 0.8 Mg Tablet 1 Mg PO DAILY Ferrous Sulfate 220 Mg/5 Ml Solution 5 Ml PO DAILY 30 Days Buspirone Hcl 5 Mg Tablet 1 Tab PO TID Budesonide 0.5 Mg/2 Ml Ampul.neb 1 Vial NEB BID Atorvastatin Calcium 40 Mg Tablet 1 Tab PO QHS Ascorbic Acid 500 Mg Tablet 500 Mg PO DAILY Amiodarone Hcl 400 Mg Tablet 1 Tab PO DAILY 30 Days Vitals/I & O Vital Sign - Last 24 Hours 02/03/20 02/03/20 02/03/20 02/03/20 13:00 15:00 15:35 17:13 Temp 96.5 96.5 Pulse 77 67 67 Resp 20 B/P (MAP) 127/58 109/58 (75) 109/58 Pulse Ox 98 95 O2 Delivery Tracheal Collar Tracheal Collar O2 Flow Rate 8.0 02/03/20 02/03/20 02/03/20 02/03/20 19:15 19:23 19:25 19:25 Temp 97.3 97.3 Pulse 68 Resp 20 B/P (MAP) 97/47 (64) Pulse Ox 97 96 96 O2 Delivery Tracheal Collar Tracheal Collar Trach Collar Tracheal Collar O2 Flow Rate 8.0 8.0 8.0 02/03/20 02/03/20 02/04/20 02/04/20 20:26 22:44 01:49 01:59 Temp 97.9 97.9 Pulse 68 64 Resp 18 B/P (MAP) 97/47 95/59 (71) Pulse Ox 97 O2 Delivery Tracheal Collar Tracheal Collar Tracheal Collar O2 Flow Rate 6.0 10.0 10.0 02/04/20 02/04/20 02/04/20 02/04/20 02:00 04:24 05:40 06:30 Temp 97.9 97.9 Pulse 67 39 40 Resp 22 26 26 B/P (MAP) 103/52 (69) 97/45 (62) 98/53 (68) Pulse Ox 93 91 94 91 O2 Delivery Tracheal Collar Tracheal Collar Ventilator Tracheal Collar O2 Flow Rate 10.0 10.0 10.0 02/04/20 02/04/20 08:34 11:50 Pulse Ox 100 95 O2 Delivery Ventilator Ventilator Intake and Output 02/03/20 02/03/20 02/04/20 15:00 23:00 07:00 Intake Total 50 ml Balance 50 ml Justifications for Admission Other Justification ROSLYN JENNINGS MD Feb 04, 2020 12:52
[2020-02-04] MEDS ORDERED: fentaNYL PF VIAL 100 MCG/2 ML VIAL IVP PRN (13:15)
[2020-02-04] MEDS: WARFARIN 3 MG TABLET. PO SCH (14:31)
--- NOTE | 2020-02-04 14:40 | NUR ---
SS following up with discharge planning. SS reviewed pt chart and discussed with pt RN. Pt currently on the vent. Pt coded and was transferred to the ICU. Hemoglobin 4.3. COVID19 negative. Pt is from [facility], ; fax [phone]. Per RN, pt is DNR. SS will continue to follow for discharge planning.
[2020-02-04] MEDS: MIDAZOLAM 100mg/100ml NS BAG 100 ML IV PRN (16:00)
[2020-02-04 16:34] LABS: BASO # 0.1 x10^3/uL (0.0-0.2); BASO % 1 % (0-3); EOS # 0.1 x10^3/uL (0.0-0.7); EOS % 1 % (0-3); LYMPH # 0.6 x10^3/uL (1.0-4.8); LYMPH % 5 % (24-48); MEAN CORPUSCULAR HEMOGLOBIN 27 pg (25-35); MEAN CORPUSCULAR HGB CONC 32 g/dL (31-37); MEAN CORPUSCULAR VOLUME 84 fL (79-100); MONO % 8 % (0-9); NEUT # 10.3 x10^3/uL (1.8-7.7); NEUT % 85 % (31-73); PLATELET COUNT 218 x10^3/uL (140-400); RED BLOOD COUNT 1.75 x10^6/uL (4.30-5.70); RED CELL DISTRIBUTION WIDTH 20.4 % (11.5-14.5); WHITE BLOOD COUNT 12.1 x10^3/uL (4.0-11.0)
[2020-02-04 16:41] LABS: HEMATOCRIT 14.6 % (39.0-53.0); HEMOGLOBIN 4.6 g/dL (13.0-17.5)
[2020-02-04 16:43] LABS: CALCIUM 8.5 mg/dL (8.5-10.1); CREATININE 1.7 mg/dL (0.7-1.3); GFR 48.3; POTASSIUM 3.3 mmol/L (3.5-5.1)
[2020-02-04 17:27] LABS: % BANDS 1 % (0-9); % LYMPHS 3 % (24-48); % MONOS 4 % (0-10); % SEGS 92 % (35-66); PLT ESTIMATE ADEQUATE (ADEQUATE)
[2020-02-04 17:28] LABS: ANISOCYTOSIS MOD; HYPOCHROMIA SLIGHT; TARGET CELLS OCC
[2020-02-04] MEDS: ATORVASTATIN CALCIUM 40 MG TABLET. PO SCH (20:23)
[2020-02-04] MEDS: SENNOSIDES/DOCUSATE 8.6/50MG TABLET. PO SCH (20:24)
[2020-02-05] VITALS (45 sets, daily range): BP systolic 85–146; BP diastolic 39–74
[2020-02-05] MEDS: NOREPINEPHRINE VIAL 8 MG in IV DEXTROSE 5% 250 ML IV PRN (01:07)
[2020-02-05] MEDS: MIDAZOLAM 100mg/100ml NS BAG 100 ML IV PRN ×2 (03:01→20:47)
[2020-02-05 04:44] LABS: BASO # 0.1 x10^3/uL (0.0-0.2); BASO % 1 % (0-3); EOS # 0.1 x10^3/uL (0.0-0.7); EOS % 1 % (0-3); LYMPH # 0.4 x10^3/uL (1.0-4.8); LYMPH % 5 % (24-48); MEAN CORPUSCULAR HEMOGLOBIN 27 pg (25-35); MEAN CORPUSCULAR HGB CONC 32 g/dL (31-37); MEAN CORPUSCULAR VOLUME 87 fL (79-100); MONO % 11 % (0-9); NEUT # 7.7 x10^3/uL (1.8-7.7); NEUT % 83 % (31-73); PLATELET COUNT 239 x10^3/uL (140-400); RED BLOOD COUNT 1.84 x10^6/uL (4.30-5.70); RED CELL DISTRIBUTION WIDTH 21.3 % (11.5-14.5); WHITE BLOOD COUNT 9.3 x10^3/uL (4.0-11.0)
[2020-02-05 04:49] LABS: HEMATOCRIT 15.9 % (39.0-53.0)
[2020-02-05 05:01] LABS: ALBUMIN/GLOBULIN RATIO 0.4 (1.0-1.7); CALCIUM 8.6 mg/dL (8.5-10.1); CREATININE 2.2 mg/dL (0.7-1.3); GFR 35.9; POTASSIUM 3.2 mmol/L (3.5-5.1); TOTAL BILIRUBIN 0.6 mg/dL (0.2-1.0); TOTAL PROTEIN 6.5 g/dL (6.4-8.2)
--- NOTE | 2020-02-05 06:10 | NUR ---
Had discussions with family about patient status and poor prognosis. Family will try to visit patient today and possible discuss moving forward with comfort/palliative care or hospice. No significant events overnight. H/H still critical low with Dr. Tsang aware of the current situation with do not call critical order.
[2020-02-05] MEDS: FERROUS SULFATE ORAL 300 MG/5 ML SOLUTION. PO SCH ×2 (08:00→12:59)
[2020-02-05] MEDS: IPRATROPIUM BROMIDE 0.5 MG/2.5 ML NEBU. NEB SCH ×4 (08:15→19:53)
[2020-02-05] MEDS: BUDESONIDE 0.5 MG/2 ML NEBU. NEB SCH ×2 (08:15→19:53)
[2020-02-05] MEDS: CYCLOBENZAPRINE 10 MG TABLET. PO SCH ×3 (08:54→20:27)
[2020-02-05] MEDS: hydrOXYzine 10 MG TABLET PO SCH ×3 (08:54→20:27)
[2020-02-05] MEDS: busPIRone 5 MG TABLET. PO SCH ×3 (08:54→20:27)
[2020-02-05] MEDS: METOPROLOL TART IMMED RELEASE 25 MG TABLET. PO SCH ×2 (08:55→20:28)
[2020-02-05] MEDS: POLYETHYLENE GLYCOL 3350 17 GM PACKET. PO SCH ×2 (08:55→12:59)
[2020-02-05] MEDS: MAGNESIUM OXIDE 400 MG TABLET PO SCH ×2 (08:55→20:28)
[2020-02-05] MEDS: FOLIC/VIT B COMP W-C (RENAL) TABLET. PO SCH ×2 (08:55→12:58)
[2020-02-05] MEDS: ASCORBIC ACID 500 MG TABLET PO SCH ×2 (08:56→12:58)
[2020-02-05] MEDS: CYANOCOBALAMIN (VITAMIN B-12) 1,000 MCG TABLET. PO SCH ×2 (08:56→12:59)
[2020-02-05] MEDS: AMIODARONE HCL 200 MG TABLET. PO SCH (09:00)
--- NOTE | 2020-02-05 09:12 | PDOC ---
PULMONARY PROGRESS NOTES DATE: 02/05/20 TIME: 09:09 Subjective Remains mechanical ventilation with low-dose sedation, FiO2 of 40% and a PEEP of 5. Patient is currently on vasopressors Patient has persistent anemia as he is a Mosque and does not receive blood transfusions. No additional overnight concerns from nursing, family here at bedside to decide plan of care, considering comfort measures Vitals Vital Signs Date Time Temp Pulse Resp B/P (MAP) Pulse Ox O2 Delivery O2 Flow Rate FiO2 02/05/20 08:55 58 133/71 02/05/20 08:15 100 Ventilator 02/05/20 07:00 16 02/05/20 04:00 96.0 96.0 Comments On mechanical ventilation/sedation Lungs: Clear Cardiovascular: S1, S2 Abdomen: Soft Extremities: No Edema Skin: Warm Labs Laboratory Tests Test 02/03/20 12:30 02/03/20 16:35 02/03/20 19:36 02/04/20 01:49 Glucose (Fingerstick) 104 mg/dL (70-99) 80 mg/dL (70-99) 89 mg/dL (70-99) O2 Saturation 99 % (92-99) Arterial Blood pH 7.43 (7.35-7.45) Arterial Blood pCO2 at Patient Temp 32 mmHg (35-46) Arterial Blood pO2 at Patient Temp 182 mmHg (65-108) Arterial Blood HCO3 21 mmol/L (21-28) Arterial Blood Base Excess -3 mmol/L (-3-3) FiO2 84 Test 02/04/20 04:42 02/04/20 04:46 02/04/20 05:00 02/04/20 05:03 Glucose (Fingerstick) 15 mg/dL (70-99) 105 mg/dL (70-99) 117 mg/dL (70-99) White Blood Count 12.3 x10^3/uL (4.0-11.0) Red Blood Count 1.67 x10^6/uL (4.30-5.70) Hemoglobin 4.4 g/dL (13.0-17.5) Hematocrit 14.9 % (39.0-53.0) Mean Corpuscular Volume 89 fL (79-100) Mean Corpuscular Hemoglobin 27 pg (25-35) Mean Corpuscular Hemoglobin Concent 30 g/dL (31-37) Red Cell Distribution Width 21.0 % (11.5-14.5) Platelet Count 227 x10^3/uL (140-400) Neutrophils (%) (Auto) 85 % (31-73) Lymphocytes (%) (Auto) 5 % (24-48) Monocytes (%) (Auto) 8 % (0-9) Eosinophils (%) (Auto) 1 % (0-3) Basophils (%) (Auto) 1 % (0-3) Neutrophils # (Auto) 10.5 x10^3/uL (1.8-7.7) Lymphocytes # (Auto) 0.7 x10^3/uL (1.0-4.8) Monocytes # (Auto) 1.0 x10^3/uL (0.0-1.1) Eosinophils # (Auto) 0.1 x10^3/uL (0.0-0.7) Basophils # (Auto) 0.1 x10^3/uL (0.0-0.2) Sodium Level 129 mmol/L (136-145) Potassium Level 6.3 mmol/L (3.5-5.1) Chloride Level 91 mmol/L (98-107) Carbon Dioxide Level 14 mmol/L (21-32) Anion Gap 24 (6-14) Blood Urea Nitrogen 41 mg/dL (8-26) Creatinine 3.9 mg/dL (0.7-1.3) Estimated GFR (Cockcroft-Gault) 18.5 Glucose Level 240 mg/dL (70-99) Calcium Level 8.8 mg/dL (8.5-10.1) Test 02/04/20 06:10 02/04/20 07:40 02/04/20 08:00 02/04/20 16:25 Glucose (Fingerstick) 316 mg/dL (70-99) White Blood Count 12.7 x10^3/uL (4.0-11.0) 12.1 x10^3/uL (4.0-11.0) Red Blood Count 1.62 x10^6/uL (4.30-5.70) 1.75 x10^6/uL (4.30-5.70) Hemoglobin 4.3 g/dL (13.0-17.5) 4.6 g/dL (13.0-17.5) Hematocrit 14.1 % (39.0-53.0) 14.6 % (39.0-53.0) Mean Corpuscular Volume 87 fL (79-100) 84 fL (79-100) Mean Corpuscular Hemoglobin 26 pg (25-35) 27 pg (25-35) Mean Corpuscular Hemoglobin Concent 30 g/dL (31-37) 32 g/dL (31-37) Red Cell Distribution Width 21.1 % (11.5-14.5) 20.4 % (11.5-14.5) Platelet Count 204 x10^3/uL (140-400) 218 x10^3/uL (140-400) Neutrophils (%) (Auto) 88 % (31-73) 85 % (31-73) Lymphocytes (%) (Auto) 4 % (24-48) 5 % (24-48) Monocytes (%) (Auto) 7 % (0-9) 8 % (0-9) Eosinophils (%) (Auto) 0 % (0-3) 1 % (0-3) Basophils (%) (Auto) 1 % (0-3) 1 % (0-3) Neutrophils # (Auto) 11.2 x10^3/uL (1.8-7.7) 10.3 x10^3/uL (1.8-7.7) Lymphocytes # (Auto) 0.5 x10^3/uL (1.0-4.8) 0.6 x10^3/uL (1.0-4.8) Monocytes # (Auto) 0.9 x10^3/uL (0.0-1.1) 1.0 x10^3/uL (0.0-1.1) Eosinophils # (Auto) 0.0 x10^3/uL (0.0-0.7) 0.1 x10^3/uL (0.0-0.7) Basophils # (Auto) 0.1 x10^3/uL (0.0-0.2) 0.1 x10^3/uL (0.0-0.2) Prothrombin Time 30.4 SEC (11.7-14.0) Prothromb Time International Ratio 2.9 (0.8-1.1) Sodium Level 132 mmol/L (136-145) 135 mmol/L (136-145) Potassium Level 4.2 mmol/L (3.5-5.1) 3.3 mmol/L (3.5-5.1) Chloride Level 93 mmol/L (98-107) 100 mmol/L (98-107) Carbon Dioxide Level 16 mmol/L (21-32) 25 mmol/L (21-32) Anion Gap 23 (6-14) 10 (6-14) Blood Urea Nitrogen 40 mg/dL (8-26) 12 mg/dL (8-26) Creatinine 4.1 mg/dL (0.7-1.3) 1.7 mg/dL (0.7-1.3) Estimated GFR (Cockcroft-Gault) 17.5 48.3 BUN/Creatinine Ratio 10 (6-20) Glucose Level 170 mg/dL (70-99) 89 mg/dL (70-99) Calcium Level 9.4 mg/dL (8.5-10.1) 8.5 mg/dL (8.5-10.1) Magnesium Level 2.3 mg/dL (1.8-2.4) Total Bilirubin 0.5 mg/dL (0.2-1.0) Aspartate Amino Transf (AST/SGOT) 59 U/L (15-37) Alanine Aminotransferase (ALT/SGPT) 13 U/L (16-63) Alkaline Phosphatase 147 U/L (46-116) Total Protein 6.6 g/dL (6.4-8.2) Albumin 2.2 g/dL (3.4-5.0) Albumin/Globulin Ratio 0.5 (1.0-1.7) O2 Saturation 100 % (92-99) Arterial Blood pH 7.38 (7.35-7.45) Arterial Blood pCO2 at Patient Temp 36 mmHg (35-46) Arterial Blood pO2 at Patient Temp 473 mmHg (65-108) Arterial Blood HCO3 21 mmol/L (21-28) Arterial Blood Base Excess -4 mmol/L (-3-3) FiO2 100% vent Segmented Neutrophils % 92 % (35-66) Band Neutrophils % 1 % (0-9) Lymphocytes % 3 % (24-48) Monocytes % 4 % (0-10) Platelet Estimate Adequate (ADEQUATE) Hypochromasia Slight Anisocytosis Mod Target Cells Occ Test 02/05/20 00:01 02/05/20 04:30 02/05/20 05:59 Glucose (Fingerstick) 96 mg/dL (70-99) 126 mg/dL (70-99) White Blood Count 9.3 x10^3/uL (4.0-11.0) Red Blood Count 1.84 x10^6/uL (4.30-5.70) Hemoglobin 5.0 g/dL (13.0-17.5) Hematocrit 15.9 % (39.0-53.0) Mean Corpuscular Volume 87 fL (79-100) Mean Corpuscular Hemoglobin 27 pg (25-35) Mean Corpuscular Hemoglobin Concent 32 g/dL (31-37) Red Cell Distribution Width 21.3 % (11.5-14.5) Platelet Count 239 x10^3/uL (140-400) Neutrophils (%) (Auto) 83 % (31-73) Lymphocytes (%) (Auto) 5 % (24-48) Monocytes (%) (Auto) 11 % (0-9) Eosinophils (%) (Auto) 1 % (0-3) Basophils (%) (Auto) 1 % (0-3) Neutrophils # (Auto) 7.7 x10^3/uL (1.8-7.7) Lymphocytes # (Auto) 0.4 x10^3/uL (1.0-4.8) Monocytes # (Auto) 1.0 x10^3/uL (0.0-1.1) Eosinophils # (Auto) 0.1 x10^3/uL (0.0-0.7) Basophils # (Auto) 0.1 x10^3/uL (0.0-0.2) Sodium Level 136 mmol/L (136-145) Potassium Level 3.2 mmol/L (3.5-5.1) Chloride Level 99 mmol/L (98-107) Carbon Dioxide Level 24 mmol/L (21-32) Anion Gap 13 (6-14) Blood Urea Nitrogen 17 mg/dL (8-26) Creatinine 2.2 mg/dL (0.7-1.3) Estimated GFR (Cockcroft-Gault) 35.9 BUN/Creatinine Ratio 8 (6-20) Glucose Level 122 mg/dL (70-99) Calcium Level 8.6 mg/dL (8.5-10.1) Total Bilirubin 0.6 mg/dL (0.2-1.0) Aspartate Amino Transf (AST/SGOT) 206 U/L (15-37) Alanine Aminotransferase (ALT/SGPT) 48 U/L (16-63) Alkaline Phosphatase 156 U/L (46-116) Total Protein 6.5 g/dL (6.4-8.2) Albumin 2.0 g/dL (3.4-5.0) Albumin/Globulin Ratio 0.4 (1.0-1.7) Laboratory Tests Test 02/04/20 16:25 02/05/20 00:01 02/05/20 04:30 02/05/20 05:59 White Blood Count 12.1 x10^3/uL (4.0-11.0) 9.3 x10^3/uL (4.0-11.0) Red Blood Count 1.75 x10^6/uL (4.30-5.70) 1.84 x10^6/uL (4.30-5.70) Hemoglobin 4.6 g/dL (13.0-17.5) 5.0 g/dL (13.0-17.5) Hematocrit 14.6 % (39.0-53.0) 15.9 % (39.0-53.0) Mean Corpuscular Volume 84 fL (79-100) 87 fL (79-100) Mean Corpuscular Hemoglobin 27 pg (25-35) 27 pg (25-35) Mean Corpuscular Hemoglobin Concent 32 g/dL (31-37) 32 g/dL (31-37) Red Cell Distribution Width 20.4 % (11.5-14.5) 21.3 % (11.5-14.5) Platelet Count 218 x10^3/uL (140-400) 239 x10^3/uL (140-400) Neutrophils (%) (Auto) 85 % (31-73) 83 % (31-73) Lymphocytes (%) (Auto) 5 % (24-48) 5 % (24-48) Monocytes (%) (Auto) 8 % (0-9) 11 % (0-9) Eosinophils (%) (Auto) 1 % (0-3) 1 % (0-3) Basophils (%) (Auto) 1 % (0-3) 1 % (0-3) Neutrophils # (Auto) 10.3 x10^3/uL (1.8-7.7) 7.7 x10^3/uL (1.8-7.7) Lymphocytes # (Auto) 0.6 x10^3/uL (1.0-4.8) 0.4 x10^3/uL (1.0-4.8) Monocytes # (Auto) 1.0 x10^3/uL (0.0-1.1) 1.0 x10^3/uL (0.0-1.1) Eosinophils # (Auto) 0.1 x10^3/uL (0.0-0.7) 0.1 x10^3/uL (0.0-0.7) Basophils # (Auto) 0.1 x10^3/uL (0.0-0.2) 0.1 x10^3/uL (0.0-0.2) Segmented Neutrophils % 92 % (35-66) Band Neutrophils % 1 % (0-9) Lymphocytes % 3 % (24-48) Monocytes % 4 % (0-10) Platelet Estimate Adequate (ADEQUATE) Hypochromasia Slight Anisocytosis Mod Target Cells Occ Sodium Level 135 mmol/L (136-145) 136 mmol/L (136-145) Potassium Level 3.3 mmol/L (3.5-5.1) 3.2 mmol/L (3.5-5.1) Chloride Level 100 mmol/L (98-107) 99 mmol/L (98-107) Carbon Dioxide Level 25 mmol/L (21-32) 24 mmol/L (21-32) Anion Gap 10 (6-14) 13 (6-14) Blood Urea Nitrogen 12 mg/dL (8-26) 17 mg/dL (8-26) Creatinine 1.7 mg/dL (0.7-1.3) 2.2 mg/dL (0.7-1.3) Estimated GFR (Cockcroft-Gault) 48.3 35.9 Glucose Level 89 mg/dL (70-99) 122 mg/dL (70-99) Calcium Level 8.5 mg/dL (8.5-10.1) 8.6 mg/dL (8.5-10.1) Glucose (Fingerstick) 96 mg/dL (70-99) 126 mg/dL (70-99) BUN/Creatinine Ratio 8 (6-20) Total Bilirubin 0.6 mg/dL (0.2-1.0) Aspartate Amino Transf (AST/SGOT) 206 U/L (15-37) Alanine Aminotransferase (ALT/SGPT) 48 U/L (16-63) Alkaline Phosphatase 156 U/L (46-116) Total Protein 6.5 g/dL (6.4-8.2) Albumin 2.0 g/dL (3.4-5.0) Albumin/Globulin Ratio 0.4 (1.0-1.7) Medications Active Scripts Medications Dose Route/Sig Max Daily Dose Days Date Category Dose Instructions Hydroxyzine Hcl 10 Mg/5 Ml Syrup 10 Mg PO TID 01/29/20 Reported Hydrocodone-Acetamin 5-325 mg (Hydrocodone/Acetaminophen) 1 Each Tablet 1 Each PO PRN Q6HRS PRN 01/29/20 Reported Glutose 15 (Dextrose) 37.5 Gm Gel..gram. 37.5 Gm PO PRN 01/29/20 Reported Cyclobenzaprine Hcl 10 Mg Tablet 1 Tab PO TID 01/29/20 Reported Tylenol (Acetaminophen) 325 Mg Tablet 2 Tab PO Q6HRS PRN 01/29/20 Reported Warfarin Sodium 2 Mg Tablet 2 Mg PO DAILY 01/29/20 Reported B-12 (Cyanocobalamin (Vitamin B-12)) 1,000 Mcg Tablet.er 1 Tab PO DAILY 30 01/29/20 Reported Senna-Docusate Sodium Tablet (Sennosides/Docusate Sodium) 1 Each Tablet 1 Tab PO HS 20 01/29/20 Reported Transderm-Scop (Scopolamine) 1 Each Patch.td72 1 Patch TP Q3DAYS 01/29/20 Reported Renal Caps Softgel (Folic Acid/Vitamin B Comp W-C) 1 Mg Capsule 1 Cap PO DAILY 30 01/29/20 Reported Miralax (Polyethylene Glycol 3350) 17 Gm Powd.pack 1 Packet PO DAILY 2 01/29/20 Reported dissolve in water Pantoprazole Sodium (Pantoprazole Sodium) 40 Mg Tablet.dr 40 Mg PO DAILYAC 01/29/20 Reported Midodrine Hcl 10 Mg Tablet 10 Mg PO TID 01/29/20 Reported Metoprolol Tartrate 25 Mg Tablet 0.5 Tab PO BID 01/29/20 Reported Reglan (Metoclopramide Hcl) 10 Mg Tablet 1 Tab PO TIDAC 30 01/29/20 Reported before food and bedtime Melatonin 3 Mg Capsule 3 Mg PO HS 01/29/20 Reported Magnesium Oxide 400 Mg Tablet 1 Tab PO BID 01/29/20 Reported Ipratropium [place] 0.2 Mg/1 Ml Solution 1 Vial NEB QID 01/29/20 Reported Humalog (Insulin Lispro) 100 Unit/1 Ml Vial 4 Unit SQ TIDAC 01/29/20 Reported Insulin Lispro 100 Unit/1 Ml Vial 0-6 Unit SQ TIDAC 01/29/20 Reported Renal-Karina Tablet (Folic Acid/Vit Bcomp,C) 0.8 Mg Tablet 1 Mg PO DAILY 01/29/20 Reported Ferrous Sulfate 220 Mg/5 Ml Solution 5 Ml PO DAILY 30 01/29/20 Reported Buspirone Hcl 5 Mg Tablet 1 Tab PO TID 01/29/20 Reported Budesonide 0.5 Mg/2 Ml Ampul.neb 1 Vial NEB BID 01/29/20 Reported Atorvastatin Calcium 40 Mg Tablet 1 Tab PO QHS 01/29/20 Reported Ascorbic Acid 500 Mg Tablet 500 Mg PO DAILY 01/29/20 Reported Amiodarone Hcl 400 Mg Tablet 1 Tab PO DAILY 30 01/29/20 Reported Comments CXR IMPRESSION: * Hypoexpanded exam with interstitial opacities bilaterally which could be from bilateral infiltrate or edema. There is a more focal component at the right midlung which could be from infiltrate or atelectasis. * Enlarged cardiomediastinal silhouette. Impression . IMPRESSION: Respiratory arrest/cardiac arrest Severe anemia Acute respiratory failure. The patient currently is on oxygen via nasal cannula. He has a tracheostomy, which is capped. Bqrlm-[id number] blood loss anemia from AV fistula site. End-stage renal disease, on hemodialysis. Severe protein-calorie malnutrition. Severe cardiomyopathy with an EF of 10%. The patient is Mosque. Plan . Continue current ventilatory support patient is not stable enough for a weaning trial he remains on an FiO2 of 40% and a PEEP of 5. Make ventilator changes based on ABGs Follow ABG/chest x-ray, Bronchodilators Follow nephrology recommendations--continue hemodialysis Monitor hemoglobin--hemoglobin is 5.0 today--patient is Mosque and will not receive blood transfusion Follow cardiology recommendations Continue vasopressors to keep map greater than 60 DVT/GI PPX: protonix/coumadin on hold D/W RN and RT D/W daughter is at bedside, family is currently considering comfort measures agree with hospice/comfort measures. Critical care time without overlap 0830Am to 0836 AM SAMANTHA MERCHANT MD Feb 05, 2020 09:11
--- NOTE | 2020-02-05 09:58 | PDOC ---
IM PROGRESS NOTES- Subjective Subjective Patient is nonresponsive, sedated and on mechanical ventilation. Unable to do systems review. Objective Vitals/I&O Vital Signs Date Time Temp Pulse Resp B/P (MAP) Pulse Ox O2 Delivery O2 Flow Rate FiO2 02/05/20 09:45 57 16 101/56 (71) 100 Ventilator 02/05/20 04:00 96.0 96.0 I & O 02/04/20 02/04/20 02/05/20 15:00 23:00 07:00 Intake Total 2792 ml Output Total 0 ml 0 ml 0 ml Balance 0 ml 2792 ml 0 ml Physical Exam Physical Exam General appearance - sedated but moving extremities he is on mechanical ventilation. Mental Status -sedated Head - normal on mechanical ventilation Chest -decreased breath sounds at bases Heart - S1 and S2 normal Abdomen - soft, non tender, ascites Neurological -sedated Extremities -trace edema Skin - warm and dry. No bleeding from the AV fistula on the right upper extremity Labs Laboratory Tests Test 02/04/20 16:25 02/05/20 00:01 02/05/20 04:30 02/05/20 05:59 White Blood Count 12.1 x10^3/uL (4.0-11.0) H 9.3 x10^3/uL (4.0-11.0) Red Blood Count 1.75 x10^6/uL (4.30-5.70) L 1.84 x10^6/uL (4.30-5.70) L Hemoglobin 4.6 g/dL (13.0-17.5) *L 5.0 g/dL (13.0-17.5) *L Hematocrit 14.6 % (39.0-53.0) *L 15.9 % (39.0-53.0) *L Mean Corpuscular Volume 84 fL (79-100) 87 fL (79-100) Mean Corpuscular Hemoglobin 27 pg (25-35) 27 pg (25-35) Mean Corpuscular Hemoglobin Concent 32 g/dL (31-37) 32 g/dL (31-37) Red Cell Distribution Width 20.4 % (11.5-14.5) H 21.3 % (11.5-14.5) H Platelet Count 218 x10^3/uL (140-400) 239 x10^3/uL (140-400) Neutrophils (%) (Auto) 85 % (31-73) H 83 % (31-73) H Lymphocytes (%) (Auto) 5 % (24-48) L 5 % (24-48) L Monocytes (%) (Auto) 8 % (0-9) 11 % (0-9) H Eosinophils (%) (Auto) 1 % (0-3) 1 % (0-3) Basophils (%) (Auto) 1 % (0-3) 1 % (0-3) Neutrophils # (Auto) 10.3 x10^3/uL (1.8-7.7) H 7.7 x10^3/uL (1.8-7.7) Lymphocytes # (Auto) 0.6 x10^3/uL (1.0-4.8) L 0.4 x10^3/uL (1.0-4.8) L Monocytes # (Auto) 1.0 x10^3/uL (0.0-1.1) 1.0 x10^3/uL (0.0-1.1) Eosinophils # (Auto) 0.1 x10^3/uL (0.0-0.7) 0.1 x10^3/uL (0.0-0.7) Basophils # (Auto) 0.1 x10^3/uL (0.0-0.2) 0.1 x10^3/uL (0.0-0.2) Segmented Neutrophils % 92 % (35-66) H Band Neutrophils % 1 % (0-9) Lymphocytes % 3 % (24-48) L Monocytes % 4 % (0-10) Platelet Estimate Adequate (ADEQUATE) Hypochromasia Slight Anisocytosis Mod Target Cells Occ Sodium Level 135 mmol/L (136-145) L 136 mmol/L (136-145) Potassium Level 3.3 mmol/L (3.5-5.1) L 3.2 mmol/L (3.5-5.1) L Chloride Level 100 mmol/L (98-107) 99 mmol/L (98-107) Carbon Dioxide Level 25 mmol/L (21-32) 24 mmol/L (21-32) Anion Gap 10 (6-14) 13 (6-14) Blood Urea Nitrogen 12 mg/dL (8-26) # 17 mg/dL (8-26) Creatinine 1.7 mg/dL (0.7-1.3) H 2.2 mg/dL (0.7-1.3) H Estimated GFR (Cockcroft-Gault) 48.3 35.9 Glucose Level 89 mg/dL (70-99) 122 mg/dL (70-99) H Calcium Level 8.5 mg/dL (8.5-10.1) 8.6 mg/dL (8.5-10.1) Glucose (Fingerstick) 96 mg/dL (70-99) 126 mg/dL (70-99) H BUN/Creatinine Ratio 8 (6-20) Total Bilirubin 0.6 mg/dL (0.2-1.0) Aspartate Amino Transferase (AST) 206 U/L (15-37) H Alanine Aminotransferase (ALT) 48 U/L (16-63) Alkaline Phosphatase 156 U/L (46-116) H Total Protein 6.5 g/dL (6.4-8.2) Albumin 2.0 g/dL (3.4-5.0) L Albumin/Globulin Ratio 0.4 (1.0-1.7) L Laboratory Tests 02/04/20 16:25 02/05/20 04:30 Laboratory Tests 02/04/20 16:25 02/05/20 04:30 Assessment Assessment 1. 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 The patient underwent resection of the fistula and placement of a Hubbard-Pan graft. 2. End-stage renal disease, on hemodialysis. 3. Mechanical mitral valve, on Coumadin. 4. Cardiomyopathy, ejection fraction 10%. 5. History of cardiac event with arrhythmias and the patient was on vest at [facility]. 6. The patient is Jain complicating the treatment plans. The patient is refusing any blood products. 7. Diabetes. 8. Hypertension. 9. Hyperlipidemia. 10. Recent tracheostomy, which was placed recently 3-4 weeks ago. PLAN: At this time, the patient was taken to emergency surgery for the AV shunt repair, placement of Hubbard-Pan graft and the patient was admitted to the ICU. Renal is consulted for dialysis. We will give some Irais xalate to bring the potassium down and a temporary dialysis catheter because the Hubbard-Pan graft could not be used for another 4 weeks and hold Coumadin, so that we can place the catheter and the patient is also on amiodarone for cardiac arrhythmias. We will have Cardiology follow while he is here in the hospital. AV fistula bleeding stable Acute on chronic blood loss anemia-hemoglobin has increased to 5. Acute hypotension-patient had dialysis yesterday. Required IV fluids. Improving. Start tube feeding. He is still on a small dose of Levophed. Patient is also on Coumadin so this complicates the situation. Continue iron, B complex, folic acid and vitamin C. Consult chlorination operator. End-stage renal disease on hemodialysis-because of the fistula repair it cannot be used for 4 weeks. A left upper chest temporary dialysis catheter has been placed. Prosthetic mitral valve. INR was 2.9 yesterday. Hold Coumadin today. Today's INR is pending. Dyspnea may be due to anemia. I will consult furnace charging machine operator. Oxygen has been increased to 4 L by nasal cannula. Order chest x-ray. Also consult firestopper technician. Discussed with patient extensively about the low hemoglobin but he does not want any transfusion. Complication such as cardiac arrhythmia, acute RI, congestive heart failure, stroke and sudden discussed with the patient. He still does not want any transfusion. Continue management in ICU. Prognosis of this patient is very poor. Patient has been seen by the chlorination operator. No new changes in treatment. CODE BLUE due to severe bradycardia arrhythmia. Most likely due to his extremely low hemoglobin. I have previously discussed this with the patient several times but patient has declined to have blood transfusion. This morning I spoke to patient's Ada on the phone and condition, treatment, options extensively discussed with her. She wants him to be comfortable and does not want any compressions or electric shocks but would like to continue mechanical ventilation and hemodialysis and other treatments. She wants him to be comfortable. Also does not want any blood transfusion but was asking if there are any other alternative infusions that we can give. I have told her that the options are not going to replace the blood transfusion. He is already on multiple hematinics. I have asked the staff to contact Dr. Jacobs to see if anything else can be done for the patient's anemia without blood transfusion. Prognosis remains extremely poor and this was discussed with the . Critical care management 45 minutes. Btwcustbksie-rossi-tpsrhy insulin has been discontinued. Patient will only get very low-dose sliding scale insulin. Blood sugar control is better. Electrolyte imbalance-potassium is 3.2. Staff will check with the childbirth educator. Condition, treatment and options and very poor prognosis extensively discussed with the patient's at bedside. Options such as comfort care discussed with her. She will discuss with her family and let us know if they want to change any treatment. Questions about low hemoglobin and treatment extensively discussed with her. She still does not want him to have any blood transfusion. Critical care management time 35 minutes. Plan Plan For more details regarding further plans, please refer to the orders. Justifications for Admission Other Justification JEAN BRUNSON MD Feb 05, 2020 09:58
[2020-02-05 11:05] LABS: BASE EXCESS ABG -2 mmol/L (-3-3); HCO3 ABG 24 mmol/L (21-28); PCO2 ABG 42 mmHg (35-46); PO2 ABG 101 mmHg (65-108); SAT O2 ABG 97 % (92-99)
[2020-02-05 11:11] LABS: FIO2 ABG 40
[2020-02-05] MEDS: METOCLOPRAMIDE 10 MG TABLET. PO SCH ×2 (11:30→12:59)
[2020-02-05] MEDS: INSULIN LISPRO 300 UNITS/3 ML VIAL. SQ SCH ×2 (11:52→18:00)
--- NOTE | 2020-02-05 12:06 | PDOC ---
DATE OF SERVICE: DOS: DATE: 02/05/20 TIME: 12:00 SUBJECTIVE ROS Follow-up for ESRD on dialysis Patient remains on the ventilator via tracheostomy. Sedated currently. A Dobbhoff tube is been placed currently for feeding OBJECTIVE Vital Signs Vital Signs Date Time Temp Pulse Resp B/P (MAP) Pulse Ox O2 Delivery O2 Flow Rate FiO2 02/05/20 11:00 59 16 106/58 (74) 100 Ventilator 02/05/20 04:00 96.0 96.0 I & 0 Intake and Output 02/05/20 07:00 Intake Total 2792 ml Output Total 0 ml Balance 2792 ml IV Total 2792 ml Output Urine Total 0 ml PHYSICAL EXAM Physical Exam GEN: Remains on the vent via tracheostomy. Currently sedated EYES: Conjunctiva is pale sclerae anicteric EN: No EN Drainage, Mucous Membranes dry NECK: No visible JVD, or JVP, Supple, or palpable thyromegaly CVS: S1S2, positive murmur, No Gallop, No Rub, no edema RESP: Few basal Rales, no rhonchi, no Acc. Muscle Use GI: BS hypoactive, NO Bruit, Non Tender, Non Distended : no CVA tenderness, no Suprapubic Tenderness DIAGNOSIS/ASSESSMENT Assessment & Plan ESRD: Current fluid and E-lyte status does not necessitate emergent need for dialysis. Will re-evaluate for dialysis in the am and continue on Friday schedule. ANEMIA associated with blood loss as well as chronic kidney disease: Aranap as ordered, patient is a Jehovah's witness and hence not a candidate for transfusion Hypokalemia postdialysis: Tube feeds to begin later today. 40 mEq potassium via tube will be ordered Bleeding from AV fistula: Now status post repair BONE & MINERAL: Follow phosphorus levels and add binders if needed Severe hypoalbuminemia with failure to thrive cannot be ruled out. Discussed Plan of care with ICU nurse at bedside COMMENT/RELEVANT DATA Meds Current Medications Medications (Trade) Dose Ordered Sig/Cheri Start Time Stop Time Status Last Admin Dose Admin Acetaminophen (Tylenol) 650 mg Q6HRS PRN 01/30/20 12:30 02/04/20 02:32 650 MG Acetaminophen/ Hydrocodone Bitart (Lortab 5/325) 1 tab PRN Q6HRS PRN 01/30/20 12:30 Albumin Human 200 ml @ 200 mls/hr 1X PRN PRN 02/04/20 07:15 02/04/20 13:14 DC Albuterol Sulfate (Ventolin Neb Soln) 10 mg 1X ONCE 02/04/20 06:00 02/04/20 06:01 DC 02/04/20 05:40 10 MG Amiodarone HCl (Cordarone) 400 mg DAILY 01/30/20 14:00 02/03/20 09:20 400 MG Ascorbic Acid (Vitamin C) 500 mg DAILY 01/30/20 13:00 02/03/20 09:19 500 MG Atorvastatin Calcium (Lipitor) 40 mg QHS 01/30/20 21:00 02/03/20 20:26 40 MG Atropine Sulfate (ATROPINE 0.5mg SYRINGE) 1 mg STK-MED ONCE 02/03/20 04:00 02/04/20 15:14 DC Budesonide (Pulmicort) 0.5 mg BID 01/30/20 21:00 02/05/20 08:15 0.5 MG Buspirone HCl (Buspar) 5 mg TID 01/30/20 14:00 02/03/20 20:26 5 MG Calcium Chloride (Calcium Chloride) 1,000 mg STK-MED ONCE 02/03/20 04:00 02/04/20 15:14 DC Calcium Gluconate (Calcium Gluconate) 1,000 mg 1X ONCE 01/30/20 12:30 01/30/20 12:57 DC Cefazolin Sodium (Ancef) 1 gm 1X ONCE 02/01/20 14:00 02/01/20 14:01 DC 02/01/20 13:56 1 GM Cellulose (Surgicel Fibrillar 1x2) 1 each STK-MED ONCE 01/29/20 14:19 01/29/20 14:19 DC 01/29/20 16:48 1 EACH Cyanocobalamin (Vitamin B-12) 1,000 mcg DAILY 01/30/20 14:00 02/03/20 09:19 1,000 MCG Cyclobenzaprine HCl (Flexeril) 10 mg TID 01/30/20 14:00 02/03/20 20:25 10 MG Darbepoetin Serafin (ARANESP for DIALYSIS PTS) 200 mcg WEEKLYHS 02/01/20 21:00 02/01/20 22:16 200 MCG Dextrose (Dextrose 50%-Water Syringe) 25 gm STK-MED ONCE 02/03/20 04:00 02/04/20 15:14 DC Diphenhydramine HCl (Benadryl) 25 mg 1X PRN PRN 02/04/20 07:15 02/05/20 07:14 DC Fentanyl Citrate (Fentanyl 2ml Vial) 25 mcg PRN Q2HR PRN 02/04/20 13:15 Ferrous Sulfate (Iron Oral Solution) 300 mg DAILY08 01/30/20 14:00 02/03/20 09:18 300 MG Glycopyrrolate (Robinul) 1 mg STK-MED ONCE 01/29/20 14:25 01/29/20 14:25 DC Heparin Sodium (Porcine) (Heparin) 30,000 unit STK-MED ONCE 01/29/20 15:42 01/29/20 15:43 DC Heparin Sodium (Porcine) 5000 unit/Sodium Chloride 505 ml @ 505 mls/hr 1X ONCE 01/29/20 15:00 01/29/20 16:03 DC 01/29/20 15:28 Hydromorphone HCl (Dilaudid) 0.5 mg PRN Q10MIN PRN 01/29/20 16:15 01/29/20 22:00 DC Hydroxyzine HCl (Atarax) 10 mg TID 01/30/20 14:00 02/03/20 20:26 10 MG Info (PHARMACY MONITORING -- do not chart) 1 each PRN DAILY PRN 02/04/20 07:15 Insulin Human Lispro (HumaLOG) 0-5 UNITS Q6HRS 02/05/20 12:00 Insulin Human Regular (HumuLIN R VIAL) 10 unit 1X ONCE 01/30/20 12:30 01/30/20 12:57 DC 01/30/20 13:29 10 UNIT Ipratropium [place] (Atrovent) 0.5 mg RTQID 01/30/20 13:00 02/05/20 08:15 0.5 MG Iron Sucrose 200 mg/Sodium Chloride 110 ml @ 55 mls/hr 1X ONCE 01/31/20 09:00 01/31/20 08:42 DC Ketamine HCl (Ketamine) 50 mg STK-MED ONCE 01/29/20 15:27 01/29/20 15:27 DC Lidocaine HCl (Buffered Lidocaine 1%) 3 ml 1X ONCE 01/30/20 13:30 01/30/20 13:44 DC Lidocaine HCl (Xylocaine 1% Pf 30ml Vial) 30 ml STK-MED ONCE 01/29/20 14:19 01/29/20 14:19 DC Lidocaine HCl (Xylocaine-Mpf 1% 2ml Vial) 2 ml PRN 1X PRN 01/29/20 16:15 01/29/20 22:00 DC Lidocaine HCl (Xylocaine-Mpf 1% 5ml Vial) 5 ml STK-MED ONCE 01/29/20 12:51 01/29/20 12:51 DC Lidocaine/ Epinephrine (LIDOCAINE 1%-EPI 1:100,000 Multi-Dose) 20 ml 1X ONCE 02/01/20 14:00 02/01/20 14:01 DC 02/01/20 13:57 10 ML Magnesium Oxide (Magnesium Oxide) 400 mg BID 01/31/20 14:00 02/03/20 20:26 400 MG Metoclopramide HCl (Reglan) 5 mg TIDAC 01/30/20 16:30 02/03/20 17:14 5 MG Metoprolol Tartrate (Lopressor) 12.5 mg BID 01/30/20 14:00 02/03/20 09:19 12.5 MG Midazolam HCl 100 ml @ 1 mls/hr CONT PRN 02/04/20 06:30 02/05/20 03:01 8 MLS/HR Midazolam HCl (Versed) 2 mg STK-MED ONCE 01/29/20 14:27 01/29/20 14:27 DC Midodrine (Proamatine) 10 mg [id number] 01/30/20 18:00 02/03/20 17:13 10 MG Morphine Sulfate (Morphine Sulfate) 1 mg PRN Q10MIN PRN 01/29/20 16:15 01/29/20 22:00 DC Non-Formulary Medication (Melatonin ) 3 mg HS 01/30/20 21:00 UNV Norepinephrine Bitartrate 8 mg/ Dextrose 258 ml @ 13.39 mls/ hr CONT PRN 02/04/20 08:15 02/05/20 01:07 13.39 MLS/HR Ondansetron HCl (Zofran) 4 mg PRN Q6HRS PRN 01/29/20 16:15 01/29/20 22:00 DC Pantoprazole Sodium (Protonix) 40 mg DAILYAC 01/30/20 16:30 02/03/20 07:04 40 MG Papaverine HCl 60 mg STK-MED ONCE 01/29/20 14:19 01/29/20 14:20 DC Pharmacy Consult (C.diff Med Screen By Rx) 1 each 1X ONCE 01/29/20 17:45 01/29/20 17:46 UNV Phenylephrine HCl (PHENYLEPHRINE in 0.9% NACL PF) 1 mg STK-MED ONCE 01/29/20 15:42 01/29/20 15:43 DC Polyethylene Glycol (miraLAX PACKET) 17 gm DAILY 01/30/20 14:00 02/03/20 09:18 17 GM Prochlorperazine Edisylate (Compazine) 5 mg PACU PRN PRN 01/29/20 16:15 01/29/20 22:00 DC Ringer's Solution 1,000 ml @ 30 mls/hr Q24H 01/29/20 16:04 01/30/20 04:03 DC Rocuronium [place] (Zemuron) 50 mg STK-MED ONCE 01/29/20 14:26 01/29/20 14:26 DC Senna/Docusate Sodium (Senna Plus) 1 tab HS 01/30/20 21:00 02/03/20 20:26 1 TAB Sevoflurane (Ultane) 90 ml STK-MED ONCE 01/29/20 16:59 01/29/20 16:59 DC Sodium Polystyrene Sulfonate (Kayexalate) 30 gm 1X ONCE 01/30/20 12:15 01/30/20 12:16 DC 01/30/20 12:41 30 GM Sodium Bicarbonate (Sodium Bicarb Adult 8.4% Syr) 50 meq 1X ONCE 01/30/20 12:30 01/30/20 12:57 DC 01/30/20 12:50 50 MEQ Sodium Chloride 1,000 ml @ 400 mls/hr Q2H30M PRN 02/04/20 07:08 02/04/20 19:07 DC Sodium Chloride (Normal Saline Flush) 10 ml 1X PRN PRN 02/04/20 07:15 02/05/20 07:14 DC Vitamin B Complex/ Vitamin C (Nora-Karina) 1 tab DAILY 01/30/20 14:00 01/31/20 09:44 DC Warfarin Sodium (Coumadin Per Physician) 1 each PRN DAILY PRN 02/02/20 14:45 02/04/20 15:37 1 EACH Warfarin Sodium (Coumadin) 3 mg DAILY16 02/02/20 16:00 02/05/20 09:54 DC 02/03/20 17:14 3 MG Lab Laboratory Tests Test 02/04/20 16:25 02/05/20 00:01 02/05/20 04:30 02/05/20 05:59 White Blood Count 12.1 x10^3/uL (4.0-11.0) 9.3 x10^3/uL (4.0-11.0) Red Blood Count 1.75 x10^6/uL (4.30-5.70) 1.84 x10^6/uL (4.30-5.70) Hemoglobin 4.6 g/dL (13.0-17.5) 5.0 g/dL (13.0-17.5) Hematocrit 14.6 % (39.0-53.0) 15.9 % (39.0-53.0) Mean Corpuscular Volume 84 fL (79-100) 87 fL (79-100) Mean Corpuscular Hemoglobin 27 pg (25-35) 27 pg (25-35) Mean Corpuscular Hemoglobin Concent 32 g/dL (31-37) 32 g/dL (31-37) Red Cell Distribution Width 20.4 % (11.5-14.5) 21.3 % (11.5-14.5) Platelet Count 218 x10^3/uL (140-400) 239 x10^3/uL (140-400) Neutrophils (%) (Auto) 85 % (31-73) 83 % (31-73) Lymphocytes (%) (Auto) 5 % (24-48) 5 % (24-48) Monocytes (%) (Auto) 8 % (0-9) 11 % (0-9) Eosinophils (%) (Auto) 1 % (0-3) 1 % (0-3) Basophils (%) (Auto) 1 % (0-3) 1 % (0-3) Neutrophils # (Auto) 10.3 x10^3/uL (1.8-7.7) 7.7 x10^3/uL (1.8-7.7) Lymphocytes # (Auto) 0.6 x10^3/uL (1.0-4.8) 0.4 x10^3/uL (1.0-4.8) Monocytes # (Auto) 1.0 x10^3/uL (0.0-1.1) 1.0 x10^3/uL (0.0-1.1) Eosinophils # (Auto) 0.1 x10^3/uL (0.0-0.7) 0.1 x10^3/uL (0.0-0.7) Basophils # (Auto) 0.1 x10^3/uL (0.0-0.2) 0.1 x10^3/uL (0.0-0.2) Segmented Neutrophils % 92 % (35-66) Band Neutrophils % 1 % (0-9) Lymphocytes % 3 % (24-48) Monocytes % 4 % (0-10) Platelet Estimate Adequate (ADEQUATE) Hypochromasia Slight Anisocytosis Mod Target Cells Occ Sodium Level 135 mmol/L (136-145) 136 mmol/L (136-145) Potassium Level 3.3 mmol/L (3.5-5.1) 3.2 mmol/L (3.5-5.1) Chloride Level 100 mmol/L (98-107) 99 mmol/L (98-107) Carbon Dioxide Level 25 mmol/L (21-32) 24 mmol/L (21-32) Anion Gap 10 (6-14) 13 (6-14) Blood Urea Nitrogen 12 mg/dL (8-26) 17 mg/dL (8-26) Creatinine 1.7 mg/dL (0.7-1.3) 2.2 mg/dL (0.7-1.3) Estimated GFR (Cockcroft-Gault) 48.3 35.9 Glucose Level 89 mg/dL (70-99) 122 mg/dL (70-99) Calcium Level 8.5 mg/dL (8.5-10.1) 8.6 mg/dL (8.5-10.1) Glucose (Fingerstick) 96 mg/dL (70-99) 126 mg/dL (70-99) BUN/Creatinine Ratio 8 (6-20) Total Bilirubin 0.6 mg/dL (0.2-1.0) Aspartate Amino Transf (AST/SGOT) 206 U/L (15-37) Alanine Aminotransferase (ALT/SGPT) 48 U/L (16-63) Alkaline Phosphatase 156 U/L (46-116) Total Protein 6.5 g/dL (6.4-8.2) Albumin 2.0 g/dL (3.4-5.0) Albumin/Globulin Ratio 0.4 (1.0-1.7) Test 02/05/20 08:00 02/05/20 11:32 O2 Saturation 97 % (92-99) Arterial Blood pH 7.37 (7.35-7.45) Arterial Blood pCO2 at Patient Temp 42 mmHg (35-46) Arterial Blood pO2 at Patient Temp 101 mmHg (65-108) Arterial Blood HCO3 24 mmol/L (21-28) Arterial Blood Base Excess -2 mmol/L (-3-3) FiO2 40 Glucose (Fingerstick) 102 mg/dL (70-99) Results All relevant outside records, renal labs, imaging studies, telemetry/EKG's were reviewed. Other Chest x-ray from 02/04/2020: IMPRESSION: * Hypoexpanded exam with interstitial opacities bilaterally which could be from bilateral infiltrate or edema. There is a more focal component at the right midlung which could be from infiltrate or atelectasis. * Enlarged cardiomediastinal silhouette. Justicifation of Admission Dx: Justifications for Admission: Justification of Admission Dx: Yes RONN FARFAN MD Feb 05, 2020 12:06
--- NOTE | 2020-02-05 12:28 | RAD ---
AP abdomen 02/05/2020 at 11:34 AM. Reason for exam: Dobbhoff placement. A feeding tube is seen coiled in the distal esophagus. The bowel gas pattern shows no obstruction. IMPRESSION: Feeding tube in distal esophagus. AP abdomen 02/05/2020 at 11:37 AM. A feeding tube has been repositioned, its tip now lies in the proximal stomach. There appears to be a dialysis catheter present in the lower chest. IMPRESSION: Repositioning of feeding tube. Electronically signed by: Jordan Jamison Jr., MD (02/05/2020 12:25 PM) [id number]
[2020-02-05] MEDS: MIDODRINE 5 MG TABLET PO SCH ×2 (12:57→18:00)
[2020-02-05] MEDS ORDERED: POTASSIUM BICARB 10 MEQ EFFERVESCENT TABLET. PEG ONE (13:00)
--- NOTE | 2020-02-05 17:28 | NUR ---
Per patient's Ada, comfort measures to be initiated upon her arrival this PM. She is still waiting on a brother from [facility] [place] to visit the patient. Addendum: 02/05/20 at 1731 by ADAM EGAN RN Orders for comfort measures have been provided per Dr. Tsang.
[2020-02-05] MEDS: DEXTROSE 50% 25 GM / 50ML DISP.SYRIN. IV PRN (17:59)
[2020-02-05] MEDS ORDERED: GLYCOPYRROLATE 1 MG/5 ML VIAL. IV ONE (19:15)
[2020-02-05] MEDS ORDERED: MORPHINE SULFATE 10 MG/ML VIAL. IM ONE (19:15)
[2020-02-05] MEDS ORDERED: MORPHINE SULFATE 4 MG/ML VIAL. IV PRN (19:15)
[2020-02-05] MEDS: ATORVASTATIN CALCIUM 40 MG TABLET. PO SCH (20:27)
[2020-02-05] MEDS: SENNOSIDES/DOCUSATE 8.6/50MG TABLET. PO SCH (20:28)
[2020-02-06] VITALS (11 sets, daily range): BP systolic 67–109; BP diastolic 36–68
[2020-02-06] MEDS: INSULIN LISPRO 300 UNITS/3 ML VIAL. SQ SCH ×2 (05:55)
[2020-02-06] MEDS: MIDODRINE 5 MG TABLET PO SCH (07:00)
[2020-02-06] MEDS: METOCLOPRAMIDE 10 MG TABLET. PO SCH (07:30)
[2020-02-06] MEDS: PANTOPRAZOLE 40 MG TABLET.DR. PO SCH (07:30)
[2020-02-06] MEDS: FERROUS SULFATE ORAL 300 MG/5 ML SOLUTION. PO SCH (08:00)
[2020-02-06] MEDS: BUDESONIDE 0.5 MG/2 ML NEBU. NEB SCH (08:09)
[2020-02-06] MEDS: IPRATROPIUM BROMIDE 0.5 MG/2.5 ML NEBU. NEB SCH (08:09)
[2020-02-06] MEDS: busPIRone 5 MG TABLET. PO SCH (09:00)
[2020-02-06] MEDS: AMIODARONE HCL 200 MG TABLET. PO SCH (09:00)
[2020-02-06] MEDS: METOPROLOL TART IMMED RELEASE 25 MG TABLET. PO SCH (09:00)
[2020-02-06] MEDS: POLYETHYLENE GLYCOL 3350 17 GM PACKET. PO SCH (09:00)
[2020-02-06] MEDS: FOLIC/VIT B COMP W-C (RENAL) TABLET. PO SCH (09:00)
[2020-02-06] MEDS: MAGNESIUM OXIDE 400 MG TABLET PO SCH (09:00)
[2020-02-06] MEDS: hydrOXYzine 10 MG TABLET PO SCH (09:00)
[2020-02-06] MEDS: CYCLOBENZAPRINE 10 MG TABLET. PO SCH (09:00)
[2020-02-06] MEDS: ASCORBIC ACID 500 MG TABLET PO SCH (09:00)
[2020-02-06] MEDS: CYANOCOBALAMIN (VITAMIN B-12) 1,000 MCG TABLET. PO SCH (09:00)
--- NOTE | 2020-02-06 09:06 | PDOC ---
IM PROGRESS NOTES- Subjective Subjective Patient is nonresponsive, sedated and on mechanical ventilation. Unable to do systems review. Objective Vitals/I&O Vital Signs Date Time Temp Pulse Resp B/P (MAP) Pulse Ox O2 Delivery O2 Flow Rate FiO2 02/06/20 08:10 100 Ventilator 02/06/20 08:00 98.3 64 16 93/52 (66) 98.3 I & O 02/05/20 02/05/20 02/06/20 15:00 23:00 07:00 Intake Total 100 ml 1942 ml 122.3 ml Output Total 0 ml 0 ml 0 ml Balance 100 ml 1942 ml 122.3 ml Physical Exam Physical Exam General appearance - sedated but moving extremities he is on mechanical ventilation. Mental Status -sedated Head - normal on mechanical ventilation Chest -decreased breath sounds at bases Heart - S1 and S2 normal Abdomen - soft, non tender, ascites Neurological -sedated Extremities 2-3+ edema of the upper extremities Skin - warm and dry. No bleeding from the AV fistula on the right upper extremity Labs Laboratory Tests Test 02/05/20 11:32 02/05/20 17:35 02/05/20 18:22 02/06/20 00:05 Glucose (Fingerstick) 102 mg/dL (70-99) H 49 mg/dL (70-99) L 141 mg/dL (70-99) H 99 mg/dL (70-99) Meds Current Medications Medications (Trade) Dose Ordered Sig/Cheri Route PRN Reason Start Time Stop Time Status Last Admin Dose Admin Potassium Bicarbonate (Potassium Effervescent Tablet) 40 meq 1X ONCE PEG 02/05/20 13:00 02/05/20 13:01 DC 02/05/20 12:58 Assessment Assessment 1. 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 The patient underwent resection of the fistula and placement of a [place] graft. 2. End-stage renal disease, on hemodialysis. 3. Mechanical mitral valve, on Coumadin. 4. Cardiomyopathy, ejection fraction 10%. 5. History of cardiac event with arrhythmias and the patient was on vest at [facility]. 6. The patient is Nondenominational complicating the treatment plans. The patient is refusing any blood products. 7. Diabetes. 8. Hypertension. 9. Hyperlipidemia. 10. Recent tracheostomy, which was placed recently 3-4 weeks ago. PLAN: At this time, the patient was taken to emergency surgery for the AV shunt repair, placement of [place] graft and the patient was admitted to the ICU. Renal is consulted for dialysis. We will give some Irais xalate to bring the potassium down and a temporary dialysis catheter because the [place] graft could not be used for another 4 weeks and hold Coumadin, so that we can place the catheter and the patient is also on amiodarone for cardiac arrhythmias. We will have Cardiology follow while he is here in the hospital. AV fistula bleeding stable Acute on chronic blood loss anemia-hemoglobin has increased to 5. Acute hypotension-patient had dialysis yesterday. Required IV fluids. Improving. Start tube feeding. He is still on a small dose of Levophed. Patient is also on Coumadin so this complicates the situation. Continue iron, B complex, folic acid and vitamin C. Consult envelope machine adjuster. End-stage renal disease on hemodialysis-because of the fistula repair it cannot be used for 4 weeks. A left upper chest temporary dialysis catheter has been placed. Prosthetic mitral valve. INR was 2.9 yesterday. Hold Coumadin today. Today's INR is pending. Dyspnea may be due to anemia. I will consult do all operator. Oxygen has been increased to 4 L by nasal cannula. Order chest x-ray. Also consult kitchen steward. Discussed with patient extensively about the low hemoglobin but he does not want any transfusion. Complication such as cardiac arrhythmia, acute SD, congestive heart failure, stroke and sudden discussed with the patient. He still does not want any transfusion. Continue management in ICU. Prognosis of this patient is very poor. Patient has been seen by the envelope machine adjuster. No new changes in treatment. CODE BLUE due to severe bradycardia arrhythmia. Most likely due to his extremely low hemoglobin. I have previously discussed this with the patient several times but patient has declined to have blood transfusion. This morning I spoke to patient's Ada on the phone and condition, treatment, options extensively discussed with her. She wants him to be comfortable and does not w ant any compressions or electric shocks but would like to continue mechanical ventilation and hemodialysis and other treatments. She wants him to be comfortable. Also does not want any blood transfusion but was asking if there are any other alternative infusions that we can give. I have told her that the options are not going to replace the blood transfusion. He is already on [facility]. I have asked the staff to contact Dr. Jacobs to see if anything else can be done for the patient's anemia without blood transfusion. Prognosis remains extremely poor and this was discussed with the . Critical care management 45 minutes. Kwwopywmkcek-dvlhr-dwszdm insulin has been discontinued. Patient will only get very low-dose sliding scale insulin. Blood sugar control is better. Electrolyte imbalance-potassium is 3.2. Staff will check with the egg separator. Condition, treatment and options and very poor prognosis extensively discussed with the patient's and son at bedside. Family has requested to provide comfort care only. Labs and most of the medications have been discontinued. Continue IV morphine and Ativan. We will take him off the ventilator and leave him on the tracheostomy tube with trach shield as needed. She will get extra doses of IV morphine and Ativan. Discussed with staff. Plan Plan For more details regarding further plans, please refer to the orders. Justifications for Admission Other Justification JEAN BRUNSON MD Feb 06, 2020 09:05
--- NOTE | 2020-02-06 09:23 | PDOC ---
PULMONARY PROGRESS NOTES DATE: 02/06/20 TIME: 09:20 Subjective Remains mechanical ventilation with low-dose sedation, FiO2 of 35% and a PEEP of 5. Patient has persistent anemia as he is a [employer] and does not receive blood transfusions. Patient is now off vasopressor support No additional overnight concerns from nursing Vitals Vital Signs Date Time Temp Pulse Resp B/P (MAP) Pulse Ox O2 Delivery O2 Flow Rate FiO2 02/06/20 09:00 61 16 96/57 (70) 100 Ventilator 02/06/20 08:00 98.3 98.3 Comments On mechanical ventilation/sedation Lungs: Clear Cardiovascular: S1, S2 Abdomen: Soft Extremities: No Edema Skin: Warm Labs Laboratory Tests Test 02/04/20 16:25 02/05/20 00:01 02/05/20 04:30 02/05/20 05:59 White Blood Count 12.1 x10^3/uL (4.0-11.0) 9.3 x10^3/uL (4.0-11.0) Red Blood Count 1.75 x10^6/uL (4.30-5.70) 1.84 x10^6/uL (4.30-5.70) Hemoglobin 4.6 g/dL (13.0-17.5) 5.0 g/dL (13.0-17.5) Hematocrit 14.6 % (39.0-53.0) 15.9 % (39.0-53.0) Mean Corpuscular Volume 84 fL (79-100) 87 fL (79-100) Mean Corpuscular Hemoglobin 27 pg (25-35) 27 pg (25-35) Mean Corpuscular Hemoglobin Concent 32 g/dL (31-37) 32 g/dL (31-37) Red Cell Distribution Width 20.4 % (11.5-14.5) 21.3 % (11.5-14.5) Platelet Count 218 x10^3/uL (140-400) 239 x10^3/uL (140-400) Neutrophils (%) (Auto) 85 % (31-73) 83 % (31-73) Lymphocytes (%) (Auto) 5 % (24-48) 5 % (24-48) Monocytes (%) (Auto) 8 % (0-9) 11 % (0-9) Eosinophils (%) (Auto) 1 % (0-3) 1 % (0-3) Basophils (%) (Auto) 1 % (0-3) 1 % (0-3) Neutrophils # (Auto) 10.3 x10^3/uL (1.8-7.7) 7.7 x10^3/uL (1.8-7.7) Lymphocytes # (Auto) 0.6 x10^3/uL (1.0-4.8) 0.4 x10^3/uL (1.0-4.8) Monocytes # (Auto) 1.0 x10^3/uL (0.0-1.1) 1.0 x10^3/uL (0.0-1.1) Eosinophils # (Auto) 0.1 x10^3/uL (0.0-0.7) 0.1 x10^3/uL (0.0-0.7) Basophils # (Auto) 0.1 x10^3/uL (0.0-0.2) 0.1 x10^3/uL (0.0-0.2) Segmented Neutrophils % 92 % (35-66) Band Neutrophils % 1 % (0-9) Lymphocytes % 3 % (24-48) Monocytes % 4 % (0-10) Platelet Estimate Adequate (ADEQUATE) Hypochromasia Slight Anisocytosis Mod Target Cells Occ Sodium Level 135 mmol/L (136-145) 136 mmol/L (136-145) Potassium Level 3.3 mmol/L (3.5-5.1) 3.2 mmol/L (3.5-5.1) Chloride Level 100 mmol/L (98-107) 99 mmol/L (98-107) Carbon Dioxide Level 25 mmol/L (21-32) 24 mmol/L (21-32) Anion Gap 10 (6-14) 13 (6-14) Blood Urea Nitrogen 12 mg/dL (8-26) 17 mg/dL (8-26) Creatinine 1.7 mg/dL (0.7-1.3) 2.2 mg/dL (0.7-1.3) Estimated GFR (Cockcroft-Gault) 48.3 35.9 Glucose Level 89 mg/dL (70-99) 122 mg/dL (70-99) Calcium Level 8.5 mg/dL (8.5-10.1) 8.6 mg/dL (8.5-10.1) Glucose (Fingerstick) 96 mg/dL (70-99) 126 mg/dL (70-99) BUN/Creatinine Ratio 8 (6-20) Total Bilirubin 0.6 mg/dL (0.2-1.0) Aspartate Amino Transf (AST/SGOT) 206 U/L (15-37) Alanine Aminotransferase (ALT/SGPT) 48 U/L (16-63) Alkaline Phosphatase 156 U/L (46-116) Total Protein 6.5 g/dL (6.4-8.2) Albumin 2.0 g/dL (3.4-5.0) Albumin/Globulin Ratio 0.4 (1.0-1.7) Test 02/05/20 08:00 02/05/20 11:32 02/05/20 17:35 02/05/20 18:22 O2 Saturation 97 % (92-99) Arterial Blood pH 7.37 (7.35-7.45) Arterial Blood pCO2 at Patient Temp 42 mmHg (35-46) Arterial Blood pO2 at Patient Temp 101 mmHg (65-108) Arterial Blood HCO3 24 mmol/L (21-28) Arterial Blood Base Excess -2 mmol/L (-3-3) FiO2 40 Glucose (Fingerstick) 102 mg/dL (70-99) 49 mg/dL (70-99) 141 mg/dL (70-99) Test 02/06/20 00:05 Glucose (Fingerstick) 99 mg/dL (70-99) Laboratory Tests Test 02/05/20 11:32 02/05/20 17:35 02/05/20 18:22 02/06/20 00:05 Glucose (Fingerstick) 102 mg/dL (70-99) 49 mg/dL (70-99) 141 mg/dL (70-99) 99 mg/dL (70-99) Medications Active Scripts Medications Dose Route/Sig Max Daily Dose Days Date Category Dose Instructions Hydroxyzine Hcl 10 Mg/5 Ml Syrup 10 Mg PO TID 01/29/20 Reported Hydrocodone-Acetamin 5-325 mg (Hydrocodone/Acetaminophen) 1 Each Tablet 1 Each PO PRN Q6HRS PRN 01/29/20 Reported Glutose 15 (Dextrose) 37.5 Gm Gel..gram. 37.5 Gm PO PRN 01/29/20 Reported Cyclobenzaprine Hcl 10 Mg Tablet 1 Tab PO TID 01/29/20 Reported Tylenol (Acetaminophen) 325 Mg Tablet 2 Tab PO Q6HRS PRN 01/29/20 Reported Warfarin Sodium 2 Mg Tablet 2 Mg PO DAILY 01/29/20 Reported B-12 (Cyanocobalamin (Vitamin B-12)) 1,000 Mcg Tablet.er 1 Tab PO DAILY 30 01/29/20 Reported Senna-Docusate Sodium Tablet (Sennosides/Docusate Sodium) 1 Each Tablet 1 Tab PO HS 20 01/29/20 Reported Transderm-Scop (Scopolamine) 1 Each Patch.td72 1 Patch TP Q3DAYS 01/29/20 Reported Renal Caps Softgel (Folic Acid/Vitamin B Comp W-C) 1 Mg Capsule 1 Cap PO DAILY 30 01/29/20 Reported Miralax (Polyethylene Glycol 3350) 17 Gm Powd.pack 1 Packet PO DAILY 2 01/29/20 Reported dissolve in water Pantoprazole Sodium (Pantoprazole Sodium) 40 Mg Tablet.dr 40 Mg PO DAILYAC 01/29/20 Reported Midodrine Hcl 10 Mg Tablet 10 Mg PO TID 01/29/20 Reported Metoprolol Tartrate 25 Mg Tablet 0.5 Tab PO BID 01/29/20 Reported Reglan (Metoclopramide Hcl) 10 Mg Tablet 1 Tab PO TIDAC 30 01/29/20 Reported before food and bedtime Melatonin 3 Mg Capsule 3 Mg PO HS 01/29/20 Reported Magnesium Oxide 400 Mg Tablet 1 Tab PO BID 01/29/20 Reported Ipratropium [place] 0.2 Mg/1 Ml Solution 1 Vial NEB QID 01/29/20 Reported Humalog (Insulin Lispro) 100 Unit/1 Ml Vial 4 Unit SQ TIDAC 01/29/20 Reported Insulin Lispro 100 Unit/1 Ml Vial 0-6 Unit SQ TIDAC 01/29/20 Reported Renal-Karina Tablet (Folic Acid/Vit Bcomp,C) 0.8 Mg Tablet 1 Mg PO DAILY 01/29/20 Reported Ferrous Sulfate 220 Mg/5 Ml Solution 5 Ml PO DAILY 30 01/29/20 Reported Buspirone Hcl 5 Mg Tablet 1 Tab PO TID 01/29/20 Reported Budesonide 0.5 Mg/2 Ml Ampul.neb 1 Vial NEB BID 01/29/20 Reported Atorvastatin Calcium 40 Mg Tablet 1 Tab PO QHS 01/29/20 Reported Ascorbic Acid 500 Mg Tablet 500 Mg PO DAILY 01/29/20 Reported Amiodarone Hcl 400 Mg Tablet 1 Tab PO DAILY 30 01/29/20 Reported Comments CXR IMPRESSION: * Hypoexpanded exam with interstitial opacities bilaterally which could be from bilateral infiltrate or edema. There is a more focal component at the right midlung which could be from infiltrate or atelectasis. * Enlarged cardiomediastinal silhouette. Impression . IMPRESSION: Respiratory arrest/cardiac arrest Severe anemia Acute respiratory failure. The patient currently is on oxygen via nasal cannula . He has a tracheostomy, which is capped. [id number] blood loss anemia from AV fistula site. End-stage renal disease, on hemodialysis. Severe protein-calorie malnutrition. Severe cardiomyopathy with an EF of 10%. The patient is [employer]. Plan . Patient's family at bedside and wishes to proceed with comfort care measures at this time. We will palliatively extubate the patient Will provide comfort care measures such as IV morphine, Ativan and a scopolamine patch Social work has been consulted to follow for potential for hospice needs Discussed with RN and RT Critical care time without overlap 0800 AM to 0837 AM SAMANTHA MERCHANT MD Feb 06, 2020 09:23
[2020-02-06] MEDS ORDERED: MORPHINE SULFATE 10 MG/ML VIAL. IV ONE (09:45)
--- NOTE | 2020-02-06 10:44 | NUR ---
After discussions between the patient's , this RN, and the care team, comfort care was initiated at 1007 today. Patient was removed from ventilator and given comfort medications per Dr. Tsang's orders with family at bedside. Patient currently in no apparent distress. Family left after approx. 30 min and would like to be notified when time of is called.
[2020-02-06] MEDS: MORPHINE SULFATE 4 MG/ML VIAL. IV PRN ×5 (11:10→17:10)
--- NOTE | 2020-02-06 18:06 | NUR ---
Patient time of 1726. MTN notified, patient is not a candidate for donation. , Ada, was called with time of . Ada says she is on her way to visit the patient once more and will sign the record on arrival. notified of TOD. Patient belongings were taken with previously.
--- NOTE | 2020-02-07 09:49 | PDOC3 ---
IM DISCHARGE SUMMARY Date of Admission Date of Admission Date of Admission: Jan 29, 2020 at 16:12 Date of Discharge Date of Discharge February 06, 2020 Patient . Primary Diagnosis Primary Diagnosis 1. 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 The patient underwent resection of the fistula and placement of a Vancouver-Pan graft. 2. End-stage renal disease, on hemodialysis. 3. Mechanical mitral valve, on Coumadin. 4. Cardiomyopathy, ejection fraction 10%. 5. History of cardiac event with arrhythmias and the patient was on vest at [facility]. 6. The patient is Faith complicating the treatment plans. The patient is refusing any blood products. 7. Diabetes. 8. Hypertension. 9. Hyperlipidemia. 10. Recent tracheostomy, which was placed recently 3-4 weeks ago. Consults Consults Deleted Procedures Procedures Revision of AV fistula with placement of Vancouver-Pan graft Temporary dialysis catheter Tunneled dialysis catheter Brief hospital course Brief hospital course The patient is a 69-year-old male. Patient was admitted to [facility] on 01/15 and he is on end-stage renal disease, on dialysis. He also is a [employer] Witness and yesterday at the [facility], he had a major bleed from the AV shunt and blood was spurting from his AV shunt site. Pressure was applied and seen by the ER at [facility] and the patient was sent to [facility] and the patient was seen in the ER, taken to surgery by Dr. Kinsey, Vascular Surgery and the patient did a revision of the AV graft, there was a hole in that and Vancouver-Pan graft was placed to bypass the fistula and the patient was admitted to the ICU. Hemoglobin dropped to 6. As mentioned, the patient is Faith. He does not want any transfusion of blood products and the patient was initially admitted to the [facility] on 12/21 for respiratory failure, was found to have pneumonia, COVID was negative. The patient was on ventilator and not able to extubate and ended up with tracheostomy. He also had a bad cardiac heart disease. Ejection fraction 10%, chronic systolic heart failure. He also had a cardiac event there with V-tach. The patient was put on a vest. He also had an infection of the AV shunt and was treated with IV antibiotics for staph infection. He also has a mechanical mitral valve, on Coumadin for anticoagulation. The patient is on hemodialysis for at least 5 years and the patient was admitted to the ICU post-surgery and as mentioned above, the patient had a large ulceration over the right arm AV fistula, which had eroded into the fistula causing active bleeding and area of fistula was resected and replaced with a 6 x 10 Vancouver-Pan graft. The patient would need a temporary dialysis access catheter to do the dialysis. For more details regarding the past history, family history, social history, surgical history and other details, please refer to History and Physical. The patient was taken to emergency surgery for the AV shunt repair, placement of Vancouver-Pan graft and the patient was admitted to the ICU. Renal is consulted for dialysis. We will give some Irais xalate to bring the potassium down and a temporary dialysis catheter because the Vancouver-Pan graft could not be used for another 4 weeks and hold Coumadin, so that we can place the catheter and the patient is also on amiodarone for cardiac arrhythmias. We will have Cardiology follow while he is here in the hospital. AV fistula bleeding stable Acute on chronic blood loss anemia-hemoglobin has increased to 5. Acute hypotension-patient had dialysis yesterday. Required IV fluids. Improving. Start tube feeding. He is still on a small dose of Levophed. Patient is also on Coumadin so this complicates the situation. Continue iron, B complex, folic acid and vitamin C. Consult fellmongering machine operator. End-stage renal disease on hemodialysis-because of the fistula repair it cannot be used for 4 weeks. A left upper chest temporary dialysis catheter has been placed. Prosthetic mitral valve. INR was 2.9 yesterday. Hold Coumadin today. Today's INR is pending. Dyspnea may be due to anemia. I will consult college president. Oxygen has been increased to 4 L by nasal cannula. Order chest x-ray. Also consult bin packer. Discussed with patient extensively about the low hemoglobin but he does not want any transfusion. Complication such as cardiac arrhythmia, acute NV, congestive heart failure, stroke and sudden discussed with the patient. He still does not want any transfusion. Continue management in ICU. Prognosis of this patient is very poor. Patient has been seen by the fellmongering machine operator. No new changes in treatment. CODE BLUE due to severe bradycardia arrhythmia. Most likely due to his extremely low hemoglobin. I have previously discussed this with the patient several times but patient has declined to have blood transfusion. This morning I spoke to patient's Ada on the phone and condition, treatment, options extensively discussed with her. She wants him to be comfortable and does not want any compressions or electric shocks but would like to continue mechanical ventilation and hemodialysis and other treatments. She wants him to be comfortable. Also does not want any blood transfusion but was asking if there are any other alternative infusions that we can give. I have told her that the options are not going to replace the blood transfusion. He is already on multiple hematinics. I have asked the staff to contact Dr. Jacobs to see if anything else can be done for the patient's anemia without blood transfusion. Prognosis remains extremely poor and this was discussed with the . Critical care management 45 minutes. Qlxnsznchrsl-wqifn-jirsll insulin has been discontinued. Patient will only get very low-dose sliding scale insulin. Blood sugar control is better. Electrolyte imbalance-potassium is 3.2. Staff will check with the door core assembler. Condition, treatment and options and very poor prognosis extensively discussed with the patient's and son at bedside. Family has requested to provide comfort care only. Labs and most of the medications have been discontinued. Continue IV morphine and Ativan. We will take him off the ventilator and leave him on the tracheostomy tube with trach shield as needed. He will get extra doses of IV morphine and Ativan. Patient remained comfortable and on February 06, 2020. Medications Current Medications Medications (Trade) Dose Ordered Sig/Cheri Route PRN Reason Start Time Stop Time Status Last Admin Dose Admin Morphine Sulfate (Morphine Sulfate) 10 mg 1X ONCE IV 02/06/20 09:45 02/06/20 10:17 DC 02/06/20 10:07 Morphine Sulfate (Morphine Sulfate) 4 mg PRN Q1HR PRN IV PAIN 02/06/20 11:00 02/06/20 18:05 DC 02/06/20 17:10 Medications reviewed and reconciled for discharge. Allergy Allergies Coded Allergies Type Severity Reaction Last Updated Verified Penicillins Allergy Intermediate 01/29/20 Yes Comments Discharge Management - 35 minutes. For other details please refer to discharge instructions Justicifation of Admission Dx: Justifications for Admission: Justification of Admission Dx: Yes JEAN BRUNSON MD Feb 07, 2020 09:49
== END 2020-02-06 17:26 | disposition expired | DRG 252 ==
LOC: ER 12:31 → 1 WEST ICU 16:12 → 2 NORTH 02-02 06:19 → 1 WEST ICU 02-04 06:14
PROVIDERS: ADMIT Internal Medicine; ATTEND Internal Medicine
PROC: 03WY0JZ Revision of Synthetic Substitute in Upper Artery, Open Approach (ICD-10-PCS; principal; 2020-01-29 14:45)
PROC: 5A1D70Z Performance of Urinary Filtration, Intermittent, Less than 6 Hours Per Day (ICD-10-PCS; 2020-01-31)
PROC: 02HV33Z Insertion of Infusion Device into Superior Vena Cava, Percutaneous Approach (ICD-10-PCS; 2020-01-31)
PROC: B548ZZA Ultrasonography of Superior Vena Cava, Guidance (ICD-10-PCS; 2020-01-31)
PROC: 02PYX3Z Removal of Infusion Device from Great Vessel, External Approach (ICD-10-PCS; 2020-02-01)
PROC: 02H633Z Insertion of Infusion Device into Right Atrium, Percutaneous Approach (ICD-10-PCS; 2020-02-01)
PROC: 0JH63XZ Insertion of Tunneled Vascular Access Device into Chest Subcutaneous Tissue and Fascia, Percutaneous Approach (ICD-10-PCS; 2020-02-01)
PROC: B5181ZA Fluoroscopy of Superior Vena Cava using Low Osmolar Contrast, Guidance (ICD-10-PCS; 2020-02-01)
PROC: B548ZZA Ultrasonography of Superior Vena Cava, Guidance (ICD-10-PCS; 2020-02-01)
PROC: 5A1D70Z Performance of Urinary Filtration, Intermittent, Less than 6 Hours Per Day (ICD-10-PCS; 2020-02-02)
PROC: 5A1D70Z Performance of Urinary Filtration, Intermittent, Less than 6 Hours Per Day (ICD-10-PCS; 2020-02-04)
PROC: 5A1D70Z Performance of Urinary Filtration, Intermittent, Less than 6 Hours Per Day (ICD-10-PCS; 2020-02-04)
DX: T82.838A Hemorrhage due to vascular prosthetic devices, implants and grafts, initial encounter (principal); N18.6 End stage renal disease; E43 Unspecified severe protein-calorie malnutrition; I50.23 Acute on chronic systolic (congestive) heart failure; J96.20 Acute and chronic respiratory failure, unspecified whether with hypoxia or hypercapnia; D62 Acute posthemorrhagic anemia; I13.2 Hypertensive heart and chronic kidney disease with heart failure and with stage 5 chronic kidney disease, or end stage renal disease; I42.0 Dilated cardiomyopathy; I47.2 Ventricular tachycardia; J44.1 Chronic obstructive pulmonary disease with (acute) exacerbation; N25.81 Secondary hyperparathyroidism of renal origin; I46.9 Cardiac arrest, cause unspecified; B95.8 Unspecified staphylococcus as the cause of diseases classified elsewhere; D63.1 Anemia in chronic kidney disease; E11.22 Type 2 diabetes mellitus with diabetic chronic kidney disease; E11.649 Type 2 diabetes mellitus with hypoglycemia without coma; E78.00 Pure hypercholesterolemia, unspecified; E78.5 Hyperlipidemia, unspecified; E87.5 Hyperkalemia; F03.90 Unspecified dementia, unspecified severity, without behavioral disturbance, psychotic disturbance, mood disturbance, and anxiety; F17.200 Nicotine dependence, unspecified, uncomplicated; I25.10 Atherosclerotic heart disease of native coronary artery without angina pectoris; I27.20 Pulmonary hypertension, unspecified; I48.0 Paroxysmal atrial fibrillation; I49.8 Other specified cardiac arrhythmias; Y83.2 Surgical operation with anastomosis, bypass or graft as the cause of abnormal reaction of the patient, or of later complication, without mention of misadventure at the time of the procedure; Y84.1 Kidney dialysis as the cause of abnormal reaction of the patient, or of later complication, without mention of misadventure at the time of the procedure; Z20.828 Contact with and (suspected) exposure to other viral communicable diseases; Z51.5 Encounter for palliative care; Z53.1 Procedure and treatment not carried out because of patient's decision for reasons of belief and group pressure; Z79.01 Long term (current) use of anticoagulants; Z93.0 Tracheostomy status; Z95.2 Presence of prosthetic heart valve; Z95.5 Presence of coronary angioplasty implant and graft; Z99.2 Dependence on renal dialysis; F41.9 Anxiety disorder, unspecified; M19.90 Unspecified osteoarthritis, unspecified site
CPT/HCPCS: 31720; 36415; 36556; 36581; 36600; 71045; 74018; 76937; 77001; 80048; 80053; 82607; 82668; 82728; 82805; 82962; 83540; 83550; 83735; 84484; 85007; 85025; 85045; 85610; 86706; 86850; 86900; 86901; 87340; 87426; 93005; 94002; 94003; 94640; 94644; 94760; 96374; 96375; 99285; A7015; C1750; C1769; C1892; J0461; J0690; J0882; J1644; J1815; J2060; J2250; J2270; J2370; J2405; J2440; J3010; J3490; J7040; J7060; P9046; G0378; J7613; J7626; J7644; U0003-CS